=== PATIENT | male | born 1945 | race Caucasian/White ===

== ENCOUNTER → 2020-05-05 | Outpatient (CLI) | payer MEDICARE, OTHER ==
--- NOTE | 2020-05-05 21:32 | CT ---
EXAMINATION TYPE: CT abdomen pelvis wo con DATE OF EXAM: 05/05/2020 HISTORY: Bilateral flank pain and gross hematuria. CT DLP: 398.2 mGycm. Automated Exposure Control for Dose Reduction was Utilized. TECHNIQUE: CT scan of the abdomen and pelvis is performed without oral or IV contrast. COMPARISON: NONE FINDINGS: Within the limitations of a non-contrast study, the following observations are made. LUNG BASES: There is emphysematous change in the basis with moderate areas of scarring and mild groun dglass opacity bilaterally and diffusely. Occasional scattered bleb. More prominent anterior scarring bilaterally. LIVER/GB: Cholecystectomy clips with adjacent streak artifact. PANCREAS: Mild to moderate generalized fat replaced atrophy. SPLEEN: Multiple clips surrounding spleen extending anteriorly inferiorly with adjacent streak artifa ct. ADRENALS: No significant abnormality is seen. KIDNEYS: Left kidney shows 3 fairly large calculi. Calculus upper to midpole level measures 12 mm temitope g axis coronal image 52. Central pelvic calcification measures 12 mm long axis coronal image 47. No h ydronephrosis. Right kidney shows larger staghorn 17 mm calculus in the pelvis coronal image 54 with mild pelvic ful lness and surrounding fat stranding. No hydroureter. No significant calyceal dilatation. No intralumi nal calculi in the bladder, small diverticulum posterior right margin axial image 124 noted. BOWEL: Suboptimal evaluation without enteric contrast. No suspicious small or large bowel dilatation. Surgical sutures at level of sigmoid colon in the pelvis axial image 116. GENITAL ORGANS: Markedly enlarged prostate gland indenting into bladder base. LYMPH NODES: No greater than 1cm abdominal or pelvic lymph nodes are appreciated. OSSEOUS STRUCTURES: Moderate to advanced degenerative change in both hip joints with joint space narr owing and spurring. Heterotopic ossification present bilaterally. Suspect old healed fracture right p ubic symphysis with heterotopic ossification extending anteriorly superiorly. Demineralization with n arrowing of both sacroiliac joints. Straightening of spine with moderate multilevel spurring. Facet a rthropathy lower lumbar levels. OTHER: Multiple surgical clips along the left abdomen and upper pelvis. Moderate calcified plaque dis raleigh abdominal aorta extending into iliac branch vessels. IMPRESSION: 1. Large bilateral renal calculi as detailed above. Right-sided calculus believed to be causing some calyceal irritation. 2. Markedly enlarged prostate gland consistent with BPH.
== END | disposition home or self-care (01) ==
LOC: RADCTMAIN 15:51
PROVIDERS: ATTEND Family Medicine
DX: N20.0 Calculus of kidney (principal); N28.89 Other specified disorders of kidney and ureter
CPT/HCPCS: 74176

== ENCOUNTER → 2020-07-09 | Outpatient (CLI) | payer MEDICARE, OTHER ==
[2020-07-09 11:21] LABS: Basophils % (A) 1 %; Eosinophils # (A) 0.2 k/uL (0-0.7); Eosinophils % (A) 4 %; HCT 42.9 % (39.0-53.0); HGB 13.3 gm/dL (13.0-17.5); Hypochromasia Moderate; Lymphocytes # (A) 1.8 k/uL (1.0-4.8); Lymphocytes % (A) 27 %; MCV 90.4 fL (80.0-100.0); Mean Platelet Volume 7.5; Monocytes # (A) 0.5 k/uL (0-1.0); Monocytes % (A) 8 %; Neutrophils # (A) 3.9 k/uL (1.3-7.7); Neutrophils % (A) 59 %; Platelet Count 190 k/uL (150-450); RBC 4.75 m/uL (4.30-5.90); RDW 13.1 % (11.5-15.5); WBC 6.6 k/uL (3.8-10.6)
[2020-07-09 11:28] LABS: African American GFR (CKD) >90 (>60 ml/min/1.73 sqM); Anion Gap 4 mmol/L; Blood Urea Nitrogen 19 mg/dL (9-20); Carbon Dioxide 28 mmol/L (22-30); Chloride 107 mmol/L (98-107); Glucose 102 mg/dL (74-99); Non-African American GFR(CKD) 85 (>60 ml/min/1.73 sqM); Potassium 5.4 mmol/L (3.5-5.1); Sodium 139 mmol/L (137-145)
[2020-07-09 12:11] LABS: Appearance,Urine Clear (Clear); Bacteria,Urine Rare /hpf; Bilirubin,Urine Negative (Negative); Blood,Urine Large (Negative); Color,Urine Yellow; Glucose,Urine (UA) Negative (Negative); Ketones,Urine Negative (Negative); Leukocyte Esterase,Urine Negative (Negative); Mucus,Urine Rare /hpf; Nitrite,Urine Negative (Negative); PH, Urine 5.5 (5.0-8.0); Protein,Urine Negative (Negative); RBC,Urine 39 /hpf (0-5); Specific Gravity,Urine 1.013 (1.001-1.035); Urobilinogen,Urine <2.0 mg/dL (<2.0); WBC,Urine 7 /hpf (0-5)
== END | disposition home or self-care (01) ==
LOC: LABPAT 09:17
PROVIDERS: ATTEND Urology
DX: Z01.818 Encounter for other preprocedural examination (principal); N20.0 Calculus of kidney; R31.21 Asymptomatic microscopic hematuria
CPT/HCPCS: 36415; 80048; 81001; 85025; 87086

== ENCOUNTER → 2020-07-16 | Day surgery (SDC) | payer MEDICARE, OTHER ==
[2020-07-13 15:28] VITALS: BMI 24.2
[~2020-07-16] MED LIST: DEXAMETHASONE SOD PHOSPHATE 10 MG/ML 1 ML VIAL IV ONE; GENTAMICIN 110 MG in SODIUM CHLORIDE 0.9% 100 ML IVPB ONE; IOPAMIDOL-370 50ML BTL MISCELLANE ONE; LACTATED RINGERS 1,000 ML IV ONE; LACTATED RINGERS 1,000 ML IV SCH; LIDOCAINE 1% (10MG/ML) FOR IV START INTRADERMA PRN; LIDOCAINE 1% INJ 10MG/ML (20 ML MDV) ONE; MIDAZOLAM 2 MG/2 ML VIAL ONE; ONDANSETRON 4 MG/2 ML VIAL IVP ONE; PROPOFOL 10 MG/ML 20 ML VIAL IV ONE; ePHEDrine SULFATE/0.9% NACL/PF 50 MG/5 ML SYRINGE IV ONE; fentaNYL (PF) 50 MCG/ML 2 ML AMP ONE; traMADol 50 MG TAB ONE; traMADol 50 MG TAB PO ONE
--- NOTE | 2020-07-16 11:55 | XR ---
EXAMINATION TYPE: XR KUB DATE OF EXAM: 07/16/2020 11:37 AM CLINICAL HISTORY: Preoperative. Bilateral kidney stones. TECHNIQUE: Supine images of the abdomen and pelvis were obtained COMPARISON: CT abdomen pelvis 05/05/2020.. FINDINGS: There is 2.0 x 1.7 cm calcification over the right interpolar renal shadow. There is 1.3 cm calcification over the left renal upper pole, 1.3 cm calcification over the interpolar kidney, and 0 .9 cm calcification of the left renal lower pole. Calcified splenic artery. Right upper quadrant surg ical clips, left hemiabdominal surgical clips, and pelvic suture material. Nonspecific bowel gas bruno fabio. Degenerative changes of the spine and bilateral hips. IMPRESSION: 1. 2.0 x 1.7 cm calcification of the right interpolar renal shadow. 2. 3 calcifications over the left renal shadow, measuring up to 1.3 cm. 3. Nonspecific bowel gas pattern.
--- NOTE | 2020-07-16 13:41 | P.HPIHPCON ---
History of Present Illness H&P Date: 07/16/20 Chief Complaint: bilateral renal calculi Mr. Espinal is 75 yo male with hx of bilateral renal calculi, he is more symptomatic on the right side. He is KUB demonstrated 2 cm stone on the right and multiple stones on the left. Discussed with him given his stone burden he well most likely will require a minimum of 3 ureteroscopy's to completely clear or his entire stone burden. I did discussed with him the option of doing a PCNL he declined he preferred to proceed with right sided ureteroscopy discussed with him the risks which includes but not limited to bleeding infection injury to the ureter. He understood all the risk and agree to proceed with right-sided ureter oscopy possibly staged and then this will be followed by left-sided ureteroscopy separately Consent for Procedure: I have explained the operation/procedure to the patient, including the risks, benefits, side effects, alternative therapies (including not receiving the proposed treatment or service), the likelihood of the patient achieving his/her goals, and potential recuperation problems for the procedure/sedation/analgesia, as well as any blood products, if indicated. I also explained to the patient the risks, benefits and side effects of the alternatives, as well as the risks related to not receiving the proposed procedure, care, treatment, or services. - Constitutional Constitutional: Denies chills, Denies fever - Cardiovascular Cardiovascular: Denies chest pain, Denies shortness of breath - Respiratory Respiratory: Denies cough, Denies 7 - Gastrointestinal Gastrointestinal: Denies abdominal pain, Denies diarrhea, Denies nausea, Denies vomiting Past Medical History Past Medical History: Atrial Fibrillation, Cancer, COPD, Hypertension, Prostate Disorder Additional Past Medical History / Comment(s): kidney stones, melanoma, pulmonary fibrosis,myositis ossificans of joints, hx leaking bowels hospitalized april -sep 1987 with acute renal failure with dialysis, sepsis,cardiac arrest x2. resulted bowel resection History of Any Multi-Drug Resistant Organisms: None Reported Past Surgical History: Appendectomy, Bowel Resection, Cholecystectomy Additional Past Surgical History / Comment(s): melanoma removed from nose, bowel resection x2, calcification removed deborah hips,deborah knees,shoulder,trach. colostomy with reversal Past Anesthesia/Blood Transfusion Reactions: Previous Problems w/ Anesthesia Additional Past Anesthesia/Blood Transfusion Reaction / Comment(s): spine calcified has had difficulty when spinal placed Smoking Status: Former smoker - Past Family History Sister(s) Family Medical History: Cancer Father Family Medical History: Cancer Medications and Allergies Home Medications Medication Instructions Recorded Confirmed Type ALPRAZolam [Xanax] 0.25 mg PO BID 07/13/20 07/13/20 History Albuterol Inhaler [Ventolin Hfa 2 puff INHALATION BID 07/13/20 07/13/20 History Inhaler] Aspirin [Adult Low Dose Aspirin EC] 81 mg PO DAILY 07/13/20 07/13/20 History Atorvastatin [Lipitor] 40 mg PO HS 07/13/20 07/13/20 History Carvedilol [Coreg] 12.5 mg PO BID 07/13/20 07/13/20 History Gabapentin [Neurontin] 200 mg PO HS 07/13/20 07/13/20 History Lisinopril [Prinivil] 10 mg PO DAILY 07/13/20 07/13/20 History Multivitamins, Thera [Multivitamin 1 tab PO DAILY 07/13/20 07/13/20 History (formulary)] Rivaroxaban [Xarelto] 20 mg PO DAILY 07/13/20 07/13/20 History Tamsulosin HCl [Flomax] 0.8 mg PO DAILY 07/13/20 07/13/20 History traMADol HCL [Ultram] 50 mg PO TID PRN 07/13/20 07/13/20 History Allergies Allergy/AdvReac Type Severity Reaction Status Date / Time iodine Allergy Anaphylaxis Verified 07/13/20 15:11 Surgical - Exam Vital Signs Temp Pulse Resp BP Pulse Ox 97.0 F L 66 18 142/86 96 07/16/20 11:50 07/16/20 11:50 07/16/20 11:50 07/16/20 11:50 07/16/20 11:50 - General well developed, well nourished, no distress - Respiratory normal expansion, normal respiratory effort - Abdomen Abdomen: soft, non tender Results - Labs 07/16/20 12:00 Diabetes panel 07/16/20 Range/Units 12:00 Potassium 5.1 (3.5-5.1) mmol/L Pituitary panel 07/16/20 Range/Units 12:00 Potassium 5.1 (3.5-5.1) mmol/L Adrenal panel 07/16/20 Range/Units 12:00 Potassium 5.1 (3.5-5.1) mmol/L Assessment and Plan Assessment: 75-year-old male with history of bilateral renal stone -Or for right-sided ureteroscopy, holmium laser lithotripsy, stone basketing, and stent placement. This potential's case will be staged
[2020-07-16 15:29] VITALS: TEMP 97.6
[2020-07-16] MEDS: HYDROmorphone 0.5 MG/0.5 ML SYRINGE IVP PRN ×2 (15:38→15:44)
--- NOTE | 2020-07-16 15:52 | P.OP ---
Date of Procedure: 07/16/20 Preoperative Diagnosis: Bilateral renal calculi Postoperative Diagnosis: Same Procedure(s) Performed: Cystoscopy, bilateral, ureteroscopy, ureteral stent placement Implants: 6-Beninese by 26 cm stent bilaterally Anesthesia: DEE Surgeon: Ab Shelby Estimated Blood Loss (ml): 10 Pathology: none sent Condition: stable Disposition: PACU Indications for Procedure: Mr. Espinal is 75 yo male with hx of bilateral renal calculi, he is more symptomatic on the right side. He is KUB demonstrated 2 cm stone on the right and multiple stones on the left. Discussed with him given his stone burden he well most likely will require a minimum of 3 ureteroscopy's to completely clear or his entire stone burden. I did discussed with him the option of doing a PCNL he declined he preferred to proceed with right sided ureteroscopy discussed with him the risks which includes but not limited to bleeding infection injury to the ureter. He understood all the risk and agree to proceed with right-sided ureteroscopy possibly staged and then this will be followed by left-sided ureteroscopy separately Operative Findings: Bilateral medialization of the ureter, bilateral proximal ureteral narrowing unable to pass the access sheath and the scope past the area of narrowing Description of Procedure: The patient was brought to the operating room, general anesthesia was induced. He was prepped and draped in sterile fashion placed in a dorsal lithotomy position. Cystoscopy fitted with a 21 sheath was inserted per urethra, cystoscopy was performed which showed no abnormality within the bladder. Of note patient had a large prostate with significant medial lobe with intravesical extension. There was difficulty visualizing the UO secondary to the large median lobe. The right ureteral orifice was intubated with a sensor wire, and advanced all the way up to the kidney. Of note there was medialization of the ureter and a torturous course of the ureter. Next a 11-13 Beninese access sheath was passed over the wire under fluoroscopy. Resistance was met at the proximal ureter. At this point a flexible ureteroscope was inserted through the access sheath, I then attempted to pass the ureteroscope through the access sheath and through the area of narrowing, but resistance was met secondary to narrowing of the ureter, a small false passage was encoutered. At this point given the narrowing and small false passage, decision was made to abort the ureteroscopy. At this point a sensor wire was advanced through the scope and into the renal pelvis. Next a 6-Beninese by 26 cm stent was passed over the wire, the proximal curl was visualized on fluoroscopy and distal curl was visualized using the scope. At this point attention was carried to the left ureteral orifice which was intubated with a sensor wire. . Of note there was medialization of the ureter. An 11 x 13-Beninese access sheath was passed over the wire into the mid ureter. Resistance met at that level. Next a flexible ureteroscope was inse rted through the access sheath there was a narrowing of the ureter, I attempted to pass the scope past the narrowing but resistance was met. Given the narrowing on that side decision was made to abort ureteroscopy. A sensor wire was passed through the ureteroscope and the ureteroscope was withdrawn with wire in place. Next a 6-Beninese by 26 c m stent was passed over the wire. The proximal curl was visualized on fluoroscopy and distal curl was visualized using the cystoscope. The bladder was emptied and into the case. Patient tolerated the procedure well was taken to PACU in stable condition
--- NOTE | 2020-07-16 16:07 | FL ---
EXAMINATION TYPE: FL guidance operating room DATE OF EXAM: 07/16/2020 CLINICAL HISTORY: Ureteroscopy TECHNIQUE: Fluoroscopy. COMPARISON: None. FINDINGS: Fluoroscopic guidance was provided during procedure for performing physician. A total of 47 seconds of fluoroscopic time was utilized during the procedure and 1 spot images was acquired. IMPRESSION: As Above.
[2020-07-16 16:18] VITALS: BP 148/81; PULSE 61; RESP 17
== END ==
LOC: OR 11:26
PROVIDERS: ATTEND Urology
DX: N20.0 Calculus of kidney (principal); Z87.442 Personal history of urinary calculi; I48.91 Unspecified atrial fibrillation; J44.9 Chronic obstructive pulmonary disease, unspecified; I10 Essential (primary) hypertension; Z90.49 Acquired absence of other specified parts of digestive tract; N42.9 Disorder of prostate, unspecified; Z87.891 Personal history of nicotine dependence; Z85.820 Personal history of malignant melanoma of skin; J84.10 Pulmonary fibrosis, unspecified; Z80.9 Family history of malignant neoplasm, unspecified; Z79.899 Other long term (current) drug therapy; Z79.82 Long term (current) use of aspirin; Z79.02 Long term (current) use of antithrombotics/antiplatelets; Z79.891 Long term (current) use of opiate analgesic; Z91.041 Radiographic dye allergy status; Z79.01 Long term (current) use of anticoagulants
CPT/HCPCS: 84132; 74018; 52332; C2625; C1769; J2250; J1100; J0690; J2405; J2001; J3010; J1580; J2704; J1170; Q9967

== ENCOUNTER 2020-07-28 15:24 | Inpatient (IN) | payer MEDICARE, OTHER ==
[2020-07-28] MEDS ORDERED: DILTIAZEM DRIP BOLUS FROM BAG 1 MG SOLN IV ONE (15:32)
[2020-07-28] MEDS ORDERED: SODIUM CHLORIDE 0.9% 1,000 ML IV STA (15:32)
--- NOTE | 2020-07-28 15:34 | ED ---
General Adult HPI - General Stated complaint: SVT Time Seen by Provider: 07/28/20 15:32 Source: patient, EMS, RN notes reviewed Mode of arrival: EMS Limitations: no limitations - History of Present Illness Initial comments: Patient is a pleasant 75-year-old male presenting to the emergency Department with palpitations. Onset was a couple hours ago. Patient has associated chest pain and dyspnea that are both very mild at this time. EMS did provide adenosine 6, 12, 12 with transient slowing of the heart rate. Patient did feel near syncopal episode. Symptoms are minimal at this time. Patient does have a history of similar symptoms previously however is unclear why. Patient is on Xarelto. Patient states this was started with his previous episode. - Related Data Home Medications Medication Instructions Recorded Confirmed ALPRAZolam [Xanax] 0.25 - 0.5 mg PO DAILY PRN 07/13/20 07/28/20 Albuterol Inhaler [Ventolin Hfa 2 puff INHALATION RT-Q6H PRN 07/13/20 07/28/20 Inhaler] Aspirin [Adult Low Dose Aspirin EC] 81 mg PO DAILY 07/13/20 07/28/20 Atorvastatin [Lipitor] 40 mg PO HS 07/13/20 07/28/20 Carvedilol [Coreg] 12.5 mg PO BID 07/13/20 07/28/20 Gabapentin [Neurontin] 200 mg PO HS 07/13/20 07/28/20 Lisinopril [Prinivil] 10 mg PO DAILY 07/13/20 07/28/20 Multivitamins, Thera [Multivitamin 1 tab PO DAILY 07/13/20 07/28/20 (formulary)] Rivaroxaban [Xarelto] 20 mg PO DAILY 07/13/20 07/28/20 Tamsulosin HCl [Flomax] 0.8 mg PO DAILY 07/13/20 07/28/20 Previous Rx's Medication Instructions Recorded traMADol HCL [Ultram] 50 mg PO Q6HR PRN 3 Days #12 tab 07/16/20 Allergies Allergy/AdvReac Type Severity Reaction Status Date / Time iodine Allergy Anaphylaxis Verified 07/28/20 15:44 Review of Systems ROS Statement: Those systems with pertinent positive or pertinent negative responses have been documented in the HPI. ROS Other: All systems not noted in ROS Statement are negative. Constitutional: Denies: fever Eyes: Denies: eye pain ENT: Denies: ear pain Respiratory: Reports: dyspnea. Denies: cough Cardiovascular: Reports: chest pain Endocrine: Denies: fatigue Gastrointestinal: Denies: abdominal pain Genitourinary: Denies: dysuria Musculoskeletal: Denies: back pain Skin: Denies: rash Neurological: Denies: weakness General Exam Limitations: no limitations General appearance: alert Head exam: Present: normocephalic Eye exam: Present: normal appearance, PERRL ENT exam: Present: normal oropharynx Neck exam: Present: normal inspection Respiratory exam: Present: normal lung sounds bilaterally Cardiovascular Exam: Present: tachycardia Expanded Peripheral pulses: 2+: Radial (R), Radial (L), Dorsalis Pedis (R), Dorsalis Pedis (L) GI/Abdominal exam: Present: soft. Absent: tenderness Extremities exam: Present: normal inspection. Absent: pedal edema, calf tenderness Neurological exam: Present: alert Psychiatric exam: Present: normal affect, normal mood Skin exam: Present: normal color Course Vital Signs 07/28/20 07/28/20 15:27 15:47 Temperature 98.2 F Pulse Rate 210 H 106 H Respiratory 18 18 Rate Blood Pressure 108/94 116/85 O2 Sat by Pulse 99 99 Oximetry - Reevaluation(s) Reevaluation #1: 07/28/20 15:33 I did review rhythm strip by EMS following 6 programs of adenosine with slowing of the heart rate with appearance of underlying flutter waves. 07/28/20 15:52 Repeat EKG at 1548 shows a flutter with a rate of 114. QRS 140. QT 398. QTC 540. Left axis. Right bundle branch block. Inferior Q waves. Nonspecific T waves. EKG Findings - EKG Comments: EKG Findings:: toxic tachycardia with rate 12. pr 128. qrs 148. qt 210. qtc 394. superior axis. right bundle branch block. left posterior fascicular block. q waves in 3. nonspecific st-t. Medical Decision Making - Medical Decision Making Patient reevaluated. Heart rate 117. Patient and family updated on results and plan. Case discussed in detail with Dr. Estrada, who will admit covering for Dr. Patience Silva. Patient did convert with 10 mg IV push of Cardizem. - Lab Data Result diagrams: 07/28/20 15:38 07/28/20 15:38 Lab Results 07/28/20 07/28/20 07/28/20 Range/Units 15:38 15:38 15:38 WBC 7.1 (3.8-10.6) k/uL RBC 4.47 (4.30-5.90) m/uL Hgb 12.3 L (13.0-17.5) gm/dL Hct 39.1 (39.0-53.0) % MCV 87.4 (80.0-100.0) fL MCH 27.4 (25.0-35.0) pg MCHC 31.4 (31.0-37.0) g/dL RDW 13.4 (11.5-15.5) % Plt Count 192 (150-450) k/uL Neutrophils % 63 % Lymphocytes % 23 % Monocytes % 8 % Eosinophils % 4 % Basophils % 1 % Neutrophils # 4.5 (1.3-7.7) k/uL Lymphocytes # 1.6 (1.0-4.8) k/uL Monocytes # 0.6 (0-1.0) k/uL Eosinophils # 0.3 (0-0.7) k/uL Basophils # 0.1 (0-0.2) k/uL Hypochromasia Slight PT 10.9 (9.0-12.0) sec INR 1.1 (<1.2) APTT 25.6 (22.0-30.0) sec Sodium 139 (137-145) mmol/L Potassium 5.1 (3.5-5.1) mmol/L Chloride 110 H (98-107) mmol/L Carbon Dioxide 25 (22-30) mmol/L Anion Gap 4 mmol/L BUN 21 H (9-20) mg/dL Creatinine 0.99 (0.66-1.25) mg/dL Est GFR (CKD-EPI)AfAm 87 (>60 ml/min/1.73 sqM) Est GFR (CKD-EPI)NonAf 75 (>60 ml/min/1.73 sqM) Glucose 119 H (74-99) mg/dL Calcium 8.2 L (8.4-10.2) mg/dL Magnesium 1.9 (1.6-2.3) mg/dL Total Bilirubin 0.5 (0.2-1.3) mg/dL AST 25 (17-59) U/L ALT 14 (4-49) U/L Alkaline Phosphatase 73 (38-126) U/L Troponin I (0.000-0.034) ng/mL Total Protein 5.5 L (6.3-8.2) g/dL Albumin 3.3 L (3.5-5.0) g/dL TSH 0.773 (0.465-4.680) mIU/L 07/28/20 Range/Units 15:38 WBC (3.8-10.6) k/uL RBC (4.30-5.90) m/uL Hgb (13.0-17.5) gm/dL Hct (39.0-53.0) % MCV (80.0-100.0) fL MCH (25.0-35.0) pg MCHC (31.0-37.0) g/dL RDW (11.5-15.5) % Plt Count (150-450) k/uL Neutrophils % % Lymphocytes % % Monocytes % % Eosinophils % % Basophils % % Neutrophils # (1.3-7.7) k/uL Lymphocytes # (1.0-4.8) k/uL Monocytes # (0-1.0) k/uL Eosinophils # (0-0.7) k/uL Basophils # (0-0.2) k/uL Hypochromasia PT (9.0-12.0) sec INR (<1.2) APTT (22.0-30.0) sec Sodium (137-145) mmol/L Potassium (3.5-5.1) mmol/L Chloride (98-107) mmol/L Carbon Dioxide (22-30) mmol/L Anion Gap mmol/L BUN (9-20) mg/dL Creatinine (0.66-1.25) mg/dL Est GFR (CKD-EPI)AfAm (>60 ml/min/1.73 sqM) Est GFR (CKD-EPI)NonAf (>60 ml/min/1.73 sqM) Glucose (74-99) mg/dL Calcium (8.4-10.2) mg/dL Magnesium (1.6-2.3) mg/dL Total Bilirubin (0.2-1.3) mg/dL AST (17-59) U/L ALT (4-49) U/L Alkaline Phosphatase (38-126) U/L Troponin I 0.013 (0.000-0.034) ng/mL Total Protein (6.3-8.2) g/dL Albumin (3.5-5.0) g/dL TSH (0.465-4.680) mIU/L - Radiology Data Radiology results: image reviewed (Chest x-ray does show moderate to severe chronic parenchymal fibrotic changes.) Critical Care Time Critical Care Time: Yes Total Critical Care Time: 34 Disposition Clinical Impression: Atrial flutter with rapid ventricular response Disposition: ADMITTED IP TO THIS HOSP Is patient prescribed a controlled substance at d/c from ED?: No Referrals: Darrick Mondragon DO [Primary Care Provider] - 1-2 days Decision Time: 16:57
[2020-07-28] MEDS ORDERED: DILTIAZEM 5 MG/ML 10 ML VIAL IVP STA (15:35)
[2020-07-28] MEDS: DILTIAZEM 125 MG in SODIUM CHLORIDE 0.9% 100 ML IV SCH (15:45)
[2020-07-28 15:51] LABS: Basophils # (A) 0.1 k/uL (0-0.2); Basophils % (A) 1 %; Eosinophils # (A) 0.3 k/uL (0-0.7); Eosinophils % (A) 4 %; HCT 39.1 % (39.0-53.0); HGB 12.3 gm/dL (13.0-17.5); Hypochromasia Slight; Lymphocytes # (A) 1.6 k/uL (1.0-4.8); Lymphocytes % (A) 23 %; MCH 27.4 pg (25.0-35.0); MCHC 31.4 g/dL (31.0-37.0); MCV 87.4 fL (80.0-100.0); Mean Platelet Volume 7.6; Monocytes # (A) 0.6 k/uL (0-1.0); Monocytes % (A) 8 %; Neutrophils # (A) 4.5 k/uL (1.3-7.7); Neutrophils % (A) 63 %; Platelet Count 192 k/uL (150-450); RBC 4.47 m/uL (4.30-5.90); RDW 13.4 % (11.5-15.5); WBC 7.1 k/uL (3.8-10.6)
[2020-07-28 15:56] LABS: Albumin 3.3 g/dL (3.5-5.0); Calcium 8.2 mg/dL (8.4-10.2); Magnesium 1.9 mg/dL (1.6-2.3); Potassium 5.1 mmol/L (3.5-5.1); Total Bilirubin 0.5 mg/dL (0.2-1.3); Total Protein 5.5 g/dL (6.3-8.2)
[2020-07-28 15:57] LABS: INR 1.1 (<1.2); Partial Thromboplastin Time 25.6 sec (22.0-30.0); Prothrombin Time 10.9 sec (9.0-12.0)
--- NOTE | 2020-07-28 16:06 | XR ---
EXAMINATION TYPE: XR chest 1V portable DATE OF EXAM: 07/28/2020 COMPARISON: NONE HISTORY: Dysrhythmia. TECHNIQUE: Single AP portable frontal upright view of the chest is obtained. FINDINGS: Moderate to severe left apical pleural/parenchymal scarring. Reticular interstitial change s present bilaterally. Poor visualization or silhouetting left hemidiaphragm. Low lung volumes. The cardiac silhouette size is upper limits of normal. Old fracture deformity mid to distal right clavicl e. Surgical changes lateral left upper to mid abdomen partially visualized. Cholecystectomy clips. IMPRESSION: As above. Suspect moderate to severe chronic parenchymal fibrotic changes. Correlation wi th old outside x-ray would be beneficial.
[2020-07-28] MEDS ORDERED: NALOXONE 0.4 MG/ML 1 ML VIAL IV PRN (16:57)
[2020-07-28] MEDS ORDERED: ALBUTEROL NEBULIZED 2.5 MG/3 ML INHALATION PRN (18:39)
[2020-07-28] MEDS ORDERED: traMADol 50 MG TAB PO PRN (18:39)
[2020-07-28] MEDS ORDERED: HYDROcodone/APAP 5-325MG 1 EACH TAB PO PRN (18:40)
[2020-07-28] MEDS ORDERED: HYDROmorphone 0.5 MG/0.5 ML SYRINGE IVP PRN (18:40)
--- NOTE | 2020-07-28 20:17 | HP ---
HISTORY AND PHYSICAL CHIEF COMPLAINT: Palpitations. HISTORY OF PRESENT ILLNESS: This 75-year-old gentleman with a past medical history of multiple medical problems, including atrial fibrillation, history of COPD, pulmonary fibrosis, kidney stones, being followed by Dr. Mondragon in the outpatient setting, recently moved to the area. The patient apparently had episodes of palpitations. The patient was found to have atrial fibrillation. The patient is on Cardizem. Heart rate is 215 at admission and reduced to 117. Patient was admitted for further evaluation. There is no history of any fever, rigor or chills. No history of headache, loss of consciousness, chest pain, palpitation at this time. The patient is also on Xarelto. PAST MEDICAL HISTORY: Atrial fibrillation, chest pain, COPD, pulmonary fibrosis, kidney stones. MEDICATIONS: Ultram, Flomax, Xarelto, multivitamins, Prinivil, Neurontin, Coreg, Lipitor, aspirin, Ventolin, Xanax. ALLERGIES: IODINE. FAMILY HISTORY: No history of heart disease or strokes in the family. SOCIAL HISTORY: Previous history of smoking. No current smoking or alcohol intake. REVIEW OF SYSTEMS: ENT: No diminished hearing. No diminished vision. CARDIOVASCULAR SYSTEM: As mentioned earlier. RESPIRATORY SYSTEM: No cough, hemoptysis. GI: No nausea, vomiting, diarrhea. : No dysuria or retention. NERVOUS SYSTEM: No numbness, weakness. ALLERGY/IMMUNOLOGY: No asthma, hayfever. MUSCULOSKELETAL: As mentioned earlier. HEMATOLOGY/ONCOLOGY: No history of anemia. ENDOCRINE: No history of diabetes, hypothyroidism. CONSTITUTIONAL: As mentioned earlier. DERMATOLOGY: Negative. RHEUMATOLOGY: Negative. PSYCHIATRY: As mentioned earlier. PHYSICAL EXAMINATION: Patient is alert, oriented x3. Pulse is 113, irregular, blood pressure 144/94, respirations 16, temperature 97.4, pulse ox 94% on room air. HEENT: Conjunctivae normal. Oral mucosa moist. CARDIOVASCULAR SYSTEM: S1, S2 muffled. Tachycardic, irregular. RESPIRATORY SYSTEM: Breath sounds diminished at the bases. No rhonchi. No crackles. ABDOMEN: Soft, non-tender. No mass palpable. LEGS: No edema. No swelling. NERVOUS SYSTEM: Higher functions as mentioned earlier. Moves all 4 limbs. No focal motor or sensory deficit. LYMPHATICS: No lymph node palpable in neck, axillae or groin. SKIN: No ulcer, rash, bleeding. JOINTS: No active deforming arthropathy. LABS: WBC 7.2, hemoglobin 12.3. Glucose 119. Calcium is 8.2, albumin 3.3. ASSESSMENT: 1. Paroxysmal atrial fibrillation with fast ventricular rate, on Cardizem drip. 2. Mild anemia; anemia of chronic disease possibly. 3. History of atrial fibrillation. 4. History of chest pain, angina. 5. History of chronic obstructive pulmonary disease. 6. History of pulmonary fibrosis. 7. History of nephrolithiasis. 8. History of bowel resection. 9. History of kidney stents. 10.History of colostomy with reversal. 11.Remote history of nicotine dependence. 12.FULL CODE. RECOMMENDATIONS AND DISCUSSION: In this 75-year-old gentleman who presented with multiple medical issues, we will monitor the patient closely, continue the current medications. Continue Cardizem drip. Otherwise, resume the home medications. Cardiology consultation. Symptomatic treatment will be provided. A 2D echo with Doppler will be ordered. Prognosis is guarded because of multiple complex medical issues. Further recommendations to follow. A copy of this dictation is being forwarded to Dr. Mondragon, who is the primary physician. Home medications will be continued. MMODL / IJN: [id number] /
[2020-07-28] MEDS: GABAPENTIN 100 MG CAP PO SCH (21:16)
[2020-07-28] MEDS: ATORVASTATIN 40 MG TAB PO SCH (21:17)
[2020-07-28] MEDS: RIVAROXABAN 20 MG TAB PO SCH (21:17)
[2020-07-28] MEDS: carvediloL 12.5 MG TAB PO SCH (21:17)
[2020-07-28] MEDS: ALPRAZolam 0.25 MG TAB PO PRN (23:20)
[2020-07-29] MEDS: carvediloL 12.5 MG TAB PO SCH ×2 (06:51→17:14)
[2020-07-29] MEDS: PANTOPRAZOLE 40 MG TABLET PO SCH (06:52)
[2020-07-29 08:25] LABS: Basophils # (A) 0.1 k/uL (0-0.2); Basophils % (A) 1 %; Eosinophils # (A) 0.4 k/uL (0-0.7); Eosinophils % (A) 5 %; HCT 41.7 % (39.0-53.0); HGB 12.9 gm/dL (13.0-17.5); Hypochromasia Slight; Lymphocytes % (A) 25 %; MCH 27.1 pg (25.0-35.0); MCV 87.4 fL (80.0-100.0); Mean Platelet Volume 8.1; Monocytes # (A) 0.6 k/uL (0-1.0); Monocytes % (A) 8 %; Neutrophils % (A) 61 %; Platelet Count 199 k/uL (150-450); RBC 4.77 m/uL (4.30-5.90); RDW 13.4 % (11.5-15.5); WBC 8.1 k/uL (3.8-10.6)
[2020-07-29 08:42] LABS: African American GFR (CKD) >90 (>60 ml/min/1.73 sqM); Anion Gap 5 mmol/L; Blood Urea Nitrogen 16 mg/dL (9-20); Calcium 8.7 mg/dL (8.4-10.2); Carbon Dioxide 24 mmol/L (22-30); Chloride 115 mmol/L (98-107); Glucose 125 mg/dL (74-99); Non-African American GFR(CKD) 85 (>60 ml/min/1.73 sqM); Potassium 4.8 mmol/L (3.5-5.1); Sodium 144 mmol/L (137-145)
[2020-07-29] MEDS ORDERED: RIVAROXABAN 20 MG TAB PO SCH (09:00)
[2020-07-29] MEDS: lisinopriL 10 MG TAB PO SCH (09:33)
[2020-07-29] MEDS: ASPIRIN 81 MG PO SCH (09:33)
[2020-07-29] MEDS: MULTIVITAMINS, THERA 1 EACH TAB PO SCH (09:33)
[2020-07-29] MEDS: ALPRAZolam 0.25 MG TAB PO PRN ×2 (09:33→22:34)
[2020-07-29] MEDS: TAMSULOSIN 0.4 MG CAP.ER.24H PO SCH (09:33)
[2020-07-29] MEDS: RIVAROXABAN 20 MG TAB PO SCH (09:33)
--- NOTE | 2020-07-29 11:43 | P.CRDCN ---
History of Present Illness Consult date: 07/29/20 Consult reason: atrial flutter Chief complaint: Shortness of breath and palpitations History of present illness: This is a pleasant 75-year-old gentleman with history of paroxysmal atrial fibrillation, patient had an episode of atrial fibrillation in August of last year at which time he underwent elective cardioversion, according to the patient he thinks he has remained in normal rhythm since that time. He has a history of COPD, pulmonary fibrosis, kidney stones, coronary artery disease with prior stent placement approximately 5 years ago, details unavailable. Hyperlipidemia, and hypertension. Patient presents to the hospital on this admission with symptoms of shortness of breath and heart racing. He states that his symptoms reminded him exactly of what he had approximately a year ago when he was diagnosed with an atrial arrhythmia at that time. His EKG on presentation here showed atrial flutter with a rapid ventricular response. Patient was given adenosine in the emergency room 3, he is currently on a Cardizem drip at 5 mg per hour and continues to be in atrial flutter this morning. His initial EKG showed atrial flutter with rapid ventricular response and subsequent EKG continues to show atrial flutter with a better rate control. Chest x-ray shows moderate to severe chronic parenchymal fibrotic changes blood pressure 126/70 with a heart rate in the 70s 93% on room air. He is afebrile. White blood cell count 8.1, hemoglobin 12.9, platelet count 199. Sodium 144, potassium 4.8, BUN 16, creatinine 0.8. Troponin 0.013, TSH 0.773 BNP 208. Patient's home medications included Ultram, Flomax, Xarelto 20 mg daily, multivitamin, Prinivil, Neurontin, Coreg, Lipitor, baby aspirin, and albuterol. Patient was seen in consultation by Dr. Tabares, he was recommended to undergo a RIKA with subsequent elective cardioversion tomorrow, details of the procedure as well as the risks are explained to the patient in detail and he is willing to proceed. Past Medical History Past Medical History: Atrial Fibrillation, Chest Pain / Angina, COPD Additional Past Medical History / Comment(s): Pulmonary fibrosis, kidney stones, cardiac arrest x2 stent placement about 5 years ago? Silvia Limon, former dialysis pt History of Any Multi-Drug Resistant Organisms: None Reported Past Surgical History: Appendectomy, Bowel Resection, Cholecystectomy Additional Past Surgical History / Comment(s): Recent stents placed for kidney stones 07/16/20, colostomy with reversal Past Psychological History: No Psychological Hx Reported Smoking Status: Former smoker Past Alcohol Use History: None Reported Past Drug Use History: None Reported - Past Family History Father Family Medical History: Myocardial Infarction ([place]) Medications and Allergies Home Medications Medication Instructions Recorded Confirmed Type ALPRAZolam [Xanax] 0.25 - 0.5 mg PO DAILY PRN 07/13/20 07/28/20 History Albuterol Inhaler [Ventolin Hfa 2 puff INHALATION RT-Q6H PRN 07/13/20 07/28/20 History Inhaler] Aspirin [Adult Low Dose Aspirin EC] 81 mg PO DAILY 07/13/20 07/28/20 History Atorvastatin [Lipitor] 40 mg PO HS 07/13/20 07/28/20 History Carvedilol [Coreg] 12.5 mg PO BID 07/13/20 07/28/20 History Gabapentin [Neurontin] 200 mg PO HS 07/13/20 07/28/20 History Lisinopril [Prinivil] 10 mg PO DAILY 07/13/20 07/28/20 History Multivitamins, Thera [Multivitamin 1 tab PO DAILY 07/13/20 07/28/20 History (formulary)] Rivaroxaban [Xarelto] 20 mg PO DAILY 07/13/20 07/28/20 History Tamsulosin HCl [Flomax] 0.8 mg PO DAILY 07/13/20 07/28/20 History traMADol HCL [Ultram] 50 mg PO Q6HR PRN 3 Days #12 tab 07/16/20 07/28/20 Rx Allergies Allergy/AdvReac Type Severity Reaction Status Date / Time iodine Allergy Anaphylaxis Verified 07/28/20 15:44 Physical Exam Vitals: Vital Signs Temp Pulse Pulse Resp BP BP Pulse Ox 07/29/20 08:15 97.9 F 75 12 126/75 93 L 07/29/20 04:00 98.2 F 84 18 135/66 94 L 07/29/20 00:00 98.2 F 84 16 129/74 97 07/28/20 20:00 97.9 F 95 16 136/84 99 07/28/20 17:45 97.5 F L 113 H 16 144/94 94 L 07/28/20 17:28 98.4 F 107 H 18 124/85 99 07/28/20 15:47 106 H 18 116/85 99 07/28/20 15:27 98.2 F 210 H 18 108/94 99 Intake and Output 07/28/20 07/29/20 07/29/20 22:59 06:59 14:59 Other: # Voids 1 1 3 Weight 75.296 kg 74.8 kg PHYSICAL EXAMINATION: GENERAL: 75-year-old gentleman in no acute distress at the time of my examination HEENT: Head is atraumatic, normocephalic. Pupils equal, round. Sclera anicteric. Conjunctiva are clear. Mucous membranes of the mouth are moist. Neck is supple. There is no elevated jugular venous pressure. No carotid bruit is heard. HEART EXAMINATION: Heart S1 and S2 irregularly irregular CHEST EXAMINATION: On's reveal coarse fibrotic rales throughout. ABDOMEN: Soft, nontender. Bowel sounds are heard. No organomegaly noted. EXTREMITIES: 2+ peripheral pulses with no evidence of peripheral edema and no calf tenderness noted. NEUROLOGIC patient is awake, alert and oriented 3 . Results 07/29/20 07:03 07/29/20 07:03 Cardiac Enzymes 07/28/20 07/28/20 Range/Units 15:38 15:38 AST 25 (17-59) U/L Troponin I 0.013 (0.000-0.034) ng/mL Coagulation 07/28/20 Range/Units 15:38 PT 10.9 (9.0-12.0) sec APTT 25.6 (22.0-30.0) sec CBC 07/28/20 07/29/20 Range/Units 15:38 07:03 WBC 7.1 8.1 (3.8-10.6) k/uL RBC 4.47 4.77 (4.30-5.90) m/uL Hgb 12.3 L 12.9 L (13.0-17.5) gm/dL Hct 39.1 41.7 (39.0-53.0) % Plt Count 192 199 (150-450) k/uL Comprehensive Metabolic Panel 07/28/20 07/29/20 Range/Units 15:38 07:03 Sodium 139 144 (137-145) mmol/L Potassium 5.1 4.8 (3.5-5.1) mmol/L Chloride 110 H 115 H (98-107) mmol/L Carbon Dioxide 25 24 (22-30) mmol/L BUN 21 H 16 (9-20) mg/dL Creatinine 0.99 0.89 (0.66-1.25) mg/dL Glucose 119 H 125 H (74-99) mg/dL Calcium 8.2 L 8.7 (8.4-10.2) mg/dL AST 25 (17-59) U/L ALT 14 (4-49) U/L Alkaline Phosphatase 73 (38-126) U/L Total Protein 5.5 L (6.3-8.2) g/dL Albumin 3.3 L (3.5-5.0) g/dL Current Medications Generic Name Dose Route Start Last Admin Trade Name Freq PRN Reason Stop Dose Admin Hydrocodone Bitart/Acetaminophen 1 each 07/28/20 18:40 Hydrocodone/Apap 5-325mg 1 Each Tab PO Q6HR PRN Pain Albuterol Sulfate 2.5 mg 07/28/20 18:39 Albuterol Nebulized 2.5 Mg/3 Ml INHALATION RT-Q6H PRN Shortness Of Breath Alprazolam 0.25 mg 07/28/20 18:39 07/29/20 09:33 Alprazolam 0.25 Mg Tab PO 0.25 mg DAILY PRN Administration Anxiety Aspirin 81 mg 07/29/20 09:00 07/29/20 09:33 Aspirin 81 Mg PO 81 mg DAILY ARNULFO Administration Atorvastatin Calcium 40 mg 07/28/20 21:00 07/28/20 21:17 Atorvastatin 40 Mg Tab PO 40 mg HS ARNULFO Administration Carvedilol 12.5 mg 07/28/20 19:00 07/29/20 06:51 Carvedilol 12.5 Mg Tab PO 12.5 mg AC-BID ARNULFO Administration Gabapentin 200 mg 07/28/20 21:00 07/28/20 21:16 Gabapentin 100 Mg Cap PO 200 mg HS ARNULFO Administration Hydromorphone HCl 0.5 mg 07/28/20 18:40 Hydromorphone 0.5 Mg/0.5 Ml Syringe IVP Q6HR PRN Severe Pain Diltiazem HCl 125 mg/ Sodium 125 mls @ 5 mls/hr 07/28/20 15:45 09/16/20 15:45 Chloride IV 5 mg/hr .Q24H ARNULFO 5 mls/hr Administration 5 MG/HR Sodium Chloride 1,000 mls @ 20 mls/hr 07/29/20 11:15 Saline 0.9% IV .Q24H ARNULFO Lisinopril 10 mg 07/29/20 09:00 07/29/20 09:33 Lisinopril 10 Mg Tab PO 10 mg DAILY ARNULFO Administration Multivitamins 1 each 07/29/20 09:00 07/29/20 09:33 Multivitamins, Thera 1 Each Tab PO 1 each DAILY ARNULFO Administration Naloxone HCl 0.2 mg 07/28/20 16:57 Naloxone 0.4 Mg/Ml 1 Ml Vial IV Q2M PRN Opioid Reversal Pantoprazole Sodium 40 mg 07/29/20 07:30 07/29/20 06:52 Pantoprazole 40 Mg Tablet PO 40 mg AC-BRKFST ARNULFO Administration Rivaroxaban 20 mg 07/28/20 20:29 07/29/20 09:33 Rivaroxaban 20 Mg Tab PO 20 mg DAILY ARNULFO Administration Tamsulosin HCl 0.8 mg 07/29/20 09:00 07/29/20 09:33 Tamsulosin 0.4 Mg Cap.Er.24h PO 0.8 mg DAILY ARNULFO Administration Tramadol HCl 50 mg 07/28/20 18:39 Tramadol 50 Mg Tab PO Q6HR PRN Pain Intake and Output 07/28/20 07/29/20 07/29/20 22:59 06:59 14:59 Other: # Voids 1 1 3 Weight 75.296 kg 74.8 kg 07/29/20 07:03 07/29/20 07:03 EKG Interpretations (text) EKG shows atrial flutter with a rapid ventricular response Assessment and Plan Plan: Assessment and plan #1 typical atrial flutter with rapid ventricular response #2 history of paroxysmal atrial fibrillation #3 hypertension #4 hyperlipidemia #5 coronary artery disease with prior stent placement approximately 5 years ago #6 COPD #7 pulmonary fibrosis #8 kidney stones Plan We will obtain an echocardiogram with Doppler study. Patient has also been advised to undergo RIKA with elective cardioversion tomorrow by Dr. Villa. The procedure as well as the risks were explained to the patient in detail. Further recommendations will be based on these findings and the patient's overall clinical course. DNP note has been reviewed, I agree with a documented findings and plan of care. Patient was seen and examined.
[2020-07-29] MEDS: DILTIAZEM 125 MG in SODIUM CHLORIDE 0.9% 100 ML IV SCH (12:19)
--- NOTE | 2020-07-29 16:10 | PN ---
PROGRESS NOTE DATE OF SERVICE: 07/29/2020 This is a 75-year-old gentleman who has recently moved to the area, is admitted with atrial flutter with rapid ventricular rate. The initial EKG showed possibly 2-1 AV conduction. The patient also had history of atrial fibrillation in the past. The patient is on Cardizem. Cardiology following the patient closely. Cardioversion has been planned tomorrow. No chest pain. No palpitations. No fever. PHYSICAL EXAMINATION: Alert and oriented x3. Pulse 75, blood pressure 129/75, respiration 12, temperature 97.9, pulse ox 93% on room air. HEENT: Conjunctivae normal. Oral mucosa moist. NECK: No jugular venous distension. CARDIOVASCULAR SYSTEM: Irregular. RESPIRATORY: Breath sounds diminished at the bases, no rhonchi, no crackles. ABDOMEN: Soft. NERVOUS SYSTEM: No focal deficit deficits. LABS: WBC 8.1, hemoglobin 12.9. ASSESSMENT: 1. Atrial flutter with fast ventricular rate with possible 2-1 AV conduction with Cardizem drip. 2. History of paroxysmal atrial fibrillation. 3. Mild anemia of chronic disease possibly. 4. History of chest pain angina. 5. History of chronic obstructive pulmonary disease. 6. History of pulmonary fibrosis. 7. History of nephrolithiasis. 8. History of bowel resection. 9. History of kidney stents. 10.History of colostomy with reversal. 11.Remote history of nicotine dependence. 12.Hyperchloremia. RECOMMENDATION: Recommend to continue current medications, symptomatic treatment. Otherwise at this time I would continue the Cardizem, cardioversion per Cardiology. Continue the rest of medication. Guarded prognosis. Further recommendations to follow. MMODL / IJN: [id number] /
[2020-07-29] MEDS: SODIUM CHLORIDE 0.9% 1,000 ML IV SCH (17:10)
[2020-07-29] MEDS: ATORVASTATIN 40 MG TAB PO SCH (19:48)
[2020-07-29] MEDS: GABAPENTIN 100 MG CAP PO SCH (19:48)
[2020-07-30] MEDS: BENZOCAINE SPRAY 1 CAN TOPICAL ONE ×2 (07:00→07:10)
[2020-07-30] MEDS ORDERED: SODIUM CHLORIDE 0.9% 1,000 ML IV ONE ×2 (07:09)
[2020-07-30] MEDS ORDERED: PROPOFOL 10 MG/ML 20 ML VIAL IV ONE (07:20)
[2020-07-30] MEDS ORDERED: SODIUM CHLORIDE 0.9% 1,000 ML IV SCH (08:15)
[2020-07-30] MEDS: ALPRAZolam 0.25 MG TAB PO PRN (08:52)
[2020-07-30 09:47] LABS: Basophils # (A) 0.1 k/uL (0-0.2); Basophils % (A) 1 %; Eosinophils # (A) 0.3 k/uL (0-0.7); Eosinophils % (A) 4 %; HCT 37.5 % (39.0-53.0); HGB 11.7 gm/dL (13.0-17.5); Hypochromasia Slight; Lymphocytes # (A) 1.6 k/uL (1.0-4.8); Lymphocytes % (A) 24 %; MCH 27.4 pg (25.0-35.0); MCHC 31.3 g/dL (31.0-37.0); MCV 87.5 fL (80.0-100.0); Mean Platelet Volume 7.6; Monocytes # (A) 0.4 k/uL (0-1.0); Monocytes % (A) 6 %; Neutrophils # (A) 4.2 k/uL (1.3-7.7); Neutrophils % (A) 63 %; Platelet Count 196 k/uL (150-450); RBC 4.29 m/uL (4.30-5.90); RDW 13.4 % (11.5-15.5); WBC 6.7 k/uL (3.8-10.6)
[2020-07-30 09:50] LABS: African American GFR (CKD) >90 (>60 ml/min/1.73 sqM); Anion Gap 5 mmol/L; Blood Urea Nitrogen 22 mg/dL (9-20); Calcium 8.3 mg/dL (8.4-10.2); Carbon Dioxide 24 mmol/L (22-30); Chloride 112 mmol/L (98-107); Glucose 100 mg/dL (74-99); Non-African American GFR(CKD) 82 (>60 ml/min/1.73 sqM); Potassium 4.6 mmol/L (3.5-5.1); Sodium 141 mmol/L (137-145)
[2020-07-30] MEDS: PANTOPRAZOLE 40 MG TABLET PO SCH (10:25)
[2020-07-30] MEDS: MULTIVITAMINS, THERA 1 EACH TAB PO SCH (10:25)
[2020-07-30] MEDS: ASPIRIN 81 MG PO SCH (10:25)
[2020-07-30] MEDS: carvediloL 12.5 MG TAB PO SCH (10:27)
[2020-07-30] MEDS: RIVAROXABAN 20 MG TAB PO SCH (10:27)
[2020-07-30] MEDS: lisinopriL 10 MG TAB PO SCH (10:27)
[2020-07-30] MEDS: TAMSULOSIN 0.4 MG CAP.ER.24H PO SCH (10:29)
--- NOTE | 2020-07-30 11:00 | ECHOT ---
TRANSESOPHAGEAL ECHOCARDIOGRAM INDICATION: Atypical atrial flutter. PROCEDURE NOTE: 2D color Doppler evaluation has been performed on this. After obtaining informed consent, transesophageal echocardiogram was performed in left lateral position using an Omni plane probe. Local and IV sedation were obtained by the crm system administrator. The patient tolerated the procedure well without any obvious immediate complications. FINDINGS: 1. There is no intra cardiac thrombus within the left atrial appendage, left atrium, right atrium or right ventricle. 2. Left ventricle normal size and systolic function. 3. Left atrium mildly enlarged. 4. Right atrium, right ventricle seen within normal limits. 5. Interatrial septum appears aneurysmally dilated. There is no evidence of left-to- right shunt by color-flow Doppler or [id number] shunt by agitated saline contrast study. Color Doppler evaluation of the valve structures shows that the mitral valve has mild mitral regurgitation. Tricuspid valve has mild tricuspid regurgitation. 6. Aortic valve is a 3-leaflet valve. There is no evidence of aortic regurgitation. Aorta shows mild atherosclerotic changes. CONCLUSIONS: No intracardiac thrombus. PLAN: Patient will undergo cardioversion. MMODL / IJN: [id number] /
--- NOTE | 2020-07-30 11:15 | CE ---
CARDIAC ELECTROPHYSIOLOGY REPORT CARDIOVERSION: INDICATION: Atrial flutter. PROCEDURE DETAILS: After obtaining informed consent, the patient was anesthetized by the instrument inspector. Transesophageal echocardiogram was performed to rule out intracardiac thrombus following which, and the patient had been on anticoagulants. He underwent cardioversion with 200 joules of single PC shock converted to sinus rhythm and will have an EKG done to confirm sinus rhythm. MMJEREMY / CANDIDON: [id number] /
[2020-07-30 13:09] VITALS: BP 124/62; PULSE 60; RESP 14; TEMP 97
[2020-07-30] MEDS: SODIUM CHLORIDE 0.9% 1,000 ML IV SCH (15:00)
--- NOTE | 2020-07-30 19:18 | ECHOF ---
Referral Reason:afib MEASUREMENTS -------- HEIGHT: 175.3 cm WEIGHT: 74.4 kg BP: 135/66 IVSd: 1.3 cm (0.6 - 1.1) LVIDd: 4.0 cm (3.9 - 5.3) LVPWd: 1.3 cm (0.6 - 1.1) EDV(Teich): 70 ml IVSs: 1.9 cm LVIDs: 2.6 cm LVPWs: 1.9 cm %IVS Thck: 47 % ESV(Teich): 25 ml EF(Teich): 64 % %FS: 34 % SV(Teich): 45 ml LA Diam: 3.1 cm (2.7 - 3.8) RVIDd: 3.5 cm (< 3.3) IVC: 18.98 mm LALs A4C: 4.3 cm LAAs A4C: 12.8 cm LAESV A-L A4C: 33 ml LAESV MOD A4C: 28 ml LALs A2C: 5.1 cm LAAs A2C: 13.0 cm LAESV A-L A2C: 28 ml LAESV MOD A2C: 26 ml LAESV(A-L): 33 ml LAESV Index (A-L): 17.49 ml/m Ao Diam: 3.7 cm (2.0 - 3.7) AV Cusp: 2.3 cm (1.5 - 2.6) EPSS: 0.6 cm MV DecT: 88 ms MV PHT: 27 ms MVA By PHT: 8.3 cm AV Vmax: 1.03 m/s AV maxP.20 mmHg TR Vmax: 2.43 m/s TR maxP.65 mmHg RAP: 5.00 mmHg RVSP: 28.65 mmHg MV EF SLOPE: 171.54 mm/s (70 - 150) MV EXCURSION: 24.82 mm (> 18.000) FINDINGS -------- Atrial fibrillation. This was a technically adequate study. The left ventricular size is normal. There is mild concentric left ventricular hypertrophy. Overa ll left ventricular systolic function is mildly impaired with, an EF between 45 - 50 %. The right ventricle is mildly enlarged. Normal LA size by volume 22+/-6 ml/m2. The right atrium is normal in size. Aneurysmal Interatrial septum. The aortic valve is trileaflet and appears structurally normal. Mild mitral regurgitation is present. Mild tricuspid regurgitation present. Right ventricular systolic pressure is normal at < 35 mmHg. There is no pulmonic regurgitation present. The aortic root size is normal. Normal inferior vena cava with normal inspiratory collapse consistent with estimated right atrial pre ssure of 5 mmHg. There is no pericardial effusion. CONCLUSIONS -------- 1. The left ventricular size is normal. 2. There is mild concentric left ventricular hypertrophy. 3. Overall left ventricular systolic function is mildly impaired with, an EF between 45 - 50 %. 4. The right ventricle is mildly enlarged. 5. Mild mitral regurgitation is present. 6. Mild tricuspid regurgitation present. 7. There is no pericardial effusion. HIDES SOAKER: Kourtney Nathan RDCS
--- NOTE | 2020-08-02 14:34 | P.DS ---
Providers Date of admission: 07/28/20 16:57 Expected date of discharge: 07/30/20 Attending physician: Amanda Estrada Consults: 07/28/20 16:58 Consult Physician Urgent Consulting Provider: Josh Ley Consult Reason/Comments: A flutter with RVR Do you want consulting provider notified?: Yes Primary care physician: [facility] Course: 75-year-old gentleman with history of paroxysmal atrial fibrillation, patient had an episode of atrial fibrillation in August of last year at which time he underwent elective cardioversion, according to the patient he thinks he has remained in normal rhythm since that time. He has a history of COPD, pulmonary fibrosis, kidney stones, coronary artery disease with prior stent placement approximately 5 years ago, details unavailable. Hyperlipidemia, and hypertension. Patient presents to the hospital on this admission with symptoms of shortness of breath and heart racing. He states that his symptoms reminded him exactly of what he had approximately a year ago when he was diagnosed with an atrial arrhythmia at that time. His EKG on presentation here showed atrial flutter with a rapid ventricular response. Patient was given adenosine in the emergency room 3, he is currently on a Cardizem drip at 5 mg per hour and continues to be in atrial flutter this morning. His initial EKG showed atrial flutter with rapid ventricular response and subsequent EKG continues to show atrial flutter with a better rate control. Chest x-ray shows moderate to severe chronic parenchymal fibrotic changes blood pressure 126/70 with a heart rate in the 70s 93% on room air. He is afebrile. White blood cell count 8.1, hemoglobin 12.9, platelet count 199. Sodium 144, potassium 4.8, BUN 16, creatinine 0.8. Troponin 0.013, TSH 0.773 BNP 208. Patient's home medications included Ultram, Flomax, Xarelto 20 mg daily, multivitamin, Prinivil, Neurontin, Coreg, Lipitor, baby aspirin, and albuterol. Patient was seen in consultation by Dr. Tabares, he was recommended to undergo a RIKA with subsequent elective cardioversion tomorrow, details of the procedure as well as the risks are explained to the patient in detail and he is willing to proceed. patient underwent CVN without any complications and was dc'ed in a stable condition Plan - Discharge Summary Discharge Rx Participant: No New Discharge Prescriptions: Continue Tamsulosin HCl [Flomax] 0.8 mg PO DAILY Rivaroxaban [Xarelto] 20 mg PO DAILY Multivitamins, Thera [Multivitamin (formulary)] 1 tab PO DAILY Lisinopril [Prinivil] 10 mg PO DAILY Gabapentin [Neurontin] 200 mg PO HS Carvedilol [Coreg] 12.5 mg PO BID Atorvastatin [Lipitor] 40 mg PO HS Aspirin [Adult Low Dose Aspirin EC] 81 mg PO DAILY ALPRAZolam [Xanax] 0.25 - 0.5 mg PO DAILY PRN PRN Reason: Anxiety Albuterol Inhaler [Ventolin Hfa Inhaler] 2 puff INHALATION RT-Q6H PRN PRN Reason: Shortness Of Breath traMADol HCL [Ultram] 50 mg PO Q6HR PRN 3 Days #12 tab PRN Reason: Pain Discharge Medication List ALPRAZolam [Xanax] 0.25 - 0.5 mg PO DAILY PRN 07/13/20 [History] Albuterol Inhaler [Ventolin Hfa Inhaler] 2 puff INHALATION RT-Q6H PRN 07/13/20 [History] Aspirin [Adult Low Dose Aspirin EC] 81 mg PO DAILY 07/13/20 [History] Atorvastatin [Lipitor] 40 mg PO HS 07/13/20 [History] Carvedilol [Coreg] 12.5 mg PO BID 07/13/20 [History] Gabapentin [Neurontin] 200 mg PO HS 07/13/20 [History] Lisinopril [Prinivil] 10 mg PO DAILY 07/13/20 [History] Multivitamins, Thera [Multivitamin (formulary)] 1 tab PO DAILY 07/13/20 [History] Rivaroxaban [Xarelto] 20 mg PO DAILY 07/13/20 [History] Tamsulosin HCl [Flomax] 0.8 mg PO DAILY 07/13/20 [History] traMADol HCL [Ultram] 50 mg PO Q6HR PRN 3 Days #12 tab 07/16/20 [Rx] Follow up Appointment(s)/Referral(s): Darrick Mondragon DO [Primary Care Provider] - 1 Week (Sunday 2:20 [facility] PLEASE CALL WHEN YOU ARRIVE TO [facility]) Robert Villa MD [STAFF PHYSICIAN] - 3 Weeks (OFFICE WILL CALL YOU WITH APPOINTMENT TIME) Patient Instructions/Handouts: A-fib (Atrial Fibrillation) (DC), Cardioversion (GEN) Discharge Disposition: HOME SELF-CARE
== END 2020-07-30 14:54 | disposition home or self-care (01) | DRG 310 ==
LOC: EC 15:24 → 3SCARD 16:57
PROVIDERS: ADMIT Hospitalist; ATTEND Hospitalist
PROC: 5A2204Z Restoration of Cardiac Rhythm, Single (ICD-10-PCS; principal; 2020-07-30 07:15)
PROC: B246ZZ4 Ultrasonography of Right and Left Heart, Transesophageal (ICD-10-PCS; principal; 2020-07-30 07:15)
DX: I48.3 Typical atrial flutter (principal); I48.0 Paroxysmal atrial fibrillation; E78.5 Hyperlipidemia, unspecified; E87.8 Other disorders of electrolyte and fluid balance, not elsewhere classified; I10 Essential (primary) hypertension; I25.119 Atherosclerotic heart disease of native coronary artery with unspecified angina pectoris; I47.1 Supraventricular tachycardia; J44.9 Chronic obstructive pulmonary disease, unspecified; J84.10 Pulmonary fibrosis, unspecified; Z79.01 Long term (current) use of anticoagulants; Z79.82 Long term (current) use of aspirin; Z79.899 Other long term (current) drug therapy; D63.8 Anemia in other chronic diseases classified elsewhere; Z82.49 Family history of ischemic heart disease and other diseases of the circulatory system; Z87.442 Personal history of urinary calculi; Z87.891 Personal history of nicotine dependence; Z90.49 Acquired absence of other specified parts of digestive tract; Z95.5 Presence of coronary angioplasty implant and graft
CPT/HCPCS: 36415; 71045; 80048; 80053; 83735; 83880; 84443; 84484; 85025; 85610; 85730; 92960; 93005; 93306; 93312; 93320; 93325; 96365; 96366; 96376; 99291

== ENCOUNTER → 2020-08-23 | Outpatient (CLI) | payer MEDICARE, OTHER ==
[2020-08-23 11:30] LABS: Basophils % (A) 1 %; Eosinophils # (A) 0.3 k/uL (0-0.7); Eosinophils % (A) 6 %; HCT 32.6 % (39.0-53.0); HGB 10.1 gm/dL (13.0-17.5); Hypochromasia Marked; Lymphocytes # (A) 1.4 k/uL (1.0-4.8); Lymphocytes % (A) 29 %; MCH 27.1 pg (25.0-35.0); MCV 87.4 fL (80.0-100.0); Mean Platelet Volume 7.3; Monocytes # (A) 0.4 k/uL (0-1.0); Monocytes % (A) 9 %; Neutrophils # (A) 2.6 k/uL (1.3-7.7); Neutrophils % (A) 53 %; Platelet Count 189 k/uL (150-450); RBC 3.73 m/uL (4.30-5.90); WBC 4.9 k/uL (3.8-10.6)
[2020-08-23 11:38] LABS: Calcium 8.7 mg/dL (8.4-10.2)
[2020-08-23 11:39] LABS: Potassium 4.5 mmol/L (3.5-5.1)
[2020-08-23 11:47] LABS: Appearance,Urine Cloudy (Clear); Bacteria,Urine Rare /hpf; Bilirubin,Urine Negative (Negative); Blood,Urine Large (Negative); Color,Urine Red; Glucose,Urine (UA) Negative (Negative); Ketones,Urine Negative (Negative); Leukocyte Esterase,Urine Small (Negative); Mucus,Urine Rare /hpf; Nitrite,Urine Negative (Negative); PH, Urine 5.5 (5.0-8.0); Protein,Urine 2+ (Negative); RBC,Urine >182 /hpf (0-5); Specific Gravity,Urine 1.014 (1.001-1.035); Urobilinogen,Urine <2.0 mg/dL (<2.0); WBC,Urine 45 /hpf (0-5)
== END | disposition home or self-care (01) ==
LOC: LABPAT 10:30
PROVIDERS: ATTEND Urology
DX: Z01.818 Encounter for other preprocedural examination (principal); N20.0 Calculus of kidney; R31.29 Other microscopic hematuria
CPT/HCPCS: 36415; 80048; 81001; 85025; 87086

== ENCOUNTER 2020-08-30 09:45 | Day surgery (SDC) | payer MEDICARE, OTHER ==
--- NOTE | 2020-08-28 23:28 | P.HPIHPCON ---
History of Present Illness H&P Date: 08/28/20 Chief Complaint: bilateral renal calculi Mr Espinal is 75 yo male with hx of bilateral renal calculi, he is more symptomatic from his stone. He underwent bilateral ureteroscopy on 07/16 at that time it was noticed that he had bilateral ureteral narrowing and stent were placed at that time. He presents today for left sided ureteroscopy. I discussed with him he has significant stone burden. His KUB demonstrated 2 cm stone on the right and multiple stones on the left all larger than 1 cm. Discussed with him given his stone burden he well most likely will require a minimum of 3 ureteroscopy's to completely clear or his entire stone burden. I did discussed with him the option of doing a PCNL he declined he preferred to proceed with ureteroscopy discussed with him the risks which includes but not limited to bleeding infection injury to the ureter. He understood all the risk and agree to proceed with left-sided ureteroscopy possibly staged and then this will be followed by right-sided ureteroscopy separately Consent for Procedure: I have explained the operation/procedure to the patient, including the risks, benefits, side effects, alternative therapies (including not receiving the proposed treatment or service), the likelihood of the patient achieving his/her goals, and potential recuperation problems for the procedure/sedation/analgesia, as well as any blood products, if indicated. I also explained to the patient the risks, benefits and side effects of the alternatives, as well as the risks related to not receiving the proposed procedure, care, treatment, or services. Medications and Allergies Home Medications Medication Instructions Recorded Confirmed Type ALPRAZolam [Xanax] 0.25 mg PO BID 07/13/20 08/26/20 History Albuterol Inhaler [Ventolin Hfa 2 puff INHALATION RT-Q6H PRN 07/13/20 08/26/20 History Inhaler] Aspirin [Adult Low Dose Aspirin EC] 81 mg PO DAILY 07/13/20 08/26/20 History Atorvastatin [Lipitor] 40 mg PO HS 07/13/20 08/26/20 History Carvedilol [Coreg] 12.5 mg PO BID 07/13/20 08/26/20 History Gabapentin [Neurontin] 200 mg PO HS 07/13/20 08/26/20 History Lisinopril [Prinivil] 10 mg PO QAM 07/13/20 08/26/20 History Multivitamins, Thera [Multivitamin 1 tab PO DAILY 07/13/20 08/26/20 History (formulary)] Rivaroxaban [Xarelto] 20 mg PO DAILY 07/13/20 08/26/20 History Tamsulosin HCl [Flomax] 0.8 mg PO DAILY 07/13/20 08/26/20 History traMADol HCL [Ultram] 50 mg PO Q6HR PRN 3 Days #12 tab 07/16/20 08/26/20 Rx Famotidine [Pepcid] 20 mg PO DAILY 08/26/20 08/26/20 History Allergies Allergy/AdvReac Type Severity Reaction Status Date / Time iodine Allergy Anaphylaxis Verified 08/26/20 10:01 Surgical - Exam - General well developed, well nourished - Respiratory normal expansion, normal respiratory effort - Abdomen Abdomen: soft, non tender - Psychiatric oriented to time, oriented to person, oriented to place Assessment and Plan Assessment: 75 yo male with hx of bilateral renal stone -OR for left sided staged ureteroscopy with holmium laser lithotrupsy and stone basketting.
[~2020-08-30 09:45] MED LIST changes: +GENTAMICIN 100 MG in SODIUM CHLORIDE 0.9% 100 ML IVPB ONE; -GENTAMICIN 110 MG in SODIUM CHLORIDE 0.9% 100 ML IVPB ONE; +HYDROmorphone 0.5 MG/0.5 ML SYRINGE IVP PRN; -IOPAMIDOL-370 50ML BTL MISCELLANE ONE; -LACTATED RINGERS 1,000 ML IV ONE; -LIDOCAINE 1% (10MG/ML) FOR IV START INTRADERMA PRN; -LIDOCAINE 1% INJ 10MG/ML (20 ML MDV) ONE; +MIDAZOLAM 2 MG/2 ML VIAL IV PRN; -MIDAZOLAM 2 MG/2 ML VIAL ONE; -PROPOFOL 10 MG/ML 20 ML VIAL IV ONE; -ePHEDrine SULFATE/0.9% NACL/PF 50 MG/5 ML SYRINGE IV ONE; -fentaNYL (PF) 50 MCG/ML 2 ML AMP ONE; -traMADol 50 MG TAB ONE; -traMADol 50 MG TAB PO ONE
[2020-08-30] MEDS ORDERED: IOPAMIDOL-370 50ML BTL MISCELLANE ONE (10:08)
[2020-08-30] MEDS ORDERED: LIDOCAINE 1% (10MG/ML) FOR IV START INTRADERMA ONE (10:20)
[2020-08-30] MEDS ORDERED: ROCURONIUM 10 MG/ML (10 ML VIAL) IV ONE (10:31)
[2020-08-30] MEDS ORDERED: GLYCOPYRROLATE 0.2 MG/ML 2 ML VIAL ONE (10:31)
[2020-08-30] MEDS ORDERED: LIDOCAINE 1% INJ 10MG/ML (20 ML MDV) ONE (10:31)
[2020-08-30] MEDS ORDERED: ePHEDrine SULFATE/0.9% NACL/PF 50 MG/5 ML SYRINGE IV ONE (10:31)
[2020-08-30] MEDS ORDERED: PHENYLEPHRINE-0.9% NACL SYG 1 MG/10 ML SYRINGE ONE (10:31)
[2020-08-30] MEDS ORDERED: PROPOFOL 10 MG/ML 20 ML VIAL IV ONE (10:31)
[2020-08-30] MEDS ORDERED: fentaNYL (PF) 50 MCG/ML 2 ML AMP ONE (10:31)
[2020-08-30] MEDS ORDERED: SUCCINYLCHOLINE CHLORIDE 100 MG/5 ML SYR IV ONE (10:31)
--- NOTE | 2020-08-30 10:37 | XR ---
EXAMINATION TYPE: XR KUB DATE OF EXAM: 08/30/2020 10:02 AM CLINICAL HISTORY: Preoperative right-sided kidney stone. TECHNIQUE: Supine images of the abdomen and pelvis were obtained COMPARISON: 07/16/2020 KUB. 05/05/2020 CT abdomen pelvis. FINDINGS: Interval placement of bilateral ureteral stents proximally coiled over the expected locatio n of the renal pelvis and distally over the expected location of the urinary bladder. Redemonstrated right renal calculus measuring 15 x 19 mm. Multiple left sided nephrolithiasis measuring up to 14 mm, 12 mm, and 9 mm. Right upper quadrant surgical clips. Left hemiabdominal and pelvic surgical clips a nd suture postsurgical changes. Calcification over the pelvis corresponds with posterior subcutaneous calcification seen on CT. Calcified atherosclerotic disease. Degenerative changes of the spine and hips. Nonspecific bowel gas pattern IMPRESSION: 1. 19 mm right renal calculus. 2. 3 left renal calculi measuring up to 14 mm. 3. Bilateral ureteral stents with expected radiographic appearance. 4. Nonspecific bowel gas pattern.
[2020-08-30] MEDS ORDERED: LACTATED RINGERS 1,000 ML IV ONE (11:28)
[2020-08-30 13:39] VITALS: TEMP 96.8
[2020-08-30 13:51] VITALS: RESP 16
--- NOTE | 2020-08-30 13:56 | P.OP ---
Date of Procedure: 08/30/20 Preoperative Diagnosis: Left renal calculi Postoperative Diagnosis: Same Procedure(s) Performed: Cystoscopy, left ureteroscopy, holmium laser lithotripsy, stone basketing and stent exchange Implants: 6-Eritrean by 26 cm stent Anesthesia: DEE Surgeon: Ab Shelby Pathology: other (Left renal calculi) Condition: stable Disposition: PACU Indications for Procedure: Mr Espinal is 75 yo male with hx of bilateral renal calculi, he is more symptomatic from his stone. He underwent bilateral ureteroscopy on 07/16 at that time it was noticed that he had bilateral ureteral narrowing and stent were placed at that time. He presents today for left sided ureteroscopy. I discussed with him he has significant stone burden. His KUB demonstrated 2 cm stone on the right and multiple stones on the left all larger than 1 cm. Discussed with him given his stone burden he well most likely will require a minimum of 3 ureteroscopy's to completely clear or his entire stone burden. I did discussed with him the option of doing a PCNL he declined he preferred to proceed with ureteroscopy discussed with him the risks which includes but not limited to bleeding infection injury to the ureter. He understood all the risk and agree to proceed with left-sided ureteroscopy possibly staged and then this will be followed by right-sided ureteroscopy separately Operative Findings: 3 large stone very dense poorly responsive to the holmium laser Description of Procedure: Patient was brought to the operating room, general anesthesia was induced. He was prepped and draped in sterile fashion placed in a dorsal lithotomy position. Cystoscopy fitted and 21 sheath was inserted per urethra. The left ureteral stent was visualized and grasped and removed to the meatus. Next a sensor wire was advanced through the stent and into the renal pelvis. The stent was removed with the wire in place. Next under fluoroscopy a [id number] access sheath was passed up to the proximal ureter. At this time a flexible ureteroscope was inserted per access sheath. Renoscopy was performed which showed 3 large stones within the renal pelvis, one in the lower pole, and one in the upper pole. Using the holmium laser attention was first carried to the stone in the renal pelvis. Initially attempted to dust the stone but the stone was very dense and poorly responsive to dusting, at this time we switched to Fragment setting and the stone was fragmented. Of note the stone was still dense but I was able to fragmented using the holmium laser. Attention was then carried to the lower pole stone which is again attempted to dusted but was poorly responsive, at this time we switched to Fragment setting. Fragment was continued for both stones until there was minimal residual, using the stone basket the larger fragments were removed. At this time attention was carried to the upper pole stone. Using the holmium laser the stone was partially fragmented, of note at this time more than 2 hours and were spent lasering the kidney stones. Repeat renoscopy and fluoroscopy showed only evidence of the upper pole stone, but no other sizable fragments. Pullback ureteroscopy was performed showed no injury to the ureter and no ureteral stones. Next a 6-Eritrean by 26 cm stent was passed over the wire, proximal curl was visualized under fluoroscopy and distal curl was visualized using the cystoscope. The bladder was emptied and the case. At this time we'll proceed with the second stage left ureteroscopy in 2 weeks. Patient tolerated the procedure well was taken to PACU in stable condition
[2020-08-30] MEDS ORDERED: HYDROcodone/APAP 5-325MG 1 EACH TAB PO STA (14:31)
--- NOTE | 2020-08-30 15:42 | FL ---
Fluoroscopy HISTORY: Left renal stones 45 seconds fluoroscopy time supplied to the referring clinician. 2 intrao perative C-arm images document the procedure. See dictated report from urology.
[2020-08-30 15:54] VITALS: BP 153/82; PULSE 64
== END 2020-08-30 16:40 | disposition home or self-care (01) ==
LOC: OR 09:45
PROVIDERS: ATTEND Urology
DX: N20.0 Calculus of kidney (principal); Z87.442 Personal history of urinary calculi; I48.91 Unspecified atrial fibrillation; I10 Essential (primary) hypertension; E78.5 Hyperlipidemia, unspecified; J44.9 Chronic obstructive pulmonary disease, unspecified; J84.10 Pulmonary fibrosis, unspecified; K21.9 Gastro-esophageal reflux disease without esophagitis; Z91.041 Radiographic dye allergy status; Z79.01 Long term (current) use of anticoagulants; Z79.02 Long term (current) use of antithrombotics/antiplatelets; Z79.82 Long term (current) use of aspirin; Z79.899 Other long term (current) drug therapy
CPT/HCPCS: 82365; 74018; 52356; C2625; C1769; J0690; J2001; J3010; J1580; J2370; J0330; J2704

== ENCOUNTER → 2020-09-17 | Day surgery (SDC) | payer MEDICARE, OTHER ==
[2020-08-26 10:12] VITALS: BMI 24.7
--- NOTE | 2020-09-13 08:35 | P.HPIHPCON ---
History of Present Illness H&P Date: 09/17/20 Chief Complaint: bilateral renal stones Mr Espinal is 75 yo male with hx of bilateral renal calculi. He underwent bilateral ureteroscopy on 07/16 at that time it was noticed that he had bilateral ureteral narrowing and stent were placed at that time. . His KUB demonstrated 2 cm stone on the right and multiple stones on the left all larger than 1 cm. Discussed with him given his stone burden he well most likely will require a minimum of 3 ureteroscopy's to completely clear his entire stone burden. I did discussed with him the option of doing a PCNL he declined he preferred to proceed with ureteroscopy discussed with him the risks which includes but not limited to bleeding infection injury to the ureter.He underwent left stage 1 ureteroscopy on 08/30. he presents today for stage 2 left ureteroscopy and first staged right ureteroscopy with holmium laser and bilateral stent exchange. Consent for Procedure: I have explained the operation/procedure to the patient, including the risks, benefits, side effects, alternative therapies (including not receiving the proposed treatment or service), the likelihood of the patient achieving his/her goals, and potential recuperation problems for the procedure/sedation/analgesia, as well as any blood products, if indicated. I also explained to the patient the risks, benefits and side effects of the alternatives, as well as the risks related to not receiving the proposed procedure, care, treatment, or services. 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, hx of septic shock, ARDS, and dialysis in 1986, hx of melanoma on nose Last Myocardial Infarction Date:: 1986 History of Any Multi-Drug Resistant Organisms: None Reported Past Surgical History: Appendectomy, Cholecystectomy, Orthopedic Surgery Additional Past Surgical History / Comment(s): lithotripsy, RIKA, EP study with cardioversion, sx on deborah knees,hips,shoulders, hx of colostomy and reversal, hx of trach and closure, hx of chest tubes, all related to septic shock in 1986 Past Anesthesia/Blood Transfusion Reactions: No Reported Reaction Smoking Status: Former smoker - Past Family History Father Family Medical History: Cancer Sister(s) Family Medical History: Cancer Medications and Allergies Home Medications Medication Instructions Recorded Confirmed Type ALPRAZolam [Xanax] 0.25 mg PO BID 07/13/20 08/30/20 History Albuterol Inhaler [Ventolin Hfa 2 puff INHALATION RT-Q6H PRN 07/13/20 08/30/20 History Inhaler] Aspirin [Adult Low Dose Aspirin EC] 81 mg PO DAILY 07/13/20 08/30/20 History Atorvastatin [Lipitor] 40 mg PO HS 07/13/20 08/30/20 History Carvedilol [Coreg] 12.5 mg PO BID 07/13/20 08/30/20 History Gabapentin [Neurontin] 200 mg PO HS 07/13/20 08/30/20 History Lisinopril [Prinivil] 10 mg PO QAM 07/13/20 08/30/20 History Multivitamins, Thera [Multivitamin 1 tab PO DAILY 07/13/20 08/30/20 History (formulary)] Rivaroxaban [Xarelto] 20 mg PO DAILY 07/13/20 08/30/20 History Tamsulosin HCl [Flomax] 0.8 mg PO DAILY 07/13/20 08/30/20 History traMADol HCL [Ultram] 50 mg PO Q6HR PRN 3 Days #12 tab 07/16/20 08/30/20 Rx Famotidine [Pepcid] 20 mg PO DAILY 08/26/20 08/30/20 History Cephalexin [Keflex] 500 mg PO Q8HR #9 cap 08/30/20 Rx Hydrocodone/Acetaminophen [[place] 1 each PO Q6HR PRN #10 tab 08/30/20 Rx 5-325] traMADol HCL [Ultram] 50 mg PO Q6HR PRN 3 Days #8 tab 08/30/20 Rx Allergies Allergy/AdvReac Type Severity Reaction Status Date / Time iodine Allergy Anaphylaxis Verified 08/26/20 10:01 Surgical - Exam - General well developed, well nourished, no distress, no pain - Eyes PERRL, normal ocular movement - ENT normal mucosa, no hearing loss - Abdomen Abdomen: soft, non tender - Psychiatric oriented to time, oriented to person, oriented to place Assessment and Plan Assessment: 75 yo male with bilateral renal stones -OR for bilateral ureteroscopy with holmium laser lithotripsy, stone basketting and bilateral stent exchange
[~2020-09-17] MED LIST changes: -GENTAMICIN 100 MG in SODIUM CHLORIDE 0.9% 100 ML IVPB ONE; +GENTAMICIN 110 MG in SODIUM CHLORIDE 0.9% 100 ML IVPB ONE; +GLYCOPYRROLATE 0.2 MG/ML 2 ML VIAL ONE; +HYDROcodone/APAP 5-325MG 1 EACH TAB ONE; +HYDROcodone/APAP 5-325MG 1 EACH TAB PO ONE; -HYDROmorphone 0.5 MG/0.5 ML SYRINGE IVP PRN; +LACTATED RINGERS 1,000 ML IV ONE; +LIDOCAINE 1% (10MG/ML) FOR IV START INTRADERMA ONE; +LIDOCAINE 1% INJ 10MG/ML (20 ML MDV) ONE; -MIDAZOLAM 2 MG/2 ML VIAL IV PRN; +MIDAZOLAM 2 MG/2 ML VIAL ONE; +NEOSTIGMINE 1 MG/ML 10 ML VIAL ONE; +PHENYLEPHRINE-0.9% NACL SYG 1 MG/10 ML SYRINGE ONE; +PROPOFOL 10 MG/ML 20 ML VIAL IV ONE; +ROCURONIUM 10 MG/ML (10 ML VIAL) IV ONE; +SUCCINYLCHOLINE CHLORIDE 100 MG/5 ML SYR IV ONE; +ePHEDrine SULFATE/0.9% NACL/PF 50 MG/5 ML SYRINGE IV ONE; +fentaNYL (PF) 50 MCG/ML 2 ML AMP ONE
--- NOTE | 2020-09-17 11:32 | XR ---
EXAMINATION TYPE: XR KUB DATE OF EXAM: 09/17/2020 10:55 AM CLINICAL HISTORY: Kidney stone. Preoperative. TECHNIQUE: Supine images of the abdomen and pelvis were obtained COMPARISON: KUB 08/30/2020. FINDINGS: Redemonstrated bilateral ureteral stents with appropriate radiographic positioning. Redemonstrated 18 x 15 mm calculus over the right renal shadow. 11 mm calculus over the left renal upper pole appears similar. The 12 mm calculus over the interpolar left renal shadow on 08/30/2020 comparison is not see n on current exam. The 7 mm calculus over the left renal lower pole is similar to mildly decreased ve rsus 08/30/2020. Adjacent punctate calculus over the left renal lower pole may represent renal calcul us. Nonspecific bowel gas pattern. Degenerative changes of the spine and hips. Vascular calcification s. IMPRESSION: 1. Bilateral ureteral stents redemonstrated. 2. The 12 mm calculus seen on 08/30/2020 comparison over the left interpolar kidney is not definitive ly seen on current exam. 3. Otherwise bilateral renal calculi appears similar as described above.
[2020-09-17 16:02] VITALS: TEMP 96.8
--- NOTE | 2020-09-17 16:13 | P.OP ---
Date of Procedure: 09/17/20 Preoperative Diagnosis: Bilateral renal calculi Postoperative Diagnosis: Same Procedure(s) Performed: Cystoscopy, bilateral ureteroscopy, holmium laser lithotripsy, stent exchange, left sided stone basketing Implants: 6-Uruguayan by 26 cm stent bilaterally Anesthesia: TANYAA Surgeon: Ab Shelby Estimated Blood Loss (ml): 5 Pathology: other (Left renal stone) Condition: stable Disposition: PACU Indications for Procedure: Mr Espinal is 75 yo male with hx of bilateral renal calculi. He underwent bilateral ureteroscopy on 07/16 at that time it was noticed that he had bilateral ureteral narrowing and stent were placed at that time. . His KUB demonstrated 2 cm stone on the right and multiple stones on the left all larger than 1 cm. Discussed with him given his stone burden he well most likely will require a minimum of 3 ureteroscopy's to completely clear his entire stone burden. I did discussed with him the option of doing a PCNL he declined he preferred to proceed with ureteroscopy discussed with him the risks which includes but not limited to bleeding infection injury to the ureter.He underwent left stage 1 ureteroscopy on 08/30. he presents today for stage 2 left ureteroscopy and first staged right ureteroscopy with holmium laser and bilateral stent exchange. Operative Findings: Large stone in the left upper pole, smaller stone within the lower pole. Both stones were fragmented Large stone in the renal pelvis. Of note both stones, were extremely hard. Description of Procedure: Patient was brought to the operating room, general anesthesia was induced. He was prepped and draped in sterile fashion placed in a dorsal lithotomy position. Cystoscopy fitted with a 21-Uruguayan sheath was inserted per urethra. Attention was carried to the left ureteral orifice, the stent was visualized. The stent was grasped and removed to the meatus. Next a sensor wire was advanced through the stent, the stent was removed with the wire in place. Next an [id number]-[id number] access sheath was passed over the wire into the proximal ureter. Next the flexible ureteroscope was inserted through the access sheath, renoscopy was performed which showed 2 stones one within the upper pole and additional stone in the lower pole. Of note the stones were very hard. Using the holmium laser the stones were fragmented into smaller fragments. Sizable fragments were removed using the stone basket. Repeat renoscopy demonstrated no sizable fragments or injury to the kidney. Fluoroscopy was also obtained which showed no additional stones. Next a pullback ureteroscopy was performed showed no ureteral stone or injury to the ureter. Next the cystoscope was reinserted and the left ureteral orifice was intubated with a sensor wire. Next a ureteral stent was passed over the wire, the proximal curl was visualized on fluoroscopy and distal curl was visualized using the cystoscope. At this time attention was carried to the right ureteral orifice, the ureteral stent was visualized and grasped using the stent grasper. The stent was pulled to the meatus. A sensor wire was advanced through the stent the stent was removed the wire in place. Next an 11 x 13-Uruguayan access sheath was passed over the wire under fluoroscopy, to the proximal ureter. Next the flexible ureteroscope was inserted through the access sheath, renoscopy was performed which showed a large stone. Using the holmium laser the stone was fragmented, at this time more than 2 hours has been spent performing the bilateral ureteroscopy. At this time, the case was completed , we will proceed with second stage right-sided ureteroscopy. Pull back ureteroscopy was performed showed no injury to ureter or ureteral stone. Next the rigid cystoscope was inserted. The right ureteral orifice was intubated with a sensor wire. Next a 6-Uruguayan by 26 cm stent was passed over the wire. The proximal curl was on fluoroscopy, and distal curl was visualized cystoscope. The bladder was emptied and the case. The patient tolerated the procedure well was taken to PACU in stable condition
[2020-09-17] MEDS: HYDROmorphone 0.5 MG/0.5 ML SYRINGE IVP PRN ×4 (16:15→16:48)
--- NOTE | 2020-09-17 16:15 | FL ---
Fluoroscopy HISTORY: Stent placement 22 seconds fluoroscopy time supplied to the referring clinician. 2 intraoperative C-arm images docum ent the procedure. See dictated report from urology.
[2020-09-17 17:29] VITALS: RESP 17
[2020-09-17 17:59] VITALS: BP 139/66; PULSE 66
== END ==
LOC: OR 10:47
PROVIDERS: ATTEND Urology
DX: N20.0 Calculus of kidney (principal); I48.91 Unspecified atrial fibrillation; I10 Essential (primary) hypertension; E78.5 Hyperlipidemia, unspecified; K21.9 Gastro-esophageal reflux disease without esophagitis; I25.2 Old myocardial infarction; M89.8X9 Other specified disorders of bone, unspecified site; J84.10 Pulmonary fibrosis, unspecified; Z96.0 Presence of urogenital implants; Z91.048 Other nonmedicinal substance allergy status; Z98.890 Other specified postprocedural states; Z85.820 Personal history of malignant melanoma of skin; Z87.442 Personal history of urinary calculi; Z86.19 Personal history of other infectious and parasitic diseases; Z87.09 Personal history of other diseases of the respiratory system; Z87.448 Personal history of other diseases of urinary system; Z90.49 Acquired absence of other specified parts of digestive tract; Z87.891 Personal history of nicotine dependence; Z79.899 Other long term (current) drug therapy; Z79.82 Long term (current) use of aspirin; Z79.01 Long term (current) use of anticoagulants; Z95.5 Presence of coronary angioplasty implant and graft; Z80.9 Family history of malignant neoplasm, unspecified
CPT/HCPCS: 82365; 74018; 52356; 52332; C2625; C1769; J2250; J1580; J2710; J0690; J2405; J2001; J3010; J2370; J0330; J2704; J1170

== ENCOUNTER → 2020-09-23 | Outpatient (CLI) | payer MEDICARE, OTHER ==
[2020-09-23 11:38] LABS: Calcium 8.8 mg/dL (8.4-10.2); Potassium 5.5 mmol/L (3.5-5.1)
[2020-09-23 11:45] LABS: Basophils % (A) 1 %; Eosinophils # (A) 0.3 k/uL (0-0.7); Eosinophils % (A) 6 %; HCT 32.4 % (39.0-53.0); HGB 9.6 gm/dL (13.0-17.5); Hypochromasia Marked; Lymphocytes # (A) 1.1 k/uL (1.0-4.8); Lymphocytes % (A) 26 %; MCH 24.9 pg (25.0-35.0); MCHC 29.7 g/dL (31.0-37.0); MCV 83.6 fL (80.0-100.0); Mean Platelet Volume 7.7; Monocytes # (A) 0.5 k/uL (0-1.0); Monocytes % (A) 11 %; Neutrophils # (A) 2.3 k/uL (1.3-7.7); Neutrophils % (A) 52 %; Platelet Count 267 k/uL (150-450); Poikilocytosis Slight; RBC 3.87 m/uL (4.30-5.90); RDW 14.1 % (11.5-15.5); WBC 4.4 k/uL (3.8-10.6)
[2020-09-23 12:25] LABS: Appearance,Urine Turbid (Clear); Bilirubin,Urine Negative (Negative); Blood,Urine Large (Negative); Color,Urine Red; Glucose,Urine (UA) Negative (Negative); Ketones,Urine Negative (Negative); Leukocyte Esterase,Urine Moderate (Negative); Nitrite,Urine Negative (Negative); PH, Urine 6.5 (5.0-8.0); Protein,Urine 2+ (Negative); RBC,Urine >182 /hpf (0-5); Urobilinogen,Urine <2.0 mg/dL (<2.0); WBC,Urine 6 /hpf (0-5)
== END | disposition home or self-care (01) ==
LOC: LABPAT 09:32
PROVIDERS: ATTEND Urology
DX: Z01.818 Encounter for other preprocedural examination (principal); N20.0 Calculus of kidney; N20.9 Urinary calculus, unspecified
CPT/HCPCS: 80048; 81001; 85025; 87086

== ENCOUNTER 2020-09-29 11:47 | Day surgery (SDC) | payer MEDICARE, OTHER ==
[2020-09-27 13:05] VITALS: BMI 24.2
[~2020-09-29 11:47] MED LIST changes: -DEXAMETHASONE SOD PHOSPHATE 10 MG/ML 1 ML VIAL IV ONE; +DEXAMETHASONE SOD PHOSPHATE 4 MG/ML 1 ML VIAL IV ONE; -GENTAMICIN 110 MG in SODIUM CHLORIDE 0.9% 100 ML IVPB ONE; -GLYCOPYRROLATE 0.2 MG/ML 2 ML VIAL ONE; -HYDROcodone/APAP 5-325MG 1 EACH TAB ONE; -HYDROcodone/APAP 5-325MG 1 EACH TAB PO ONE; -LACTATED RINGERS 1,000 ML IV ONE; -LIDOCAINE 1% (10MG/ML) FOR IV START INTRADERMA ONE; +LIDOCAINE 1% (10MG/ML) FOR IV START INTRADERMA PRN; -LIDOCAINE 1% INJ 10MG/ML (20 ML MDV) ONE; -MIDAZOLAM 2 MG/2 ML VIAL ONE; -NEOSTIGMINE 1 MG/ML 10 ML VIAL ONE; -ONDANSETRON 4 MG/2 ML VIAL IVP ONE; -PHENYLEPHRINE-0.9% NACL SYG 1 MG/10 ML SYRINGE ONE; -PROPOFOL 10 MG/ML 20 ML VIAL IV ONE; -ROCURONIUM 10 MG/ML (10 ML VIAL) IV ONE; -SUCCINYLCHOLINE CHLORIDE 100 MG/5 ML SYR IV ONE; -ePHEDrine SULFATE/0.9% NACL/PF 50 MG/5 ML SYRINGE IV ONE; -fentaNYL (PF) 50 MCG/ML 2 ML AMP ONE
--- NOTE | 2020-09-29 12:27 | XR ---
EXAMINATION TYPE: XR abdomen 1V DATE OF EXAM: 09/29/2020 COMPARISON: 09/17/2020 INDICATION: Renal calculus, presurgical evaluation TECHNIQUE: Single view abdomen supine FINDINGS: Bowel gas pattern is normal. Psoas margins are normal. No organomegaly is present. Bilateral ureteral stents are present. On the right there is a 1.5 cm calcification. A smaller 0.9 cm calcification may be inferior lateral to the larger calcification. This could be within fecal debris . Multiple surgical clips and sutures are within the pelvis. Note is made of bilateral degenerative h ip change especially on the left. IMPRESSION: 1. Right-sided renal stones.
[2020-09-29] MEDS: ONDANSETRON 4 MG/2 ML VIAL IVP ONE ×2 (12:36→16:04)
--- NOTE | 2020-09-29 12:55 | P.HPIHPCON ---
History of Present Illness H&P Date: 09/29/20 Chief Complaint: right renal calculi Mr Espinal is 75 yo male with hx of bilateral renal calculi. He underwent bilateral ureteroscopy on 07/16 at that time it was noticed that he had bilateral ureteral narrowing and stent were placed at that time. . His KUB demonstrated 2 cm stone on the right and multiple stones on the left all larger than 1 cm. Discussed with him given his stone burden he well most likely will require a minimum of 3 ureteroscopy's to completely clear his entire stone burden. I did discussed with him the option of doing a PCNL he declined he preferred to proceed with ureteroscopy discussed with him the risks which includes but not limited to bleeding infection injury to the ureter.He underwent left stage 1 ureteroscopy on 08/30, and bilateral ureteroscopy on 09/17. He presents today for right sided ureteroscopy. His KUB in preope showed 1.2 cm stone on the right. He presents today for right-sided ureteroscopy, with holmium laser lithotripsy, stone basketing, stent placement. Discussed also remove the stent on the left side today. Discussed with them the risk of bleeding, infection, injury to ureter, he understood all the risk and agree to proceed Consent for Procedure: I have explained the operation/procedure to the patient, including the risks, benefits, side effects, alternative therapies (including not receiving the proposed treatment or service), the likelihood of the patient achieving his/her goals, and potential recuperation problems for the procedure/sedation/analgesia, as well as any blood products, if indicated. I also explained to the patient the risks, benefits and side effects of the alternatives, as well as the risks related to not receiving the proposed procedure, care, treatment, or services. 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, hx of septic shock, ARDS, and dialysis in 1986, hx of melanoma on nose Last Myocardial Infarction Date:: 1986 History of Any Multi-Drug Resistant Organisms: None Reported Past Surgical History: Appendectomy, Cholecystectomy, Orthopedic Surgery Additional Past Surgical History / Comment(s): lithotripsy,cystoscopy,renal stent, last 09/17/20 RIKA, EP study with cardioversion, sx on deborah knees,hips,shoulders, hx of colostomy and reversal, hx of trach and closure, hx of chest tubes, all related to septic shock in 1986 Past Anesthesia/Blood Transfusion Reactions: No Reported Reaction Smoking Status: Former smoker - Past Family History Sister(s) Family Medical History: Cancer Father Family Medical History: Cancer Medications and Allergies Home Medications Medication Instructions Recorded Confirmed Type ALPRAZolam [Xanax] 0.25 mg PO BID 07/13/20 09/29/20 History Albuterol Inhaler [Ventolin Hfa 2 puff INHALATION RT-Q6H PRN 07/13/20 09/29/20 History Inhaler] Aspirin [Adult Low Dose Aspirin EC] 81 mg PO DAILY 07/13/20 09/29/20 History Atorvastatin [Lipitor] 40 mg PO HS 07/13/20 09/29/20 History Carvedilol [Coreg] 12.5 mg PO BID 07/13/20 09/29/20 History Gabapentin [Neurontin] 200 mg PO HS 07/13/20 09/29/20 History Multivitamins, Thera [Multivitamin 1 tab PO DAILY 07/13/20 09/29/20 History (formulary)] Rivaroxaban [Xarelto] 20 mg PO DAILY 07/13/20 09/29/20 History Tamsulosin HCl [Flomax] 0.8 mg PO DAILY 07/13/20 09/29/20 History traMADol HCL [Ultram] 50 mg PO Q6HR PRN 3 Days #12 tab 07/16/20 09/29/20 Rx Famotidine [Pepcid] 20 mg PO DAILY 08/26/20 09/29/20 History Cephalexin [Keflex] 500 mg PO Q8HR #15 cap 09/17/20 09/29/20 Rx Allergies Allergy/AdvReac Type Severity Reaction Status Date / Time iodine Allergy Anaphylaxis Verified 09/29/20 12:12 Surgical - Exam Vital Signs Temp Pulse Resp BP Pulse Ox 97.2 F L 72 18 145/67 97 09/29/20 12:22 09/29/20 12:22 09/29/20 12:22 09/29/20 12:22 09/29/20 12:22 - General well developed, well nourished, no distress, moderate pain - Eyes PERRL, normal ocular movement - ENT normal mucosa, no hearing loss - Respiratory normal expansion, normal respiratory effort - Abdomen Abdomen: soft, non tender - Psychiatric oriented to time, oriented to person, oriented to place Assessment and Plan Assessment: 75 yo male with a right-sided renal stone -Or for right-sided ureteroscopy, holmium laser lithotripsy, stone basketing, stent exchange
[2020-09-29] MEDS ORDERED: fentaNYL (PF) 50 MCG/ML 2 ML AMP ONE (14:02)
[2020-09-29] MEDS ORDERED: SUCCINYLCHOLINE CHLORIDE 100 MG/5 ML SYR IV ONE (14:02)
[2020-09-29] MEDS ORDERED: PROPOFOL 10 MG/ML 20 ML VIAL IV ONE (14:02)
[2020-09-29] MEDS ORDERED: LIDOCAINE 1% INJ 10MG/ML (20 ML MDV) ONE (14:02)
[2020-09-29] MEDS ORDERED: ePHEDrine SULFATE/0.9% NACL/PF 50 MG/5 ML SYRINGE IV ONE (14:02)
[2020-09-29] MEDS ORDERED: MIDAZOLAM 2 MG/2 ML VIAL ONE (14:02)
[2020-09-29] MEDS ORDERED: LACTATED RINGERS 1,000 ML IV ONE (15:45)
[2020-09-29 15:48] VITALS: RESP 16; TEMP 97.3
--- NOTE | 2020-09-29 15:50 | P.OP ---
Date of Procedure: 09/29/20 Preoperative Diagnosis: Right renal calculi Postoperative Diagnosis: Same Procedure(s) Performed: Cystoscopy, right ureteroscopy, holmium laser lithotripsy, stone basketing, stent exchange and left stent removal Implants: 6-Bolivian by 26 cm stent left on a string Anesthesia: DEE Surgeon: Ab Shelby Estimated Blood Loss (ml): 10 Pathology: other (Right renal calculi) Condition: stable Disposition: PACU Indications for Procedure: Mr Espinal is 75 yo male with hx of bilateral renal calculi. He underwent bilateral ureteroscopy on 07/16 at that time it was noticed that he had bilateral ureteral narrowing and stent were placed at that time. . His KUB demonstrated 2 cm stone on the right and multiple stones on the left all larger than 1 cm. Discussed with him given his stone burden he well most likely will require a minimum of 3 ureteroscopy's to completely clear his entire stone burden. I did discussed with him the option of doing a PCNL he declined he preferred to proceed with ureteroscopy discussed with him the risks which includes but not limited to bleeding infection injury to the ureter.He underwent left stage 1 ureteroscopy on 08/30, and bilateral ureteroscopy on 09/17. He presents today for right sided ureteroscopy. His KUB in preope showed 1.2 cm stone on the right. He presents today for right-sided ureteroscopy, with holmium laser lithotripsy, stone basketing, stent placement. Discussed also remove the stent on the left side today. Discussed with them the risk of bleeding, infection, injury to ureter, he understood all the risk and agree to proceed Operative Findings: Large stone in the right renal pelvis Description of Procedure: Patient was brought to the operating room, general anesthesia was induced. He was prepped and draped in sterile fashion and placed in dorsal lithotomy position. Cystoscopy fitted with a 21-Bolivian sheath was inserted per urethra. Cystoscopy was performed showed no abnormality within the bladder. Attention was then carried to the left ureteral orifice with the stent visualized protruding from it. The stent was grasped and removed. The cystoscope was reinserted and attention was carried to the right ureteral orifice. The stent was grasped and removed to the meatus. Next a sensor wire was advanced through the stent and the stent was removed with the wire in place. Under fluoroscopy 1113 Bolivian access sheath was passed over the wire into the proximal ureter. Next ureteroscope was advanced through the access sheath. Renoscopy was performed which showed a large stone in the renal pelvis. Using the holmium laser the stone was fragmented into smaller fragments, sizable fragments were removed using the stone basket. Repeat renoscopy showed no sizable fragments or injury to the kidney. A pullback ureteroscopy was performed which showed no injury to the ureter or ureteral stone. Next a 6-Bolivian by 26 cm stent was passed over the wire. The proximal curl was visualized on fluoroscopy and distal curl was visualized using cystoscope. The stent was left on a string. A 16-Bolivian Bowens catheter was placed, and balloon was inflated with 10 cc . The patient was awakened from anesthesia and taken recovery in stable condition
[2020-09-29] MEDS: HYDROmorphone 0.5 MG/0.5 ML SYRINGE IVP PRN ×2 (16:04→16:09)
--- NOTE | 2020-09-29 16:07 | FL ---
Fluoroscopy INDICATION: Pain FINDINGS: Fluoroscopy time: 17 seconds. Images obtained: 3. IMPRESSIONS: 1. Documentation of fluoroscopy.
[2020-09-29] MEDS ORDERED: HYDROcodone/APAP 5-325MG 1 EACH TAB ONE (16:54)
[2020-09-29] MEDS ORDERED: HYDROcodone/APAP 5-325MG 1 EACH TAB PO ONE (17:00)
[2020-09-29 17:23] VITALS: BP 162/69; PULSE 67
== END 2020-09-29 17:44 | disposition home or self-care (01) ==
LOC: OR 11:47
PROVIDERS: ATTEND Urology
DX: N20.0 Calculus of kidney (principal); Z87.442 Personal history of urinary calculi; Z91.041 Radiographic dye allergy status; I25.2 Old myocardial infarction; I48.91 Unspecified atrial fibrillation; I10 Essential (primary) hypertension; E78.5 Hyperlipidemia, unspecified; Z95.5 Presence of coronary angioplasty implant and graft; K21.9 Gastro-esophageal reflux disease without esophagitis; Z79.01 Long term (current) use of anticoagulants; Z79.82 Long term (current) use of aspirin; Z79.02 Long term (current) use of antithrombotics/antiplatelets; Z79.899 Other long term (current) drug therapy; Z85.820 Personal history of malignant melanoma of skin; Z90.49 Acquired absence of other specified parts of digestive tract; Z98.890 Other specified postprocedural states; Z87.891 Personal history of nicotine dependence; Z80.9 Family history of malignant neoplasm, unspecified
CPT/HCPCS: 84132; 82365; 74018; 52356; C2625; C1769; J2250; J1100; J0690; J2405; J2001; J3010; J0330; J2704; J1170

== ENCOUNTER → 2021-06-01 | Outpatient (CLI) | payer MEDICARE, OTHER ==
--- NOTE | 2021-06-01 10:14 | US ---
EXAMINATION TYPE: US kidneys/renal and bladder DATE OF EXAM: 06/01/2021 COMPARISON: KUB 09/17/[address] 05/05/2020 CLINICAL HISTORY: N20.0 Calculus of kidney. Patient states multiple stones removed last September. EXAM MEASUREMENTS: Right Kidney: 11.6 x 5.2 x 4.9 cm Left Kidney: 11.2 x 6.5 x 4.7 cm Right Kidney: Echogenic focus with shadowing lower pole measures 0.8 x 0.3x 0.8 cm Left Kidney: Echogenic focus with shadowing lower pole measures 0.9 x 0.4 x 0.8 cm. Bladder: wnl Bilateral Jets seen: Yes There is no evidence for hydronephrosis at this point in time. Both kidneys are echogenic with corti katherine thinning. No nephrolithiasis is seen. No masses are identified. The urinary bladder is anechoic . Bilateral ureteral jets are seen. IMPRESSION: Bilateral echogenic kidneys with cortical thinning, likely due to chronic medical renal disease, with echogenic foci, likely bilateral nephrolithiasis.
== END | disposition home or self-care (01) ==
LOC: RADUSWWP 09:37
PROVIDERS: ATTEND Urology
DX: N20.0 Calculus of kidney (principal)
CPT/HCPCS: 76770

== ENCOUNTER → 2022-07-25 | Outpatient (CLI) | payer MEDICARE ==
[2022-07-25 19:14] LABS: ALT 23 U/L (10-49); AST 24 U/L (14-35); Chol/HDL Ratio 2.63 Ratio; LDL Cholesterol,Calculated 66.4 mg/dL (0.0-131.0)
== END | disposition home or self-care (01) ==
LOC: LABWHC1 09:56
PROVIDERS: ATTEND Internal Medicine Cardiovascular Disease
DX: E78.2 Mixed hyperlipidemia (principal)
CPT/HCPCS: 36415; 80061; 84450; 84460

== ENCOUNTER → 2022-08-22 | Outpatient (CLI) | payer MEDICARE ==
--- NOTE | 2022-08-22 15:46 | XR ---
EXAMINATION TYPE: XR KUB DATE OF EXAM: 08/22/2022 Comparison: 09/17/2020 Clinical History: 77-year-old male N20.0 CALCULUS KIDNEY Findings: Multiple surgical clips along the left side of the abdomen. Staple line midline pelvis likely relatin g to prior colon resection and reanastomosis. Cholecystectomy clips right upper quadrant. Scattered m oderate stool. Nonobstructive bowel gas pattern. 5 mm calcification right mid abdomen likely renal calculus. Some punctate calcifications projecting a t the expected lower pole left kidney measuring up to 3 mm. 1.7 cm round calcification left paramedian pelvis. Additional smaller round densities in the pelvis p robably phleboliths. Prominent heterotopic ossification about both hips and associated degenerative change. Impression: 1. Extensive postsurgical changes above. Small bilateral renal calculi are suggested measuring up to 5 mm on the right and 3 mm on the left. 2. A 1.7 cm calcification in the left paramedian pelvis could represent a bladder stone.
== END | disposition home or self-care (01) ==
LOC: LABWHC1 12:19
PROVIDERS: ATTEND Urology
DX: N20.0 Calculus of kidney (principal)
CPT/HCPCS: 74018

== ENCOUNTER → 2022-08-24 | Outpatient (CLI) | payer MEDICARE ==
[2022-08-24 18:40] LABS: Appearance,Urine Clear (Clear); Bilirubin,Urine Negative (Negative); Blood,Urine Negative (Negative); Color,Urine Yellow (Yellow); Ketones,Urine Negative (Negative); Nitrite,Urine Negative (Negative); PH, Urine 6.5 (5.0-8.0); Specific Gravity,Urine 1.012 (1.001-1.030); Urobilinogen,Urine 0.2 (0.2,1.0)
[2022-08-24 19:24] LABS: African American GFR (CKD) 96.5 (60.0-200.0); Anion Gap 11.3 mmol/L (10.00-18.00); BUN/Creat Ratio 13.56 Ratio (12.00-20.00); Blood Urea Nitrogen 12.2 mg/dL (9.0-27.0); Calcium 8.8 mg/dL (8.7-10.3); Carbon Dioxide 23.7 mmol/L (20.0-27.5); Non-African American GFR(CKD) 83.3 (60.0-200.0); Potassium 4.8 mmol/L (3.5-5.5)
[2022-08-24 19:27] LABS: HCT 42.2 % (39.6-50.0); HGB 13.6 g/dL (13.0-17.0); MCH 30.8 pg (27.0-32.0); MCHC 32.2 g/dL (32.0-37.0); MCV 95.5 fL (80.0-97.0); Mean Platelet Volume 11.5 fL (9.5-12.2); NRBC Per 100 WBC 0 /100 WBCS (0.0-0.0); Platelet Count 143 X 10*3/uL (140-440); RBC 4.42 X 10*6/uL (4.40-5.60); RDW 14.6 % (11.5-14.5); WBC 6.51 X 10*3/uL (4.50-10.00)
== END | disposition home or self-care (01) ==
LOC: LABPAT 10:54
PROVIDERS: ATTEND Urology
DX: Z01.812 Encounter for preprocedural laboratory examination (principal); N21.9 Calculus of lower urinary tract, unspecified; N20.1 Calculus of ureter
CPT/HCPCS: 80048; 81003; 85027; 87086

== ENCOUNTER 2022-08-28 10:12 | Day surgery (SDC) | payer MEDICARE, OTHER ==
[2022-08-25 14:31] VITALS: BMI 24.5
--- NOTE | 2022-08-28 10:35 | XR ---
EXAMINATION TYPE: XR KUB DATE OF EXAM: 08/28/2022 10:26 AM CLINICAL HISTORY: Lithotripsy. Kidney stones. TECHNIQUE: Two supine KUB images of the abdomen are obtained. COMPARISON: Abdominal x-ray 6 days ago. FINDINGS: Roughly 2.5 cm oval calcification presumed upper pole left renal calculus redemonstrated. R oughly 4 to 5 mm right renal calculus mid to lower pole level redemonstrated. Stable 1.7 cm left blad yamilet calculus. Additional scattered tiny calcifications could reflect phleboliths. Scattered surgical clips and sutures from the left abdomen and pelvis extending into the central pelv is are redemonstrated. Heterotopic ossification surrounding bilateral hips redemonstrated. Multilevel spurring in the spine redemonstrated. Cholecystectomy clips are redemonstrated. Overall nonobstructi ve bowel gas pattern again seen. IMPRESSION: As above. No significant change from most recent x-ray.
--- NOTE | 2022-08-28 10:46 | P.HPIHPCON ---
History of Present Illness H&P Date: 08/28/22 Chief Complaint: Left-sided renal stone, bladder stone This is a 77-year-old male with history of a 2.5 cm left-sided renal pelvis stone, and a 1.7 cm bladder stone. He is symptomatic from both stones. Option of a left-sided ureteroscopy with holmium laser and a cystolitholapaxy was discussed with him. Discussed the risk and the benefit of surgery detail. Discussed the risk which includes but not limited to bleeding, infection, injury to the ureter, injury to the bladder. Discussed also risks of anesthesia. Discussed also given the significant amount of stone burden the potential of needing staged surgery. He understood all the risk and agreed to proceed with a cystolitholapaxy, with a left ureteroscopy, with holmium laser, stone basketing and stent Consent for Procedure: I have explained the operation/procedure to the patient, including the risks, benefits, side effects, alternative therapies (including not receiving the proposed treatment or service), the likelihood of the patient achieving his/her goals, and potential recuperation problems for the procedure/sedation/analgesia, as well as any blood products, if indicated. I also explained to the patient the risks, benefits and side effects of the alternatives, as well as the risks related to not receiving the proposed procedure, care, treatment, or services. 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 Last Myocardial Infarction Date:: 1986 History of Any Multi-Drug Resistant Organisms: None Reported Past Surgical History: Appendectomy, Cholecystectomy, Heart Catheterization With Stent, Orthopedic Surgery Additional Past Surgical History / Comment(s): lithotripsy, RIKA, EP study with cardioversion, sx on deborah knees, hips,shoulders, hx of colostomy and reversal, hx of trach and closure, hx of chest tubes, all related to septic shock in 1986 r/t to an appendectomy. Pulmonary Fibrosis. Past Anesthesia/Blood Transfusion Reactions: No Reported Reaction Date of Last Stent Placement:: 2012 Smoking Status: Former smoker - Past Family History Sister(s) Family Medical History: Cancer Father Family Medical History: Cancer Medications and Allergies Home Medications Medication Instructions Recorded Confirmed Type RX: ALPRAZolam [Xanax] 0.25 mg PO BID 07/13/20 08/25/22 History RX: Albuterol Inhaler [Ventolin 2 puff INHALATION RT-Q6H PRN 07/13/20 08/25/22 History Hfa Inhaler] RX: Aspirin [Adult Low Dose 81 mg PO DAILY 07/13/20 08/25/22 History Aspirin EC] RX: Gabapentin [Neurontin] 200 mg PO HS 07/13/20 08/25/22 History RX: Multivitamins, Thera 1 tab PO DAILY 07/13/20 08/25/22 History [Multivitamin (formulary)] RX: Rivaroxaban [Xarelto] 20 mg PO DAILY 07/13/20 08/25/22 History RX: Tamsulosin HCl [Flomax] 0.8 mg PO DAILY 07/13/20 08/25/22 History RX: carvediloL [Coreg] 12.5 mg PO BID 07/13/20 08/25/22 History RX: traMADol HCL [Ultram] 50 mg PO Q6HR PRN 3 Days #12 tab 07/16/20 08/25/22 Rx Famotidine [Pepcid] 20 mg PO DAILY 08/26/20 08/25/22 History Hydrocodone/Acetaminophen [[place] 1 - 2 each PO Q4HR PRN #10 tab 09/29/20 08/25/22 Rx 5-325] Ferrous Sulfate [Feosol] 325 mg PO DAILY 08/25/22 08/25/22 History Finasteride [Proscar] 5 mg PO DAILY 08/25/22 08/25/22 History Allergies Allergy/AdvReac Type Severity Reaction Status Date / Time iodine Allergy Anaphylaxis Verified 08/28/22 10:44 Surgical - Exam - General no distress, moderate pain - Eyes normal ocular movement, no pale - ENT normal nares, normal mucosa - Respiratory normal expansion, normal respiratory effort Assessment and Plan Assessment: OR for cystolitholapaxy, with a left ureteroscopy, with holmium laser, stone basketing and sten
[2022-08-28] MEDS ORDERED: ONDANSETRON 4 MG/2 ML VIAL ONE (10:54)
[2022-08-28] MEDS ORDERED: LIDOCAINE 1% (10MG/ML) FOR IV START INTRADERMA ONE (11:10)
[2022-08-28] MEDS ORDERED: LACTATED RINGERS 1,000 ML IV ONE ×3 (11:10→14:30)
[2022-08-28] MEDS ORDERED: LIDOCAINE 2% INJ 20 MG/ML (2 ML VIAL) ONE (11:58)
[2022-08-28] MEDS ORDERED: SUCCINYLCHOLINE CHLORIDE 200 MG/10 ML VIAL IV ONE (11:58)
[2022-08-28] MEDS ORDERED: fentaNYL (PF) 50 MCG/ML 2 ML AMP ONE (11:58)
[2022-08-28] MEDS ORDERED: GLYCOPYRROLATE 0.2 MG/ML 2 ML VIAL ONE (11:58)
[2022-08-28] MEDS ORDERED: LABETALOL 5 MG/ML VIAL MDV ONE (11:58)
[2022-08-28] MEDS ORDERED: NEOSTIGMINE 1 MG/ML 10 ML VIAL ONE (11:58)
[2022-08-28] MEDS ORDERED: PROPOFOL 10 MG/ML 20 ML VIAL IV ONE (11:58)
[2022-08-28] MEDS ORDERED: ROCURONIUM 10 MG/ML (5 ML VIAL) IV ONE (11:58)
[2022-08-28] MEDS ORDERED: ePHEDrine 50 MG/ML 1 ML VIAL ONE (11:58)
[2022-08-28] MEDS ORDERED: DEXAMETHASONE SOD PHOSPHATE 4 MG/ML 1 ML VIAL IVP ONE (12:02)
[2022-08-28] MEDS ORDERED: ONDANSETRON 4 MG/2 ML VIAL IVP ONE (12:02)
[2022-08-28] MEDS ORDERED: IOPAMIDOL-370 50ML BTL IRRIGATION ONE (12:58)
--- NOTE | 2022-08-28 13:50 | P.OP ---
Date of Procedure: 08/28/22 Preoperative Diagnosis: Left renal stone, bladder stone Postoperative Diagnosis: Bladder stone Procedure(s) Performed: Cystoscopy, bladder stone irrigation, left ureteroscopy and a retrograde pyelogram Implants: None Anesthesia: DEE Surgeon: Ab Shelby Estimated Blood Loss (ml): 20 Pathology: none sent Condition: stable Disposition: PACU Indications for Procedure: This is a 77-year-old male with history of a 2.5 cm left-sided renal pelvis stone, and a 1.7 cm bladder stone. He is symptomatic from both stones. Option of a left-sided ureteroscopy with holmium laser and a cystolitholapaxy was discussed with him. Discussed the risk and the benefit of surgery detail. Discussed the risk which includes but not limited to bleeding, infection, injury to the ureter, injury to the bladder. Discussed also risks of anesthesia. Discussed also given the significant amount of stone burden the potential of needing staged surgery. He understood all the risk and agreed to proceed with a cystolitholapaxy, with a left ureteroscopy, with holmium laser, stone basketing and stent Operative Findings: Multiple small stones throughout the bladder were irrigated out using Ellick evacuator, no stone visualized in the kidney, the radial opaque calcification appeared to be outside the collecting system. Description of Procedure: Patient brought to the operating room, general anesthesia was induced. He was prepped and draped in sterile fashion and placed in dorsal lithotomy position. Cystoscopy fitted a 21-Tristanian sheath was inserted per urethra, cystoscopy was performed which showed multiple small stones throughout the bladder, and a significant enlarged median lobe with intravesical extension. I initially attempted to irrigate the stones using the scope but the stones were behind the median lobe. At this time I switched to an ellick evacuator, using evacuator I was able to irrigate out the stones. This time the cystoscope was reinserted, cystoscopy was performed showed no additional sizable stones within the bladder. Attention was then carried to the left ureteral orifice which was intubated with a sensor wire. Next under fluoroscopy 1113 Tristanian access sheath was passed over and into the mid ureter. Next a flexible ureteroscope was advanced through the access sheath,, renoscopy was performed which showed no abnormality within the kidney, there was no evidence of stones. The radiopaque calcification was seen on x-ray appeared to be superior to the upper pole. At this time retrograde pyelogram was performed by injecting contrast through the scope, and the calcification was confirmed to be above the upper pole and not within the collecting system. And on retrograde there was no evidence of any filling defect within the kidney. All calyces were evaluated during surgery. At this time pullback ureteroscopy was performed which showed no injury to the ureter or any ureteral stones, there was no ureteral injury or edema thus a stent was not placed. At ths time a 20-Tristanian Bowens was placed with return of blood-tinged urine. The Bowens was irrigated to clear. The patient was awakened from anesthesia and taken to recovery in stable condition.
[2022-08-28] MEDS ORDERED: hydrALAZINE HCL 20 MG/ML 1 ML VIAL IVP ONE ×3 (14:02→14:34)
--- NOTE | 2022-08-28 14:12 | FL ---
Fluoroscopy HISTORY: Left-sided stone 32 seconds fluoroscopy time supplied to the referring clinician. 2 intraoperative C-arm images docum ent the procedure. See dictated report from urology.
--- NOTE | 2022-08-28 14:12 | FL ---
Fluoroscopy HISTORY: Left-sided stone 32 seconds fluoroscopy time supplied to the referring clinician. 2 intraoperative C-arm images docum ent the procedure. See dictated report from urology.
[2022-08-28] MEDS ORDERED: HYDROmorphone 0.5 MG/0.5 ML SYRINGE IVP ONE ×3 (14:15→14:51)
[2022-08-28] MEDS ORDERED: LABETALOL SYRINGE 5 MG/ML IVP ONE (14:18)
[2022-08-28 14:44] VITALS: TEMP 98
[2022-08-28] MEDS ORDERED: HYDROcodone/APAP 5-325MG 1 EACH TAB ONE (15:52)
[2022-08-28] MEDS ORDERED: HYDROcodone/APAP 5-325MG 1 EACH TAB PO ONE (15:54)
[2022-08-28 16:35] VITALS: BP 165/91; PULSE 88; RESP 16
== END 2022-08-28 16:57 | disposition home or self-care (01) ==
LOC: OR 10:12
PROVIDERS: ATTEND Urology
DX: N20.0 Calculus of kidney (principal); N21.0 Calculus in bladder; I48.91 Unspecified atrial fibrillation; I25.10 Atherosclerotic heart disease of native coronary artery without angina pectoris; K21.9 Gastro-esophageal reflux disease without esophagitis; E78.5 Hyperlipidemia, unspecified; I10 Essential (primary) hypertension; I21.9 Acute myocardial infarction, unspecified; N28.9 Disorder of kidney and ureter, unspecified; Z79.890 Hormone replacement therapy; Z79.899 Other long term (current) drug therapy; Z87.442 Personal history of urinary calculi
CPT/HCPCS: 74420; 74018; 52351; C1769; J0330; J0360; J1100; J2710; J0690; J2405; J3010; J2704; J1170; Q9967; J2001

== ENCOUNTER → 2022-08-31 | Outpatient (CLI) | payer MEDICARE, OTHER ==
--- NOTE | 2022-08-31 13:44 | CT ---
EXAMINATION TYPE: CT abdomen pelvis wo con CT DLP: 351.3 mGycm, Automated exposure control for dose reduction was used. DATE OF EXAM: 08/31/2022 12:40 PM COMPARISON: CT abdomen pelvis most recent from 05/05/2020 . CLINICAL INDICATION:Male, 77 years old with history of N20.0 LEFT KIDNEY STONE; Lt flank pain, abn bl adder scan TECHNIQUE: Standard CT of the abdomen and pelvis without IV or oral contrast. Lack of IV or oral co ntrast limits evaluation of solid and hollow organ viscera. Coronal and sagittal reformats were perfo rmed. FINDINGS: LOWER CHEST: Similar emphysematous changes with moderate areas of scarring and groundglass opacities bilaterally. Stable right lower lobe 7 mm pulmonary nodule. Coronary artery calcifications. Enlarged heart. ABDOMEN LIVER: Unremarkable noncontrast appearance. GALLBLADDER AND BILE DUCTS: The gallbladder is surgically absent. Mild prominence of the extrahepatic bile ducts which is not unexpected in the setting of cholecystectomy. PANCREAS: Fatty infiltration of the pancreas. SPLEEN: Multiple clips surrounding spleen extending anteriorly and inferiorly with adjacent streak ar tifact. Trace perisplenic fluid again demonstrated. ADRENAL GLANDS: Unremarkable noncontrast appearance. KIDNEYS AND URETERS: There are 2 definite calculi demonstrated within the right kidney with largest i n the inferior pole measuring up to 4 mm. There is a calculus demonstrated within the inferior pole o f the left kidney measuring up to 5 mm. Prominent bilateral extrarenal pelvises. No hydronephrosis or hydroureter. PELVIS BLADDER: Trabeculated appearance of the urinary bladder with right posterior wall diverticulum contai ken calcification likely related to chronic outlet obstruction from prostate gland. REPRODUCTIVE: Prostate is enlarged in size measuring 5.2 cm in transverse dimension. This indents upo n the urinary bladder base. ABDOMEN & PELVIS STOMACH AND BOWEL: Stomach and duodenum are unremarkable. No focal wall thickening. Anastomosis at th e sigmoid colon. No evidence of bowel obstruction. PERITONEUM: No evidence of pneumoperitoneum or free fluid. Multiple surgical clips along the left abd omen and upper pelvis. VASCULATURE: No evidence of aortic aneurysm. MUSCULOSKELETAL: No acute osseous abnormalities. Diffuse bony mineralization. Straightening of the mel mbar spine. Multilevel degenerative disc disease. Heterotopic ossification along both posterior busch of the acetabulum and greater trochanters. Suspected old healed fracture of the pubic symphysis with heterotopic ossification. No aggressive osseous lesion. LYMPH NODES: No gross evidence for lymphadenopathy. SOFT TISSUE/ABDOMINAL WALL: Stable 1.7 cm calcification in the soft tissues just inferior to the cocc yx midline. IMPRESSION: 1. No obstructive uropathy. 2. Nonobstructive bilateral renal calculi. 3. Trabeculated urinary bladder with right posterior bladder diverticulum containing calcification li caroline due to chronic outlet obstruction from enlarged prostate gland.
== END | disposition home or self-care (01) ==
LOC: RADCTMAIN 12:15
PROVIDERS: ATTEND Urology
DX: N20.0 Calculus of kidney (principal); N32.3 Diverticulum of bladder
CPT/HCPCS: 74176

== ENCOUNTER 2022-09-03 16:20 | Emergency (ER) | payer MEDICARE, OTHER ==
[2022-09-03 16:36] VITALS: TEMP 98
--- NOTE | 2022-09-03 16:40 | ED ---
General Adult HPI - General Chief complaint: Recheck/Abnormal Lab/Rx Stated complaint: Post-op catheter issues Time Seen by Provider: 09/03/22 16:39 Source: patient Mode of arrival: ambulatory Limitations: no limitations - History of Present Illness Initial comments: Patient presents to the ED with his for evaluation. Patient states that he had a Bowens catheter placed status post renal stone extraction procedure 6 days ago. Patient states that the catheter was removed 2 days later, but he developed hematuria and urinary retention, so the catheter was replaced. Patient states that he has since stopped taking his Xarelto. Patient states that he has been leaking around his catheter today, and that is why he has come to the ED. Patient admits to having hematuria currently. Patient states that he has seen some clots as well. Patient states that the urine within his catheter bag has increased in volume since he left home to come to the ED today. Patient denies having any pain, fever or chills, headache, chest pain, dyspnea, dizziness, abdominal pain, back or flank pain, nausea or vomiting, or any other symptoms or complaints. Patient states that his urologist is Dr. Shelby. - Related Data Home Medications Medication Instructions Recorded Confirmed ALPRAZolam [Xanax] 0.25 mg PO BID 07/13/20 08/25/22 Albuterol Inhaler [Ventolin Hfa 2 puff INHALATION RT-Q6H PRN 07/13/20 08/28/22 Inhaler] Aspirin [Adult Low Dose Aspirin EC] 81 mg PO DAILY 07/13/20 08/25/22 Gabapentin [Neurontin] 200 mg PO HS 07/13/20 08/28/22 Multivitamins, Thera [Multivitamin 1 tab PO DAILY 07/13/20 08/25/22 (formulary)] Rivaroxaban [Xarelto] 20 mg PO DAILY 07/13/20 08/25/22 Tamsulosin HCl [Flomax] 0.8 mg PO DAILY 07/13/20 08/28/22 carvediloL [Coreg] 12.5 mg PO BID 07/13/20 08/25/22 Famotidine [Pepcid] 20 mg PO DAILY 08/26/20 08/28/22 Ferrous Sulfate [Feosol] 325 mg PO DAILY 08/25/22 08/25/22 Finasteride [Proscar] 5 mg PO DAILY 08/25/22 08/28/22 Previous Rx's Medication Instructions Recorded traMADol HCL [Ultram] 50 mg PO Q6HR PRN 3 Days #12 tab 07/16/20 Hydrocodone/Acetaminophen [[place] 1 - 2 each PO Q4HR PRN #10 tab 09/29/20 5-325] Cephalexin [Keflex] 500 mg PO Q8HR #15 cap 08/28/22 Ketorolac [Toradol] 10 mg PO Q6HR PRN #15 tab 08/28/22 Allergies Allergy/AdvReac Type Severity Reaction Status Date / Time iodine Allergy Anaphylaxis Verified 09/03/22 16:36 Review of Systems ROS Statement: Those systems with pertinent positive or pertinent negative responses have been documented in the HPI. ROS Other: All systems not noted in ROS Statement are negative. 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 Last Myocardial Infarction Date:: 1986 History of Any Multi-Drug Resistant Organisms: None Reported Past Surgical History: Appendectomy, Cholecystectomy, Heart Catheterization With Stent, Orthopedic Surgery Additional Past Surgical History / Comment(s): lithotripsy, RIKA, EP study with cardioversion, sx on deborah knees, hips,shoulders, hx of colostomy and reversal, hx of trach and closure, hx of chest tubes, all related to septic shock in 1986 r/t to an appendectomy. Pulmonary Fibrosis. Past Anesthesia/Blood Transfusion Reactions: No Reported Reaction Date of Last Stent Placement:: 2012 Past Psychological History: No Psychological Hx Reported Smoking Status: Former smoker Past Alcohol Use History: None Reported Past Drug Use History: None Reported - Past Family History Sister(s) Family Medical History: Cancer Father Family Medical History: Cancer General Exam Limitations: no limitations General appearance: alert, in no apparent distress Head exam: Present: atraumatic, normocephalic Eye exam: Present: normal appearance, EOMI ENT exam: Present: mucous membranes moist Neck exam: Present: other (Trachea is midline) Respiratory exam: Present: normal lung sounds bilaterally. Absent: respiratory distress, wheezes, rales, rhonchi, stridor Cardiovascular Exam: Present: regular rate, normal rhythm, normal heart sounds, other (Normal radial pulses bilaterally) GI/Abdominal exam: Present: soft. Absent: distended, tenderness, guarding exam: Present: other (A Bowens catheter is in place and is draining tea- colored urine.) Extremities exam: Absent: tenderness, pedal edema Back exam: Absent: CVA tenderness (R), CVA tenderness (L) Neurological exam: Present: alert, oriented X3. Absent: motor sensory deficit Psychiatric exam: Present: normal affect, normal mood Skin exam: Present: warm, dry, intact, normal color Course Vital Signs 09/03/22 16:34 Temperature 98 F Pulse Rate 91 Respiratory 20 Rate Blood Pressure 117/76 O2 Sat by Pulse 98 Oximetry - Reevaluation(s) Reevaluation #1: 09/03/22 18:39 Patient's Bowens catheter was replaced by his ED RN, and his catheter is now draining normally. He continues to be draining tea-colored urine, but it has now lightened in color. Patient denies development of any new symptoms while in the ED. Patient's labs are fairly unremarkable. Patient is aware of his test results, and he feels comfortable being discharged home at this time. Patient was counseled about hematuria and Bowens catheter care. He was clearly explained return and follow-up instructions. He was instructed to follow up closely with his urologist, as well as his primary care provider. Patient feels comfortable with this plan. Medical Decision Making - Lab Data Result diagrams: 09/03/22 17:43 09/03/22 17:43 Lab Results 09/03/22 09/03/22 09/03/22 Range/Units 17:43 17:43 17:43 WBC 5.3 (3.8-10.6) k/uL RBC 3.85 L (4.30-5.90) m/uL Hgb 11.9 L (13.0-17.5) gm/dL Hct 36.0 L (39.0-53.0) % MCV 93.5 (80.0-100.0) fL MCH 30.8 (25.0-35.0) pg MCHC 32.9 (31.0-37.0) g/dL RDW 14.1 (11.5-15.5) % Plt Count 153 (150-450) k/uL MPV 7.8 Neutrophils % 58 % Lymphocytes % 25 % Monocytes % 9 % Eosinophils % 4 % Basophils % 1 % Neutrophils # 3.1 (1.3-7.7) k/uL Lymphocytes # 1.3 (1.0-4.8) k/uL Monocytes # 0.5 (0-1.0) k/uL Eosinophils # 0.2 (0-0.7) k/uL Basophils # 0.0 (0-0.2) k/uL PT 10.0 (9.0-12.0) sec INR 0.9 (<1.2) APTT 22.2 (22.0-30.0) sec Sodium 139 (137-145) mmol/L Potassium 4.7 (3.5-5.1) mmol/L Chloride 106 (98-107) mmol/L Carbon Dioxide 28 (22-30) mmol/L Anion Gap 5 mmol/L BUN 18 (9-20) mg/dL Creatinine 0.78 (0.66-1.25) mg/dL Est GFR (CKD-EPI)AfAm >90 (>60 ml/min/1.73 sqM) Est GFR (CKD-EPI)NonAf 89 (>60 ml/min/1.73 sqM) Glucose 96 (74-99) mg/dL Calcium 8.1 L (8.4-10.2) mg/dL Total Bilirubin 0.5 (0.2-1.3) mg/dL AST 27 (17-59) U/L ALT 22 (4-49) U/L Alkaline Phosphatase 61 (38-126) U/L Total Protein 5.1 L (6.3-8.2) g/dL Albumin 3.3 L (3.5-5.0) g/dL Disposition Clinical Impression: Hematuria, Obstructed Bowens catheter, Encounter for Bowens catheter replacement Disposition: HOME SELF-CARE Condition: Stable Instructions (If sedation given, give patient instructions): Bowens Catheter Placement and Care (ED), Hematuria (ED) Additional Instructions: Return to the ER immediately should you develop any significant pain, decreased urine output, leakage around your Bowens catheter, a fever, vomiting, shortness of breath, feeling dizzy or faint, or new or worsening symptoms. Follow up closely with your urologist, as well as your primary care provider. Is patient prescribed a controlled substance at d/c from ED?: No Referrals: Darrick Mondragon DO [Primary Care Provider] - 1-2 days Ab Shelby MD [Family Provider] - 1-2 days Time of Disposition: 18:43
[2022-09-03 17:53] LABS: Basophils % (A) 1 %; Eosinophils # (A) 0.2 k/uL (0-0.7); Eosinophils % (A) 4 %; HGB 11.9 gm/dL (13.0-17.5); Lymphocytes # (A) 1.3 k/uL (1.0-4.8); Lymphocytes % (A) 25 %; MCH 30.8 pg (25.0-35.0); MCHC 32.9 g/dL (31.0-37.0); MCV 93.5 fL (80.0-100.0); Mean Platelet Volume 7.8; Monocytes # (A) 0.5 k/uL (0-1.0); Monocytes % (A) 9 %; Neutrophils # (A) 3.1 k/uL (1.3-7.7); Neutrophils % (A) 58 %; Platelet Count 153 k/uL (150-450); RBC 3.85 m/uL (4.30-5.90); RDW 14.1 % (11.5-15.5); WBC 5.3 k/uL (3.8-10.6)
[2022-09-03 18:03] LABS: ALT 22 U/L (4-49); AST 27 U/L (17-59); African American GFR (CKD) >90 (>60 ml/min/1.73 sqM); Albumin 3.3 g/dL (3.5-5.0); Alkaline Phosphatase 61 U/L (38-126); Anion Gap 5 mmol/L; Blood Urea Nitrogen 18 mg/dL (9-20); Calcium 8.1 mg/dL (8.4-10.2); Carbon Dioxide 28 mmol/L (22-30); Chloride 106 mmol/L (98-107); Glucose 96 mg/dL (74-99); Non-African American GFR(CKD) 89 (>60 ml/min/1.73 sqM); Potassium 4.7 mmol/L (3.5-5.1); Sodium 139 mmol/L (137-145); Total Bilirubin 0.5 mg/dL (0.2-1.3); Total Protein 5.1 g/dL (6.3-8.2)
[2022-09-03 18:07] LABS: INR 0.9 (<1.2); Partial Thromboplastin Time 22.2 sec (22.0-30.0)
[2022-09-03 19:00] VITALS: BP 120/84; PULSE 92; RESP 18
== END 2022-09-03 19:00 | disposition home or self-care (01) ==
LOC: EC 16:20
DX: T83.098A Other mechanical complication of other urinary catheter, initial encounter (principal); R31.9 Hematuria, unspecified; I48.91 Unspecified atrial fibrillation; I25.10 Atherosclerotic heart disease of native coronary artery without angina pectoris; K21.9 Gastro-esophageal reflux disease without esophagitis; E78.5 Hyperlipidemia, unspecified; I10 Essential (primary) hypertension; I25.2 Old myocardial infarction; Z91.041 Radiographic dye allergy status; Z79.82 Long term (current) use of aspirin
CPT/HCPCS: 36415; 51702; 80053; 85025; 85610; 85730; 99283

== ENCOUNTER 2023-01-30 17:33 | Emergency (ER) | payer MEDICARE, OTHER ==
[2023-01-30 17:41] VITALS: PULSE 60; TEMP 98.2
--- NOTE | 2023-01-30 18:32 | ED ---
General Adult HPI - General Chief complaint: Arrhythmia/Palpitations Stated complaint: hypertension, dizzy, Time Seen by Provider: 01/30/23 17:43 Source: patient Mode of arrival: ambulatory Limitations: no limitations - History of Present Illness Initial comments: This patient is 77-year-old man who presents to have evaluation for palpitations. Patient states he does have history of atrial fibrillation and he was concerned that he may have gone back into A. fib. He also relates history of recent [place] approximately 2 weeks ago. The patient states that over the course the day he has noticed that at times his heart rate has felt rapid and irregular. He states that this has resolved. He did not note any chest pain, dyspnea, diaphoresis, nausea or vomiting. He was concerned because of the recent [place]. -: hour(s) Severity scale (1-10): 0 Consistency: intermittent, now resolved Improves with: none Worsens with: none Associated Symptoms: denies other symptoms Treatments Prior to Arrival: none - Related Data Home Medications Medication Instructions Recorded Confirmed ALPRAZolam [Xanax] 0.25 mg PO BID 07/13/20 01/30/23 Aspirin [Adult Low Dose Aspirin EC] 81 mg PO DAILY 07/13/20 01/30/23 Gabapentin [Neurontin] 200 mg PO HS 07/13/20 01/30/23 Multivitamins, Thera [Multivitamin 1 tab PO DAILY@119907/13/20 01/30/23 (formulary)] Rivaroxaban [Xarelto] 20 mg PO DAILY@1200 07/13/20 01/30/23 Tamsulosin HCl [Flomax] 0.8 mg PO DAILY@1200 07/13/20 01/30/23 carvediloL [Coreg] 12.5 mg PO BID 07/13/20 01/30/23 Famotidine [Pepcid] 20 mg PO HS 08/26/20 01/30/23 Ferrous Sulfate [Iron (65 MG 325 mg PO DAILY 08/25/22 01/30/23 Elemental)] Finasteride [Proscar] 5 mg PO HS 08/25/22 01/30/23 Atorvastatin [Lipitor] 40 mg PO HS 01/08/23 01/30/23 traZODone HCL [Desyrel] 50 mg PO HS 01/08/23 01/30/23 Clopidogrel [Plavix] 75 mg PO HS 01/30/23 01/30/23 Escitalopram [Lexapro] 10 mg PO DAILY@1200 01/30/23 01/30/23 Previous Rx's Medication Instructions Recorded lisinopriL [Zestril] 20 mg PO DAILY #30 tab 01/12/23 Allergies Allergy/AdvReac Type Severity Reaction Status Date / Time iodine Allergy Anaphylaxis Verified 01/30/23 18:26 Review of Systems ROS Statement: Those systems with pertinent positive or pertinent negative responses have been documented in the HPI. ROS Other: All systems not noted in ROS Statement are negative. Constitutional: Denies: fever, chills, weakness Respiratory: Denies: cough, dyspnea Cardiovascular: Reports: as per HPI, palpitations. 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 Last Myocardial Infarction Date:: 1986 History of Any Multi-Drug Resistant Organisms: None Reported Past Surgical History: Appendectomy, Cholecystectomy, Heart Catheterization, Heart Catheterization With Stent, Orthopedic Surgery Additional Past Surgical History / Comment(s): lithotripsy, RIKA, EP study with cardioversion, sx on deborah knees, hips,shoulders, hx of colostomy and reversal, hx of trach and closure, hx of chest tubes, all related to septic shock in 1986 r/t to an appendectomy. Pulmonary Fibrosis. Past Anesthesia/Blood Transfusion Reactions: No Reported Reaction Date of Last Stent Placement:: 2012 Past Psychological History: No Psychological Hx Reported Smoking Status: Former smoker Past Alcohol Use History: None Reported Past Drug Use History: None Reported - Past Family History Sister(s) Family Medical History: Cancer Father Family Medical History: Cancer General Exam Limitations: no limitations General appearance: alert, in no apparent distress Head exam: Present: atraumatic, normocephalic Eye exam: Present: normal appearance. Absent: scleral icterus, conjunctival injection Neck exam: Present: normal inspection Respiratory exam: Present: normal lung sounds bilaterally. Absent: respiratory distress, wheezes, rales, rhonchi, stridor, accessory muscle use Cardiovascular Exam: Present: regular rate, normal rhythm, normal heart sounds. Absent: systolic murmur, diastolic murmur, rubs, gallop GI/Abdominal exam: Present: soft. Absent: distended, tenderness, guarding, rebound, rigid, mass Extremities exam: Present: normal inspection, normal capillary refill. Absent: pedal edema, calf tenderness Back exam: Present: normal inspection. Absent: CVA tenderness (R), CVA tenderness (L) Neurological exam: Present: alert Skin exam: Present: warm, dry, intact, normal color. Absent: rash Course Vital Signs 01/30/23 01/30/23 17:38 19:41 Temperature 98.2 F Pulse Rate 60 60 Respiratory 16 18 Rate Blood Pressure 127/71 155/73 O2 Sat by Pulse 96 97 Oximetry EKG Findings - EKG Results: EKG: interpreted by ERMRaúl, sinus rhythm (With sinus arrhythmia), normal axis, normal ST/T EKG shows: bradycardia (Rate 58 bpm) - Blocks, [place], Hypertrophy, ST Abn: AV and intraventricular conduction: right bundle branch block (fixed/intermittent, complete/incomplete) Medical Decision Making - Medical Decision Making The patient had chest x-ray which I interpreted as not showing infiltrate, pneumothorax, or congestive heart failure. Patient is 77-year-old man here to have evaluation after he felt that his heart rate was at times rapid, at times irregular. The workup here essentially unremarkable. Given the patient's recent cardiac history we discussed being admitted for telemetry monitoring, serial cardiac enzymes, cardiology evaluation, the patient states he is feeling much better, that his heart rate has been regular while here, and he would like to go home and follow-up with cardiology. We discussed appropriate further care and follow-up as well as return parameters. Was pt. sent in by a medical professional or institution (, PA, AUTOPSY ASSISTANT, urgent care, hospital, or prison...) When possible be specific @ -[No] Did you speak to anyone other than the patient for history (EMS, parent, family, police, friend...)? What history was obtained from this source @ -[No] Did you review nursing and triage notes (agree or disagree)? Why? @ -[I reviewed and agree with nursing and triage notes] Were old charts reviewed (outside hosp., previous admission, EMS record, old EKG, old radiological studies, urgent care reports/EKG's, prison records)? Report findings @ -old charts were reviewed] Differential Diagnosis (chest pain, altered mental status, abdominal pain women, abdominal pain men, vaginal bleeding, weakness, fever, dyspnea, syncope, headach e, dizziness, GI bleed, back pain, seizure, CVA, palpatations, mental health, musculoskeletal)? @ -[Differential Palpitations Ventricular arrhythmias, atrial arrhythmias, myocardial infarction, anemia, thyrotoxicosis, electrolyte imbalance, hypokalemia, pulmonary embolism, pulmo nary disease, drugs, alcohol, anxiety, stress.... This is not meant to be an all-inclusive list. EKG interpreted by me (3pts min.). @ -[As above] X-rays interpreted by me (1pt min.). @ -[As above CT interpreted by me (1pt min.). @ -[None done] U/S interpreted by me (1pt. min.). @ -[None done] What testing was considered but not performed or refused? (CT, X-rays, U/S, labs)? Why? @ -[None] What meds were considered but not given or refused? Why? @ -[None] Did you discuss the management of the patient with other professionals (professionals i.e. , PA, AUTOPSY ASSISTANT, lab, RT, psych nurse, social psychologist, critical care physician, teacher, bank officer, watch caser)? Give summary @ -[No] Was smoking cessation discussed for >3mins.? @ -[No] Was critical care preformed (if so, how long)? @ -[No] Were there social determinants of health that impacted care today? How? (Homelessness, low income, unemployed, alcoholism, drug addiction, transportation, low edu. Level, literacy, decrease access to med. care, prison, rehab)? @ -[No] Was there de-escalation of care discussed even if they declined (Discuss DNR or withdrawal of care, Hospice)? DNR status @ -[No] What co-morbidities impacted this encounter? (DM, HTN, Smoking, COPD, CAD, Cancer, CVA, ARF, Chemo, Hep., AIDS, mental health diagnosis, sleep apnea, morbid obesity)? @ -[CAD Was patient admitted / discharged? Hospital course, mention meds given and route, prescriptions, significant lab abnormalities, going to OR and other pertinent info. @ -[Discharged Undiagnosed new problem with uncertain prognosis? @ -[No] Drug Therapy requiring intensive monitoring for toxicity (Heparin, Nitro, Insulin, Cardizem)? @ -[No] Were any procedures done? @ -[No] Diagnosis/symptom? @ -[Acute palpitations, uncomplicated Acute, or Chronic, or Acute on Chronic? @ -[default] Uncomplicated (without systemic symptoms) or Complicated (systemic symptoms)? @ -[default] Side effects of treatment? @ -[No] Exacerbation, Progression, or Severe Exacerbation? @ -[No] Poses a threat to life or bodily function? How? (Chest pain, [place], [place], pneumonia, PE, COPD, DKA, ARF, appy, cholecystitis, CVA, Diverticulitis, Homicidal, Suicidal, threat to staff... and all critical care pts) @ -[No] - Lab Data Result diagrams: 01/30/23 18:01 01/30/23 18:01 Lab Results 01/30/23 01/30/23 01/30/23 Range/Units 18:01 18:01 18:01 WBC 3.8 (3.8-10.6) k/uL RBC 4.60 (4.30-5.90) m/uL Hgb 13.9 (13.0-17.5) gm/dL Hct 42.7 (39.0-53.0) % MCV 92.9 (80.0-100.0) fL MCH 30.2 (25.0-35.0) pg MCHC 32.5 (31.0-37.0) g/dL RDW 14.0 (11.5-15.5) % Plt Count 161 (150-450) k/uL MPV 7.4 Neutrophils % 54 % Lymphocytes % 33 % Monocytes % 8 % Eosinophils % 2 % Basophils % 0 % Neutrophils # 2.0 (1.3-7.7) k/uL Lymphocytes # 1.3 (1.0-4.8) k/uL Monocytes # 0.3 (0-1.0) k/uL Eosinophils # 0.1 (0-0.7) k/uL Basophils # 0.0 (0-0.2) k/uL PT 13.0 H (9.0-12.0) sec INR 1.3 H (<1.2) APTT 29.5 (22.0-30.0) sec Sodium 140 (137-145) mmol/L Potassium 5.2 H (3.5-5.1) mmol/L Chloride 107 (98-107) mmol/L Carbon Dioxide 30 (22-30) mmol/L Anion Gap 3 mmol/L BUN 16 (9-20) mg/dL Creatinine 0.84 (0.66-1.25) mg/dL Est GFR (CKD-EPI)AfAm >90 (>60 ml/min/1.73 sqM) Est GFR (CKD-EPI)NonAf 86 (>60 ml/min/1.73 sqM) Glucose 134 H (74-99) mg/dL Calcium 8.3 L (8.4-10.2) mg/dL Magnesium 2.1 (1.6-2.3) mg/dL Total Bilirubin 0.6 (0.2-1.3) mg/dL AST 31 (17-59) U/L ALT 27 (4-49) U/L Alkaline Phosphatase 80 (38-126) U/L Troponin I (0.000-0.034) ng/mL Total Protein 6.0 L (6.3-8.2) g/dL Albumin 3.7 (3.5-5.0) g/dL 01/30/23 Range/Units 18:01 WBC (3.8-10.6) k/uL RBC (4.30-5.90) m/uL Hgb (13.0-17.5) gm/dL Hct (39.0-53.0) % MCV (80.0-100.0) fL MCH (25.0-35.0) pg MCHC (31.0-37.0) g/dL RDW (11.5-15.5) % Plt Count (150-450) k/uL MPV Neutrophils % % Lymphocytes % % Monocytes % % Eosinophils % % Basophils % % Neutrophils # (1.3-7.7) k/uL Lymphocytes # (1.0-4.8) k/uL Monocytes # (0-1.0) k/uL Eosinophils # (0-0.7) k/uL Basophils # (0-0.2) k/uL PT (9.0-12.0) sec INR (<1.2) APTT (22.0-30.0) sec Sodium (137-145) mmol/L Potassium (3.5-5.1) mmol/L Chloride (98-107) mmol/L Carbon Dioxide (22-30) mmol/L Anion Gap mmol/L BUN (9-20) mg/dL Creatinine (0.66-1.25) mg/dL Est GFR (CKD-EPI)AfAm (>60 ml/min/1.73 sqM) Est GFR (CKD-EPI)NonAf (>60 ml/min/1.73 sqM) Glucose (74-99) mg/dL Calcium (8.4-10.2) mg/dL Magnesium (1.6-2.3) mg/dL Total Bilirubin (0.2-1.3) mg/dL AST (17-59) U/L ALT (4-49) U/L Alkaline Phosphatase (38-126) U/L Troponin I <0.012 (0.000-0.034) ng/mL Total Protein (6.3-8.2) g/dL Albumin (3.5-5.0) g/dL - EKG Data -: EKG Interpreted by Nm EKG shows normal: sinus rhythm (With sinus arrhythmia), axis (Normal), intervals (QRS duration 149 ms, prolonged consistent with right bundle-branch block. [place] interval 174 ms, QTC 439 ms, normal), QRS complexes (Right bundle-branch block.) Rate: bradycardia (Rate 58 bpm) Disposition Clinical Impression: Palpitations Disposition: HOME SELF-CARE Condition: Good Instructions (If sedation given, give patient instructions): Heart Palpitations (ED) Is patient prescribed a controlled substance at d/c from ED?: No Referrals: Darrick Mondragon DO [Primary Care Provider] - 1-2 days Alethea Dalton MD [STAFF PHYSICIAN] - 1-2 days
[2023-01-30 18:33] LABS: Basophils % (A) 0 %; Eosinophils # (A) 0.1 k/uL (0-0.7); Eosinophils % (A) 2 %; HCT 42.7 % (39.0-53.0); HGB 13.9 gm/dL (13.0-17.5); Lymphocytes # (A) 1.3 k/uL (1.0-4.8); Lymphocytes % (A) 33 %; MCH 30.2 pg (25.0-35.0); MCHC 32.5 g/dL (31.0-37.0); MCV 92.9 fL (80.0-100.0); Mean Platelet Volume 7.4; Monocytes # (A) 0.3 k/uL (0-1.0); Monocytes % (A) 8 %; Neutrophils % (A) 54 %; Platelet Count 161 k/uL (150-450); WBC 3.8 k/uL (3.8-10.6)
[2023-01-30 18:42] LABS: ALT 27 U/L (4-49); AST 31 U/L (17-59); African American GFR (CKD) >90 (>60 ml/min/1.73 sqM); Albumin 3.7 g/dL (3.5-5.0); Alkaline Phosphatase 80 U/L (38-126); Anion Gap 3 mmol/L; Blood Urea Nitrogen 16 mg/dL (9-20); Calcium 8.3 mg/dL (8.4-10.2); Carbon Dioxide 30 mmol/L (22-30); Chloride 107 mmol/L (98-107); Glucose 134 mg/dL (74-99); Magnesium 2.1 mg/dL (1.6-2.3); Non-African American GFR(CKD) 86 (>60 ml/min/1.73 sqM); Potassium 5.2 mmol/L (3.5-5.1); Sodium 140 mmol/L (137-145); Total Bilirubin 0.6 mg/dL (0.2-1.3)
--- NOTE | 2023-01-30 18:54 | XR ---
EXAMINATION TYPE: XR chest 2V DATE OF EXAM: 01/30/2023 6:29 PM COMPARISON: Chest radiographs from 01/08/2023 TECHNIQUE: XR chest 2V Frontal and lateral views of the chest. CLINICAL INDICATION:Male, 77 years old with history of dysrhythmia; FINDINGS: Lungs/Pleura: Prominent interstitial lung markings are seen scattered throughout the lungs with desire ening of the diaphragm and increased lucency of the lung apices. No evidence of focal consolidation, pneumothorax or pleural effusion. Pulmonary vascularity: Unremarkable. Heart/mediastinum: Cardiomediastinal silhouette is unremarkable. Musculoskeletal: No acute osseous pathology. Other findings: Left upper quadrant surgical changes. IMPRESSION: 1. Chronic changes without acute pulmonary process. No significant change from prior. 2. COPD.
[2023-01-30 18:55] LABS: INR 1.3 (<1.2); Partial Thromboplastin Time 29.5 sec (22.0-30.0)
[2023-01-30 19:42] VITALS: BP 155/73; RESP 18
== END 2023-01-30 19:45 | disposition home or self-care (01) ==
LOC: EC 17:33
DX: R00.2 Palpitations (principal); I25.10 Atherosclerotic heart disease of native coronary artery without angina pectoris; I10 Essential (primary) hypertension; E78.5 Hyperlipidemia, unspecified; K21.9 Gastro-esophageal reflux disease without esophagitis; Z79.82 Long term (current) use of aspirin; Z79.01 Long term (current) use of anticoagulants; Z79.899 Other long term (current) drug therapy; Z95.5 Presence of coronary angioplasty implant and graft; Z90.89 Acquired absence of other organs; Z90.49 Acquired absence of other specified parts of digestive tract; Z87.891 Personal history of nicotine dependence; Z87.442 Personal history of urinary calculi
CPT/HCPCS: 36415; 71046; 80053; 83735; 84484; 85025; 85610; 85730; 93005; 99285

== ENCOUNTER → 2023-04-05 | Outpatient (CLI) | payer MEDICARE, OTHER ==
--- NOTE | 2023-04-05 12:21 | US ---
EXAMINATION TYPE: US venous doppler duplex LE RT DATE OF EXAM: 04/05/2023 12:10 PM COMPARISON: NONE CLINICAL INDICATION: Male, 77 years old with history of M79.661 PAIN RT LOWER LEG, R60.00 EDEMA; No r edness or swelling. Patient states he is on two different blood thinners. No injury. Right leg bru ise/discoloration. SIDE PERFORMED: Right TECHNIQUE: The lower extremity deep venous system is examined utilizing real time linear array sonog jameson with graded compression, doppler sonography and color-flow sonography. VESSELS IMAGED: Common Femoral Vein Deep Femoral Vein Greater Saphenous Vein * Femoral Vein Popliteal Vein Small Saphenous Vein * Proximal Calf Veins Posterior tibial veins (* superficial vessels) Right Leg: Negative for DVT. Limitations due to arterial shadowing. IMPRESSION: Exam limitations due to arterial shadowing. No visualized DVT within the right lower extr emity.
== END | disposition home or self-care (01) ==
LOC: RADUSWWP 11:40
PROVIDERS: ATTEND Family Medicine
DX: M79.661 Pain in right lower leg (principal); R60.0 Localized edema

== ENCOUNTER → 2023-07-04 | Outpatient (CLI) | payer MEDICARE, OTHER ==
--- NOTE | 2023-07-04 20:25 | US ---
EXAMINATION TYPE: US venous doppler duplex LE RT DATE OF EXAM: 07/04/2023 11:49 AM COMPARISON: NONE CLINICAL INDICATION: Male, 78 years old with history of R22.41 LOCALIZED SWELLING; HX of SVT on blood thinners. SIDE PERFORMED: Right TECHNIQUE: The lower extremity deep venous system is examined utilizing real time linear array sonog jameson with graded compression, doppler sonography and color-flow sonography. VESSELS IMAGED: Common Femoral Vein Deep Femoral Vein Greater Saphenous Vein * Femoral Vein Popliteal Vein Small Saphenous Vein * Proximal Calf Veins (* superficial vessels) Right Leg: Negative for DVT IMPRESSION: 1 right lower extremity ultrasound negative for deep venous thrombosis.
== END | disposition home or self-care (01) ==
LOC: RADUSWWP 11:24
PROVIDERS: ATTEND Internal Medicine
DX: R22.41 Localized swelling, mass and lump, right lower limb (principal); Z79.01 Long term (current) use of anticoagulants; Z86.79 Personal history of other diseases of the circulatory system

== ENCOUNTER 2023-11-19 10:45 | Emergency (ER) | payer MEDICARE, OTHER ==
[2023-11-19] MEDS ORDERED: SODIUM CHLORIDE 0.9% 500 ML 500 ML IV ONE (11:08)
--- NOTE | 2023-11-19 11:56 | ED ---
Fall HPI - General Chief Complaint: Fall Stated Complaint: fall-on thinners Time Seen by Provider: 11/19/23 10:56 Source: patient, family, RN notes reviewed Mode of arrival: wheelchair Limitations: no limitations - History of Present Illness Initial Comments: This a 78-year-old male presents emergency Department chief complaint of fall. Patient states he fell off a ladder 2 steps up on Sunday in his kitchen. Patient landed on the cabinet on his left side. Patient does admit that is on blood thinners for atrial fibrillation. Patient denies any head injury no loss conscious denies any neck, upper back pain. He states it's left rib abdominal back region. He states he felt weak or sense. Denies any current complaints of palpitations fever chills shortness breath dysuria denies any bowel, bladder incontinence or retention. - Related Data Home Medications Medication Instructions Recorded Confirmed ALPRAZolam [Xanax] 0.25 mg PO BID 07/13/20 11/19/23 Aspirin [Adult Low Dose Aspirin EC] 81 mg PO DAILY 07/13/20 11/19/23 Gabapentin [Neurontin] 200 mg PO HS 07/13/20 11/19/23 Multivitamins, Thera [Multivitamin 1 tab PO DAILY@1200 07/13/20 11/19/23 (formulary)] Rivaroxaban [Xarelto] 20 mg PO DAILY@1200 07/13/20 11/19/23 Tamsulosin HCl [Flomax] 0.8 mg PO DAILY@1200 07/13/20 11/19/23 carvediloL [Coreg] 12.5 mg PO BID 07/13/20 11/19/23 Famotidine [Pepcid] 20 mg PO HS 08/26/20 11/19/23 Ferrous Sulfate [Iron (65 MG 325 mg PO DAILY 08/25/22 11/19/23 Elemental)] Atorvastatin [Lipitor] 40 mg PO HS 01/08/23 11/19/23 traZODone HCL [Desyrel] 50 mg PO HS 01/08/23 11/19/23 Clopidogrel [Plavix] 75 mg PO HS 01/30/23 11/19/23 Escitalopram [Lexapro] 10 mg PO DAILY@1200 01/30/23 11/19/23 Baclofen 10 mg PO 11/19/23 11/19/23 Doxazosin [Cardura] 4 mg PO HS 11/19/23 11/19/23 Previous Rx's Medication Instructions Recorded lisinopriL [Zestril] 20 mg PO DAILY #30 tab 01/12/23 Allergies Allergy/AdvReac Type Severity Reaction Status Date / Time iodine Allergy Anaphylaxis Verified 11/19/23 12:32 Review of Systems ROS Statement: Those systems with pertinent positive or pertinent negative responses have been documented in the HPI. ROS Other: All systems not noted in ROS Statement are negative. 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 pulmonary fibrosis Last Myocardial Infarction Date:: 1986 History of Any Multi-Drug Resistant Organisms: None Reported Past Surgical History: Appendectomy, Cholecystectomy, Heart Catheterization, Heart Catheterization With Stent, Orthopedic Surgery Additional Past Surgical History / Comment(s): lithotripsy, RIKA, EP study with cardioversion, sx on edborah knees, hips,shoulders, hx of colostomy and reversal, hx of trach and closure, hx of chest tubes, all related to septic shock in 1986 r/t to an appendectomy. Pulmonary Fibrosis. Past Anesthesia/Blood Transfusion Reactions: No Reported Reaction Date of Last Stent Placement:: 2012 Past Psychological History: No Psychological Hx Reported Smoking Status: Former smoker Past Alcohol Use History: None Reported Past Drug Use History: None Reported - Past Family History Sister(s) Family Medical History: Cancer Father Family Medical History: Cancer General Exam Limitations: no limitations General appearance: alert, in no apparent distress Head exam: Present: atraumatic, normocephalic, normal inspection Eye exam: Present: normal appearance, PERRL, EOMI. Absent: scleral icterus, conjunctival injection, periorbital swelling Neck exam: Present: normal inspection. Absent: tenderness, meningismus, lymphadenopathy Respiratory exam: Present: normal lung sounds bilaterally, chest wall tenderness. Absent: respiratory distress, wheezes, rales, rhonchi, stridor, decreased breath sounds Cardiovascular Exam: Present: regular rate, normal rhythm, normal heart sounds. Absent: systolic murmur, diastolic murmur, rubs, gallop, clicks GI/Abdominal exam: Present: soft, normal bowel sounds. Absent: distended, tenderness, guarding, rebound, rigid Back exam: Present: full ROM, tenderness, CVA tenderness (R), paraspinal tenderness. Absent: CVA tenderness (L) Neurological exam: Present: alert, oriented X3, CN II-XII intact, reflexes normal. Absent: motor sensory deficit Course Vital Signs 11/19/23 11/19/23 11/19/23 10:53 12:08 14:25 Temperature 98 F 98.0 F Pulse Rate 70 60 68 Respiratory 16 17 18 Rate Blood Pressure 85/51 115/68 167/78 O2 Sat by Pulse 92 L 90 L 91 L Oximetry Medical Decision Making - Medical Decision Making Was pt. sent in by a medical professional or institution (, PA, SCOW DERRICK OPERATOR, urgent care, hospital, or usp...) When possible be specific @ -No Did you speak to anyone other than the patient for history (EMS, parent, family, police, friend...)? What history was obtained from this source @ -No Did you review nursing and triage notes (agree or disagree)? Why? @ -I reviewed and agree with nursing and triage notes Were old charts reviewed (outside hosp., previous admission, EMS record, old EKG, old radiological studies, urgent care reports/EKG's, usp records)? Report findings @ -No old charts were reviewed Differential Diagnosis (chest pain, altered mental status, abdominal pain women, abdominal pain men, vaginal bleeding, weakness, fever, dyspnea, syncope, headache, dizziness, GI bleed, back pain, seizure, CVA, palpatations, mental health, musculoskeletal)? @ -Differential Abdominal Pain Men: Appendicitis, cholecystitis, diverticulosis, ischemic bowel, pancreatitis, hepatitis, UTI, gastroenteritis, AAA, incarcerated hernia, bowel obstruction, constipation, inflammatory bowel, hepatitis, peptic ulcer disease, splenic infarction, perforated viscus, testicular torsion,, back pain, this is not meant to be an all-inclusive list EKG interpreted by me (3pts min.). @ -As above X-rays interpreted by me (1pt min.). @ -X-ray left ankle 3 view no acute fracture CT interpreted by me (1pt min.). @ -CT chest abdomen pelvis with contrast showed no acute intra-abdominal trichomoniasis injury there are some chronic changes noted U/S interpreted by me (1pt. min.). @ -None done What testing was considered but not performed or refused? (CT, X-rays, U/S, labs)? Why? @ -None What meds were considered but not given or refused? Why? @ -None Did you discuss the management of the patient with other professionals (professionals i.e. Dr., PA, SCOW DERRICK OPERATOR, lab, RT, psych nurse, social services director, outdoor advertising leasing agent, teacher, financial services officer, supervisor case loading)? Give summary @ -No Was smoking cessation discussed for >3mins.? @ -No Was critical care preformed (if so, how long)? @ -No Were there social determinants of health that impacted care today? How? (Homelessness, low income, unemployed, alcoholism, drug addiction, transportation, low edu. Level, literacy, decrease access to med. care, intermediate, rehab)? @ -No Was there de-escalation of care discussed even if they declined (Discuss DNR or withdrawal of care, Hospice)? DNR status @ -No What co-morbidities impacted this encounter? (DM, HTN, Smoking, COPD, CAD, Cancer, CVA, ARF, Chemo, Hep., AIDS, mental health diagnosis, sleep apnea, morbid obesity)? @ -[A. fib on blood thinners Was patient admitted / discharged? Hospital course, mention meds given and route, prescriptions, significant lab abnormalities, going to OR and other pertinent info. @ -Discharge patient had full imaging including x-ray of the left ankle, CT which was having problems with motion medical injuries. Patient is comfortable with discharge patient was offered admission patient declines. Undiagnosed new problem with uncertain prognosis? @ -No Drug Therapy requiring intensive monitoring for toxicity (Heparin, Nitro, Ins ulin, Cardizem)? @ -No Were any procedures done? @ -No Diagnosis/symptom? @ -Fall, rib contusion, ankle sprain Acute, or Chronic, or Acute on Chronic? @ -[Acute Uncomplicated (without systemic symptoms) or Complicated (systemic symptoms)? @ -[Uncomplicated Side effects of treatment? @ -No Exacerbation, Progression, or Severe Exacerbation? @ -No Poses a threat to life or bodily function? How? (Chest pain, [place], [place], pneumonia, PE, COPD, DKA, ARF, appy, cholecystitis, CVA, Diverticulitis, Homicidal, Suicidal, threat to staff... and all critical care pts) @ -No - Lab Data Result diagrams: 11/19/23 11:49 11/19/23 11:49 Lab Results 11/19/23 11/19/23 11/19/23 Range/Units 11:49 11:49 11:49 WBC 6.4 (3.8-10.6) k/uL RBC 4.32 (4.30-5.90) m/uL Hgb 14.0 (13.0-17.5) gm/dL Hct 42.1 (39.0-53.0) % MCV 97.3 (80.0-100.0) fL MCH 32.4 (25.0-35.0) pg MCHC 33.3 (31.0-37.0) g/dL RDW 12.7 (11.5-15.5) % Plt Count 116 L (150-450) k/uL MPV 7.4 Neutrophils % 76 % Lymphocytes % 12 % Monocytes % 7 % Eosinophils % 4 % Basophils % 0 % Neutrophils # 4.9 (1.3-7.7) k/uL Lymphocytes # 0.8 L (1.0-4.8) k/uL Monocytes # 0.5 (0-1.0) k/uL Eosinophils # 0.2 (0-0.7) k/uL Basophils # 0.0 (0-0.2) k/uL PT (10.0-12.5) sec INR (<1.2) APTT (22.0-30.0) sec Sodium 140 (137-145) mmol/L Potassium 4.5 (3.5-5.1) mmol/L Chloride 109 H (98-107) mmol/L Carbon Dioxide 23 (22-30) mmol/L Anion Gap 8 mmol/L BUN 21 H (9-20) mg/dL Creatinine 0.85 (0.66-1.25) mg/dL Est GFR (CKD-EPI)AfAm >90 (>60 ml/min/1.73 sqM) Est GFR (CKD-EPI)NonAf 85 (>60 ml/min/1.73 sqM) Glucose 137 H (74-99) mg/dL Plasma Lactic Acid Adrien (0.7-2.0) mmol/L Calcium 8.2 L (8.4-10.2) mg/dL Total Bilirubin 1.0 (0.2-1.3) mg/dL AST 27 (17-59) U/L ALT 18 (4-49) U/L Alkaline Phosphatase 63 (38-126) U/L Troponin I (0.000-0.034) ng/mL Total Protein 5.7 L (6.3-8.2) g/dL Albumin 3.3 L (3.5-5.0) g/dL Urine Color Colorless Urine Appearance Clear (Clear) Urine pH 5.0 (5.0-8.0) Ur Specific [place] 1.018 (1.001-1.035) Urine Protein Negative (Negative) Urine Glucose (UA) Negative (Negative) Urine Ketones Negative (Negative) Urine Blood Negative (Negative) Urine Nitrite Negative (Negative) Urine Bilirubin Negative (Negative) Urine Urobilinogen <2.0 (<2.0) mg/dL Ur Leukocyte Esterase Negative (Negative) Blood Type Blood Type Confirm Blood Type Recheck Bld Type Recheck Status Antibody Screen Spec Expiration Date 11/19/23 11/19/23 11/19/23 Range/Units 11:49 11:49 11:49 WBC (3.8-10.6) k/uL RBC (4.30-5.90) m/uL Hgb (13.0-17.5) gm/dL Hct (39.0-53.0) % MCV (80.0-100.0) fL MCH (25.0-35.0) pg MCHC (31.0-37.0) g/dL RDW (11.5-15.5) % Plt Count (150-450) k/uL MPV Neutrophils % % Lymphocytes % % Monocytes % % Eosinophils % % Basophils % % Neutrophils # (1.3-7.7) k/uL Lymphocytes # (1.0-4.8) k/uL Monocytes # (0-1.0) k/uL Eosinophils # (0-0.7) k/uL Basophils # (0-0.2) k/uL PT 11.0 (10.0-12.5) sec INR 1.0 (<1.2) APTT 27.8 (22.0-30.0) sec Sodium (137-145) mmol/L Potassium (3.5-5.1) mmol/L Chloride (98-107) mmol/L Carbon Dioxide (22-30) mmol/L Anion Gap mmol/L BUN (9-20) mg/dL Creatinine (0.66-1.25) mg/dL Est GFR (CKD-EPI)AfAm (>60 ml/min/1.73 sqM) Est GFR (CKD-EPI)NonAf (>60 ml/min/1.73 sqM) Glucose (74-99) mg/dL Plasma Lactic Acid Adrien 1.3 (0.7-2.0) mmol/L Calcium (8.4-10.2) mg/dL Total Bilirubin (0.2-1.3) mg/dL AST (17-59) U/L ALT (4-49) U/L Alkaline Phosphatase (38-126) U/L Troponin I 0.019 (0.000-0.034) ng/mL Total Protein (6.3-8.2) g/dL Albumin (3.5-5.0) g/dL Urine Color Urine Appearance (Clear) Urine pH (5.0-8.0) Ur Specific [place] (1.001-1.035) Urine Protein (Negative) Urine Glucose (UA) (Negative) Urine Ketones (Negative) Urine Blood (Negative) Urine Nitrite (Negative) Urine Bilirubin (Negative) Urine Urobilinogen (<2.0) mg/dL Ur Leukocyte Esterase (Negative) Blood Type Blood Type Confirm Blood Type Recheck Bld Type Recheck Status Antibody Screen Spec Expiration Date 11/19/23 11/19/23 Range/Units 11:49 11:50 WBC (3.8-10.6) k/uL RBC (4.30-5.90) m/uL Hgb (13.0-17.5) gm/dL Hct (39.0-53.0) % MCV (80.0-100.0) fL MCH (25.0-35.0) pg MCHC (31.0-37.0) g/dL RDW (11.5-15.5) % Plt Count (150-450) k/uL MPV Neutrophils % % Lymphocytes % % Monocytes % % Eosinophils % % Basophils % % Neutrophils # (1.3-7.7) k/uL Lymphocytes # (1.0-4.8) k/uL Monocytes # (0-1.0) k/uL Eosinophils # (0-0.7) k/uL Basophils # (0-0.2) k/uL PT (10.0-12.5) sec INR (<1.2) APTT (22.0-30.0) sec Sodium (137-145) mmol/L Potassium (3.5-5.1) mmol/L Chloride (98-107) mmol/L Carbon Dioxide (22-30) mmol/L Anion Gap mmol/L BUN (9-20) mg/dL Creatinine (0.66-1.25) mg/dL Est GFR (CKD-EPI)AfAm (>60 ml/min/1.73 sqM) Est GFR (CKD-EPI)NonAf (>60 ml/min/1.73 sqM) Glucose (74-99) mg/dL Plasma Lactic Acid Adrien (0.7-2.0) mmol/L Calcium (8.4-10.2) mg/dL Total Bilirubin (0.2-1.3) mg/dL AST (17-59) U/L ALT (4-49) U/L Alkaline Phosphatase (38-126) U/L Troponin I (0.000-0.034) ng/mL Total Protein (6.3-8.2) g/dL Albumin (3.5-5.0) g/dL Urine Color Urine Appearance (Clear) Urine pH (5.0-8.0) Ur Specific [place] (1.001-1.035) Urine Protein (Negative) Urine Glucose (UA) (Negative) Urine Ketones (Negative) Urine Blood (Negative) Urine Nitrite (Negative) Urine Bilirubin (Negative) Urine Urobilinogen (<2.0) mg/dL Ur Leukocyte Esterase (Negative) Blood Type A Positive Blood Type Confirm A Positive Blood Type Recheck No Previous Record Bld Type Recheck Status CABO Indicated Antibody Screen NEGATIVE Spec Expiration Date 11/22/20232348 - EKG Data -: EKG Interpreted by Me EKG Comments: EKG performed at 11:13 sinus rhythm with rate of 69 IL 155 QRS 158 QT/QTC 420/439, noted right bundle Disposition Clinical Impression: Fall, Contusion of rib on left side, Ankle sprain, Back pain Disposition: HOME SELF-CARE Condition: Stable Instructions (If sedation given, give patient instructions): Rib Contusion (ED) Additional Instructions: Please return to the Emergency Department if symptoms worsen or any other concerns. Is patient prescribed a controlled substance at d/c from ED?: No Referrals: Darrick Mondragon DO [Primary Care Provider] - 1-2 days Time of Disposition: 15:19
[2023-11-19 12:23] LABS: Partial Thromboplastin Time 27.8 sec (22.0-30.0)
[2023-11-19 12:27] LABS: ALT 18 U/L (4-49); AST 27 U/L (17-59); African American GFR (CKD) >90 (>60 ml/min/1.73 sqM); Albumin 3.3 g/dL (3.5-5.0); Alkaline Phosphatase 63 U/L (38-126); Anion Gap 8 mmol/L; Blood Urea Nitrogen 21 mg/dL (9-20); Calcium 8.2 mg/dL (8.4-10.2); Carbon Dioxide 23 mmol/L (22-30); Chloride 109 mmol/L (98-107); Glucose 137 mg/dL (74-99); Non-African American GFR(CKD) 85 (>60 ml/min/1.73 sqM); Sodium 140 mmol/L (137-145); Total Protein 5.7 g/dL (6.3-8.2)
[2023-11-19 12:28] LABS: Basophils % (A) 0 %; Eosinophils # (A) 0.2 k/uL (0-0.7); Eosinophils % (A) 4 %; HCT 42.1 % (39.0-53.0); Lymphocytes # (A) 0.8 k/uL (1.0-4.8); Lymphocytes % (A) 12 %; MCH 32.4 pg (25.0-35.0); MCHC 33.3 g/dL (31.0-37.0); MCV 97.3 fL (80.0-100.0); Mean Platelet Volume 7.4; Monocytes # (A) 0.5 k/uL (0-1.0); Monocytes % (A) 7 %; Neutrophils # (A) 4.9 k/uL (1.3-7.7); Neutrophils % (A) 76 %; Platelet Count 116 k/uL (150-450); RBC 4.32 m/uL (4.30-5.90); RDW 12.7 % (11.5-15.5); WBC 6.4 k/uL (3.8-10.6)
[2023-11-19 12:31] LABS: Potassium 4.5 mmol/L (3.5-5.1)
--- NOTE | 2023-11-19 12:38 | XR ---
EXAMINATION TYPE: XR ankle complete LT DATE OF EXAM: 11/19/2023 12:32 PM CLINICAL INDICATION:Male, 78 years old with history of pain; PHH COMPARISON: None TECHNIQUE: The left ankle is imaged in frontal, lateral and oblique projections. FINDINGS: Osseous mineralization appears appropriate. No acute fracture lucency or significant malalignment. An kle mortise appears preserved. Talar dome looks intact. Possible mild soft tissue swelling about the ankle. No visualized soft tissue gas. No radiopaque foreign body is seen. Mild to moderate arterial vascular calcification. IMPRESSION: No evidence of acute fracture or dislocation of the ankle.
[2023-11-19] MEDS ORDERED: diphenhydrAMINE 50 MG/ML 1 ML VIAL IVP STA (12:45)
[2023-11-19] MEDS ORDERED: FAMOTIDINE 20 MG/2 ML VIAL IV STA (12:46)
[2023-11-19] MEDS ORDERED: methylPREDNISolone SOD SUCCI 125 MG/2 ML VIAL IV STA (12:46)
[2023-11-19] MEDS ORDERED: MORPHINE SULFATE 2 MG/ML SYRINGE IVP ONE (12:47)
[2023-11-19 14:28] LABS: Appearance,Urine Clear (Clear); Bilirubin,Urine Negative (Negative); Blood,Urine Negative (Negative); Color,Urine Colorless; Glucose,Urine (UA) Negative (Negative); Ketones,Urine Negative (Negative); Leukocyte Esterase,Urine Negative (Negative); Nitrite,Urine Negative (Negative); Protein,Urine Negative (Negative); Specific Gravity,Urine 1.018 (1.001-1.035); Urobilinogen,Urine <2.0 mg/dL (<2.0)
[2023-11-19 14:47] VITALS: TEMP 98
[2023-11-19] MEDS ORDERED: HYDROmorphone 1 MG/ML 1 ML SYRINGE IVP STA (15:10)
--- NOTE | 2023-11-19 15:10 | CT ---
EXAMINATION TYPE: CT ChestAbdPelvis w con CT DLP: 849.7 mGycm, Automated exposure control for dose reduction was used. DATE OF EXAM: 11/19/2023 1:42 PM COMPARISON: Noncontrast CT abdomen pelvis 05/05/2020 CLINICAL INDICATION:Male, 78 years old with history of fall off ladder on thinners, pain; PHH, Fall o ff ladder on thinners, pain TECHNIQUE: Multiple axial images of the chest, abdomen, and pelvis were obtained. Two-dimensional cor onal and sagittal reconstructions were obtained. Contrast used:100 ml mL of Isovue 300 with IV Contrast, Oral contrast used: without Oral Contrast FINDINGS: CHEST: LUNGS/ PLEURA: Consolidation with bronchiectasis in the left lung apex. Lesser opacity with mild cyst ic bronchiectasis in the anterior right lung. Additional areas of more linear scarring throughout bot h lungs. Mild/moderate emphysematous changes. No acute airspace disease, pleural effusion, or pneumot horax. An 8 mm ovoid nodule at the right lung base image 39 is stable since 2019, considered benign. No new nodules. AIRWAY: Central airways are patent. LOWER NECK: Visualized thyroid is unremarkable. There are extensive opacified venous collaterals in t he right upper extremity (the patient had right hand contrast injection), and the right subclavian ve in is not seen to be opacified until inside the margin of the ribs, where it is reconstituted by veno us collaterals. Compression and occlusion of the subclavian vein seems to be caused or contributed by the presence of a cervical rib.. MEDIASTINUM: There are some enlarged mediastinal, and right greater than left hilar nodes of uncertai n cause. Soft tissue density in the right lower anterior paratracheal region appears to represent a c onglomeration of nodes, and total 3.1 x 3.4 cm in size. Right prebronchial node with short axis of 1. 6 cm. Prevascular node at the level of the aortic arch is 1.2 cm. Right hilar adenopathy up to 2.7 x 1.4 cm, left is difficult to measure but approximately 2 x 1.3 cm. Slightly patulous appearance of th e distal esophagus with small sliding hiatal hernia suspected. HEART: Mild to moderate cardiomegaly. Moderate to severe coronary artery calcification and/or stents. No appreciable pericardial effusion. VASCULATURE: Mild to moderate atherosclerotic calcifications of the aorta and branches, greater in t he abdomen than the chest. Ascending aorta is 3.1 CM, descending is 2.4 CM. Aorta is considered norm al in size. Pulmonary trunk measures 3.4 CM. The pulmonary trunk is enlarged (>3cm), this can be seen with pulmonary hypertension. Grossly preserved enhancement of the pulmonary arteries, in the limits of non-CTA exam. The right subclavian vein is reconstituted medial to the ribs, and enters normally into the superior vena cava. SVC and azygos vein are opacified. SOFT TISSUES/LYMPH NODES: Unremarkable chest soft tissues. No axillary adenopathy is seen. MUSCULOSKELETAL: No acute osseous abnormalities are shown. There seem to be bilateral cervical ribs a t C7, 12 rib-bearing thoracic type vertebral bodies, and 5 lumbar-type vertebral bodies. Moderate dis c degeneration changes are present throughout the thoracolumbar spine. Near-complete bony bridge form ation laterally involving the fifth, sixth ribs on the right and fourth, fifth, sixth ribs laterally on the left, likely sequela of healing from previous traumatic injury. OTHER: No other significant finding. ABDOMEN PELVIS: Heavy radiodensities within the yoni hepatis, show beam hardening artifact which limits assessment o f surrounding structures. Similarly, there are multiple surgical clips seen in the left upper quadran t anteriorly. ABDOMEN LIVER: Visualized parenchyma shows no evidence of mass. GALLBLADDER AND BILE DUCTS: Gallbladder not seen, likely absent. There is moderate intrahepatic and e xtrahepatic dilatation of the biliary tree suggested. The proximal CBD is about 12 mm, this appears t o taper normally continuing distally to the duodenum with no obvious cause for obstruction. PANCREAS: Fatty infiltrated without acute finding. SPLEEN: Unremarkable. ADRENAL GLANDS: Unremarkable.. KIDNEYS AND URETERS: Kidneys concentrate and excrete contrast symmetrically. A couple of calcificatio ns in the mid to lower pole right kidney, largest 5 mm. A couple of adjacent calcification the left i nferior pole are also present.Mildly prominent extrarenal pelves without dilated ureters seen. PELVIS REPRODUCTIVE: Prostate is enlarged measuring 4.9 cm transverse with a few coarse parenchymal calcific ations. BLADDER: Bladder base is indented by the prostate, otherwise no filling defect is seen. Small diverti culum seen on the right, posterior and lateral. ABDOMEN & PELVIS STOMACH AND BOWEL: Stomach and small bowel are nondistended. There is fluid along the duodenal sweep and scattered throughout small bowel loops, no evidence of obstruction or acute process. There appear to be bowel and colonic anastomoses in the upper central pelvis. Appendix is not identified with cer tainty, however there is no inflammatory process seen in the RLQ. Moderate stool throughout the colon without focal acute abnormality. Fatty infiltration ileocecal valve. PERITONEUM/RETROPERITONEUM: No evidence of pneumoperitoneum or free fluid. No retroperitoneal hemorrhage. Multiple surgical clips in the mesentery of the upper pelvis adjacent to the bowel anastomosis. VASCULATURE: Moderate predominantly calcified plaque throughout the abdominal aorta and major branche s. No evidence of AAA. Mixed plaque causes mild to moderate narrowing of the proximal celiac trunk. M ild disease without significant narrowing of the proximal SMA. Mild disease with mild narrowing of th e proximal bilateral renal arteries. Diffuse calcifications throughout the iliac arterial trees witho ut focal high-grade stenosis seen. MUSCULOSKELETAL: No acute osseous abnormalities. Moderate disc degeneration changes are present throu ghout the thoracolumbar spine. Degenerative changes of the SI joints with partial fusion. Moderate bi lateral hip osteoarthropathy. Deformity of the right posterior acetabulum and proximal right femur li caroline sequela of remote trauma. There is also chronic appearing mild deformity of the proximal left fe mur as well as dystrophic calcifications about both hips. Mild spurring from the superior right pubic bone near the symphysis. LYMPH NODES: No evidence of lymphadenopathy. SOFT TISSUES/ABDOMINAL WALL: Unremarkable OTHER: No other significant finding. IMPRESSION: 1. No evidence of acute traumatic injury within the chest, abdomen or pelvis. 2. Chronic appearing lung changes, may be sequela of previous infection and/or posttreatment changes . Is there any cancer history? 3. Mediastinal and right more than left hilar adenopathy, of uncertain etiology or significance. 4. Compression of the right subclavian vein/thoracic outlet syndrome, caused or contributed to by ce rvical rib. 5. Multiple other chronic and likely incidental findings, as described above.
[2023-11-19 15:37] VITALS: BP 160/83; PULSE 60; RESP 17
== END 2023-11-19 15:34 | disposition home or self-care (01) ==
LOC: EC 10:45
DX: S93.402A Sprain of unspecified ligament of left ankle, initial encounter (principal); S20.212A Contusion of left front wall of thorax, initial encounter; M54.50 Low back pain, unspecified; I10 Essential (primary) hypertension; I25.10 Atherosclerotic heart disease of native coronary artery without angina pectoris; I25.2 Old myocardial infarction; I48.91 Unspecified atrial fibrillation; E78.5 Hyperlipidemia, unspecified; K21.9 Gastro-esophageal reflux disease without esophagitis; Z79.01 Long term (current) use of anticoagulants; Z79.02 Long term (current) use of antithrombotics/antiplatelets; Z79.899 Other long term (current) drug therapy; Z79.82 Long term (current) use of aspirin; Z91.041 Radiographic dye allergy status; Z87.891 Personal history of nicotine dependence; Z95.1 Presence of aortocoronary bypass graft; Z90.49 Acquired absence of other specified parts of digestive tract; W11.XXXA Fall on and from ladder, initial encounter; Y92.000 Kitchen of unspecified non-institutional (private) residence as the place of occurrence of the external cause
CPT/HCPCS: 36415; 93005; 86900; 86901; 80053; 83605; 84484; 85025; 85610; 85730; 86850; 81003; 73610; 71260; 74177; 99285; 96374; 96375 ×3; 96361; J1200; J2930; J3490; J2270; Q9967

== ENCOUNTER 2024-01-08 10:53 | Emergency (ER) | payer MEDICARE, OTHER ==
--- NOTE | 2024-01-08 11:05 | ED ---
Upper Extremity HPI - General Source: patient, RN notes reviewed Mode of arrival: ambulatory Limitations: no limitations - History of Present Illness MD Complaint: Injury to:: right, forearm <Margie Gerard - Last Filed: 01/08/24 11:02> - General Source: patient, RN notes reviewed Mode of arrival: ambulatory Limitations: no limitations <Darrick Deal - Last Filed: 01/08/24 12:49> - General Chief Complaint: Extremity Injury, Upper Stated Complaint: fall-arm injury Time Seen by Provider: 01/08/24 11:00 - History of Present Illness Initial Comments: Quick Note - This is a 78-year-old male who presents to the emergency department for a fall. Patient fell yesterday and landed with his right arm on the stairs. He has since had increasing pain, swelling, and bruising to the right forearm. He is on blood thinners but did not hit his head. Denies sustaining any additional injuries. (Margie Gerard) 78-year-old male presents emergency department with chief complaint of fall. Patient states he fell landing on his right arm when he on the edge of the step. Patient states he had increasing bruising and swelling. Patient states he is on a blood thinner but denies any head injury no other injuries including extremities. (Darrick Deal) - Related Data Home Medications Medication Instructions Recorded Confirmed ALPRAZolam [Xanax] 0.25 mg PO BID 07/13/20 11/19/23 Aspirin [Adult Low Dose Aspirin EC] 81 mg PO DAILY 07/13/20 11/19/23 Gabapentin [Neurontin] 200 mg PO 07/13/20 11/19/23 Multivitamins, Thera [Multivitamin 1 tab PO DAILY@119907/13/20 11/19/23 (formulary)] Rivaroxaban [Xarelto] 20 mg PO DAILY@1200 07/13/20 11/19/23 Tamsulosin HCl [Flomax] 0.8 mg PO DAILY@119907/13/20 11/19/23 carvediloL [Coreg] 12.5 mg PO BID 07/13/20 11/19/23 Famotidine [Pepcid] 20 mg PO HS 08/26/20 11/19/23 Ferrous Sulfate [Iron (65 MG 325 mg PO DAILY 08/25/22 11/19/23 Elemental)] Atorvastatin [Lipitor] 40 mg PO HS 01/08/23 11/19/23 traZODone HCL [Desyrel] 50 mg PO HS 01/08/23 11/19/23 Clopidogrel [Plavix] 75 mg PO HS 01/30/23 11/19/23 Escitalopram [Lexapro] 10 mg PO DAILY@1200 01/30/23 11/19/23 Baclofen 10 mg PO HS 11/19/23 11/19/23 Doxazosin [Cardura] 4 mg PO HS 11/19/23 11/19/23 Previous Rx's Medication Instructions Recorded lisinopriL [Zestril] 20 mg PO DAILY #30 tab 01/12/23 Allergies Allergy/AdvReac Type Severity Reaction Status Date / Time iodine Allergy Anaphylaxis Verified 11/19/23 12:32 Review of Systems ROS Other: All systems not noted in ROS Statement are negative. <Margie Gerard - Last Filed: 01/08/24 11:02> ROS Other: All systems not noted in ROS Statement are negative. <Darrick Deal - Last Filed: 01/08/24 12:49> ROS Statement: Those systems with pertinent positive or pertinent negative responses have been documented in the HPI. 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 pulmonary fibrosis Last Myocardial Infarction Date:: 1986 History of Any Multi-Drug Resistant Organisms: None Reported Past Surgical History: Appendectomy, Cholecystectomy, Heart Catheterization, Heart Catheterization With Stent, Orthopedic Surgery Additional Past Surgical History / Comment(s): lithotripsy, RIKA, EP study with cardioversion, sx on deborah knees, hips,shoulders, hx of colostomy and reversal, hx of trach and closure, hx of chest tubes, all related to septic shock in 1986 r/t to an appendectomy. Pulmonary Fibrosis. Past Anesthesia/Blood Transfusion Reactions: No Reported Reaction Date of Last Stent Placement:: 2012 Past Psychological History: No Psychological Hx Reported Smoking Status: Former smoker Past Alcohol Use History: None Reported Past Drug Use History: None Reported - Past Family History Sister(s) Family Medical History: Cancer Father Family Medical History: Cancer <Margie Gerard - Last Filed: 01/08/24 11:02> General Exam <Margie Gerard - Last Filed: 01/08/24 11:02> Limitations: no limitations General appearance: alert, in no apparent distress Head exam: Present: atraumatic, normocephalic, normal inspection Neck exam: Present: normal inspection, full ROM. Absent: tenderness, meningismus, lymphadenopathy Respiratory exam: Present: normal lung sounds bilaterally. Absent: respiratory distress, wheezes, rales, rhonchi, stridor Cardiovascular Exam: Present: regular rate, normal rhythm, normal heart sounds. Absent: systolic murmur, diastolic murmur, rubs, gallop, clicks Extremities exam: Present: other (Right forearm there is a large hematoma noted with tenderness palpation, neurovascular intact there is small skin tear noted) <Darrick Deal - Last Filed: 01/08/24 12:49> - General Exam Comments Initial Comments: Visual Physical Exam Vital signs reviewed General: Well-appearing, nontoxic, no acute distress. Head: Normocephalic, atraumatic Eyes: PERRLA, EOMI ENT: Airway patent Chest: Nonlabored breathing Skin: No visual rash, normal skin tone Neuro: Alert and oriented 3 Musculoskeletal: No gross abnormalities (Margie Gerard) Course Vital Signs 01/08/24 01/08/24 11:11 12:41 Temperature 98.2 F 98.1 F Pulse Rate 52 L 58 L Respiratory 18 18 Rate Blood Pressure 158/68 142/79 O2 Sat by Pulse 94 L 96 Oximetry Medical Decision Making <Margie Gerard - Last Filed: 01/08/24 11:02> <Darrick Deal - Last Filed: 01/08/24 12:49> - Medical Decision Making I performed the QuickNote portion of this chart. Signed Margie Gerard PA-C. (Margie Gerard) Was pt. sent in by a medical professional or institution ([facility], [facility], urgent care, hospital, or intermediate...) When possible be specific @ -No Did you speak to anyone other than the patient for history (EMS, parent, family, police, friend...)? What history was obtained from this source @ -No Did you review nursing and triage notes (agree or disagree)? Why? @ -I reviewed and agree with nursing and triage notes Were old charts reviewed (outside hosp., previous admission, EMS record, old EKG, old radiological studies, urgent care reports/EKG's, intermediate records)? Report findings @ -No old charts were reviewed Differential Diagnosis (chest pain, altered mental status, abdominal pain women, abdominal pain men, vaginal bleeding, weakness, fever, dyspnea, syncope, headache, dizziness, GI bleed, back pain, seizure, CVA, palpatations, mental health, musculoskeletal)? @ -[Fall, arm fracture, hematoma EKG interpreted by me (3pts min.). @ -None X-rays interpreted by me (1pt min.). @ -[X-ray right forearm no acute fracture or dislocation, there is soft tissue swelling noted CT interpreted by me (1pt min.). @ -[None done U/S interpreted by me (1pt. min.). @ -None done What testing was considered but not performed or refused? (CT, X-rays, U/S, labs)? Why? @ -None What meds were considered but not given or refused? Why? @ -None Did you discuss the management of the patient with other professionals (professionals i.e. , PA, [facility], lab, RT, psych nurse, social insurance analyst, litharge mill operator, teacher, light armored reconnaissance officer, showcase maker)? Give summary @ -No Was smoking cessation discussed for >3mins.? @ -No Was critical care preformed (if so, how long)? @ -No Were there social determinants of health that impacted care today? How? (Homelessness, low income, unemployed, alcoholism, drug addiction, transportation, low edu. Level, literacy, decrease access to med. care, usp, rehab)? @ -No Was there de-escalation of care discussed even if they declined (Discuss DNR or withdrawal of care, Hospice)? DNR status @ -No What co-morbidities impacted this encounter? (DM, HTN, Smoking, COPD, CAD, Cancer, CVA, ARF, Chemo, Hep., AIDS, mental health diagnosis, sleep apnea, morbid obesity)? @ -None Was patient admitted / discharged? Hospital course, mention meds given and route, prescriptions, significant lab abnormalities, going to OR and other pertinent info. @ -Discharged patient's x-rays are negative for acute fracture tetanus was updated wound was cleaned, dressed. Undiagnosed new problem with uncertain prognosis? @ -No Drug Therapy requiring intensive monitoring for toxicity (Heparin, Nitro, Insulin, Cardizem)? @ -No Were any procedures done? @ -No Diagnosis/symptom? @ -[Fall, right arm hematoma Acute, or Chronic, or Acute on Chronic? @ -Acute Uncomplicated (without systemic symptoms) or Complicated (systemic symptoms)? @ -Uncomplicated Side effects of treatment? @ -No Exacerbation, Progression, or Severe Exacerbation? @ -No Poses a threat to life or bodily function? How? (Chest pain, [place], [place], pneumonia, PE, COPD, DKA, ARF, appy, cholecystitis, CVA, Diverticulitis, Homicidal, Suicidal, threat to staff... and all critical care pts) @ -No (Darrick Deal) Disposition <Margie Gerard - Last Filed: 01/08/24 11:02> Is patient prescribed a controlled substance at d/c from ED?: No Time of Disposition: 12:29 <Darrick Deal - Last Filed: 01/08/24 12:49> Clinical Impression: Hematoma of right forearm Disposition: HOME SELF-CARE Condition: Stable Instructions (If sedation given, give patient instructions): Hematoma (ED) Additional Instructions: Please return to the Emergency Department if symptoms worsen or any other concerns. Referrals: Darrick Mondragon DO [Primary Care Provider] - 1-2 days
[2024-01-08 11:21] VITALS: RESP 18
[2024-01-08] MEDS: DIPH,PERTUS(ACELL)TETVAC-LF 0.5 ML VIAL IM ONE (12:01)
[2024-01-08] MEDS: BACITRACIN OINT 1 EACH PACKET TOPICAL ONE (12:04)
--- NOTE | 2024-01-08 12:10 | XR ---
EXAMINATION TYPE: XR forearm RT DATE OF EXAM: 01/08/2024 11:43 AM CLINICAL INDICATION:Male, 78 years old with history of Fall; COMPARISON: None TECHNIQUE: XR forearm RT; forearm was examined in AP and lateral projections. FINDINGS: There is diffuse soft tissue edema throughout the right forearm. No acute osseous patholog y, soft tissue swelling or joint dislocations are seen. IMPRESSION: Edema throughout the right forearm soft tissues. No evidence of fracture.
[2024-01-08 12:59] VITALS: BP 142/79; PULSE 58; TEMP 98.1
== END 2024-01-08 13:09 | disposition home or self-care (01) ==
LOC: EC 10:53
DX: S51.811A Laceration without foreign body of right forearm, initial encounter (principal); I10 Essential (primary) hypertension; I48.91 Unspecified atrial fibrillation; I25.10 Atherosclerotic heart disease of native coronary artery without angina pectoris; K21.9 Gastro-esophageal reflux disease without esophagitis; E78.5 Hyperlipidemia, unspecified; I25.2 Old myocardial infarction; Z23 Encounter for immunization; Z79.82 Long term (current) use of aspirin; Z79.01 Long term (current) use of anticoagulants; Z79.02 Long term (current) use of antithrombotics/antiplatelets; Z79.899 Other long term (current) drug therapy; Z91.041 Radiographic dye allergy status; Z87.891 Personal history of nicotine dependence; Z90.49 Acquired absence of other specified parts of digestive tract; W10.9XXA Fall (on) (from) unspecified stairs and steps, initial encounter
CPT/HCPCS: 90471; 90715; 99283

== ENCOUNTER → 2024-01-24 | Outpatient (CLI) | payer MEDICARE, OTHER ==
[2024-01-24 19:09] LABS: ALT 14 U/L (10-49); AST 18 U/L (14-35); Chol/HDL Ratio 2.44 Ratio; LDL Cholesterol,Calculated 59.9 mg/dL (0.0-131.0); VLDL Calculation 19.72 mg/dL (5.00-40.00)
== END | disposition home or self-care (01) ==
LOC: LABWHC1 09:56
PROVIDERS: ATTEND Internal Medicine Cardiovascular Disease
DX: E78.2 Mixed hyperlipidemia (principal)
CPT/HCPCS: 36415; 80061; 84450; 84460

== ENCOUNTER → 2024-05-21 | Outpatient (CLI) | payer MEDICARE, OTHER ==
--- NOTE | 2024-05-21 15:54 | XR ---
EXAMINATION TYPE: XR KUB DATE OF EXAM: 05/21/2024 Comparison: 08/28/2022 Clinical History: 78-year-old male N200, CALCULUS-KIDNEY Findings: Staple line mid pelvis from prior bowel surgery. Additional multiple surgical clips in the left side of the abdomen. Cholecystectomy clips. 7 mm calcification right mid abdomen versus 5 mm in 2021. Sple jacques artery calcifications present. Moderate stool burden. Moderate degenerative changes left greater than right hips. There is a prominent heterotopic ossification. Extensive vascular calcifications are present. Nonobstructive bowel gas pattern. Impression: Possible 7 mm right renal stone. Moderate stool burden. Surgical material throughout the abdomen and pelvis.
== END | disposition home or self-care (01) ==
LOC: RADXRMAIN 15:30
PROVIDERS: ATTEND Urology
DX: N20.0 Calculus of kidney (principal)
CPT/HCPCS: 74018

== ENCOUNTER → 2024-06-02 | Outpatient (CLI) | payer MEDICARE, OTHER ==
--- NOTE | 2024-06-02 17:04 | CT ---
EXAMINATION TYPE: CT abdomen pelvis wo con CT DLP: 764 mGycm, Automated exposure control for dose reduction was used. DATE OF EXAM: 06/02/2024 1:43 PM COMPARISON: CT abdomen pelvis most recent from CLINICAL INDICATION:Male, 78 years old with history of N20.0 CALCULUS OF KIDNEY; ABDOMINAL PAIN AND D ISCOMFORT X SEVERAL YEARS. TECHNIQUE: Axial CT abdomen pelvis wo con;Sagittal and coronal reformats were created on a separate workstation. Contrast used: mL of , (none if empty) Oral contrast used: without Oral Contrast (none if empty) FINDINGS: LOWER CHEST: All areas of end-stage honeycombing in the lung bases anteriorly. No consolidation or pl eural effusion. ABDOMEN LIVER: Unremarkable GALLBLADDER AND BILE DUCTS: Cholecystectomy clips in the gallbladder fossa. PANCREAS: Fatty infiltration of the pancreas. SPLEEN: Unremarkable. ADRENAL GLANDS: Unremarkable. KIDNEYS AND URETERS: No evidence of hydronephrosis. Nonobstructing lower pole 5 mm calculus right kid tammi and nonobstructing 4 mm calculus lower pole left kidney. The ureters are unremarkable. PELVIS BLADDER: Prominent prostate impression on through the bladder base. REPRODUCTIVE: Prostate is enlarged in size measuring 10 cm in superior inferior. ABDOMEN & PELVIS STOMACH AND BOWEL: No evidence of bowel obstruction. PERITONEUM/RETROPERITONEUM: No evidence of pneumoperitoneum or free fluid. VASCULATURE: No evidence of aortic aneurysm. MUSCULOSKELETAL: No acute osseous abnormalities LYMPH NODES: No gross evidence for lymphadenopathy. SOFT TISSUE/ABDOMINAL WALL: Unremarkable IMPRESSION: 1. Single nonobstructing nephroliths in lower poles of both kidneys. 2. Markedly enlarged prostate in the CC dimension producing very prominent impression into the bladde r base.
== END | disposition home or self-care (01) ==
LOC: RADCTMAIN 13:22
PROVIDERS: ATTEND Urology
DX: N20.0 Calculus of kidney (principal); N40.0 Benign prostatic hyperplasia without lower urinary tract symptoms
CPT/HCPCS: 74176

== ENCOUNTER → 2024-06-30 | Outpatient (CLI) | payer MEDICARE, OTHER | END | disposition home or self-care (01) | LOC: LABWHC1 11:37 | PROVIDERS: ATTEND Urology | DX: N20.0 Calculus of kidney (principal) | CPT/HCPCS: 87086 ==

== ENCOUNTER → 2024-07-02 | Outpatient (CLI) | payer MEDICARE, OTHER ==
--- NOTE | 2024-07-28 07:38 | CT ---
Site ID synapse default Patient Hieu Espinal ID [id number] Age/Gender: 79Y, M Order # N/A Procedure CT abdomen pelvis wo con Date 07/02/2024 3:28:00 PM Reason kidney stone EXAMINATION TYPE: CT abdomen pelvis wo con CT DLP: 366.30 mGycm, Automated exposure control for dose reduction was used. DATE OF EXAM: 07/02/2024 10:29 PM COMPARISON: CT abdomen pelvis most recent from 06/02/2024 . CLINICAL INDICATION: Male, 79 year old with history of kidney stone. TECHNIQUE: Standard CT of the abdomen and pelvis without IV or oral contrast. Lack of IV or oral co ntrast limits evaluation of solid and hollow organ viscera. Coronal and sagittal reformats were perfo rmed. FINDINGS: LOWER CHEST: Regions of bronchiectasis within the lingula and right middle lobe. Chronic interstitial opacities. Centrilobular emphysematous changes. Enlarged heart. Coronary arterial calcifications. ABDOMEN LIVER: Unremarkable noncontrast appearance. GALLBLADDER AND BILE DUCTS: The gallbladder is surgically absent. Mild extrahepatic biliary duct dila tation which is can be seen postcholecystectomy. PANCREAS: Atrophic appearance of the pancreas. SPLEEN: Unremarkable noncontrast appearance. ADRENAL GLANDS: Unremarkable noncontrast appearance.. KIDNEYS AND URETERS: No evidence of hydronephrosis. Nonobstructive left lower pole 7 mm calculus. Non obstructive right lower pole 6 mm calculus. Additional nonobstructive right lower pole 4 mm calculus. Prominent right extrarenal pelvis. PELVIS BLADDER: Posterior right urinary bladder diverticulum. Prostate indents upon the bladder base. REPRODUCTIVE: Prostate is enlarged in size measuring 5.6 cm in transverse dimension. Central dystroph ic calcification within the prostate. ABDOMEN & PELVIS STOMACH AND BOWEL: Small hiatal hernia, duodenum is unremarkable. Anastomosis involving the sigmoid c olon. Colonic diverticula involving the descending colon. No focal bowel wall thickening or surroundi ng inflammatory changes. No evidence of bowel obstruction. PERITONEUM: No evidence of pneumoperitoneum or free fluid. Several surgical clips and embolization co ils identified within the left mid and lower abdomen. VASCULATURE: Moderate atherosclerotic calcifications are present throughout the abdominal aorta and i ts branches. No evidence of aortic aneurysm. Evaluation is limited due to lack of intravenous contras t. Suggested mild narrowing of the proximal celiac axis secondary to calcified plaque. Mild suggestiv e narrowing of the proximal bilateral renal artery secondary to calcified plaque. MUSCULOSKELETAL: No acute osseous abnormalities. Moderate disc degeneration changes are present throu ghout the thoracolumbar spine. Mild spurring from the superior right pubic bone near the symphysis wh ich may be sequelae of prior trauma. Moderate bilateral hip osteoarthritic change. Heterotopic ossifi cation surrounding both greater trochanters. Remote injury to the posterior aspect of the right aceta bulum. Degenerative changes of the bilateral SI joints with partial fusion. Again near complete bony bridge formation laterally involving the fifth, sixth ribs bilaterally. LYMPH NODES: No gross evidence for lymphadenopathy. SOFT TISSUE/ABDOMINAL WALL: Post surgical changes of the anterior midline abdominal wall. IMPRESSION: 1. No evidence of obstructive uropathy. 2. Stable nonobstructive bilateral renal calculi. 3. Prostatomegaly with urinary bladder diverticulum redemonstrated. 4. Chronic appearing lung changes.
--- NOTE | 2024-07-28 07:38 | CT ---
Site ID synapse default Patient Hieu Espinal ID [id number] 1945 Age/Gender: 79Y, M Order # N/A Procedure CT Spine Lumbar w/o Contrast Date 07/02/2024 3:32:00 PM EXAMINATION TYPE: CT lumbar spine wo con CT DLP: 486.60 mGycm, Automated exposure control for dose reduction was used. DATE OF EXAM: 07/02/2024 10:05 PM COMPARISON: CT abdomen and pelvis 07/02/2024, 06/02/2024. CLINICAL INDICATION: Male, 79 year old with history of low back pain. TECHNIQUE: Multiple axial images were obtained from the midportion of T11 through the sacroiliac tea nts. Soft tissue and bone windows in coronal and sagittal planes were obtained and reviewed. Contrast used: none. Oral contrast used: none. FINDINGS: Alignment: There are 5 lumbar type vertebral bodies. Minimal grade 1 anterolisthesis of L4 on L5. Bone: No evidence of fracture is identified. Advanced degenerative changes involving the bilateral S I joints. Multilevel anterior osteophytosis. Discs: Multilevel disc space narrowing with endplate sclerosis and vacuum disease. T12-L1: No spinal canal or neural foraminal stenosis is identified. Large left osteophyte. L1-L2: No spinal canal or neural foraminal stenosis is identified. L2-L3: Disc bulge with bilateral facet arthropathy resulting in minimal central canal stenosis. Mild bilateral neural foraminal stenosis. L3-L4: Broad-based disc bulge with ligamentum flavum buckling and bilateral facet arthropathy resulti ng in mhyw-gw-ckpppimu central canal stenosis. Moderate bilateral neural foramen stenosis. L4-L5: Grade 1 anterolisthesis. Central disc protrusion with cranial extension of approximately 1 cm. Broad-based disc bulge with ligamentum flavum buckling and bilateral facet arthropathy contribute to moderate to severe central canal stenosis. Moderate bilateral neural foraminal stenosis. L5-S1: Central disc protrusion superimposed upon a broadbase disc bulge resulting in mild central can al stenosis. Bilateral facet arthropathy resulting in minimal bilateral neural foraminal narrowing. L arge left lateral osteophyte. Other: Anastomosis involving the sigmoid colon. Postsurgical changes with surgical clips in the retro peritoneum. Moderate atherosclerotic calcification aorta and its branches. Nonobstructive bilateral r enal calculi IMPRESSION: 1. No evidence for spinal fracture. 2. L4-L5 disc herniation with cranial extension superimposed upon a broad-based disc bulge resulting in moderate to severe central canal stenosis. Moderate bilateral neuroforaminal stenosis at this leve l secondary to facet arthropathy. Consider further evaluation with MRI lumbar spine for better charac terization. 3. L5-S1 disc herniation resulting in mild central canal stenosis. 4. Multilevel degenerative disc disease and facet arthropathy as described above. 5. Grade 1 anterolisthesis of L4 on L5.
== END | disposition home or self-care (01) ==
LOC: RADCTMAIN 15:30
PROVIDERS: ATTEND Family Medicine
DX: N20.0 Calculus of kidney (principal); N40.0 Benign prostatic hyperplasia without lower urinary tract symptoms; N32.3 Diverticulum of bladder; M51.36 Other intervertebral disc degeneration, lumbar region; M47.816 Spondylosis without myelopathy or radiculopathy, lumbar region; M51.27 Other intervertebral disc displacement, lumbosacral region; M43.16 Spondylolisthesis, lumbar region; M99.73 Connective tissue and disc stenosis of intervertebral foramina of lumbar region; Z87.442 Personal history of urinary calculi
CPT/HCPCS: 72131; 74176

== ENCOUNTER 2024-07-22 11:30 | Day surgery (SDC) | payer MEDICARE, OTHER ==
--- NOTE | 2024-07-22 10:23 | P.HPIHPCON ---
History of Present Illness H&P Date: 07/22/24 Chief Complaint: Bilateral renal stones This is a 79-year-old male with history of bilateral renal stones, each stone measured approximately 5 mm in the lower pole of each kidney, he indicated the pain is similar to the renal colic he is experienced before. Discussed with him the stones are small and non-obstructive and they typically do not cause pain, patient has no other etiology for his pain would like his stone to be addressed to see if this helps with his pain, discussed option of bilateral ureteroscopy with holmium laser, aware of the risk which includes but not limited to bleeding, infection, injury to the ureter Consent for Procedure: I have explained the operation/procedure to the patient, including the risks, benefits, side effects, alternative therapies (including not receiving the proposed treatment or service), the likelihood of the patient achieving his/her goals, and potential recuperation problems for the procedure/sedation/analgesia, as well as any blood products, if indicated. I also explained to the patient the risks, benefits and side effects of the alternatives, as well as the risks related to not receiving the proposed procedure, care, treatment, or services. 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, hx of septic shock, ARDS, and dialysis in 1986 from appendicitis, hx of melanoma on nose, pulmonary fibrosis Last Myocardial Infarction Date:: 2022 History of Any Multi-Drug Resistant Organisms: None Reported Past Surgical History: Appendectomy, Cholecystectomy, Heart Catheterization, Heart Catheterization With Stent, Orthopedic Surgery Additional Past Surgical History / Comment(s): lithotripsy, RIKA, EP study with cardioversion, sx on deborah knees, hips, shoulders, hx of colostomy and reversal, hx of trach and closure, hx of chest tubes, all related to septic shock in 1986 r/t to an appendectomy Past Anesthesia/Blood Transfusion Reactions: No Reported Reaction Date of Last Stent Placement:: 2022 Smoking Status: Former smoker - Past Family History Sister(s) Family Medical History: Cancer Father Family Medical History: Cancer Medications and Allergies Home Medications Medication Instructions Recorded Confirmed Type RX: ALPRAZolam [Xanax] 0.25 mg PO BID 07/13/20 07/17/24 History RX: Gabapentin [Neurontin] 100 mg PO HS 07/13/20 07/17/24 History RX: Rivaroxaban [Xarelto] 20 mg PO DAILY@1200 07/13/20 07/17/24 History RX: Tamsulosin HCl [Flomax] 0.8 mg PO DAILY@1200 07/13/20 07/17/24 History RX: carvediloL [Coreg] 12.5 mg PO BID 07/13/20 07/17/24 History RX: Famotidine [Pepcid] 20 mg PO HS 08/26/20 07/17/24 History RX: Ferrous Sulfate [Iron (65 MG 325 mg PO DAILY 08/25/22 07/17/24 History Elemental)] RX: Atorvastatin [Lipitor] 40 mg PO HS 01/08/23 07/17/24 History RX: traZODone HCL [Desyrel] 50 mg PO HS 01/08/23 07/17/24 History RX: Clopidogrel [Plavix] 75 mg PO DAILY 01/30/23 07/17/24 History Doxazosin [Cardura] 4 mg PO TID 11/19/23 07/17/24 History RX: Baclofen 10 mg PO HS 11/19/23 07/17/24 History Dicyclomine [Bentyl] 10 mg PO HS 07/07/24 07/17/24 History Furosemide [Lasix] 20 mg PO DAILY 07/07/24 07/17/24 History RX: lisinopriL [Zestril] 40 mg PO DAILY 07/07/24 07/17/24 History RX: Melatonin [Melatonin ER] 10 mg PO HS 07/17/24 07/17/24 History Allergies Allergy/AdvReac Type Severity Reaction Status Date / Time iodine Allergy Anaphylaxis Verified 07/17/24 08:32 Surgical - Exam - General no distress, moderate pain - Eyes normal ocular movement, no pale - ENT normal nares, normal mucosa - Respiratory normal expansion, normal respiratory effort Assessment and Plan Assessment: OR for bilateral ureteroscopy, holmium laser lithotripsy, stone basketing and stent insertion
--- NOTE | 2024-07-22 12:08 | XR ---
EXAMINATION TYPE: XR KUB DATE OF EXAM: 07/22/2024 COMPARISON: CT abdomen and pelvis 07/02/2024, KUB 05/21/2024 HISTORY: Calculus of kidney TECHNIQUE: Single supine KUB image of the abdomen is obtained FINDINGS: Moderate colonic stool burden. Postsurgical changes with suture material involving the bowel in the p steven. Multiple surgical clips in the left mid and lower abdomen. Cholecystectomy clips in the right upper quadrant. Splenic artery calcifications redemonstrated. Moderate colonic stool burden. Moderate degenerative changes of the hips with left greater than right. Prominent heterotopic ossification ar ound both hips. Extensive vascular calcifications are present. Nonobstructive bowel gas pattern. Rede monstration of 5 mm calculus within the inferior right kidney. Redemonstration of 4 mm calculus in th e inferior left kidney. Pelvic phleboliths redemonstrated. IMPRESSION: Bilateral renal calculi redemonstrated.
[2024-07-22] MEDS ORDERED: LIDOCAINE 1% (10MG/ML) FOR IV START INTRADERMA PRN (12:10)
[2024-07-22] MEDS: LACTATED RINGERS 1,000 ML IV SCH (12:38)
[2024-07-22] MEDS: ONDANSETRON 4 MG/2 ML VIAL IVP ONE (12:38)
[2024-07-22 12:44] LABS: Basophils % (A) 1 %; Eosinophils # (A) 0.2 k/uL (0-0.7); Eosinophils % (A) 3 %; HCT 43.1 % (39.0-53.0); HGB 14.7 gm/dL (13.0-17.5); Lymphocytes # (A) 1.4 k/uL (1.0-4.8); Lymphocytes % (A) 25 %; MCH 31.8 pg (25.0-35.0); MCHC 34.1 g/dL (31.0-37.0); MCV 93.3 fL (80.0-100.0); Mean Platelet Volume 7.7; Monocytes # (A) 0.4 k/uL (0-1.0); Monocytes % (A) 7 %; Neutrophils # (A) 3.7 k/uL (1.3-7.7); Neutrophils % (A) 64 %; Platelet Count 154 k/uL (150-450); RBC 4.62 m/uL (4.30-5.90); RDW 13.4 % (11.5-15.5); WBC 5.7 k/uL (3.8-10.6)
[2024-07-22] MEDS: IV FLUID CONTINUATION 1,000 ML IV ONE (12:46)
[2024-07-22] MEDS: fentaNYL (PF) 50 MCG/ML 2 ML AMP IVP ONE (13:02)
[2024-07-22 13:07] LABS: African American GFR (CKD) 87 (>60 ml/min/1.73 sqM); Anion Gap 5 mmol/L; Blood Urea Nitrogen 23 mg/dL (9-20); Calcium 9.1 mg/dL (8.4-10.2); Carbon Dioxide 29 mmol/L (22-30); Chloride 108 mmol/L (98-107); Glucose 96 mg/dL (74-99); Non-African American GFR(CKD) 76 (>60 ml/min/1.73 sqM); Sodium 142 mmol/L (137-145)
[2024-07-22 13:15] LABS: Potassium 5.2 mmol/L (3.5-5.1)
[2024-07-22] MEDS ORDERED: LIDOCAINE 1% INJ 10MG/ML (20 ML MDV) ONE (13:41)
[2024-07-22] MEDS ORDERED: NALOXONE 0.4 MG/ML 1 ML VIAL ONE (13:41)
[2024-07-22] MEDS ORDERED: PROPOFOL 10 MG/ML 20 ML VIAL IV ONE (13:41)
[2024-07-22] MEDS ORDERED: ePHEDrine 50 MG/ML 1 ML VIAL ONE (13:41)
[2024-07-22] MEDS ORDERED: PHENYLEPHRINE 10 MG/ML VIAL ONE (13:41)
[2024-07-22] MEDS ORDERED: MIDAZOLAM 2 MG/2 ML VIAL ONE (13:41)
[2024-07-22] MEDS ORDERED: SUCCINYLCHOLINE CHLORIDE 200 MG/10 ML VIAL IV ONE (13:41)
[2024-07-22] MEDS ORDERED: fentaNYL (PF) 50 MCG/ML 2 ML AMP ONE (13:41)
[2024-07-22] MEDS: LACTATED RINGERS 1,000 ML IV ONE (14:48)
--- NOTE | 2024-07-22 15:26 | P.OP ---
Date of Procedure: 07/22/24 Preoperative Diagnosis: Bilateral renal stones Postoperative Diagnosis: Same Procedure(s) Performed: Cystoscopy, bilateral ureteroscopy, holmium laser lithotripsy, stone basketing and stent insertion Implants: 6 Liberian by 26 cm stent in the bilateral ureter left on a string Anesthesia: DEE Surgeon: Ab Shelby Estimated Blood Loss (ml): 5 Pathology: other (Bilateral renal stones) Condition: stable Disposition: PACU Indications for Procedure: This is a 79-year-old male with history of bilateral renal stones, each stone measured approximately 5 mm in the lower pole of each kidney, he indicated the pain is similar to the renal colic he is experienced before. Discussed with him the stones are small and non-obstructive and they typically do not cause pain, patient has no other etiology for his pain would like his stone to be addressed to see if this helps with his pain, discussed option of bilateral ureteroscopy with holmium laser, aware of the risk which includes but not limited to bleeding, infection, injury to the ureter Operative Findings: Large left-sided lower pole stone, 2 right-sided lower pole stones Description of Procedure: Patient brought to the operating room, general anesthesia was induced. He was prepped and draped in sterile fashion and placed in dorsolithotomy position. Cystoscopy fitted with a 21 Liberian sheath was inserted per urethra, cystoscopy was performed which showed no abnormality within the bladder. The bladder was heavily trabeculated, with a significantly enlarged prostate with the intravesical extension of the median lobe. The right ureteral orifice was intubated with a sensor wire the wire was advanced under fluoroscopy into the kidney. Attention was then carried to the left ureteral orifice which was also intubated with a sensor wire and this was advanced under fluoroscopy into the kidney. Attention was first carried to the left side and 1113 Liberian access sheath was passed over the wire and into the proximal ureter. Next a flexible ureteroscope was inserted through the access sheath, renoscopy was performed which showed a large stone in the lower pole. Using the holmium laser the stone was fragmented, stone fragments were removed using the stone basket. Renoscopy showed no sizable stone fragments or injury to the kidney, on fluoroscopy there was no radiopaque density seen. Pullback ureteroscopy was performed showed no injury to the ureter or any ureteral stones as ureteroscope was withdrawn a sensor wire was advanced through. Next a ureteral stent was passed over the wire, the proximal curl was visualized on fluoroscopy and the distal curl was visualized using the cystoscope. Both stents were left on a string. Attention was then carried to the right side, an 1113 Liberian access sheath was passed over the wire into the proximal ureter. The flexible ureteroscope was inserted through the access sheath, renoscopy was performed showed a 2 stones in the lower pole. Using the holmium laser both stones were dusted, repeat renoscopy showed no sizable fragments or injury to the kidney, on fluoroscopy there was no radiopaque densities. Pullback ureteroscopy was performed showed no injury to the ureter or any ureteral stones, as ureteroscope was withdrawn a sensor wire was advanced through. Next a ureteral stent was passed over the wire, the proximal curl visualized on fluoroscopy and the distal curl was visualized using the cystoscope. The bladder was emptied at the end of the case. Both stents were taped to the patient penis. Patient was awakened from anesthesia and taken to recovery in stable condition
[2024-07-22 15:33] VITALS: RESP 16; TEMP 97.2
[2024-07-22] MEDS: HYDROmorphone 0.5 MG/0.5 ML SYRINGE IVP PRN (15:47)
[2024-07-22] MEDS: traMADol 50 MG TAB PO STA (16:39)
[2024-07-22 17:51] VITALS: BP 141/60; PULSE 71
--- NOTE | 2024-08-18 16:23 | FL ---
EXAMINATION TYPE: FL guidance operating room DATE OF EXAM: 07/22/2024 3:13 PM COMPARISON: Pre Operative Images if available both CT/MRI or plain film CLINICAL INDICATION: Male, 79 years old with history of CYSTO LITHO; TECHNIQUE: FL guidance operating room, multiple fluoroscopic images provided for procedure. Total fluoroscopy time: 22.9 seconds Total submitted images to PACS: 1 DAP: [id number] mGym2 Gycm2 uGym2 cGycm2 or equivalent. FINDINGS: Fluoroscopic images during lithotripsy demonstrates ureteral stents in appropriate position. Multilev el degeneration changes spine. Surgical clips present over the left pelvis. IMPRESSION: 1. No evidence for intraoperative complication. 2. Please see the operative/procedural note for further details. [facility], , 08/18/2024 4:21 PM
== END 2024-07-22 17:51 | disposition home or self-care (01) ==
LOC: OR 11:30
PROVIDERS: ATTEND Urology
DX: N20.0 Calculus of kidney (principal); E78.5 Hyperlipidemia, unspecified; I10 Essential (primary) hypertension; I25.10 Atherosclerotic heart disease of native coronary artery without angina pectoris; I25.2 Old myocardial infarction; I48.91 Unspecified atrial fibrillation; K21.9 Gastro-esophageal reflux disease without esophagitis; Z79.01 Long term (current) use of anticoagulants; Z79.02 Long term (current) use of antithrombotics/antiplatelets; Z87.891 Personal history of nicotine dependence; Z88.8 Allergy status to other drugs, medicaments and biological substances; Z90.49 Acquired absence of other specified parts of digestive tract; Z91.041 Radiographic dye allergy status
CPT/HCPCS: 74018; 80048; 82365; 85025

== ENCOUNTER 2024-08-05 09:17 | Inpatient (IN) | payer MEDICARE, OTHER ==
--- NOTE | 2024-08-05 11:11 | ED ---
Male Urogenital HPI - General Chief complaint: Urogenital Stated complaint: Sepsis Time Seen by Provider: 08/05/24 09:35 Source: patient, EMS Mode of arrival: EMS Limitations: no limitations - History of Present Illness Initial comments: Patient arrives as a transfer from [facility]. It was reported that the patient has not been feeling well over the past couple of days. Patient has weakness, shortness of breath, nausea without vomiting. He also had some diarrhea. Symptoms started on Sunday. Per EMS report the patient was 88% to [facility]. He received Toradol and Zofran. It was found that the patient had an elevated white blood cell count of 15.2. Creatinine 1.3. Pro- Joshua of 2.1. D-dimer of 2.4. Urinalysis did demonstrate positive nitrites and 2+ bacteria. His viral swab was negative. Patient was given a 3L bolus, a breathing treatment, vancomycin, cefepime, Ofirmev. He was titrated down to 1 L of oxygen from [address] abdomen pelvis without contrast was performed which demonstrated no acute findings. He also had a chest x-ray which demonstrated no acute process. Patient anaphylactic to contrast and therefore this was not administered. Patient transferred to our facility as he recently had cystoscopy with stent placement by Dr. Shelby. Patient is supposed to be on Xarelto and Plavix however he was taken off of these medications due to hematuria. He does have a history of DVT, A-fib and stent Upon my evaluation the patient is hypoxic at 88%. He is on 2 L nasal cannula. I did increase him to 4 L. Lungs do sound wet. Chest x-ray is ordered. Patient's BNP was 3200 at outside facility. - Related Data Home Medications Medication Instructions Recorded Confirmed ALPRAZolam [Xanax] 0.25 mg PO BID 07/13/20 08/05/24 Gabapentin [Neurontin] 100 mg PO BID 07/13/20 08/05/24 Tamsulosin HCl [Flomax] 0.8 mg PO DAILY 07/13/20 08/05/24 carvediloL [Coreg] 12.5 mg PO BID 07/13/20 08/05/24 Famotidine [Pepcid] 20 mg PO HS 08/26/20 08/05/24 Atorvastatin [Lipitor] 40 mg PO HS 01/08/23 08/05/24 traZODone HCL [Desyrel] 50 mg PO HS 01/08/23 08/05/24 Baclofen 10 mg PO HS PRN 11/19/23 08/05/24 Doxazosin [Cardura] 4 mg PO HS 11/19/23 08/05/24 Dicyclomine [Bentyl] 10 mg PO BID 07/07/24 08/05/24 Furosemide [Lasix] 20 mg PO DAILY 07/07/24 08/05/24 lisinopriL [Zestril] 20 mg PO DAILY 07/07/24 08/05/24 Melatonin [Melatonin ER] 10 mg PO HS 07/17/24 08/05/24 traMADol HCL 50 mg PO BID 07/22/24 08/05/24 Albuterol Inhaler [Ventolin Hfa 2 puff INHALATION RT-Q4H PRN 08/05/24 08/05/24 Inhaler] Finasteride [Proscar] 5 mg PO DAILY 08/05/24 08/05/24 Allergies Allergy/AdvReac Type Severity Reaction Status Date / Time iodine Allergy Anaphylaxis Verified 08/05/24 11:41 Review of Systems ROS Statement: Those systems with pertinent positive or pertinent negative responses have been documented in the HPI. ROS Other: All systems not noted in ROS Statement are negative. Past Medical History Past Medical History: Atrial Fibrillation, Coronary Artery Disease (CAD), Cancer, Chest Pain / Angina, GERD/Reflux, Hyperlipidemia, Hypertension, Myocardial Infarction ([place]), Renal Disease Additional Past Medical History / Comment(s): hx kidney stones, 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, hx of septic shock, ARDS, and dialysis in 1986 from appendicitis, hx of melanoma on nose, pulmonary fibrosis Last Myocardial Infarction Date:: 2022 History of Any Multi-Drug Resistant Organisms: None Reported Past Surgical History: Appendectomy, Cholecystectomy, Heart Catheterization, Heart Catheterization With Stent, Orthopedic Surgery Additional Past Surgical History / Comment(s): lithotripsy, RIKA, EP study with cardioversion, sx on deborah knees, hips, shoulders, hx of colostomy and reversal, hx of trach and closure, hx of chest tubes, all related to septic shock in 1986 r/t to an appendectomy Past Anesthesia/Blood Transfusion Reactions: No Reported Reaction Date of Last Stent Placement:: 2022 Past Psychological History: Anxiety Smoking Status: Former smoker Past Alcohol Use History: None Reported Past Drug Use History: None Reported - Past Family History Sister(s) Family Medical History: Cancer Father Family Medical History: Cancer General Exam Limitations: no limitations General appearance: alert, in no apparent distress Head exam: Present: atraumatic, normocephalic, normal inspection Eye exam: Present: normal appearance, PERRL, EOMI. Absent: scleral icterus, conjunctival injection, periorbital swelling ENT exam: Present: normal exam, mucous membranes moist Neck exam: Present: normal inspection. Absent: tenderness, meningismus, lymph adenopathy Respiratory exam: Present: rales, decreased breath sounds. Absent: respiratory distress, wheezes, rhonchi, stridor Cardiovascular Exam: Present: regular rate, normal rhythm, normal heart sounds. Absent: systolic murmur, diastolic murmur, rubs, gallop, clicks GI/Abdominal exam: Present: soft, normal bowel sounds. Absent: distended, tenderness, guarding, rebound, rigid Extremities exam: Present: normal inspection, full ROM, normal capillary refill. Absent: tenderness, pedal edema, joint swelling, calf tenderness Back exam: Present: normal inspection Neurological exam: Present: alert, oriented X3, CN II-XII intact Psychiatric exam: Present: normal affect, normal mood Skin exam: Present: warm, dry, intact, normal color. Absent: rash Course Vital Signs 08/05/24 08/05/24 08/05/24 09:29 12:10 13:15 Temperature 97.8 F 103.2 F H 102.3 F H Pulse Rate 79 104 H 91 Respiratory 16 20 20 Rate Blood Pressure 114/64 148/72 131/62 O2 Sat by Pulse 91 L 98 96 Oximetry 08/05/24 08/05/24 08/05/24 14:00 14:45 15:07 Temperature 100.4 F H Pulse Rate 82 81 Respiratory 18 18 Rate Blood Pressure 96/54 92/55 101/57 O2 Sat by Pulse 98 97 Oximetry 08/05/24 08/05/24 08/05/24 15:27 16:12 16:23 Temperature 100.3 F H Pulse Rate 75 82 Respiratory 20 12 Rate Blood Pressure 98/56 99/53 O2 Sat by Pulse 97 99 98 Oximetry 08/05/24 08/05/24 08/05/24 16:45 17:10 17:54 Temperature 98.2 F Pulse Rate 80 92 Respiratory 18 18 Rate Blood Pressure 90/49 101/59 111/68 O2 Sat by Pulse 100 93 L Oximetry 08/05/24 08/05/24 08/05/24 18:37 19:45 22:12 Temperature 98.8 F 98.7 F Pulse Rate 98 82 101 H Respiratory 20 18 19 Rate Blood Pressure 123/91 101/54 145/79 O2 Sat by Pulse 96 98 94 L Oximetry 08/05/24 22:36 Temperature 99.0 F Pulse Rate Respiratory Rate Blood Pressure O2 Sat by Pulse Oximetry - Reevaluation(s) Reevaluation #1: Dr. Shelby is aware 08/05/24 11:21 Medical Decision Making - Medical Decision Making Was pt. sent in by a medical professional or institution (, PA, GREASE RENDERER, urgent care, hospital, or [facility]cc...) When possible be specific @ -[facility] Did you speak to anyone other than the patient for history (EMS, parent, family, police, friend...)? What history was obtained from this source @ -Spoke with EMS who transferred patient Did you review nursing and triage notes (agree or disagree)? Why? @ -I reviewed and agree with nursing and triage notes Were old charts reviewed (outside hosp., previous admission, EMS record, old EKG, old radiological studies, urgent care reports/EKG's, mcc records)? Report findings @ -I reviewed the laboratory studies that were completed at [facility] Differential Diagnosis (chest pain, altered mental status, abdominal pain women, abdominal pain men, vaginal bleeding, weakness, fever, dyspnea, syncope, headache, dizziness, GI bleed, back pain, seizure, CVA, palpatations, mental health, musculoskeletal)? @ -Differential Fever: Pneumonia, viral URI, endocarditis, myocarditis, pericarditis, otitis, sinusitis, peritonsillar Abscess, retropharyngeal Abscess, epiglottitis, peritonitis, appendicitis, Michelle cystitis, diverticulitis, hepatitis, colitis, UTI, PID, TOA, pyelonephritis, prostatitis, epididymitis, meningitis, encephalitis, pulmonary embolism, CVA, thyroid storm, pancreatitis, adrenal cr daquan, cavernous sinus thrombosis, this is not meant to be an all-inclusive list. EKG interpreted by me (3pts min.). @ -not done X-rays interpreted by me (1pt min.). @ -Yes and demonstrates pulmonary fibrosis with what appears to be pulmonary edema CT interpreted by me (1pt min.). @ -None done U/S interpreted by me (1pt. min.). @ -None done What testing was considered but not performed or refused? (CT, X-rays, U/S, labs)? Why? @ -None What meds were considered but not given or refused? Why? @ -Maeve was considered as patient did have hypoxia down to 88% possibly due to the 3 L of fluid that he received at [facility]. Did you discuss the management of the patient with other professionals (professionals i.e. , PA, GREASE RENDERER, lab, RT, psych nurse, socially responsible investment adviser, campaign consultant, teacher, delinquency prevention officer, embedded case manager)? Give summary @ -Dr. Thorne who accepted the patient as a transfer Was smoking cessation discussed for >3mins.? @ -No Was critical care preformed (if so, how long)? @ -No Were there social determinants of health that impacted care today? How? (Homelessness, low income, unemployed, alcoholism, drug addiction, transportation, low edu. Level, literacy, decrease access to med. care, senior care, rehab)? @ -No Was there de-escalation of care discussed even if they declined (Discuss DNR or withdrawal of care, Hospice)? DNR status @ -No What co-morbidities impacted this encounter? (DM, HTN, Smoking, COPD, CAD, Cancer, CVA, ARF, Chemo, Hep., AIDS, mental health diagnosis, sleep apnea, morbid obesity)? @ -Renal stones Was patient admitted / discharged? Hospital course, mention meds given and route, prescriptions, significant lab abnormalities, going to OR and other pertinent info. @ -Upon arrival patient seen and evaluated in room 19. Thorough history and physical exam was performed. I did review the patient's transfer packet. He does have tachycardia with hypoxia and I had increase his oxygen to 4 L. I repeated a chest x-ray. Results are discussed with Dr. Thorne and Dr. Shelby. Dr. Shelby does present to the emergency department to evaluate the patient. Patient will be admitted for urology and infectious disease consult Undiagnosed new problem with uncertain prognosis? @ -No Drug Therapy requiring intensive monitoring for toxicity (Heparin, Nitro, Insulin, Cardizem)? @ -No Were any procedures done? @ -No Diagnosis/symptom? @ -Acute hypoxic respiratory failure, acute UTI with sepsis Acute, or Chronic, or Acute on Chronic? @ -Acute Uncomplicated (without systemic symptoms) or Complicated (systemic symptoms)? @ -Complicated Side effects of treatment? @ -No Exacerbation, Progression, or Severe Exacerbation? @ -No Poses a threat to life or bodily function? How? (Chest pain, [place], [place], pneumonia, PE, COPD, DKA, ARF, appy, cholecystitis, CVA, Diverticulitis, Homicidal, Suicidal, threat to staff... and all critical care pts) @ -No Disposition Clinical Impression: UTI (urinary tract infection), Pyrexia, Urinary retention, S/P ureteral stent placement Disposition: ADMITTED IP TO THIS [facility] Condition: Stable Is patient prescribed a controlled substance at d/c from ED?: No Time of Disposition: 11:18 Decision to Admit Reason: Admit from EC Decision Date: 08/05/24 Decision Time: 11:18
[2024-08-05] MEDS ORDERED: NALOXONE 0.4 MG/ML 1 ML VIAL IV PRN (11:19)
[2024-08-05] MEDS: SODIUM CHLORIDE 0.9% 1,000 ML IV SCH ×2 (12:03→15:16)
[2024-08-05] MEDS: fentaNYL (PF) 50 MCG/ML 2 ML AMP IVP STA (12:14)
[2024-08-05] MEDS: ACETAMINOPHEN TAB 500 MG TAB PO STA (12:22)
--- NOTE | 2024-08-05 12:44 | XR ---
EXAMINATION TYPE: XR chest 2V DATE OF EXAM: 08/05/2024 COMPARISON: 01/30/2023 HISTORY: Shortness of breath TECHNIQUE: Frontal and lateral views of the chest are obtained. FINDINGS: Scattered senescent parenchymal changes noted. Hyperinflation compatible with COPD. Fibrotic changes noted as well as a persistent left apical opacity. Increased patchy density medial lung base on the r ight could reflect developing pneumonia. Correlate clinically. No evidence for infiltrate. No evidence for atelectasis. Heart size is stable. Mediastinal structures are stable and grossly unremarkable. No evidence for hilar prominence. Degenerative changes dorsal spine. IMPRESSION: 1. Fibrotic changes noted as well as a persistent left apical opacity. Increased patchy density media l lung base on the right could reflect developing pneumonia. Correlate clinically. [facility], , 08/05/2024 12:42 PM
--- NOTE | 2024-08-05 13:03 | P.GSCN ---
History of Present Illness Consult date: 08/05/24 Reason for Consult: UTI History of present illness: This is a 79-year-old male status post bilateral ureteroscopy with holmium laser on July 22. Presented as a transfer from [facility] with fevers associated with dysuria and shortness of breath. He has a known history of recurrent kidney stones recently underwent uncomplicated bilateral ureteroscopy with holmium laser and stent insertion, both of his stents were left on a stri ng. He denies any flank pain, but indicated he has been experiencing dysuria with gross hematuria, and low-grade fever. He did undergo a CT abdomen and pelvis in [place] which showed no acute process. His urinalysis was concerning for a UTI, and his postvoid residual was elevated in the 300 mL range. Review of Systems - Constitutional Reports chills, Reports fatigue, Reports fever - Cardiovascular Denies chest pain, Denies shortness of breath - Respiratory Reports dyspnea - Gastrointestinal Reports as per HPI - Genitourinary Reports hematuria - Neurological Denies headaches, Denies syncope Past Medical History Past Medical History: Atrial Fibrillation, Coronary Artery Disease (CAD), Cancer, Chest Pain / Angina, GERD/Reflux, Hyperlipidemia, Hypertension, Myocardial Infarction ([place]), Renal Disease Additional Past Medical History / Comment(s): hx kidney stones, 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, hx of septic shock, ARDS, and dialysis in 1986 from appendicitis, hx of melanoma on nose, pulmonary fibrosis Last Myocardial Infarction Date:: 2022 History of Any Multi-Drug Resistant Organisms: None Reported Past Surgical History: Appendectomy, Cholecystectomy, Heart Catheterization, Heart Catheterization With Stent, Orthopedic Surgery Additional Past Surgical History / Comment(s): lithotripsy, RIKA, EP study with cardioversion, sx on deborah knees, hips, shoulders, hx of colostomy and reversal, hx of trach and closure, hx of chest tubes, all related to septic shock in 1986 r/t to an appendectomy Past Anesthesia/Blood Transfusion Reactions: No Reported Reaction Date of Last Stent Placement:: 2022 Past Psychological History: Anxiety Smoking Status: Former smoker Past Alcohol Use History: None Reported Past Drug Use History: None Reported - Past Family History Sister(s) Family Medical History: Cancer Father Family Medical History: Cancer Medications and Allergies Home Medications Medication Instructions Recorded Confirmed Type ALPRAZolam [Xanax] 0.25 mg PO BID 07/13/20 08/05/24 History Gabapentin [Neurontin] 100 mg PO BID 07/13/20 08/05/24 History Tamsulosin HCl [Flomax] 0.8 mg PO DAILY 07/13/20 08/05/24 History carvediloL [Coreg] 12.5 mg PO BID 07/13/20 08/05/24 History Famotidine [Pepcid] 20 mg PO HS 08/26/20 08/05/24 History Atorvastatin [Lipitor] 40 mg PO HS 01/08/23 08/05/24 History traZODone HCL [Desyrel] 50 mg PO HS 01/08/23 08/05/24 History Baclofen 10 mg PO HS PRN 11/19/23 08/05/24 History Doxazosin [Cardura] 4 mg PO HS 11/19/23 08/05/24 History Dicyclomine [Bentyl] 10 mg PO BID 07/07/24 08/05/24 History Furosemide [Lasix] 20 mg PO DAILY 07/07/24 08/05/24 History lisinopriL [Zestril] 20 mg PO DAILY 07/07/24 08/05/24 History Melatonin [Melatonin ER] 10 mg PO HS 07/17/24 08/05/24 History traMADol HCL 50 mg PO BID 07/22/24 08/05/24 History Albuterol Inhaler [Ventolin Hfa 2 puff INHALATION RT-Q4H PRN 08/05/24 08/05/24 History Inhaler] Finasteride [Proscar] 5 mg PO DAILY 08/05/24 08/05/24 History Allergies Allergy/AdvReac Type Severity Reaction Status Date / Time iodine Allergy Anaphylaxis Verified 08/05/24 11:41 Surgical - Exam Vital Signs Temp Pulse Resp BP Pulse Ox 97.8 F 79 16 114/64 91 L 08/05/24 09:08/05/24 09:08/05/24 09:08/05/24 09:08/05/24 09:29 - General no distress, no pain - Eyes normal ocular movement, no pale - ENT normal nares, normal mucosa - Respiratory normal expansion, normal respiratory effort - Abdomen Abdomen: soft, non tender, no distended - Psychiatric oriented to time, oriented to person, oriented to place Assessment and Plan Assessment: 79-year-old male status post bilateral ureteroscopy with holmium laser admitted to the hospital with a UTI. He currently has stents in place that are on a string. Of note his postvoid residual was elevated at 3 to 400 mL range. 1. Bilateral renal stones, UTI -Follow-up up on urine culture, -Continue IV antibiotics, recommend continue IV antibiotics until culture is finalized -Will plan on removing the stent once cultures finalized and he is on appropriate antibiotics 2. Urinary retention -Continue to trend PVR, if persistently greater than 400 mL recommend inserting a Bowens catheter -Continue Flomax twice daily and Proscar
[2024-08-05] MEDS: FUROSEMIDE 10 MG/ML 4 ML VIAL IV STA (13:22)
[2024-08-05] MEDS ORDERED: ONDANSETRON 4 MG/2 ML VIAL IVP PRN (14:11)
[2024-08-05] MEDS ORDERED: NON FORMULARY DRUG (Melatonin [Melatonin Er] 10 MG Tablet) PO PRN (14:13)
--- NOTE | 2024-08-05 14:22 | P.HPIM ---
History of Present Illness H&P Date: 08/05/24 79 year old M with PMH of pulmonary fibrosis, CAD post stents on Plavix, CHF EF 40-45% in 2022, A-Fib on AC, CKD stage II presents to the ED as a transfer from [facility]. He reports progressively worsening fatigue for the past 2 weeks. Today he fell and couldn't get up. He also reports left flank pain and dysuria. Recently underwent bilateral ureteroscopy with holmium laser on July 22. called EMS. At [facility] he underwent extensive evaluation. Noted to be hypotensive requiring 3L of NS. Also noted to saturating 87% on RA. Evaluation was significant for WBC 15.25, Plt 138, Na 132, glu 125, BUN 31, Cr 1.39, Troponin 0.045, Lactic acid 1.2, Procal 2.18, BNP 3200. UA + nitrite and 2+ LE. Flu/COVID/RSV negative. EKG sinus rhythm, PVCs, RBBB. VBG pH 7.35, pCO2 47.6. CT AP and CXR negative for acute findings. He was transferred here for further evaluation. Vital signs at [facility] Tmax 103.2F, BP as low as 96/54, HR as high as 104, 98% on 6L NC. General: non toxic, no distress, appears at stated age Derm: warm, dry Head: atraumatic, normocephalic, symmetric Eyes: EOMI, no lid lag, anicteric sclera Mouth: no lip lesion, mucus membranes moist Cardiovascular: S1S2 tachy, no murmur Lungs: Decreased BS bilateral, no rhonchi, + rales , no accessory muscle use Abdominal: soft, nontender to palpation, no guarding, no appreciable organomegaly Ext: no gross muscle atrophy, no edema, no contractures Neuro: no focal neuro deficits Psych: Alert, oriented, appropriate affect Based on my assessment of this patient, this patient meets a high complexity level of care. Sepsis due to complicated UTI. History of bilateral ureteroscopy with holmium laser on July 22. Start Cefepime 2g IV TID. Hold Coreg, Lasix, Lisinopril Follow UCx. Follow BCx. Start NS at 75 cc/hr. Low threshold for ICU if BP continues to drop. ID consulted. Acute hypoxic respiratory failure likely due to systolic CHF exacerbation: EF 12/2022 EF 40-45% G1DD, apical septal hypokinesis. DuoNeb QID PRN. Holding Lasix due to hypotension. Strict intake and outtake. Daily weight. Repeat Echo ordered. Cardiology consulted. DOMINGO on CKD: CT AP no acute findings. Possibly related to hypotension. Hold Lisinopril Hyponatremia: IV hydration as above. Elevated D-Dimer: Likely due to sepsis. Elevated Troponin: No chest pain. Trend Trop/EKG to rule out ACS. Has been off Plavix and Xarelto for the past 7 days. Obtain Echo. Cardiology consulted. CAD: Plavix and Coreg on hold as above. CODE STATUS: FULL CODE. DVT Prophylaxis: Heparin SQ GI Prophylaxis: Designated medical POA if patient is not able to make medical decisions for themselves: I have reviewed the following industry consultant notes: ER note. I have reviewed the results of the following tests: As above. I have ordered the following tests: As above. I have discussed the care of this patient with the following independent historian: Multiple family members, RN. I have independently interpreted the following test below: EKG. 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, hx of septic shock, ARDS, and dialysis in 1986 from appendicitis, hx of melanoma on nose, pulmonary fibrosis Last Myocardial Infarction Date:: 2022 History of Any Multi-Drug Resistant Organisms: None Reported Past Surgical History: Appendectomy, Cholecystectomy, Heart Catheterization, Heart Catheterization With Stent, Orthopedic Surgery Additional Past Surgical History / Comment(s): lithotripsy, RIKA, EP study with cardioversion, sx on deborah knees, hips, shoulders, hx of colostomy and reversal, hx of trach and closure, hx of chest tubes, all related to septic shock in 1986 r/t to an appendectomy Past Anesthesia/Blood Transfusion Reactions: No Reported Reaction Date of Last Stent Placement:: 2022 Past Psychological History: Anxiety Smoking Status: Former smoker Past Alcohol Use History: None Reported Past Drug Use History: None Reported - Past Family History Sister(s) Family Medical History: Cancer Father Family Medical History: Cancer Medications and Allergies Home Medications Medication Instructions Recorded Confirmed Type ALPRAZolam [Xanax] 0.25 mg PO BID 07/13/20 08/05/24 History Gabapentin [Neurontin] 100 mg PO BID 07/13/20 08/05/24 History Tamsulosin HCl [Flomax] 0.8 mg PO DAILY 07/13/20 08/05/24 History carvediloL [Coreg] 12.5 mg PO BID 07/13/20 08/05/24 History Famotidine [Pepcid] 20 mg PO HS 08/26/20 08/05/24 History Atorvastatin [Lipitor] 40 mg PO HS 01/08/23 08/05/24 History traZODone HCL [Desyrel] 50 mg PO HS 01/08/23 08/05/24 History Baclofen 10 mg PO HS PRN 11/19/23 08/05/24 History Doxazosin [Cardura] 4 mg PO HS 11/19/23 08/05/24 History Dicyclomine [Bentyl] 10 mg PO BID 07/07/24 08/05/24 History Furosemide [Lasix] 20 mg PO DAILY 07/07/24 08/05/24 History lisinopriL [Zestril] 20 mg PO DAILY 07/07/24 08/05/24 History Melatonin [Melatonin ER] 10 mg PO HS 07/17/24 08/05/24 History traMADol HCL 50 mg PO BID 07/22/24 08/05/24 History Albuterol Inhaler [Ventolin Hfa 2 puff INHALATION RT-Q4H PRN 08/05/24 08/05/24 History Inhaler] Finasteride [Proscar] 5 mg PO DAILY 08/05/24 08/05/24 History Allergies Allergy/AdvReac Type Severity Reaction Status Date / Time iodine Allergy Anaphylaxis Verified 08/05/24 11:41 Physical Exam Vitals: Vital Signs Temp Pulse Resp BP Pulse Ox 08/05/24 13:15 102.3 F H 91 20 131/62 96 08/05/24 12:10 103.2 F H 104 H 20 148/72 98 08/05/24 09:29 97.8 F 79 16 114/64 91 L Intake and Output 08/04/24 08/05/24 08/05/24 22:59 06:59 14:59 Other: Weight 74.843 kg
[2024-08-05] MEDS: CEFEPIME 2 GM in SODIUM CHLORIDE 0.9% 100 ML IVPB SCH (15:27)
[2024-08-05] MEDS: HYDROcodone/APAP 5-325MG 1 EACH TAB PO PRN (18:42)
[2024-08-05] MEDS: DOXAZOSIN 4 MG TAB PO SCH (20:32)
[2024-08-05] MEDS: ATORVASTATIN 40 MG TAB PO SCH (20:33)
[2024-08-05] MEDS: HEPARIN SODIUM,PORCINE 5,000 UNIT/ML 1 ML VIAL SQ SCH (20:33)
--- NOTE | 2024-08-05 22:17 | P.CONS ---
History of Present Illness - Reason for Consult Consult date: 08/05/24 Complicated UTI Requesting physician: Simin Abbasi - Chief Complaint Fever dysuria and shortness of breath x few days - History of Present Illness Patient is a 79-year-old male with a past medical history significant for atrial fibrillation coronary disease hypertension hyperlipidemia AL kidney stone in this patient who recently did have bilateral ureteroscopy with holmium laser on July 22 and stent insertion and both the stents were left on a string, patient subsequently presenting to the [facility] for evaluation of fever dysuria and increasing shortness of breath, patient did have a positive UA with elevated postvoid residual patient was subsequently transferred to [facility] for further evaluation. Patient on arrival to the ER was febrile with temperature of 103.2 F and this patient symptom has been getting worse for the last few days has been complaining of mostly weakness no energy fever with chills denies any headache or URI symptoms no chest pain shortness of breath or cough no nausea no vomiting no abdominal pain did have difficulty urination and some burning but no hematuria patient was tachycardic but not hypotensive mildly hypoxic requiring supplemental oxygen did have elevated troponin patient did have a chest x-ray fibrotic changes noted as well as persistent left apical opacity increased patchy density medial lung on the right could reflect developing pneumonia patient apparently did have a CT abdominal pelvis at the [facility] that was reported negative for acute process patient was started on cefepime infectious disease was consulted for complicated UTI Review of Systems Positive point and negatives has been mentioned in the HPI, complete review of systems was performed and all other systems are negative Past Medical History Past Medical History: Atrial Fibrillation, Coronary Artery Disease (CAD), Cancer, Chest Pain / Angina, GERD/Reflux, Hyperlipidemia, Hypertension, Myocardial Infarction (AL), Renal Disease Additional Past Medical History / Comment(s): hx kidney stones, 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, hx of septic shock, ARDS, and dialysis in 1986 from appendicitis, hx of melanoma on nose, pulmonary fibrosis Last Myocardial Infarction Date:: 2022 History of Any Multi-Drug Resistant Organisms: None Reported Past Surgical History: Appendectomy, Cholecystectomy, Heart Catheterization, Heart Catheterization With Stent, Orthopedic Surgery Additional Past Surgical History / Comment(s): lithotripsy, RIKA, EP study with cardioversion, sx on deborah knees, hips, shoulders, hx of colostomy and reversal, hx of trach and closure, hx of chest tubes, all related to septic shock in 1986 r/t to an appendectomy Past Anesthesia/Blood Transfusion Reactions: No Reported Reaction Date of Last Stent Placement:: 2022 Past Psychological History: Anxiety Smoking Status: Former smoker Past Alcohol Use History: None Reported Past Drug Use History: None Reported - Past Family History Sister(s) Family Medical History: Cancer Father Family Medical History: Cancer Medications and Allergies Home Medications Medication Instructions Recorded Confirmed Type ALPRAZolam [Xanax] 0.25 mg PO BID 07/13/20 08/05/24 History Gabapentin [Neurontin] 100 mg PO BID 07/13/20 08/05/24 History Tamsulosin HCl [Flomax] 0.8 mg PO DAILY 07/13/20 08/05/24 History carvediloL [Coreg] 12.5 mg PO BID 07/13/20 08/05/24 History Famotidine [Pepcid] 20 mg PO HS 08/26/20 08/05/24 History Atorvastatin [Lipitor] 40 mg PO HS 01/08/23 08/05/24 History traZODone HCL [Desyrel] 50 mg PO HS 01/08/23 08/05/24 History Baclofen 10 mg PO HS PRN 11/19/23 08/05/24 History Doxazosin [Cardura] 4 mg PO HS 11/19/23 08/05/24 History Dicyclomine [Bentyl] 10 mg PO BID 07/07/24 08/05/24 History Furosemide [Lasix] 20 mg PO DAILY 07/07/24 08/05/24 History lisinopriL [Zestril] 20 mg PO DAILY 07/07/24 08/05/24 History Melatonin [Melatonin ER] 10 mg PO HS 07/17/24 08/05/24 History traMADol HCL 50 mg PO BID 07/22/24 08/05/24 History Albuterol Inhaler [Ventolin Hfa 2 puff INHALATION RT-Q4H PRN 08/05/24 08/05/24 History Inhaler] Finasteride [Proscar] 5 mg PO DAILY 08/05/24 08/05/24 History Allergies Allergy/AdvReac Type Severity Reaction Status Date / Time iodine Allergy Anaphylaxis Verified 08/05/24 11:41 Physical Exam Vitals: Vital Signs Temp Pulse Resp BP Pulse Ox 08/05/24 14:00 100.4 F H 82 18 96/54 98 08/05/24 13:15 102.3 F H 91 20 131/62 96 08/05/24 12:10 103.2 F H 104 H 20 148/72 98 08/05/24 09:29 97.8 F 79 16 114/64 91 L Intake and Output 08/04/24 08/05/24 08/05/24 22:59 06:59 14:59 Other: Weight 74.843 kg GENERAL DESCRIPTION: Elderly male lying in bed, no distress. No tachypnea or accessory muscle of respiration use. HEENT: Shows Pallor , no scleral icterus. Oral mucous membrane is dry. No pharyngeal erythema or thrush NECK: Trachea central, no thyromegaly. LUNGS: Unlabored breathing. Clear to auscultation anteriorly. No wheeze or crackle. HEART: S1, S2, regular rate and rhythm. No loud murmur ABDOMEN: Soft, no tenderness , guarding or rigidity, no organomegaly EXTREMITIES: No edema of feet. SKIN: No rash, no masses palpable. NEUROLOGICAL: The patient is awake, alert, oriented x3, mood and affect normal. Results CBC & Chem 7: 08/06/24 07:22 08/06/24 07:22 Assessment and Plan (1) Sepsis Current Visit: Yes Status: Acute Code(s): A41.9 - SEPSIS, UNSPECIFIED ORGANISM SNOMED Code(s): 20275885 (2) UTI (urinary tract infection) Current Visit: Yes Status: Acute Code(s): N39.0 - URINARY TRACT INFECTION, SITE NOT SPECIFIED SNOMED Code(s): 89235735 Plan: 1patient presented to hospital with sepsis in this patient who did have fever tachycardia meeting criteria for SIRS source is UTI in this patient who recently did have a bilateral ureteroscopy and stent placement and will need to cover for the resistant gram-negative to be the likely pathogen. 2cefepime 2 g every 8 hours should provide adequate antibiotic coverage at this point along with gentle hydration. Family the bedside multiple question concern answered. We will follow on clinical condition and cultures to further adjust medication if needed Thank you for this consultation we will follow the patient along with you Dictation was produced using CDNlionation software. please excuse any grammatical, word or spelling errors. Time with Patient: Greater than 30
[2024-08-05] MEDS: ACETAMINOPHEN TAB 325 MG TAB PO PRN (22:36)
[2024-08-06 07:32] LABS: Basophils % (A) 0 %; Eosinophils % (A) 0 %; HCT 37.8 % (39.0-53.0); HGB 12.5 gm/dL (13.0-17.5); Lymphocytes # (A) 0.4 k/uL (1.0-4.8); Lymphocytes % (A) 5 %; MCH 31.3 pg (25.0-35.0); MCHC 33.1 g/dL (31.0-37.0); MCV 94.5 fL (80.0-100.0); Mean Platelet Volume 8.1; Monocytes # (A) 0.4 k/uL (0-1.0); Monocytes % (A) 5 %; Neutrophils # (A) 6.7 k/uL (1.3-7.7); Neutrophils % (A) 89 %; Platelet Count 110 k/uL (150-450); RDW 13.8 % (11.5-15.5); WBC 7.5 k/uL (3.8-10.6)
[2024-08-06 07:51] LABS: African American GFR (CKD) 61 (>60 ml/min/1.73 sqM); Anion Gap 4 mmol/L; Blood Urea Nitrogen 29 mg/dL (9-20); Calcium 8.1 mg/dL (8.4-10.2); Carbon Dioxide 22 mmol/L (22-30); Chloride 108 mmol/L (98-107); Glucose 144 mg/dL (74-99); Non-African American GFR(CKD) 52 (>60 ml/min/1.73 sqM); Potassium 4.5 mmol/L (3.5-5.1); Sodium 134 mmol/L (137-145)
[2024-08-06] MEDS: IPRATROPIUM-ALBUTEROL 3 ML NEB INHALATION PRN (08:23)
--- NOTE | 2024-08-06 09:20 | XR ---
EXAMINATION TYPE: XR chest 1V portable DATE OF EXAM: 08/06/2024 COMPARISON: 08/05/2020 HISTORY: Hypoxia TECHNIQUE: Single frontal view of the chest is obtained. FINDINGS: Heart is enlarged and is likely underlying COPD and chronic interstitial lung disease. Sup erimposed interstitial pneumonitis or venous congestion not excluded. Tiny right effusion. No pneumot horax. Chronic deformity of the right clavicle diffuse osteopenia and degenerative changes in the spi ne. Left apical consolidation or mass stable. IMPRESSION: 1. Left apical mass or consolidation is stable. 2. COPD with chronic appearing interstitial lung disease. A mild superimposed interstitial pneumoniti s or venous congestion not excluded. [facility], , 08/06/2024 9:18 AM
[2024-08-06] MEDS: TAMSULOSIN 0.4 MG CAP.ER.24H PO SCH (09:28)
[2024-08-06] MEDS: ASPIRIN 81 MG PO SCH (09:29)
[2024-08-06] MEDS: FINASTERIDE 5 MG TAB PO SCH (09:29)
--- NOTE | 2024-08-06 09:59 | P.CRDCN ---
History of Present Illness Consult date: 08/06/24 Reason for Consult (text): CHF, sepsis History of present illness: This is a 79-year-old male patient of Dr. Villa with past medical history of coronary artery disease status post prior angioplasty, atrial flutter status post cardioversion, hypertension, dyslipidemia. We have been asked to evaluate the patient for CHF and sepsis. Patient recently had a urology procedure on 07/22. He states he has had significant weakness and fatigue and fever that is worsened over the last 1 and half to 2 weeks. He states he fell off his chair and he could not get up. He denies having any shortness of breath, no chest pain no palpitations no chest tightness no pressure. He does have occasional dizziness. No palpitations. No cough. No history of stroke or seizure. He did have some blood in his urine for which Xarelto has been placed on hold and he states that resolved. He denies history of smoking. Blood pressure 142/71, heart rate 101, pulse ox 94% on room air. Temperature max is 103.2. Patient has been started on IV antibiotics. Patient is seen today in the emergency center waiting for a bed on the cardiac stepdown unit. Patient has been seen by infectious disease and urology. EKG sinus bradycardia with a right bundle branch block, Q-wave inferiorly. Laboratory studies: CBC normal. Sodium 140, potassium 4.5, BUN 18, creatinine 0.85. Troponin 0.109 and 0.118. Echocardiogram performed on 01/08/2023 revealed okay EF of 45-50% with apical septal hypokinesia. Aortic valve sclerosis with mild mitral annular calcification. No pericardial effusion. Chest x-ray reveals fibrotic changes noted as well as persistent left apical opacity. Increased patchy density in the medial lung base on the right could reflect developing pneumonia. Home cardiac medications: Lipitor 40 mg at bedtime, Coreg 12.5 mg twice daily, Lasix 20 mg daily, lisinopril 20 mg daily Cardiac catheterization in the setting of NSTEMI performed 01/09/2023 revealed long segment of narrowing within the LAD. Subsequent stenting of the mid LAD, proximal LAD by Dr. Quarles on 01/10. This was followed by stenting of the distal right coronary artery on 01/[address] Quarles. Review Of Systems: At the time of my evaluation: Constitutional: Reports fever, no chills. Reports weakness, fatigue. EENT: No headache. No dizziness. Lungs: No shortness of breath, cough, no sputum production. No wheezing. Cardiovascular: No chest pain, no lower extremity edema. No palpitations. No paroxysmal nocturnal dyspnea. No orthopnea. No lightheadedness or dizziness. No syncopal episodes. Abdominal: No abdominal pain. No nausea, vomiting. No diarrhea. No constipat ion. No bloody or tarry stools. Genitourinary: No hematuria. Musculoskeletal: No back pain. No neck pain. Neurologic: No aphasia. No facial droop. No change in mentation. Physical examination: Gen: This is a 79-year-old male. He is resting in bed and appears to be comfortable and in no acute distress VS: reviewed HEENT: Head is atraumatic, normocephalic. Pupils equal, round. Sclerae is anicteric. NECK: Supple. No JVD. No lymphadenopathy. LUNGS: Clear to auscultation. No wheezes or rhonchi. No intercostal retractions. HEART: Regular rate and rhythm. No murmur. ABDOMEN: Soft. No tenderness. EXTREMITIES: No pedal edema. No calf tenderness. NEUROLOGICAL: Patient is awake, alert and oriented x3. Assessment: UTI and sepsis Elevated troponins, type II MN secondary to sepsis History of coronary artery disease with previous angioplasty History of atrial flutter status post cardioversion Hypertension Dyslipidemia Plan: Resume patient's home cardiac medications Continue to hold Xarelto until cleared by urology Add aspirin 81 mg daily Discontinue Plavix as it has been greater than 1 year since his stent was done Obtain 2D echocardiogram Further recommendations to follow based upon clinical course Thank you kindly for this consultation. Nurse practitioner note has been reviewed, I agree with documented findings and plan of care. Patient was seen and examined. 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, hx of septic shock, ARDS, and dialysis in 1986 from appendicitis, hx of melanoma on nose, pulmonary fibrosis Last Myocardial Infarction Date:: 2022 History of Any Multi-Drug Resistant Organisms: None Reported Past Surgical History: Appendectomy, Cholecystectomy, Heart Catheterization, Heart Catheterization With Stent, Orthopedic Surgery Additional Past Surgical History / Comment(s): lithotripsy, RIKA, EP study with cardioversion, sx on deborah knees, hips, shoulders, hx of colostomy and reversal, hx of trach and closure, hx of chest tubes, all related to septic shock in 1986 r/t to an appendectomy Past Anesthesia/Blood Transfusion Reactions: No Reported Reaction Date of Last Stent Placement:: 2022 Past Psychological History: Anxiety Smoking Status: Former smoker Past Alcohol Use History: None Reported Past Drug Use History: None Reported - Past Family History Sister(s) Family Medical History: Cancer Father Family Medical History: Cancer Medications and Allergies Home Medications Medication Instructions Recorded Confirmed Type ALPRAZolam [Xanax] 0.25 mg PO BID 07/13/20 08/05/24 History Gabapentin [Neurontin] 100 mg PO BID 07/13/20 08/05/24 History Tamsulosin HCl [Flomax] 0.8 mg PO DAILY 07/13/20 08/05/24 History carvediloL [Coreg] 12.5 mg PO BID 07/13/20 08/05/24 History Famotidine [Pepcid] 20 mg PO HS 08/26/20 08/05/24 History Atorvastatin [Lipitor] 40 mg PO HS 01/08/23 08/05/24 History traZODone HCL [Desyrel] 50 mg PO HS 01/08/23 08/05/24 History Baclofen 10 mg PO HS PRN 11/19/23 08/05/24 History Doxazosin [Cardura] 4 mg PO HS 11/19/23 08/05/24 History Dicyclomine [Bentyl] 10 mg PO BID 07/07/24 08/05/24 History Furosemide [Lasix] 20 mg PO DAILY 07/07/24 08/05/24 History lisinopriL [Zestril] 20 mg PO DAILY 07/07/24 08/05/24 History Melatonin [Melatonin ER] 10 mg PO HS 07/17/24 08/05/24 History traMADol HCL 50 mg PO BID 07/22/24 08/05/24 History Albuterol Inhaler [Ventolin Hfa 2 puff INHALATION RT-Q4H PRN 08/05/24 08/05/24 History Inhaler] Finasteride [Proscar] 5 mg PO DAILY 08/05/24 08/05/24 History Allergies Allergy/AdvReac Type Severity Reaction Status Date / Time iodine Allergy Anaphylaxis Verified 08/05/24 11:41 Physical Exam Vitals: Vital Signs Temp Pulse Resp BP Pulse Ox 08/06/24 06:13 99.4 F 101 H 18 142/71 94 L 08/06/24 02:12 73 17 94/52 95 08/05/24 22:36 99.0 F 08/05/24 22:12 101 H 19 145/79 94 L 08/05/24 19:45 98.7 F 82 18 101/54 98 08/05/24 18:37 98.8 F 98 20 123/91 96 08/05/24 17:54 92 18 111/68 93 L 08/05/24 17:10 98.2 F 80 18 101/59 100 08/05/24 16:45 90/49 08/05/24 16:23 98 08/05/24 16:12 82 12 99/53 99 08/05/24 15:27 100.3 F H 75 20 98/56 97 08/05/24 15:07 81 18 101/57 97 08/05/24 14:45 92/55 08/05/24 14:00 100.4 F H 82 18 96/54 98 08/05/24 13:15 102.3 F H 91 20 131/62 96 08/05/24 12:10 103.2 F H 104 H 20 148/72 98 08/05/24 09:29 97.8 F 79 16 114/64 91 L Intake and Output 08/05/24 08/06/24 08/06/24 22:59 06:59 14:59 Output Total 450 800 Balance -450 -800 Output: Urine 450 800 Coude 450 Results 08/06/24 07:22 08/06/24 07:22 Cardiac Enzymes 08/05/24 08/05/24 Range/Units 15:05 18:05 Troponin I 0.109 H* 0.118 H* (0.000-0.034) ng/mL Current Medications Generic Name Dose Route Start Last Admin Trade Name Freq PRN Reason Stop Dose Admin Acetaminophen 650 mg 08/05/24 11:19 08/06/24 06:16 Acetaminophen Tab 325 Mg Tab PO 650 mg Q6HR PRN Administration Mild Pain or Fever > 100.5 Hydrocodone Bitart/Acetaminophen 1 each 08/05/24 14:11 08/06/24 05:52 Hydrocodone/Apap 5-325mg 1 Each Tab PO 1 each Q4HR PRN Administration Moderate Pain (Scale 4 to 6) Albuterol/Ipratropium 3 ml 08/05/24 14:17 Ipratropium-Albuterol 3 Ml Neb INHALATION RT-QID PRN Shortness Of Breath Or Wheezing Alprazolam 0.25 mg 08/05/24 14:13 Alprazolam 0.25 Mg Tab PO BID PRN Anxiety Atorvastatin Calcium 40 mg 08/05/24 21:00 08/05/24 20:33 Atorvastatin 40 Mg Tab PO 40 mg HS ARNULFO Administration Doxazosin Mesylate 4 mg 08/05/24 21:00 08/05/24 20:32 Doxazosin 4 Mg Tab PO Not Given HS ARNULFO Finasteride 5 mg 08/06/24 09:00 Finasteride 5 Mg Tab PO DAILY ARNULFO Heparin Sodium (Porcine) 5,000 unit 08/05/24 21:00 08/05/24 20:33 Heparin Sodium,Porcine 5,000 Unit/Ml 1 Ml Vial SQ 5,000 unit Q12HR ARNULFO Administration Cefepime HCl 2 gm/ Sodium 100 mls @ 25 mls/hr 08/05/24 16:00 08/06/24 00:00 Chloride IVPB 25 mls/hr Q8HR ARNULFO Administration Protocol Sodium Chloride 1,000 mls @ 75 mls/hr 08/05/24 14:15 08/06/24 04:05 Saline 0.9% IV Not Given .[id number] ARNULFO Melatonin 3 mg 08/05/24 14:11 Melatonin 3 Mg Tablet PO HS PRN Insomnia Naloxone HCl 0.2 mg 08/05/24 11:19 Naloxone 0.4 Mg/Ml 1 Ml Vial IV Q2M PRN Opioid Reversal Ondansetron HCl 4 mg 08/05/24 14:11 Ondansetron 4 Mg/2 Ml Vial IVP Q8HR PRN Nausea And Vomiting Tamsulosin HCl 0.8 mg 08/06/24 09:00 Tamsulosin 0.4 Mg Cap.Er.24h PO DAILY ARNULFO Intake and Output 08/05/24 08/06/24 08/06/24 22:59 06:59 14:59 Output Total 450 800 Balance -450 -800 Output: Urine 450 800 Coude 450
--- NOTE | 2024-08-06 14:18 | P.PN ---
Subjective Progress Note Date: 08/06/24 79 year old M with PMH of pulmonary fibrosis, CAD post stents on Plavix, CHF EF 40-45% in 2022, A-Fib on AC, CKD stage II presents to the ED as a transfer from [facility]. He reports progressively worsening fatigue for the past 2 weeks. Today he fell and couldn't get up. He also reports left flank pain and dysuria. Recently underwent bilateral ureteroscopy with holmium laser on July 22. called EMS. At [facility] he underwent extensive evaluation. Noted to be hypotensive requiring 3L of NS. Also noted to saturating 87% on RA. Evaluation was significant for WBC 15.25, Plt 138, Na 132, glu 125, BUN 31, Cr 1.39, Troponin 0.045, Lactic acid 1.2, Procal 2.18, BNP 3200. UA + nitrite and 2+ LE. Flu/COVID/RSV negative. EKG sinus rhythm, PVCs, RBBB. VBG pH 7.35, pCO2 47.6. CT AP and CXR negative for acute findings. He was transferred here for further evaluation. Vital signs at [facility] Tmax 103.2F, BP as low as 96/54, HR as high as 104, 98% on 6L NC. 08/06 Patient was seen and examined. Feeling less lethargic. SBP in the low 100s. CXR done today shows left apical mass which is stable, COPD with chronic interstitial lung disease, mild pulmonary vascular congestion not excluded. CBC and BMP significant for RBC 4, Hg 12.5, Hct 37.8, Plt 110, Na 134, Cl 108, BUN 29, Cr 1.31, glu 144, Ca 8.1. Troponin 0.109, 0.118. Discussed with lab at [facility], UCx and BCx is still pending ([phone]). General: non toxic, no distress, appears at stated age Derm: warm, dry Head: atraumatic, normocephalic, symmetric Eyes: EOMI, no lid lag, anicteric sclera Mouth: no lip lesion, mucus membranes moist Cardiovascular: S1S2 tachy, no murmur Lungs: Decreased BS bilateral, no rhonchi, + rales , no accessory muscle use Abdominal: soft, nontender to palpation, no guarding, no appreciable organomegaly Ext: no gross muscle atrophy, no edema, no contractures Neuro: no focal neuro deficits Psych: Alert, oriented, appropriate affect Based on my assessment of this patient, this patient meets a high complexity level of care. Sepsis due to complicated UTI. History of bilateral ureteroscopy with holmium laser on July 22. Cefepime 2g IV TID. Hold Coreg, Lasix, Lisinopril. Follow UCx. Follow BCx. Stop NS as BP appears to be maintaining. ID and Urology on board. Acute hypoxic respiratory failure likely due to systolic CHF exacerbation: EF 12/2022 EF 40-45% G1DD, apical septal hypokinesis. DuoNeb QID PRN. Holding Lasix due to hypotension. Strict intake and outtake. Daily weight. Repeat Echo ordered. Cardiology consulted. Bronchiectasis and ILD: DuoNeb QID PRN SOB/wheezing. Type 2 NSTEMI: Troponins flat. Likely demand ischemia. Echo is pending. Cardiology consulted, DC Plavix and start ASA 81 mg PO QD. DOMINGO on CKD: CT AP no acute findings. Bladder scan with urinary retention. Possibly related to hypotension. Hold Lisinopril and other antihypertensives. Repeat BMP tomorrow. Urinary retention: Bowens catheter per Urology. Doxazosin 4 mg PO QHS. Proscar 5 mg PO QD. Flomax 0.8 mg PO QD. Hyponatremia: Improved. IV hydration as above. Elevated D-Dimer: Likely due to sepsis. CAD: Plavix discontinued by Cardiology and started on ASA 81 mg PO QD. Coreg on hold as above. CODE STATUS: FULL CODE. DVT Prophylaxis: Heparin SQ GI Prophylaxis: Designated medical POA if patient is not able to make medical decisions for themselves: I have reviewed the following residential property consultant notes: Cardiology, ID note. I have reviewed the results of the following tests: CBC, BMP, Troponin x 2. I have ordered the following tests: CBC and BMP tomorrow. I have discussed the care of this patient with the following independent historian: , Lab at [place] I have independently interpreted the following test below: CXR I have discussed the management of this patient with the following physician: Objective - Vital Signs Vital signs: Vital Signs Temp 97.9 F 08/06/24 12:55 Pulse 91 08/06/24 12:55 Resp 18 08/06/24 12:55 BP 105/61 08/06/24 12:55 Pulse Ox 94 L 08/06/24 12:55 FiO2 Intake & Output 08/05/24 08/06/24 08/06/24 18:59 06:59 18:59 Output Total 450 800 Balance -450 -800 Weight 74.843 kg Output: Urine 450 800 Coude 450 - Labs CBC & Chem 7: 08/06/24 07:22 08/06/24 07:22 Labs: Abnormal Lab Results - Last 24 Hours (Table) 08/05/24 08/05/24 08/06/24 Range/Units 15:05 18:05 07:22 RBC 4.00 L (4.30-5.90) m/uL Hgb 12.5 L (13.0-17.5) gm/dL Hct 37.8 L (39.0-53.0) % Plt Count 110 L (150-450) k/uL Lymphocytes # 0.4 L (1.0-4.8) k/uL Sodium (137-145) mmol/L Chloride (98-107) mmol/L BUN (9-20) mg/dL Creatinine (0.66-1.25) mg/dL Glucose (74-99) mg/dL Calcium (8.4-10.2) mg/dL Troponin I 0.109 H* 0.118 H* (0.000-0.034) ng/mL 08/06/24 Range/Units 07:22 RBC (4.30-5.90) m/uL Hgb (13.0-17.5) gm/dL Hct (39.0-53.0) % Plt Count (150-450) k/uL Lymphocytes # (1.0-4.8) k/uL Sodium 134 L (137-145) mmol/L Chloride 108 H (98-107) mmol/L BUN 29 H (9-20) mg/dL Creatinine 1.31 H (0.66-1.25) mg/dL Glucose 144 H (74-99) mg/dL Calcium 8.1 L (8.4-10.2) mg/dL Troponin I (0.000-0.034) ng/mL
--- NOTE | 2024-08-06 15:35 | CA ---
Transthoracic Echo Report Name: Hieu Espinal Age: 79 Gender: M : 1945 Exam Date: 08/06/2024 08:40 Exam Location: [facility] Ht (in): 69 Wt (lb): 165 Ordering Physician: Simin Abbasi MD Attending/Referring Phys: Head Turning Machine Operator Alisa Solorzano RDCS Procedure CPT: Indications: chf Cardiac Hx: Technical Quality: Technically difficult study Contrast 1: Definity Total Dose (mL): 2 Contrast 2: Total Dose (mL): MEASUREMENTS (Male / Female) Normal Values 2D ECHO LV Diastolic Diameter PLAX 4.8 cm 4.2 - 5.9 / 3.9 - 5.3 cm LV Systolic Diameter PLAX 3.4 cm IVS Diastolic Thickness 1.1 cm 0.6 - 1.0 / 0.6 - 0.9 cm LVPW Diastolic Thickness 1.0 cm 0.6 - 1.0 / 0.6 - 0.9 cm LV Relative Wall Thickness 0.4 LVOT Diameter 2.2 cm LV Diastolic Volume MOD BP 95.6 cm??? 67 - 155 / 56 - 104 cm??? LV Systolic Volume MOD BP 39.3 cm??? 22 - 58 / 19 - 49 cm??? LV Ejection Fraction MOD BP 58.8 % >= 55 % LV Cardiac Index MOD BP 2172.3 cm???/min???m??? LV Diastolic Volume MOD 4C 104.3 cm??? LV Systolic Volume MOD 4C 45.1 cm??? LV Ejection Fraction MOD 4C 56.8 % LV Cardiac Index MOD 4C 2288.2 cm???/min???m??? LV Diastolic Length 4C 7.8 cm LV Systolic Length 4C 6.5 cm LV Diastolic Volume MOD 2C 87.2 cm??? LV Systolic Volume MOD 2C 33.1 cm??? LV Ejection Fraction MOD 2C 62.0 % LV Cardiac Index MOD 2C 2088.7 cm???/min???m??? LV Diastolic Length 2C 7.7 cm LV Systolic Length 2C 6.7 cm LA Volume 42.1 cm??? 18 - 58 / 22 - 52 cm??? LA Volume Index 22.0 cm???/m??? 16 - 28 cm???/m??? Ascending Aorta Diameter 3.2 cm DOPPLER AV Peak Velocity 120.7 cm/s AV Peak Gradient 5.8 mmHg AV Mean Velocity 77.2 cm/s AV Mean Gradient 2.8 mmHg AV Velocity Time Integral 21.2 cm LVOT Peak Velocity 94.4 cm/s LVOT Peak Gradient 3.6 mmHg LVOT Velocity Time Integral 18.1 cm LVOT Stroke Volume 66.9 cm??? LVOT Stroke Volume Index 35.2 ml/m??? LVOT Cardiac Index 2586.0 cm???/min???m??? AV Area Cont Eq vti 3.2 cm??? AV Area Cont Eq pk 2.9 cm??? MV Area PHT 4.9 cm??? Mitral E Point Velocity 52.5 cm/s Mitral A Point Velocity 75.1 cm/s Mitral E to A Ratio 0.7 MV Deceleration Time 153.8 ms TR Peak Velocity 261.3 cm/s TR Peak Gradient 27.3 mmHg Right Atrial Pressure 10.0 mmHg Pulmonary Artery Systolic Pressu 37.3 mmHg Right Ventricular Systolic Press 37.3 mmHg PV Peak Velocity 80.1 cm/s PV Peak Gradient 2.6 mmHg FINDINGS Left Ventricle Left ventricular ejection fraction is estimated at 55-60 %. Mildly increased septal wall thickness. Left ventricular cavity size normal. No obvious regional wall motion abnormalities. Right Ventricle Right ventricular dilatation with normal function. Mild pulmonary hypertension. Right Atrium Right atrial dilatation. Left Atrium Normal left atrial size. Mitral Valve Structurally normal mitral valve. No evidence for mitral valve prolapse. No mitral stenosis. Trace mitral regurgitation. Aortic Valve Trileaflet aortic valve. No aortic valve stenosis or regurgitation. Tricuspid Valve Structurally normal tricuspid valve. No tricuspid stenosis. Mild tricuspid regurgitation. Pulmonic Valve Structurally normal pulmonic valve. No pulmonic stenosis. Mild pulmonic regurgitation. Pericardium No pericardial effusion. Aorta Normal size aortic root and proximal ascending aorta. CONCLUSIONS Technically difficult study for interpretation Normal LV systolic function Previewed by: Dr. Nathan Quarles MD (Electronically Signed) Final Date: 06 August 2024 15:34
[2024-08-06] MEDS: ALPRAZolam 0.25 MG TAB PO PRN (15:56)
--- NOTE | 2024-08-06 17:18 | P.PN ---
Subjective Progress Note Date: 08/06/24 Principal diagnosis: Reason for follow up with sepsis and complicated UTI Patient is a 79-year-old male with a past medical history significant for atrial fibrillation coronary disease hypertension hyperlipidemia TX kidney stone in this patient who recently did have bilateral ureteroscopy with holmium laser on July 22 and stent insertion and both the stents were left on a string, patient presented to the outside facility with a fever weakness has been diagnosed with sepsis secondary to complicated UTI. On today's evaluation that is 08/06/2024,the patient did have improvement in his fever pattern did have a temperature of 100 F this morning patient denies having any rigors or chills he is breathing comfortably on 2 L nasal oxygen no chest pain shortness of breath or cough no nausea no vomiting no abdominal pain or diarrhea. The patient white count 7.5, creatinine is 1.31 cultures are pending Objective - Vital Signs Vital signs: Vital Signs Temp 99.0 F 08/06/24 09:34 Pulse 80 08/06/24 09:34 Resp 18 08/06/24 09:34 BP 109/63 08/06/24 09:34 Pulse Ox 94 L 08/06/24 09:34 FiO2 Intake & Output 08/05/24 08/06/24 08/06/24 18:59 06:59 18:59 Output Total 450 800 Balance -450 -800 Weight 74.843 kg Output: Urine 450 800 Coude 450 - Exam GENERAL DESCRIPTION: An elderly male lying in bed in no distress RESPIRATORY SYSTEM: Unlabored breathing , decreased breath sounds at bases HEART: S1 S2 regular rate and rhythm , ABDOMEN: Soft , no tenderness EXTREMITIES: No edema feet - Labs CBC & Chem 7: 08/06/24 07:22 08/06/24 07:22 Labs: Abnormal Lab Results - Last 24 Hours (Table) 08/05/24 08/05/24 08/06/24 Range/Units 15:05 18:05 07:22 RBC 4.00 L (4.30-5.90) m/uL Hgb 12.5 L (13.0-17.5) gm/dL Hct 37.8 L (39.0-53.0) % Plt Count 110 L (150-450) k/uL Lymphocytes # 0.4 L (1.0-4.8) k/uL Sodium (137-145) mmol/L Chloride (98-107) mmol/L BUN (9-20) mg/dL Creatinine (0.66-1.25) mg/dL Glucose (74-99) mg/dL Calcium (8.4-10.2) mg/dL Troponin I 0.109 H* 0.118 H* (0.000-0.034) ng/mL 08/06/24 Range/Units 07:22 RBC (4.30-5.90) m/uL Hgb (13.0-17.5) gm/dL Hct (39.0-53.0) % Plt Count (150-450) k/uL Lymphocytes # (1.0-4.8) k/uL Sodium 134 L (137-145) mmol/L Chloride 108 H (98-107) mmol/L BUN 29 H (9-20) mg/dL Creatinine 1.31 H (0.66-1.25) mg/dL Glucose 144 H (74-99) mg/dL Calcium 8.1 L (8.4-10.2) mg/dL Troponin I (0.000-0.034) ng/mL Assessment and Plan (1) Sepsis Current Visit: Yes Status: Acute Code(s): A41.9 - SEPSIS, UNSPECIFIED ORGANISM SNOMED Code(s): 04140402 (2) UTI (urinary tract infection) Current Visit: Yes Status: Acute Code(s): N39.0 - URINARY TRACT INFECTION, SITE NOT SPECIFIED SNOMED Code(s): 28936376 Plan: 1patient presented to hospital with sepsis in this patient who did have fever tachycardia meeting criteria for SIRS source is UTI in this patient who recently did have a bilateral ureteroscopy and stent placement and will need to cover for the resistant gram-negative to be the likely pathogen. 2patient did have improvement in his fever pattern cultures are pending, continue with cefepime 2 g every 8 hours while waiting for the culture to f inalize Dictation was produced using [employer] dictation software. please excuse any grammatical, word or spelling errors. Time with Patient: Less than 30
[2024-08-06] MEDS: CEFEPIME 2 GM in SODIUM CHLORIDE 0.9% 100 ML IVPB SCH (20:13)
[2024-08-06 20:43] LABS: Glucose,Whole Blood 103 mg/dL (70-110)
--- NOTE | 2024-08-06 20:45 | P.PN ---
Subjective Bowens catheter was placed for urinary retention, urine is clear Objective - Vital Signs Vital signs: Vital Signs Temp 99.1 F 08/06/24 15:55 Pulse 88 08/06/24 15:55 Resp 20 08/06/24 15:55 BP 123/62 08/06/24 15:55 Pulse Ox 94 L 08/06/24 15:55 FiO2 Intake & Output 08/06/24 08/06/24 08/07/24 06:59 18:59 06:59 Output Total 800 Balance -800 Weight 74.843 kg Output: Urine 800 Other: Voiding Method Indwelling Catheter - Constitutional General appearance: Present: no acute distress - Gastrointestinal General gastrointestinal: Present: soft. Absent: distended, tenderness - Psychiatric Psychiatric: Present: A&O x's 3 - Labs CBC & Chem 7: 08/06/24 07:22 08/06/24 07:22 Labs: Abnormal Lab Results - Last 24 Hours (Table) 08/06/24 08/06/24 Range/Units 07:22 07:22 RBC 4.00 L (4.30-5.90) m/uL Hgb 12.5 L (13.0-17.5) gm/dL Hct 37.8 L (39.0-53.0) % Plt Count 110 L (150-450) k/uL Lymphocytes # 0.4 L (1.0-4.8) k/uL Sodium 134 L (137-145) mmol/L Chloride 108 H (98-107) mmol/L BUN 29 H (9-20) mg/dL Creatinine 1.31 H (0.66-1.25) mg/dL Glucose 144 H (74-99) mg/dL Calcium 8.1 L (8.4-10.2) mg/dL Assessment and Plan Assessment: 79-year-old male status post bilateral ureteroscopy with holmium laser admitted to the hospital with a UTI. He currently has stents in place that are on a string. Bowens catheter was placed during admission due to elevated residual 1. Bilateral renal stones, UTI -Follow-up up on urine culture, -Continue IV antibiotics, recommend continue IV antibiotics until culture is fin alized -Will plan on removing the stent once cultures finalized and he is on appropriate antibiotics 2. Urinary retention -Continue Flomax twice daily and Proscar -Can have a trial of void at time of discharge
[2024-08-07 07:55] LABS: HCT 35.7 % (39.0-53.0); HGB 11.4 gm/dL (13.0-17.5); MCH 30.4 pg (25.0-35.0); MCHC 31.9 g/dL (31.0-37.0); MCV 95.4 fL (80.0-100.0); Mean Platelet Volume 8.2; Platelet Count 127 k/uL (150-450); RBC 3.75 m/uL (4.30-5.90); RDW 13.5 % (11.5-15.5); WBC 5.1 k/uL (3.8-10.6)
[2024-08-07 08:10] LABS: African American GFR (CKD) 89 (>60 ml/min/1.73 sqM); Anion Gap 3 mmol/L; Blood Urea Nitrogen 23 mg/dL (9-20); Carbon Dioxide 23 mmol/L (22-30); Chloride 110 mmol/L (98-107); Glucose 98 mg/dL (74-99); Non-African American GFR(CKD) 77 (>60 ml/min/1.73 sqM); Potassium 4.6 mmol/L (3.5-5.1); Sodium 136 mmol/L (137-145)
[2024-08-07] MEDS: CEFEPIME 2 GM in SODIUM CHLORIDE 0.9% 100 ML IVPB SCH (09:04)
[2024-08-07] MEDS: FUROSEMIDE 10 MG/ML 4 ML VIAL IV STA (09:04)
--- NOTE | 2024-08-07 09:10 | P.PN ---
Subjective Progress Note Date: 08/07/24 No acute overnight event, denies any flank pain or gross hematuria at this time Objective - Vital Signs Vital signs: Vital Signs Temp 98.5 F 08/07/24 04:12 Pulse 97 08/07/24 04:15 Resp 20 08/07/24 04:15 BP 164/88 08/07/24 04:12 Pulse Ox 94 L 08/07/24 04:15 FiO2 Intake & Output 08/06/24 08/07/24 08/07/24 18:59 06:59 18:59 Output Total 1300 Balance -1300 Weight 74.843 kg Output: Urine 1300 Other: Voiding Method Indwelling Catheter Indwelling Catheter # Voids 0 - Constitutional General appearance: Present: no acute distress - Gastrointestinal General gastrointestinal: Present: soft. Absent: distended, tenderness - Psychiatric Psychiatric: Present: A&O x's 3 - Labs CBC & Chem 7: 08/07/24 07:21 08/07/24 07:21 Labs: Abnormal Lab Results - Last 24 Hours (Table) 08/07/24 08/07/24 Range/Units 07:21 07:21 RBC 3.75 L (4.30-5.90) m/uL Hgb 11.4 L (13.0-17.5) gm/dL Hct 35.7 L (39.0-53.0) % Plt Count 127 L (150-450) k/uL Sodium 136 L (137-145) mmol/L Chloride 110 H (98-107) mmol/L BUN 23 H (9-20) mg/dL Calcium 8.0 L (8.4-10.2) mg/dL Assessment and Plan Assessment: 79-year-old male status post bilateral ureteroscopy with holmium laser admitted to the hospital with a UTI. He currently has stents in place that are on a string. Bowens catheter was placed during admission due to elevated residual 1. Bilateral renal stones, UTI -Follow-up up on urine culture, -Continue IV antibiotics, recommend continue IV antibiotics until culture is finalized -Will plan on removing the stent once cultures finalized and he is on appropriate antibiotics 2. Urinary retention -Continue Flomax twice daily and Proscar -Can have a trial of void at time of discharge
--- NOTE | 2024-08-07 10:52 | P.PN ---
Subjective Progress Note Date: 08/07/24 Reason for Consult (text): CHF, sepsis History of present illness: This is a 79-year-old male patient of Dr. Villa with past medical history of coronary artery disease status post prior angioplasty, atrial flutter status post cardioversion, hypertension, dyslipidemia. We have been asked to evaluate the patient for CHF and sepsis. Patient recently had a urology procedure on 07/22. He states he has had significant weakness and fatigue and fever that is worsened over the last 1 and half to 2 weeks. He states he fell off his chair and he could not get up. He denies having any shortness of breath, no chest pain no palpitations no chest tightness no pressure. He does have occasional dizziness. No palpitations. No cough. No history of stroke or seizure. He did have some blood in his urine for which Xarelto has been placed on hold and he states that resolved. He denies history of smoking. Blood pressure 142/71, heart rate 101, pulse ox 94% on room air. Temperature max is 103.2. Patient has been started on IV antibiotics. Patient is seen today in the emergency center waiting for a bed on the cardiac stepdown unit. Patient has been seen by infectious disease and urology. EKG sinus bradycardia with a right bundle branch block, Q-wave inferiorly. Laboratory studies: CBC normal. Sodium 140, potassium 4.5, BUN 18, creatinine 0.85. Troponin 0.109 and 0.118. Echocardiogram performed on 01/08/2023 revealed okay EF of 45-50% with apical septal hypokinesia. Aortic valve sclerosis with mild mitral annular calcification. No pericardial effusion. Chest x-ray reveals fibrotic changes noted as well as persistent left apical opacity. Increased patchy density in the medial lung base on the right could reflect developing pneumonia. Home cardiac medications: Lipitor 40 mg at bedtime, Coreg 12.5 mg twice daily, Lasix 20 mg daily, lisinopril 20 mg daily Cardiac catheterization in the setting of NSTEMI performed 01/09/2023 revealed long segment of narrowing within the LAD. Subsequent stenting of the mid LAD, proximal LAD by Dr. Quarles on 01/10. This was followed by stenting of the distal right coronary artery on 01/[address] Quarles. 08/07 Patient is seen today in follow-up on the cardiac stepdown unit. Telemetry is sinus rhythm. Echocardiogram reveals technically difficult study for interpretation. Normal LV systolic function. Echocardiogram results reviewed with the patient. Blood pressure 164/88, heart rate 97, pulse ox 94% on 2 L nasal cannula. Patient denies having any chest pain, shortness of breath, palpitations or dizziness. He denies having any blood in his urine. Xarelto remains on hold until cleared by urology. Physical examination: Gen: This is a 79-year-old male. He is resting in bed and appears to be comfortable and in no acute distress VS: reviewed HEENT: Head is atraumatic, normocephalic. Pupils equal, round. Sclerae is anicteric. NECK: Supple. No JVD. No lymphadenopathy. LUNGS: Clear to auscultation. No wheezes or rhonchi. No intercostal retractions. HEART: Regular rate and rhythm. No murmur. ABDOMEN: Soft. No tenderness. EXTREMITIES: No pedal edema. No calf tenderness. NEUROLOGICAL: Patient is awake, alert and oriented x3. Assessment: UTI and sepsis Elevated troponins, type II TN secondary to sepsis History of coronary artery disease with previous angioplasty History of atrial flutter status post cardioversion Hypertension Dyslipidemia Plan: Resume patient's home cardiac medications Continue to hold Xarelto until cleared by urology, patient's nurse will follow- up with Dr. Shelby Continue aspirin 81 mg daily Discontinue Plavix as it has been greater than 1 year since his stent was done Patient is cleared for discharge from cardiology May follow-up with Dr. Karen Villa in 1 week. Nurse practitioner note has been reviewed, I agree with documented findings and plan of care. Patient was seen and examined. Objective - Vital Signs Vital signs: Vital Signs Temp 98.5 F 08/07/24 04:12 Pulse 97 08/07/24 04:15 Resp 20 08/07/24 04:15 BP 164/88 08/07/24 04:12 Pulse Ox 94 L 08/07/24 04:15 FiO2 Intake & Output 08/06/24 08/07/24 08/07/24 18:59 06:59 18:59 Output Total 1300 Balance -1300 Weight 74.843 kg Output: Urine 1300 Other: Voiding Method Indwelling Catheter Indwelling Catheter # Voids 0 - Labs CBC & Chem 7: 08/07/24 07:21 08/07/24 07:21 Labs: Abnormal Lab Results - Last 24 Hours (Table) 08/07/24 08/07/24 Range/Units 07:21 07:21 RBC 3.75 L (4.30-5.90) m/uL Hgb 11.4 L (13.0-17.5) gm/dL Hct 35.7 L (39.0-53.0) % Plt Count 127 L (150-450) k/uL Sodium 136 L (137-145) mmol/L Chloride 110 H (98-107) mmol/L BUN 23 H (9-20) mg/dL Calcium 8.0 L (8.4-10.2) mg/dL
--- NOTE | 2024-08-07 12:38 | P.PN ---
Subjective Progress Note Date: 08/07/24 79 year old M with PMH of pulmonary fibrosis, CAD post stents on Plavix, CHF EF 40-45% in 2022, A-Fib on AC, CKD stage II presents to the ED as a transfer from [facility]. He reports progressively worsening fatigue for the past 2 weeks. Today he fell and couldn't get up. He also reports left flank pain and dysuria. Recently underwent bilateral ureteroscopy with holmium laser on July 22. called EMS. At [facility] he underwent extensive evaluation. Noted to be hypotensive requiring 3L of NS. Also noted to saturating 87% on RA. Evaluation was significant for WBC 15.25, Plt 138, Na 132, glu 125, BUN 31, Cr 1.39, Troponin 0.045, Lactic acid 1.2, Procal 2.18, BNP 3200. UA + nitrite and 2+ LE. Flu/COVID/RSV negative. EKG sinus rhythm, PVCs, RBBB. VBG pH 7.35, pCO2 47.6. CT AP and CXR negative for acute findings. He was transferred here for further evaluation. Vital signs at [facility] Tmax 103.2F, BP as low as 96/54, HR as high as 104, 98% on 6L NC. 08/06 Patient was seen and examined. Feeling less lethargic. SBP in the low 100s. CXR done today shows left apical mass which is stable, COPD with chronic interstitial lung disease, mild pulmonary vascular congestion not excluded. CBC and BMP significant for RBC 4, Hg 12.5, Hct 37.8, Plt 110, Na 134, Cl 108, BUN 29, Cr 1.31, glu 144, Ca 8.1. Troponin 0.109, 0.118. Discussed with lab at [facility], UCx and BCx is still pending ([phone]). 08/07 Patient was seen and examined. Feels considerably better. BP improved to 164/88 this morning. He is not on any IV fluids. Desaturated to 82% on RA yesterday. I have ordered Lasix 40 mg IV x 1. Echo shows EF 55-60%, septal wall thickness, trace MR, mild TR/PA. Urology plans on removing stent once cultures are finalized and he is on appropriate antibiotics. CBC and BMP significant for RBC 3.75, Hg 11.4, Hct 35.7, Plt 127, Na 136, Cl 110, BUN 23, Cr 0.95, Ca 8. Mag 2. General: non toxic, no distress, appears at stated age Derm: warm, dry Head: atraumatic, normocephalic, symmetric Eyes: EOMI, no lid lag, anicteric sclera Mouth: no lip lesion, mucus membranes moist Cardiovascular: S1S2 tachy, no murmur Lungs: Decreased BS bilateral, no rhonchi, + rales , no accessory muscle use Abdominal: soft, nontender to palpation, no guarding, no appreciable organomegaly Ext: no gross muscle atrophy, no edema, no contractures Neuro: no focal neuro deficits Psych: Alert, oriented, appropriate affect Based on my assessment of this patient, this patient meets a high complexity l evel of care. Sepsis due to complicated UTI. History of bilateral ureteroscopy with holmium laser on July 22. Cefepime 2g IV TID. Restart Coreg. Hold home Lasix and Lisinopril. Follow UCx. Follow BCx. Telemetry monitoring. ID and Urology on board. Acute hypoxic respiratory failure likely due to systolic CHF exacerbation: EF 12/2022 EF 40-45% G1DD, apical septal hypokinesis. DuoNeb QID PRN. Lasix 40 mg IV x 1 08/07. Strict intake and outtake. Daily weight. Repeat Echo as above. Cardiology on board. Bronchiectasis and ILD: DuoNeb QID PRN SOB/wheezing. Type 2 NSTEMI: Troponins flat. Likely demand ischemia. Echo shows no wall motion abnormalities. Cardiology consulted, DC Plavix and start ASA 81 mg PO QD. DOMINGO on CKD: Improving. CT AP no acute findings. Bladder scan with urinary retention. Possibly related to hypotension. Hold Lisinopril and Lasix. Repeat BMP tomorrow. Urinary retention: Bowens catheter per Urology. Doxazosin 4 mg PO QHS. Proscar 5 mg PO QD. Flomax 0.8 mg PO QD. Voiding trial prior to discharge. Hyponatremia: Improved. IV hydration as above. Elevated D-Dimer: Likely due to sepsis. CAD: Plavix discontinued by Cardiology and started on ASA 81 mg PO QD. Coreg on hold as above. CODE STATUS: FULL CODE. DVT Prophylaxis: Heparin SQ GI Prophylaxis: Designated medical POA if patient is not able to make medical decisions for themselves: I have reviewed the following accounting policy consultant notes: Cardiology, Urology, ID note. I have reviewed the results of the following tests: CBC, BMP, Mag, Echo. I have ordered the following tests: CBC and BMP tomorrow. I have discussed the care of this patient with the following independent historian: , RN. I have independently interpreted the following test below: I have discussed the management of this patient with the following physician: Objective - Vital Signs Vital signs: Vital Signs Temp 98.5 F 08/07/24 04:12 Pulse 97 08/07/24 04:15 Resp 20 08/07/24 04:15 BP 164/88 08/07/24 04:12 Pulse Ox 94 L 08/07/24 04:15 FiO2 Intake & Output 08/06/24 08/07/24 08/07/24 18:59 06:59 18:59 Output Total 1300 Balance -1300 Weight 74.843 kg Output: Urine 1300 Other: Voiding Method Indwelling Catheter Indwelling Catheter # Voids 0 - Labs CBC & Chem 7: 08/07/24 07:21 08/07/24 07:21 Labs: Abnormal Lab Results - Last 24 Hours (Table) 08/07/24 08/07/24 Range/Units 07:21 07:21 RBC 3.75 L (4.30-5.90) m/uL Hgb 11.4 L (13.0-17.5) gm/dL Hct 35.7 L (39.0-53.0) % Plt Count 127 L (150-450) k/uL Sodium 136 L (137-145) mmol/L Chloride 110 H (98-107) mmol/L BUN 23 H (9-20) mg/dL Calcium 8.0 L (8.4-10.2) mg/dL
--- NOTE | 2024-08-07 15:28 | P.PN ---
Subjective Progress Note Date: 08/07/24 Principal diagnosis: Reason for follow up with sepsis and complicated UTI Patient is a 79-year-old male with a past medical history significant for atrial fibrillation coronary disease hypertension hyperlipidemia [place] kidney stone in this patient who recently did have bilateral ureteroscopy with holmium laser on July 22 and stent insertion and both the stents were left on a string, patient presented to the outside facility with a fever weakness has been diagnosed with sepsis secondary to complicated UTI. On today's evaluation that is 08/07/2024, the patient continues to be afebrile, the patient is on room air and breathing comfortably, the Pt denies having any chest pain or cough, the patient denies having any abdominal pain no vomiting or any diarrhea, patient mention overall feeling much better. Patient white count is 5.1, creatinine 0.95 Objective - Vital Signs Vital signs: Vital Signs Temp 98.1 F 08/07/24 08:00 Pulse 85 08/07/24 08:00 Resp 20 08/07/24 04:15 BP 136/67 08/07/24 08:00 Pulse Ox 97 08/07/24 08:00 FiO2 Intake & Output 08/06/24 08/07/24 08/07/24 18:59 06:59 18:59 Intake Total 220 Output Total 1300 1800 Balance -1300 -1580 Weight 74.843 kg Intake: Intake, IV Titration 100 Amount Cefepime 2 gm In Sodium 100 Chloride 0.9% 100 ml @ 25 mls/hr IVPB Q8H [facility] Rx#: [id number] Oral 120 Output: Urine 1300 1800 Other: Voiding Method Indwelling Catheter Indwelling Catheter Indwelling Catheter # Voids 0 - Exam GENERAL DESCRIPTION: An elderly male lying in bed in no distress RESPIRATORY SYSTEM: Unlabored breathing , decreased breath sounds at bases HEART: S1 S2 regular rate and rhythm , ABDOMEN: Soft , no tenderness EXTREMITIES: No edema feet - Labs CBC & Chem 7: 08/07/24 07:21 08/07/24 07:21 Labs: Abnormal Lab Results - Last 24 Hours (Table) 08/07/24 08/07/24 Range/Units 07:21 07:21 RBC 3.75 L (4.30-5.90) m/uL Hgb 11.4 L (13.0-17.5) gm/dL Hct 35.7 L (39.0-53.0) % Plt Count 127 L (150-450) k/uL Sodium 136 L (137-145) mmol/L Chloride 110 H (98-107) mmol/L BUN 23 H (9-20) mg/dL Calcium 8.0 L (8.4-10.2) mg/dL Assessment and Plan (1) Sepsis Current Visit: Yes Status: Acute Code(s): A41.9 - SEPSIS, UNSPECIFIED ORGANISM SNOMED Code(s): 37224714 (2) UTI (urinary tract infection) Current Visit: Yes Status: Acute Code(s): N39.0 - URINARY TRACT INFECTION, SITE NOT SPECIFIED SNOMED Code(s): 52056082 Plan: 1patient presented to hospital with sepsis in this patient who did have fever tachycardia meeting criteria for SIRS source is UTI in this patient who recently did have a bilateral ureteroscopy and stent placement and will need to cover for the resistant gram-negative to be the likely pathogen. 2patient did have improvement in his fever pattern, no culture done at this [facility] nursing staff is advised to get the culture from the transferring facility to determine discharge antibiotics, for now continue with the cefepime in view of clinical response Dictation was produced using [employer] dictation software. please excuse any grammatical, word or spelling errors. Time with Patient: Less than 30
[2024-08-07] MEDS: carvediloL 12.5 MG TAB PO SCH (17:45)
[2024-08-07] MEDS: RIVAROXABAN 20 MG TAB PO SCH (17:45)
[2024-08-07] MEDS: MELATONIN 3 MG TABLET PO PRN (20:34)
[2024-08-08] MEDS ORDERED: HYDROcodone/APAP 5-325MG 1 EACH TAB ONE (03:00)
[2024-08-08] MEDS ORDERED: SODIUM CHLORIDE 0.9% 100 ML BAG ONE (03:00)
[2024-08-08] MEDS ORDERED: CEFEPIME 2 GM VIAL IVPB ONE (03:00)
[2024-08-08 08:30] LABS: HCT 37.3 % (39.0-53.0); HGB 12.2 gm/dL (13.0-17.5); MCH 30.9 pg (25.0-35.0); MCHC 32.7 g/dL (31.0-37.0); MCV 94.4 fL (80.0-100.0); Mean Platelet Volume 7.5; Platelet Count 150 k/uL (150-450); RBC 3.95 m/uL (4.30-5.90); RDW 13.5 % (11.5-15.5); WBC 5.5 k/uL (3.8-10.6)
[2024-08-08 09:16] LABS: African American GFR (CKD) >90 (>60 ml/min/1.73 sqM); Anion Gap 4 mmol/L; Blood Urea Nitrogen 19 mg/dL (9-20); Calcium 8.2 mg/dL (8.4-10.2); Carbon Dioxide 26 mmol/L (22-30); Chloride 108 mmol/L (98-107); Glucose 137 mg/dL (74-99); Magnesium 1.9 mg/dL (1.6-2.3); Non-African American GFR(CKD) 85 (>60 ml/min/1.73 sqM); Potassium 4.3 mmol/L (3.5-5.1); Sodium 138 mmol/L (137-145)
[2024-08-08] MEDS ORDERED: BACLOFEN 10 MG TAB PO PRN (12:17)
--- NOTE | 2024-08-08 14:15 | P.PN ---
Subjective Progress Note Date: 08/08/24 79 year old M with PMH of pulmonary fibrosis, CAD post stents on Plavix, CHF EF 40-45% in 2022, A-Fib on AC, CKD stage II presents to the ED as a transfer from [facility]. He reports progressively worsening fatigue for the past 2 weeks. Today he fell and couldn't get up. He also reports left flank pain and dysuria. Recently underwent bilateral ureteroscopy with holmium laser on July 22. called EMS. At [facility] he underwent extensive evaluation. Noted to be hypotensive requiring 3L of NS. Also noted to saturating 87% on RA. Evaluation was significant for WBC 15.25, Plt 138, Na 132, glu 125, BUN 31, Cr 1.39, Troponin 0.045, Lactic acid 1.2, Procal 2.18, BNP 3200. UA + nitrite and 2+ LE. Flu/COVID/RSV negative. EKG sinus rhythm, PVCs, RBBB. VBG pH 7.35, pCO2 47.6. CT AP and CXR negative for acute findings. He was transferred here for further evaluation. Vital signs at [facility] Tmax 103.2F, BP as low as 96/54, HR as high as 104, 98% on 6L NC. Started on maintenance fluids and Cefepime. Troponins trended 0.109 and 0.111. Echo showed EF 55-60%, septal wall thickness, trace MR, mild TR/WI. Patient improved significantly on the above treatment. [facility] called yesterday, BCx and UCx is positive for Serratia. 08/06 Patient was seen and examined. Feeling less lethargic. SBP in the low 100s. CXR done today shows left apical mass which is stable, COPD with chronic inters titial lung disease, mild pulmonary vascular congestion not excluded. CBC and BMP significant for RBC 4, Hg 12.5, Hct 37.8, Plt 110, Na 134, Cl 108, BUN 29, Cr 1.31, glu 144, Ca 8.1. Troponin 0.109, 0.118. Discussed with lab at [facility], UCx and BCx is still pending ([phone]). 08/07 Patient was seen and examined. Feels considerably better. BP improved to 164/88 this morning. He is not on any IV fluids. Desaturated to 82% on RA yesterday. I have ordered Lasix 40 mg IV x 1. Echo shows EF 55-60%, septal wall thickness, trace MR, mild TR/WI. Urology plans on removing stent once cultures are finalized and he is on appropriate antibiotics. CBC and BMP significant for RBC 3.75, Hg 11.4, Hct 35.7, Plt 127, Na 136, Cl 110, BUN 23, Cr 0.95, Ca 8. Mag 2. 08/08 Patient was seen and examined. No complaints. Feeling better. UCx + BCx positive for Serratia. Discussed with Dr. Brunson, continue Cefepime and repeat BCx. Attempted trial of Xarelto yesterday but patient with hematuria this liban sanchez. Urology has removed ureteral stents, plans to DC Bowens and restart Xarelto if urine is clear in 24H. CBC and BMP significant for RBC 3.95, Hg 12.2, Hct 37.3, Cl 108, glu 137, Ca 8.2. Mag 1.9. General: non toxic, no distress, appears at stated age Derm: warm, dry Head: atraumatic, normocephalic, symmetric Eyes: EOMI, no lid lag, anicteric sclera Mouth: no lip lesion, mucus membranes moist Cardiovascular: S1S2 reg, no murmur Lungs: Decreased BS bilateral, no rhonchi, + rales , no accessory muscle use Abdominal: soft, nontender to palpation, no guarding, no appreciable organomegaly Ext: no gross muscle atrophy, no edema, no contractures Neuro: no focal neuro deficits Psych: Alert, oriented, appropriate affect Based on my assessment of this patient, this patient meets a high complexity level of care. Sepsis due to complicated UTI. History of bilateral ureteroscopy with holmium laser on July 22. Cefepime 2g IV TID. UCx and BCx + serratia. Repeat BCx ordered 08/07. Telemetry monitoring. ID and Urology on board. Gram negative bacteremia likely due to above Acute hypoxic respiratory failure likely due to systolic CHF exacerbation: EF 12/2022 EF 40-45% G1DD, apical septal hypokinesis. DuoNeb QID PRN. Lasix 40 mg IV x 1 08/07. Strict intake and outtake. Daily weight. Repeat Echo as above. Cardiology on board. Bronchiectasis and ILD: DuoNeb QID PRN SOB/wheezing. Type 2 NSTEMI: Troponins flat. Likely demand ischemia. Echo shows no wall motion abnormalities. Cardiology consulted, DC Plavix and start ASA 81 mg PO QD. DOMINGO on CKD: Improving. CT AP no acute findings. Bladder scan with urinary retention. Possibly related to hypotension. Restart Lisinopril and Lasix if renal function improved today. Repeat BMP tomorrow. Urinary retention: Bowens catheter per Urology. Doxazosin 4 mg PO QHS. Proscar 5 mg PO QD. Flomax 0.8 mg PO QD. Voiding trial prior to discharge. Hyponatremia: Improved. IV hydration as above. Elevated D-Dimer: Likely due to sepsis. CAD: Plavix discontinued by Cardiology and started on ASA 81 mg PO QD. Coreg 12.5 mg PO QD. CODE STATUS: FULL CODE. DVT Prophylaxis: Heparin SQ GI Prophylaxis: Designated medical POA if patient is not able to make medical decisions for themselves: I have reviewed the following financial services consultant notes: ID. I have reviewed the results of the following tests: CBC, BMP, Mag. I have ordered the following tests: Repeat BCx pending. I have discussed the care of this patient with the following independent historian: . RN. I have independently interpreted the following test below: I have discussed the management of this patient with the following physician: Dr. Brunson. Objective - Vital Signs Vital signs: Vital Signs Temp 99.1 F 08/07/24 23:30 Pulse 80 08/07/24 23:30 Resp 14 08/07/24 23:30 BP 124/56 08/07/24 23:30 Pulse Ox 94 L 08/07/24 23:30 FiO2 Intake & Output 08/07/24 08/08/24 08/08/24 18:59 06:59 18:59 Intake Total 340 Output Total 2700 1100 Balance -2360 -1100 Weight 74.843 kg 74.2 kg Intake: Intake, IV Titration 100 Amount Cefepime 2 gm In Sodium 100 Chloride 0.9% 100 ml @ 25 mls/hr IVPB Q8H [facility] Rx#: [id number] Oral 240 Output: Urine 2700 1100 Other: Voiding Method Indwelling Catheter Indwelling Catheter # Bowel Movements 1 - Labs CBC & Chem 7: 08/08/24 08:08 08/08/24 08:08
--- NOTE | 2024-08-08 15:12 | P.PN ---
Subjective Progress Note Date: 08/08/24 Principal diagnosis: Reason for follow up with sepsis and complicated UTI Patient is a 79-year-old male with a past medical history significant for atrial fibrillation coronary disease hypertension hyperlipidemia [place] kidney stone in this patient who recently did have bilateral ureteroscopy with holmium laser on July 22 and stent insertion and both the stents were left on a string, patient presented to the outside facility with a fever weakness has been diagnosed with sepsis secondary to complicated UTI. On today's evaluation that is 08/08/2024, Patient is afebrile patient is currently on room air and denies having any shortness of breath, the patient denies any chest pain or cough, the patient denies any nausea vomiting did not have any abdominal pain and no diarrhea, patient mention feeling better. The patient white count is 5.5, creatinine 0.83 blood and urine culture at the outside facility positive for Serratia marcescens Objective - Vital Signs Vital signs: Vital Signs Temp 98.4 F 08/08/24 08:00 Pulse 79 08/08/24 08:00 Resp 16 08/08/24 08:00 BP 134/75 08/08/24 08:00 Pulse Ox 94 L 08/08/24 08:00 FiO2 Intake & Output 08/07/24 08/08/24 08/08/24 18:59 06:59 18:59 Intake Total 340 240 Output Total 2700 1100 Balance -2360 -1100 240 Weight 74.843 kg 74.2 kg Intake: Intake, IV Titration 100 Amount Cefepime 2 gm In Sodium 100 Chloride 0.9% 100 ml @ 25 mls/hr IVPB Q8H [facility] Rx#: [id number] Oral 240 240 Output: Urine 2700 1100 Other: Voiding Method Indwelling Catheter Indwelling Catheter Indwelling Catheter # Bowel Movements 1 - Exam GENERAL DESCRIPTION: An elderly male lying in bed in no distress RESPIRATORY SYSTEM: Unlabored breathing , decreased breath sounds at bases HEART: S1 S2 regular rate and rhythm , ABDOMEN: Soft , no tenderness EXTREMITIES: No edema feet - Labs CBC & Chem 7: 08/08/24 08:08 08/08/24 08:08 Labs: Abnormal Lab Results - Last 24 Hours (Table) 08/08/24 08/08/24 Range/Units 08:08 08:08 RBC 3.95 L (4.30-5.90) m/uL Hgb 12.2 L (13.0-17.5) gm/dL Hct 37.3 L (39.0-53.0) % Chloride 108 H (98-107) mmol/L Glucose 137 H (74-99) mg/dL Calcium 8.2 L (8.4-10.2) mg/dL Assessment and Plan (1) Sepsis Current Visit: Yes Status: Acute Code(s): A41.9 - SEPSIS, UNSPECIFIED OR GANISM SNOMED Code(s): 49453307 (2) UTI (urinary tract infection) Current Visit: Yes Status: Acute Code(s): N39.0 - URINARY TRACT INFECTION, SITE NOT SPECIFIED SNOMED Code(s): 81650999 (3) Gram-negative bacteremia Current Visit: Yes Status: Acute Code(s): R78.81 - BACTEREMIA SNOMED Code(s): 268452327585 Plan: 1patient presented to hospital with sepsis in this patient who did have fever tachycardia meeting criteria for SIRS source is UTI in this patient who recently did have a bilateral ureteroscopy and stent placement and will need to cover for the resistant gram-negative to be the likely pathogen. Blood and urine culture done at the outside facility came back positive for Serratia marcescens blood culture has been repeated here on 08/07/2024 2patient seen to be clinically improving continue with the cefepime while inpatient will be able to finish therapy with oral Cipro x 10 days and close outpatient follow-up at the bedside questions answered Dictation was produced using [employer] dictation software. please excuse any grammatical, word or spelling errors. Time with Patient: Less than 30
--- NOTE | 2024-08-08 16:40 | P.PN ---
Subjective Patient started having gross hematuria after starting Xarelto. Urine is dark brown this morning with some old blood clots. Xarelto is currently on hold. Objective - Vital Signs Vital signs: Vital Signs Temp 98.4 F 08/08/24 08:00 Pulse 63 08/08/24 14:00 Resp 16 08/08/24 14:00 BP 162/84 08/08/24 12:00 Pulse Ox 97 08/08/24 12:00 FiO2 Intake & Output 08/07/24 08/08/24 08/08/24 18:59 06:59 18:59 Intake Total 340 580 Output Total 2700 1100 1200 Balance -2360 -1100 -620 Weight 74.843 kg 74.2 kg Intake: Intake, IV Titration 100 100 Amount Cefepime 2 gm In Sodium 100 100 Chloride 0.9% 100 ml @ 25 mls/hr IVPB Q8H [facility] Rx#: [id number] Oral 240 480 Output: Urine 2700 1100 1000 Coude 800 Post Void Residual 200 Other: Voiding Method Indwelling Catheter Indwelling Catheter Indwelling Catheter # Bowel Movements 1 - Constitutional General appearance: Present: no acute distress - Gastrointestinal General gastrointestinal: Present: soft. Absent: distended, tenderness - Psychiatric Psychiatric: Present: A&O x's 3 - Labs CBC & Chem 7: 08/08/24 08:08 08/08/24 08:08 Labs: Abnormal Lab Results - Last 24 Hours (Table) 08/08/24 08/08/24 Range/Units 08:08 08:08 RBC 3.95 L (4.30-5.90) m/uL Hgb 12.2 L (13.0-17.5) gm/dL Hct 37.3 L (39.0-53.0) % Chloride 108 H (98-107) mmol/L Glucose 137 H (74-99) mg/dL Calcium 8.2 L (8.4-10.2) mg/dL Assessment and Plan Assessment: 79-year-old male status post bilateral ureteroscopy with holmium laser admitted to the hospital with a UTI. He currently has stents in place that are on a string. Bowens catheter was placed during admission due to elevated residual 1. Bilateral renal stones, UTI -Both ureteral stents were removed today -Will plan on removing the stent once cultures finalized and he is on appropriate antibiotics 2. Urinary retention -Continue Flomax twice daily and Proscar -Catheter was removed, patient does have history of greater than 150 g prostate, he always had a elevated residual as long as his residuals less than 300 mL he is okay for discharge from urology standpoint
[2024-08-08 21:06] VITALS: RESP 14
[2024-08-08] MEDS: GABAPENTIN 100 MG CAP PO SCH (21:08)
[2024-08-08] MEDS: FAMOTIDINE 20 MG TAB PO SCH (21:08)
[2024-08-09] MEDS ORDERED: traMADol 50 MG TAB PO PRN (07:49)
[2024-08-09] MEDS ORDERED: traZODone HCL 50 MG TAB PO PRN (07:49)
--- NOTE | 2024-08-09 08:24 | P.PN ---
Subjective Progress Note Date: 08/09/24 No acute overnight event, he is voiding with some frequency. Denies any gross hematuria or dysuria. His PVR is 200 mL. Objective - Vital Signs Vital signs: Vital Signs Temp 98.3 F 08/09/24 03:56 Pulse 77 08/09/24 03:56 Resp 14 08/09/24 03:56 BP 149/83 08/09/24 03:56 Pulse Ox 91 L 08/09/24 03:56 FiO2 Intake & Output 08/08/24 08/09/24 08/09/24 18:59 06:59 18:59 Intake Total 698 240 Output Total 1200 1000 Balance -502 -1000 240 Weight 75 kg Intake: Intake, IV Titration 100 Amount Cefepime 2 gm In Sodium 100 Chloride 0.9% 100 ml @ 25 mls/hr IVPB Q8H [facility] Rx#: [id number] Oral 598 240 Output: Urine 1000 1000 Coude 800 Post Void Residual 200 Other: Voiding Method Indwelling Catheter Toilet # Voids 1 - Constitutional General appearance: Present: no acute distress - Gastrointestinal General gastrointestinal: Present: soft. Absent: distended, tenderness - Psychiatric Psychiatric: Present: A&O x's 3 - Labs CBC & Chem 7: 08/08/24 08:08 08/08/24 08:08 Labs: Abnormal Lab Results - Last 24 Hours (Table) 08/08/24 08/08/24 Range/Units 08:08 08:08 RBC 3.95 L (4.30-5.90) m/uL Hgb 12.2 L (13.0-17.5) gm/dL Hct 37.3 L (39.0-53.0) % Chloride 108 H (98-107) mmol/L Glucose 137 H (74-99) mg/dL Calcium 8.2 L (8.4-10.2) mg/dL Microbiology - Last 24 Hours (Table) 08/07/24 17:12 Blood Culture - Preliminary Blood Assessment and Plan Assessment: 79-year-old male status post bilateral ureteroscopy with holmium laser admitted to the hospital with a UTI. He currently has stents in place that are on a string. Bowens catheter was placed during admission due to elevated residual 1. Bilateral renal stones -Both ureteral stents were removed on 08/08 2. Urinary retention -Continue Flomax twice daily and Proscar -He is okay for discharge from urology standpoint, discussed if urine remains clear he is okay to restart your Xarelto tomorrow
--- NOTE | 2024-08-09 09:23 | XR ---
EXAMINATION TYPE: XR chest 1V portable DATE OF EXAM: 08/09/2024 COMPARISON: 08/06/2024 HISTORY: Hypoxia TECHNIQUE: Single frontal view of the chest is obtained. FINDINGS: There is continued stable left apical mass/consolidation. There are chronic interstitial changes or acute interstitial edema/pneumonia. There is no large pleural effusion or pneumothorax. The heart size is normal. The osseous structures are intact. IMPRESSION: No significant interval change compared to the prior study. Left apical mass/consolidation and inters titial changes as described above. IMPRESSION: No acute process. [facility], Workstation: [facility], 08/09/2024 9:21 AM
[2024-08-09 09:41] VITALS: BP 159/76; PULSE 74; TEMP 97.7
[2024-08-09] MEDS: FUROSEMIDE 20 MG TAB PO SCH (09:43)
[2024-08-09] MEDS: lisinopriL 20 MG TAB PO SCH (09:43)
--- NOTE | 2024-08-09 10:51 | P.DS ---
Providers Date of admission: 08/05/24 11:21 Expected date of discharge: 08/09/24 Attending physician: Kanu Thorne MD Consults: 08/05/24 11:19 Consult Physician Urgent Consulting Provider: Ab Shelby Consult Reason/Comments: acute uti with sepsis Do you want consulting provider notified?: Already Contacted 08/05/24 14:12 Consult Physician Routine Consulting Provider: Robert Villa Consult Reason/Comments: CHF exacerbation, sepsis Do you want consulting provider notified?: Yes Consult Physician Routine Consulting Provider: Waldo Brunson Consult Reason/Comments: complicated UTI Do you want consulting provider notified?: Yes Primary care physician: [facility] Course: 79 year old M with PMH of pulmonary fibrosis, CAD post stents on Plavix, CHF EF 40-45% in 2022, A-Fib on AC, CKD stage II [facility] ED [facility]. He reports progressively worsening fatigue for the past 2 weeks. Today he fell and couldn't get up. He also reports left flank pain and dysuria. Recently underwent bilateral ureteroscopy with holmium laser on July 22. called EMS. [facility] he underwent extensive evaluation. Noted to be hypotensive requiring 3L of NS. Also noted to saturating 87% on RA. Evaluation was significant for WBC 15.25, Plt 138, Na 132, glu 125, BUN 31, Cr 1.39, Troponin 0.045, Lactic acid 1.2, Procal 2.18, BNP 3200. UA + nitrite and 2+ LE. Flu/COVID/RSV negative. EKG sinus rhythm, PVCs, RBBB. VBG pH 7.35, pCO2 47.6. CT AP and CXR negative for acute findings. He was transferred here for further evaluation. Vital signs at [facility] Tmax 103.2F, BP as low as 96/54, HR as high as 104, 98% on 6L NC. Started on maintenance fluids and Cefepime. Troponins trended 0.109 and 0.111. Echo showed EF 55-60%, septal wall thickness, trace MR, mild TR/MA. Patient improved significantly on the above treatment. [facility] called [facility], BCx and UCx is positive for Serratia. 08/06 Patient was seen and examined. Feeling less lethargic. SBP in the low 100s. CXR done today shows left apical mass which is stable, COPD with chronic interstitial lung disease, mild pulmonary vascular congestion not excluded. CBC and BMP significant for RBC 4, Hg 12.5, Hct 37.8, Plt 110, Na 134, Cl 108, BUN 29, Cr 1.31, glu 144, Ca 8.1. Troponin 0.109, 0.118. Discussed with lab at [facility], UCx and BCx is still pending ([phone]). 08/07 Patient was seen and examined. Feels considerably better. BP improved to 164/88 this morning. He is not on any IV fluids. Desaturated to 82% on RA yesterday. I have ordered Lasix 40 mg IV x 1. Echo shows EF 55-60%, septal wall thickness, trace MR, mild TR/MA. Urology plans on removing stent once cultures are finalized and he is on appropriate antibiotics. CBC and BMP significant for RBC 3.75, Hg 11.4, Hct 35.7, Plt 127, Na 136, Cl 110, BUN 23, Cr 0.95, Ca 8. Mag 2. 08/08 Patient was seen and examined. No complaints. Feeling better. UCx + BCx positive for Serratia. Discussed with Dr. Brunson, continue Cefepime and repeat BCx. Attempted trial of Xarelto yesterday but patient with hematuria this morning. Urology has removed ureteral stents, plans to DC Bowens and restart Xarelto if urine is clear in 24H. CBC and BMP significant for RBC 3.95, Hg 12.2, Hct 37.3, Cl 108, glu 137, Ca 8.2. Mag 1.9. 08/09 Patient was seen and examined. Ureteral stents pulled by Urology yesterday. Bowens catheter discontinued. Repeat BCx negative so far. Maintained on Cefepime 2g IV TID for Serratia bacteremia. 91% on RA this morning. CXR done today shows no acute process. Plans to resume Xarelto tomorrow. Plans for discharge home on Cipro 500 mg PO BID x 10 days. Follow up with Dr. Villa, Dr. Shelby and Dr. Brunson within 1 week. General: non toxic, no distress, appears at stated age Derm: warm, dry Head: atraumatic, normocephalic, symmetric Eyes: EOMI, no lid lag, anicteric sclera Mouth: no lip lesion, mucus membranes moist Cardiovascular: S1S2 reg, no murmur Lungs: Decreased BS bilateral, no rhonchi, no rales , no accessory muscle use Ext: no gross muscle atrophy, no edema, no contractures Neuro: no focal neuro deficits Psych: Alert, oriented, appropriate affect Discharge Diagnosis: Sepsis due to complicated UTI Serratia bacteremia likely due to above Acute hypoxic respiratory failure likely due to systolic CHF exacerbation Bronchiectasis and ILD Type 2 NSTEMI DOMINGO on CKD Urinary retention Hyponatremia Elevated D-Dimer CAD This complex discharge took 35 minutes to complete. Patient Condition at Discharge: Stable Plan - Discharge Summary Discharge Rx Participant: No New Discharge Prescriptions: New Ciprofloxacin HCl [Cipro] 500 mg PO Q12HR 10 Days #20 tab Aspirin 81 mg PO DAILY #30 tab Rivaroxaban [Xarelto] 20 mg PO W/SUPPER tab Continue Tamsulosin HCl [Flomax] 0.8 mg PO DAILY Gabapentin [Neurontin] 200 mg PO HS carvediloL [Coreg] 12.5 mg PO BID ALPRAZolam [Xanax] 0.25 mg PO BID Famotidine [Pepcid] 20 mg PO HS Baclofen 10 mg PO HS PRN PRN Reason: Muscle Spasm Furosemide [Lasix] 20 mg PO DAILY lisinopriL [Zestril] 20 mg PO DAILY traMADol HCL 50 mg PO BID Albuterol Inhaler [Ventolin Hfa Inhaler] 2 puff INHALATION RT-Q4H PRN PRN Reason: Shortness Of Breath Atorvastatin [Lipitor] 40 mg PO HS traZODone HCL [Desyrel] 50 mg PO HS Doxazosin [Cardura] 4 mg PO HS Dicyclomine [Bentyl] 10 mg PO BID Melatonin [Melatonin ER] 10 mg PO HS Finasteride [Proscar] 5 mg PO DAILY Discharge Medication List ALPRAZolam [Xanax] 0.25 mg PO BID 07/13/20 [History] Gabapentin [Neurontin] 200 mg PO HS 07/13/20 [History] Tamsulosin HCl [Flomax] 0.8 mg PO DAILY 07/13/20 [History] carvediloL [Coreg] 12.5 mg PO BID 07/13/20 [History] Famotidine [Pepcid] 20 mg PO HS 08/26/20 [History] Atorvastatin [Lipitor] 40 mg PO HS 01/08/23 [History] traZODone HCL [Desyrel] 50 mg PO HS 01/08/23 [History] Baclofen 10 mg PO HS PRN 11/19/23 [History] Doxazosin [Cardura] 4 mg PO HS 11/19/23 [History] Dicyclomine [Bentyl] 10 mg PO BID 07/07/24 [History] Furosemide [Lasix] 20 mg PO DAILY 07/07/24 [History] lisinopriL [Zestril] 20 mg PO DAILY 07/07/24 [History] Melatonin [Melatonin ER] 10 mg PO HS 07/17/24 [History] traMADol HCL 50 mg PO BID 07/22/24 [History] Albuterol Inhaler [Ventolin Hfa Inhaler] 2 puff INHALATION RT-Q4H PRN 08/05/24 [History] Finasteride [Proscar] 5 mg PO DAILY 08/05/24 [History] Aspirin 81 mg PO DAILY #30 tab 08/09/24 [Rx] Ciprofloxacin HCl [Cipro] 500 mg PO Q12HR 10 Days #20 tab 08/09/24 [Rx] Rivaroxaban [Xarelto] 20 mg PO W/SUPPER tab 08/09/24 [Rx] Follow up Appointment(s)/Referral(s): Ab Shelby MD [STAFF PHYSICIAN] - 1 Week Darrick Mondragon DO [Primary Care Provider] - 1-2 days Waldo Brunson MD [STAFF PHYSICIAN] - 1 Week Robert Villa MD [STAFF PHYSICIAN] - 1 Week
[2024-08-09] MEDS ORDERED: CEFEPIME 2 GM in SODIUM CHLORIDE 0.9% 100 ML IVPB SCH (16:00)
== END 2024-08-09 12:21 | disposition home or self-care (01) | DRG 871 ==
LOC: EC 09:17 → 5NMEDONC 11:21 → 1SOBS 11:43 → 3SCARD 12:00
PROVIDERS: ADMIT Internal Medicine; ATTEND Internal Medicine
DX: A41.53 Sepsis due to Serratia (principal); I21.A1 Myocardial infarction type 2; I50.23 Acute on chronic systolic (congestive) heart failure; J96.01 Acute respiratory failure with hypoxia; N39.0 Urinary tract infection, site not specified; I13.0 Hypertensive heart and chronic kidney disease with heart failure and stage 1 through stage 4 chronic kidney disease, or unspecified chronic kidney disease; N17.9 Acute kidney failure, unspecified; J84.9 Interstitial pulmonary disease, unspecified; E87.1 Hypo-osmolality and hyponatremia; J47.0 Bronchiectasis with acute lower respiratory infection; R33.9 Retention of urine, unspecified; E78.5 Hyperlipidemia, unspecified; I25.10 Atherosclerotic heart disease of native coronary artery without angina pectoris; I25.2 Old myocardial infarction; I95.9 Hypotension, unspecified; R31.0 Gross hematuria; T45.515A Adverse effect of anticoagulants, initial encounter; Y92.230 Patient room in hospital as the place of occurrence of the external cause; F41.9 Anxiety disorder, unspecified; I48.91 Unspecified atrial fibrillation; N18.2 Chronic kidney disease, stage 2 (mild); J84.10 Pulmonary fibrosis, unspecified; Z95.5 Presence of coronary angioplasty implant and graft; J47.9 Bronchiectasis, uncomplicated; N20.0 Calculus of kidney; W07.XXXA Fall from chair, initial encounter; Z79.01 Long term (current) use of anticoagulants; Z79.899 Other long term (current) drug therapy; Z86.718 Personal history of other venous thrombosis and embolism; Z87.891 Personal history of nicotine dependence
CPT/HCPCS: 71045; 71046; 80048; 83735; 84484; 85025; 85027; 87040; 93306; 94640; 94760; 96365; 96366; 96372; 96375; 99285

== ENCOUNTER 2024-10-21 17:34 | Inpatient (IN) | payer MEDICARE, OTHER ==
--- NOTE | 2024-10-21 18:02 | ED ---
Neuro HPI - General Source: patient, RN notes reviewed Mode of arrival: ambulatory Limitations: no limitations - History of Present Illness Is the patient presenting with stroke symptoms?: Yes Last Known Well Date: 10/21/24 Last Known Well Time: 13:30 Onset/Timin -: hour(s) Location: left face, left arm History of same: Yes <Dillon Lanza - Last Filed: 10/21/24 18:00> <Benedicto James - Last Filed: 10/21/24 20:44> - General Chief Complaint: Neuro Symptoms/Deficit Stated Complaint: poss stroke Time Seen by Provider: 10/21/24 17:50 - History of Present Illness Initial Comments: Quick note: This is a 79-year-old male presenting with left facial and arm numbness since 1330 today. Patient Dors is history of 2 TIAs recently endorses use of Xarelto. Patient denies headache, dizziness, vision changes. (Dillon Lanza) This is a 79-year-old male who presents with left-sided facial numbness and inability to control his left foot. Patient states that started 130 this afternoon and the symptoms of his foot resolved but he still has the decreased sensation in his face and hand. Patient states is mostly the first 3 fingers and not the fourth and fifth. Patient states this is occurred twice besides today during his last 2 months. Patient denies any recent fever chills or cough patient denies any chest pain difficulty breathing. Patient has any back pain. Patient has any abdominal pain patient has nausea vomiting diarrhea. (Benedicto James) - Related Data Home Medications: Home Medications Medication Instructions Recorded Confirmed ALPRAZolam [Xanax] 0.25 mg PO BID 07/13/20 08/05/24 Gabapentin [Neurontin] 200 mg PO HS 07/13/20 08/08/24 Tamsulosin HCl [Flomax] 0.8 mg PO DAILY 07/13/20 08/05/24 carvediloL [Coreg] 12.5 mg PO BID 07/13/20 08/05/24 Famotidine [Pepcid] 20 mg PO HS 08/26/20 08/05/24 Atorvastatin [Lipitor] 40 mg PO HS 01/08/23 08/05/24 traZODone HCL [Desyrel] 50 mg PO HS 01/08/23 08/05/24 Baclofen 10 mg PO HS PRN 11/19/23 08/05/24 Doxazosin [Cardura] 4 mg PO HS 11/19/23 08/05/24 Dicyclomine [Bentyl] 10 mg PO BID 07/07/24 08/05/24 Furosemide [Lasix] 20 mg PO DAILY 07/07/24 08/05/24 lisinopriL [Zestril] 20 mg PO DAILY 07/07/24 08/05/24 Melatonin [Melatonin Tr] 10 mg PO HS 07/17/24 08/05/24 traMADol HCL 50 mg PO BID 07/22/24 08/05/24 Albuterol Inhaler [Ventolin Hfa 2 puff INHALATION RT-Q4H PRN 08/05/24 08/05/24 Inhaler] Finasteride [Proscar] 5 mg PO DAILY 08/05/24 08/05/24 Previous Rx's Medication Instructions Recorded Aspirin 81 mg PO DAILY #30 tab 08/09/24 Ciprofloxacin HCl [Cipro] 500 mg PO Q12HR 10 Days #20 tab 08/09/24 Rivaroxaban [Xarelto] 20 mg PO W/SUPPER tab 08/09/24 Allergies/Adverse Reactions: Allergies Allergy/AdvReac Type Severity Reaction Status Date / Time iodine Allergy Anaphylaxis Verified 10/21/24 17:49 Review of Systems ROS Other: All systems not noted in ROS Statement are negative. <Dillon Lanza - Last Filed: 10/21/24 18:00> ROS Other: All systems not noted in ROS Statement are negative. <Benedicto James - Last Filed: 10/21/24 20:44> ROS Statement: Those systems with pertinent positive or pertinent negative responses have been documented in the HPI. General Exam Limitations: no limitations <Dillon Lanza - Last Filed: 10/21/24 18:00> <Benedicto James - Last Filed: 10/21/24 20:44> - General Exam Comments Initial Comments: Visual Physical Exam Vital signs reviewed General: Well-appearing, nontoxic, no acute distress. Head: Normocephalic, atraumatic Eyes: PERRLA, EOMI ENT: Airway patent Chest: Nonlabored breathing Skin: No visual rash, normal skin tone Neuro: Alert and oriented 3. Cobb stroke shows left facial drooping and left upper extremity drifting without pronation. Positive left facial paresthesia and LUE paresthesia. Patient denies mildly paresthesia Musculoskeletal: No gross abnormalities (Dillon Lanza) GENERAL: Patient is well-developed and well-nourished. Patient is nontoxic and well- hydrated and is in no acute distress. ENT: Neck is soft and supple. No significant lymphadenopathy is noted. Oropharynx is clear. Moist mucous membranes. Neck has full range of motion without eliciting any pain. EYES: The sclera were anicteric and conjunctiva were pink and moist. Extraocular movements were intact and pupils were equal round and reactive to light. Eyelids were unremarkable. PULMONARY: Unlabored respirations. Good breath sounds bilaterally. No audible rales rhonchi or wheezing was noted. CARDIOVASCULAR: There is a regular rate and rhythm without any murmurs gallops or rubs. ABDOMEN: Soft and nontender with normal bowel sounds. SKIN: Skin is clear with no lesions or rashes and otherwise unremarkable. NEUROLOGIC: Patient is alert and oriented x3. Cranial nerves II through XII are grossly intact. Motor is intact. Patient states that the sensation on the right side of his face is less than the right he also has decree sensation in fingers 1 2 and 3 on the left. Normal speech, volume and content. Symmetrical smile. MUSCULOSKELETAL: Normal extremities with adequate strength and full range of motion. No lower extremity swelling or edema. No calf tenderness. LYMPHATICS: No significant lymphadenopathy is noted PSYCHIATRIC: Normal psychiatric evaluation. (Benedicto James) Stroke MDM <Dillon Lanza - Last Filed: 10/21/24 18:00> - Lab Data Result diagrams: 10/21/24 17:54 10/21/24 17:54 <Benedicto James - Last Filed: 10/21/24 20:44> - Lab Data Lab Results 10/21/24 10/21/24 10/21/24 Range/Units 17:54 17:54 17:54 WBC 5.1 (3.8-10.6) k/uL RBC 3.92 L (4.30-5.90) m/uL Hgb 12.0 L (13.0-17.5) gm/dL Hct 37.0 L (39.0-53.0) % MCV 94.5 (80.0-100.0) fL MCH 30.7 (25.0-35.0) pg MCHC 32.5 (31.0-37.0) g/dL RDW 14.6 (11.5-15.5) % Plt Count 166 (150-450) k/uL MPV 8.1 Neutrophils % 55 % Lymphocytes % 28 % Monocytes % 9 % Eosinophils % 6 % Basophils % 1 % Neutrophils # 2.8 (1.3-7.7) k/uL Lymphocytes # 1.5 (1.0-4.8) k/uL Monocytes # 0.4 (0-1.0) k/uL Eosinophils # 0.3 (0-0.7) k/uL Basophils # 0.1 (0-0.2) k/uL PT 11.3 (10.0-12.5) sec INR 1.0 (<1.2) APTT 20.4 L (22.0-30.0) sec Sodium 139 (137-145) mmol/L Potassium 4.8 (3.5-5.1) mmol/L Chloride 109 H (98-107) mmol/L Carbon Dioxide 26 (22-30) mmol/L Anion Gap 4 mmol/L BUN 31 H (9-20) mg/dL Creatinine 1.25 (0.66-1.25) mg/dL Est GFR (CKD-EPI)AfAm 64 (>60 ml/min/1.73 sqM) Est GFR (CKD-EPI)NonAf 56 (>60 ml/min/1.73 sqM) Glucose 108 H (74-99) mg/dL POC Glucose (mg/dL) (70-110) mg/dL POC Glu Promotions Producer ID Calcium 8.6 (8.4-10.2) mg/dL Total Bilirubin 0.5 (0.2-1.3) mg/dL AST 27 (17-59) U/L ALT 14 (4-49) U/L Alkaline Phosphatase 84 (38-126) U/L Creatine Kinase 84 (55-170) U/L Troponin I (0.000-0.034) ng/mL Total Protein 7.0 (6.3-8.2) g/dL Albumin 4.2 (3.5-5.0) g/dL 10/21/24 10/21/24 Range/Units 17:54 17:58 WBC (3.8-10.6) k/uL RBC (4.30-5.90) m/uL Hgb (13.0-17.5) gm/dL Hct (39.0-53.0) % MCV (80.0-100.0) fL MCH (25.0-35.0) pg MCHC (31.0-37.0) g/dL RDW (11.5-15.5) % Plt Count (150-450) k/uL MPV Neutrophils % % Lymphocytes % % Monocytes % % Eosinophils % % Basophils % % Neutrophils # (1.3-7.7) k/uL Lymphocytes # (1.0-4.8) k/uL Monocytes # (0-1.0) k/uL Eosinophils # (0-0.7) k/uL Basophils # (0-0.2) k/uL PT (10.0-12.5) sec INR (<1.2) APTT (22.0-30.0) sec Sodium (137-145) mmol/L Potassium (3.5-5.1) mmol/L Chloride (98-107) mmol/L Carbon Dioxide (22-30) mmol/L Anion Gap mmol/L BUN (9-20) mg/dL Creatinine (0.66-1.25) mg/dL Est GFR (CKD-EPI)AfAm (>60 ml/min/1.73 sqM) Est GFR (CKD-EPI)NonAf (>60 ml/min/1.73 sqM) Glucose (74-99) mg/dL POC Glucose (mg/dL) 114 H (70-110) mg/dL POC Glu Promotions Producer ID Tammie Hoganyton Calcium (8.4-10.2) mg/dL Total Bilirubin (0.2-1.3) mg/dL AST (17-59) U/L ALT (4-49) U/L Alkaline Phosphatase (38-126) U/L Creatine Kinase (55-170) U/L Troponin I <0.012 (0.000-0.034) ng/mL Total Protein (6.3-8.2) g/dL Albumin (3.5-5.0) g/dL - Medical Decision Making I completed the quick note portion of this chart signed TORI Cade (Dillon Lanza) EKG is interpreted by myself. EKG shows sinus bradycardia 54 bpm MO interval 153 QRS is 143 QT interval is 459 QTc is 445. Patient's EKG shows a right bundle branch block Was pt. sent in by a medical professional or institution (NATI Christensen, CATALOGUE LIBRARIAN, urgent care, hospital, or care home...) When possible be specific @ -No Did you speak to anyone other than the patient for history (EMS, parent, family, police, friend...)? What history was obtained from this source @ -No Did you review nursing and triage notes (agree or disagree)? Why? @ -I reviewed and agree with nursing and triage notes Were old charts reviewed (outside hosp., previous admission, EMS record, old EKG, old radiological studies, urgent care reports/EKG's, care home records)? Report findings @ -No old charts were reviewed Differential Diagnosis? @ -Differential CVA Ischemic stroke, hemorrhagic stroke, brain tumor, atypical migraine, Wernicke's encephalopathy, seizure, multiple sclerosis, meningitis, encephalitis, hypoglycemia, Guillain-Garcia, electrolytes disturbance, myasthenia gravis.... This is not meant to be an all-inclusive list EKG interpreted by me (3pts min.). @ -As above X-rays interpreted by me (1pt min.). @ -Chest x-ray shows no acute abnormality CT interpreted by me (1pt min.). @ -CT of the brain shows no acute normality CT angiogram of the head and neck showed no acute abnormality. U/S interpreted by me (1pt. min.). @ -None done What testing was considered but not performed or refused? (CT, X-rays, U/S, labs)? Why? @ -None What meds were considered but not given or refused? Why? @ -None Did you discuss the management of the patient with other professionals (professionals i.e. NATI Christensen, CATALOGUE LIBRARIAN, lab, RT, psych nurse, older adult social work specialist, natural history collections curator, teacher, electronic warfare officer, field nurse case manager)? Give summary @ -I spoke with sound physicians agreed to admit the patient admit the patient I wrote admitting orders Was smoking cessation discussed for >3mins.? @ -No Was critical care preformed (if so, how long)? @ -35 minutes Were there social determinants of health that impacted care today? How? (Homelessness, low income, unemployed, alcoholism, drug addiction, transportation, low edu. Level, literacy, decrease access to med. care, half-way, rehab)? @ -No Was there de-escalation of care discussed even if they declined (Discuss DNR or withdrawal of care, Hospice)? DNR status @ -No What co-morbidities impacted this encounter? (DM, HTN, Smoking, COPD, CAD, Can cer, CVA, ARF, Chemo, Hep., AIDS, mental health diagnosis, sleep apnea, morbid obesity)? @ -None Was patient admitted / discharged? Hospital course, mention meds given and route, prescriptions, significant lab abnormalities, going to OR and other pertinent info. @ -Patient was admitted for TIA symptoms and the patient will be admitted to [facility] [place] [facility] with a neurology consult. I spoke with neurointerventionist and he agreed to review the films Undiagnosed new problem with uncertain prognosis? @ -No Drug Therapy requiring intensive monitoring for toxicity (Heparin, Nitro, Insulin, Cardizem)? @ -No Were any procedures done? @ -No Diagnosis/symptom? @ -TIA Acute, or Chronic, or Acute on Chronic? @ -Acute Uncomplicated (without systemic symptoms) or Complicated (systemic symptoms)? @ -Complicated Side effects of treatment? @ -No Exacerbation, Progression, or Severe Exacerbation? @ -No Poses a threat to life or bodily function? How? (Chest pain, USA, NH, pneumonia, PE, COPD, DKA, ARF, appy, cholecystitis, CVA, Diverticulitis, Homicidal, Suicidal, threat to staff... and all critical care pts) @ -Yes this will lead to a CVA and morbidity or mortality (Benedicto James) Past Medical History Past Medical History: Atrial Fibrillation, Coronary Artery Disease (CAD), Cancer, Chest Pain / Angina, GERD/Reflux, Hyperlipidemia, Hypertension, Myocardial Infarction (NH), Renal Disease Additional Past Medical History / Comment(s): hx kidney stones, 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, hx of septic shock, ARDS, and dialysis in 1986 from appendicitis, hx of melanoma on nose, pulmonary fibrosis Last Myocardial Infarction Date:: 2022 History of Any Multi-Drug Resistant Organisms: None Reported Past Surgical History: Appendectomy, Cholecystectomy, Heart Catheterization, Heart Catheterization With Stent, Orthopedic Surgery Additional Past Surgical History / Comment(s): lithotripsy, RIKA, EP study with cardioversion, sx on deborah knees, hips, shoulders, hx of colostomy and reversal, hx of trach and closure, hx of chest tubes, all related to septic shock in 1986 r/t to an appendectomy Past Anesthesia/Blood Transfusion Reactions: No Reported Reaction Date of Last Stent Placement:: 2022 Past Psychological History: Anxiety Smoking Status: Former smoker Past Alcohol Use History: None Reported Past Drug Use History: None Reported - Past Family History Sister(s) Family Medical History: Cancer Father Family Medical History: Cancer <Dillon Lanza - Last Filed: 10/21/24 18:00> Course Vital Signs 10/21/24 10/21/24 10/21/24 17:44 17:55 17:59 Temperature 97.9 F 97.8 F Pulse Rate 63 60 56 L Respiratory 16 17 16 Rate Blood Pressure 177/78 162/75 O2 Sat by Pulse 93 L 96 Oximetry 10/21/24 10/21/24 10/21/24 18:00 18:15 18:30 Temperature 97.6 F 97.7 F 97.6 F Pulse Rate 58 L 58 L 59 L Respiratory 16 15 16 Rate Blood Pressure 160/120 167/75 O2 Sat by Pulse 95 96 97 Oximetry 10/21/24 10/21/24 10/21/24 18:45 19:00 19:15 Temperature 98.0 F 98.0 F 97.7 F Pulse Rate 60 58 L 59 L Respiratory 18 17 Rate Blood Pressure 168/81 167/83 O2 Sat by Pulse 96 96 Oximetry 10/21/24 10/21/24 19:24 19:39 Temperature Pulse Rate 59 L 63 Respiratory 16 16 Rate Blood Pressure 154/93 168/83 O2 Sat by Pulse 96 97 Oximetry Disposition <Dillon Lanza - Last Filed: 10/21/24 18:00> Time of Disposition: 20:42 <Benedicto James - Last Filed: 10/21/24 20:44> Clinical Impression: Transient cerebral ischemia Disposition: ADMITTED IP TO THIS HOSP Referrals: Darrick Mondragon DO [Primary Care Provider] - 1-2 days
[2024-10-21] MEDS: diphenhydrAMINE 50 MG/ML 1 ML VIAL IVP STA (18:08)
[2024-10-21 18:09] LABS: Glucose,Whole Blood 114 mg/dL (70-110)
[2024-10-21] MEDS: methylPREDNISolone SOD SUCCI 125 MG/2 ML VIAL IV STA (18:09)
[2024-10-21] MEDS: FAMOTIDINE 20 MG/2 ML VIAL IV STA (18:09)
[2024-10-21 18:30] LABS: Basophils # (A) 0.1 k/uL (0-0.2); Basophils % (A) 1 %; Eosinophils # (A) 0.3 k/uL (0-0.7); Eosinophils % (A) 6 %; Lymphocytes # (A) 1.5 k/uL (1.0-4.8); Lymphocytes % (A) 28 %; MCH 30.7 pg (25.0-35.0); MCHC 32.5 g/dL (31.0-37.0); MCV 94.5 fL (80.0-100.0); Mean Platelet Volume 8.1; Monocytes # (A) 0.4 k/uL (0-1.0); Monocytes % (A) 9 %; Neutrophils # (A) 2.8 k/uL (1.3-7.7); Neutrophils % (A) 55 %; Platelet Count 166 k/uL (150-450); RBC 3.92 m/uL (4.30-5.90); RDW 14.6 % (11.5-15.5); WBC 5.1 k/uL (3.8-10.6)
--- NOTE | 2024-10-21 18:42 | CT ---
EXAMINATION TYPE: CODE STROKE: CT brain wo contr DATE OF EXAM: 10/21/2024 6:33 PM COMPARISON: None. CLINICAL INDICATION: Male, 79 years old with history of Left side paresthesia, left side facial droop /slurred speech TECHNIQUE: CT of the brain is performed utilizing 3 mm thick sections through the posterior fossa and 3 mm thick sections through the remaining calvarium. Study is performed within 24 hours of arrival to the hospital. Contrast used: mL of , (none if empty) CT DLP: 1100.6 mGycm, Automated exposure control for dose reduction was used. FINDINGS: No abnormal hyperdensity is present to suggest an acute intracranial hemorrhage. No mass lesion is evident. No acute infarcts are evident. Old lacunar infarct within the left basal ganglia may be present. Diff erential can include upper, robins space. This was present previously. Mild diffuse periventricular w sherly matter hypodensity is present, likely on the basis of chronic white matter ischemic changes. Ventricles and sulci are appropriate for the patient age. Paranasal sinuses and mastoid air cells within the [id number] are clear. IMPRESSION: 1. No acute intracranial process. Follow up MRI can be performed as clinically indicated. 2. Chronic appearing periventricular white matter ischemic changes. Old infarct or Virchow-Jose spac es in the left basal ganglion [facility], , 10/21/2024 6:39 PM
[2024-10-21 18:49] LABS: Prothrombin Time 11.3 sec (10.0-12.5)
--- NOTE | 2024-10-21 18:59 | CT ---
EXAMINATION TYPE: CODE STROKE: CTA head neck DATE OF EXAM: 10/21/2024 6:54 PM COMPARISON: None. CLINICAL INDICATION: Male, 79 years old with history of Left side paresthesia, TECHNIQUE: CTA scan is performed with axial images are obtained, coronal and sagittal reformatted iram ges are reviewed. 3-D reconstructed images are created on an independent workstation and reviewed. S ource images are reviewed. NASCET criteria was used in interpretation of this exam? Contrast used: mL of , (none if empty) Oral contrast used: (none if empty) CT DLP: mGycm, Automated exposure control for dose reduction was used. FINDINGS: Carotid/Vascular Structures: There is a 3 vessel arch. Common carotid arteries bifurcate into internal and external carotid arteries without significant brielle w limiting stenosis. Vertebral arteries are codominant. Internal carotid arteries and vertebral arteries are patent to the skull base. Cervical of [place]: Vertebral basilar system appears normal. Posterior cerebral vasculature is unrema rkable. Internal carotid arteries bifurcate normally into A1 and M1 segments. A2 segments are normal. Left A2 segment is dominant The anterior communicating artery is patent. The right posterior communicating artery is patent. The left posterior communicating artery is patent. Other: A lateral upper lobe consolidations. Underlying mass should be considered worse on the left. P ortion of the thyroid visualized is normal IMPRESSION: 1. No flow-limiting stenosis bilateral carotid bifurcations. 2. Normal [place] of [place]. 3. Left apical consolidation. Correlate for neoplasm. Findings appear stable from 11/19/2023 [facility], , 10/21/2024 6:57 PM
[2024-10-21 19:00] LABS: Partial Thromboplastin Time 20.4 sec (22.0-30.0)
[2024-10-21 19:27] LABS: ALT 14 U/L (4-49); AST 27 U/L (17-59); African American GFR (CKD) 64 (>60 ml/min/1.73 sqM); Albumin 4.2 g/dL (3.5-5.0); Alkaline Phosphatase 84 U/L (38-126); Anion Gap 4 mmol/L; Blood Urea Nitrogen 31 mg/dL (9-20); Calcium 8.6 mg/dL (8.4-10.2); Carbon Dioxide 26 mmol/L (22-30); Chloride 109 mmol/L (98-107); Creatine Kinase 84 U/L (55-170); Glucose 108 mg/dL (74-99); Non-African American GFR(CKD) 56 (>60 ml/min/1.73 sqM); Potassium 4.8 mmol/L (3.5-5.1); Sodium 139 mmol/L (137-145); Total Bilirubin 0.5 mg/dL (0.2-1.3)
--- NOTE | 2024-10-21 19:53 | XR ---
EXAMINATION TYPE: XR chest 2V DATE OF EXAM: 10/21/2024 7:48 PM COMPARISON: Chest x-ray 08/01/2024, CT chest 11/19/2023 CLINICAL INDICATION: Male, 79 years old with history of altered mental status, TECHNIQUE: XR chest 2V view(s) obtained. FINDINGS: The heart size is enlarged. The pulmonary vasculature is normal. There is chronic left apical thickening.. IMPRESSION: 1. No acute pulmonary process. 2. Chronic appearing changes [facility], , 10/21/2024 7:51 PM
[2024-10-21] MEDS: ASPIRIN 325 MG TAB PO STA (20:57)
--- NOTE | 2024-10-21 23:03 | P.HPIM ---
History of Present Illness H&P Date: 10/21/24 Chief Complaint: Possible stroke Patient is a 79-year-old male with past medical history of atrial fibrillation (on rivaroxaban 20 mg at home), coronary artery disease (left ventricular ejection fraction of 55 to 60% per echocardiogram performed on 08/06/2024), history of skin cancer, GERD, hyperlipidemia, hypertension, history of myocardial infarction, renal disease presented with left facial and arm numbness since 1:30 PM today. Patient reported he was shopping this afternoon and was leaning against the counter standing when he started noticing numbness in the left first 3 fingertips. Then he started noticing left part of his lip going numb along with numbness in his left arm. Afterwards he started noticing blurry vision in his left eye and then soon after his left foot became numb. Patient reported that this is the third time he has had this over the past 2 months. Patient denies tingling or weakness in his left upper and lower extremity when the numbness started. Patient denies fever, chills, nausea, vomiting, chest pain, shortness of breath, nausea, vomiting, diarrhea, constipation, urinary or fecal incontinence. Patient has been taking his medications consistently including Xarelto and blood pressure medicine. Symptoms of his foot have resolv ed but he still has decreased sensation in his face and hand. ED documentation reviewed. In the ED patient was treated with Benadryl 50 mg IV push x 1, Pepcid 20 mg IV x 1, Solu-Medrol 125 mg IV x 1, aspirin 325 mg p.o. x 1 Vitals on admission pulse rate 61, respiratory rate 16, blood pressure 174/82, 96% oxygen saturation on room air EKG independently interpreted as sinus bradycardia, possible left atrial enlargement, right bundle branch block, QTc of 445 ms CXR shows no acute pulmonary process and chronic appearing changes CT of the brain shows no acute intracranial process, follow-up MRI can be performed as clinically indicated. Also chronic appearing periventricular white matter ischemic changes. Old infarct or Virchow - Jose spaces in the left basal ganglia. CT angiography of head and neck shows no flow-limiting stenosis bilateral carotid bifurcations. Normal [place] of [place]. Left apical consolidation, correlate for neoplasm, findings appear stable from 11/19/2023. Labs on admission show WBC 5.1, hemoglobin 12, hematocrit 37, platelet 166, PT 11.3, PTT 20.4, INR 1.0, sodium 139, potassium 4.8, chloride 109, carbon dioxide 26, BUN 31, creatinine 1.25, glucose 108, troponin less than 0.012 Review of systems: Pertinent positives and negatives as discussed in HPI, a complete review of systems was performed and all other systems are negative. PMH: Atrial fibrillation, coronary artery disease, history of skin cancer, GERD, hyperlipidemia, hypertension, renal disease, history of kidney stones PSH: Appendectomy, cholecystectomy, heart cath with 5 stents (most recent one was in 2022) FMH: Family history of cancer Allergies: Iodine Social history: Tobacco: Former smoker Alcohol: None reported Recreational drugs: None reported Travel: No recent travel history Sick contacts: No recent sick contacts Physical examination: Vital signs reviewed General: nontoxic, no distress, appears at stated age, well-appearing Derm: warm, dry, intact Head: atraumatic, normocephalic, symmetric Eyes: EOMI, anicteric sclera Mouth: no lip lesion, mucus membranes moist Cardiovascular: S1 S2 reg, no murmur Lungs: CTA bilateral, no rhonchi, no rales, no accessory muscle use Abdominal: soft, non-tender to palpation Extremities: No cyanosis, clubbing, or pedal edema. Neuro: Alert, Oriented, Gross neurological examination did not reveal any focal deficits. Intact upper and lower extremity bilateral muscle strength 5 out of 5. Cranial nerves II to XII grossly intact. Intact cerebellar function including normal [id number] test and normal rapid alternating movement. Intact sensation in the face, upper extremity, and lower extremity. Psych: appropriate affect Assessment/Plan: Patient is a 79-year-old male with past medical history of A-fib, coronary artery disease, cancer, GERD, hyperlipidemia, hypertension, history of myocardial infarction, renal disease presented to the emergency department with left facial and arm numbness since 1:30 PM today. Patient will be admitted to the inpatient medicine services and will be closely monitored. Active: #. acute ischemic stroke Patient still reports some remaining numbness in the left portion of his face and lip and left first [address] showed no acute intracranial process, although follow-up MRI can be performed as clinically indicated CT angio of head and neck shows no flow-limiting stenosis Aspirin 81 mg daily NIH score 2 start plavix 75 mg po daily for 21 days Atorvastatin 80 mg daily Lipid panel Hemoglobin A1c Neuro consult Fall precautions Echo with bubble study PT/OT consult cardiac monitoring allow for permissive hypertension for 24-48 hrs # P. Afib on anticoagulation EKG sinus bradycardia xarelto 20 mg po daily coreg on hold for permissive hypertension , he is currently bradycardia, if his heart rate starts going up , consider restarting coreg #. Hypertension allow permissive hypertension #. Hyperlipidemia Atorvastatin 80 mg daily Chronic: #. GERD Restarted famotidine 20 mg F: No restrictions E: Replete as needed N: Heart healthy diet A: Ambulatory DVT prophylaxis: on xarelto for afib The patient is admitted with an anticipated less than 2 midnight stay for evaluation of possible stroke/TIA CODE STATUS: Full code Discussed with: Dr. Ngo Anticipated discharge place: Home I have seen and evaluated the patient today. I Discussed the case with the resident and agree with the resident's findings I edited the assessment and plan as necessary as documented in the resident's note. 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, hx of septic shock, ARDS, and dialysis in 1986 from appendicitis, hx of melanoma on nose, pulmonary fibrosis Last Myocardial Infarction Date:: 2022 History of Any Multi-Drug Resistant Organisms: None Reported Past Surgical History: Appendectomy, Cholecystectomy, Heart Catheterization, Heart Catheterization With Stent, Orthopedic Surgery Additional Past Surgical History / Comment(s): lithotripsy, RIKA, EP study with cardioversion, sx on deborah knees, hips, shoulders, hx of colostomy and reversal, hx of trach and closure, hx of chest tubes, all related to septic shock in 1986 r/t to an appendectomy Past Anesthesia/Blood Transfusion Reactions: No Reported Reaction Date of Last Stent Placement:: 2022 Past Psychological History: Anxiety Smoking Status: Former smoker Past Alcohol Use History: None Reported Past Drug Use History: None Reported - Past Family History Sister(s) Family Medical History: Cancer Father Family Medical History: Cancer Medications and Allergies Home Medications Medication Instructions Recorded Confirmed Type ALPRAZolam [Xanax] 0.25 mg PO BID 07/13/20 08/05/24 History Gabapentin [Neurontin] 200 mg PO HS 07/13/20 08/08/24 History Tamsulosin HCl [Flomax] 0.8 mg PO DAILY 07/13/20 08/05/24 History carvediloL [Coreg] 12.5 mg PO BID 07/13/20 08/05/24 History Famotidine [Pepcid] 20 mg PO HS 08/26/20 08/05/24 History Atorvastatin [Lipitor] 40 mg PO HS 01/08/23 08/05/24 History traZODone HCL [Desyrel] 50 mg PO HS 01/08/23 08/05/24 History Baclofen 10 mg PO HS PRN 11/19/23 08/05/24 History Doxazosin [Cardura] 4 mg PO HS 11/19/23 08/05/24 History Dicyclomine [Bentyl] 10 mg PO BID 07/07/24 08/05/24 History Furosemide [Lasix] 20 mg PO DAILY 07/07/24 08/05/24 History lisinopriL [Zestril] 20 mg PO DAILY 07/07/24 08/05/24 History Melatonin [Melatonin Tr] 10 mg PO HS 07/17/24 08/05/24 History traMADol HCL 50 mg PO BID 07/22/24 08/05/24 History Albuterol Inhaler [Ventolin Hfa 2 puff INHALATION RT-Q4H PRN 08/05/24 08/05/24 History Inhaler] Finasteride [Proscar] 5 mg PO DAILY 08/05/24 08/05/24 History Aspirin 81 mg PO DAILY #30 tab 08/09/24 Rx Ciprofloxacin HCl [Cipro] 500 mg PO Q12HR 10 Days #20 tab 08/09/24 Rx Rivaroxaban [Xarelto] 20 mg PO W/SUPPER tab 08/09/24 Rx Allergies Allergy/AdvReac Type Severity Reaction Status Date / Time iodine Allergy Anaphylaxis Verified 10/21/24 17:49 Physical Exam Vitals: Vital Signs Temp Pulse Resp BP Pulse Ox 10/21/24 20:51 62 16 174/87 95 10/21/24 20:39 56 L 14 166/83 97 10/21/24 20:09 72 16 195/97 93 L 10/21/24 19:39 63 16 168/83 97 10/21/24 19:24 59 L 16 154/93 96 10/21/24 19:15 97.7 F 59 L 17 167/83 96 10/21/24 19:00 98.0 F 58 L 10/21/24 18:45 98.0 F 60 18 168/81 96 10/21/24 18:30 97.6 F 59 L 16 167/75 97 10/21/24 18:15 97.7 F 58 L 15 96 10/21/24 18:00 97.6 F 58 L 16 160/120 95 10/21/24 17:59 56 L 16 10/21/24 17:55 97.8 F 60 17 162/75 96 10/21/24 17:44 97.9 F 63 16 177/78 93 L Intake and Output 10/21/24 10/21/24 10/21/24 06:59 14:59 22:59 Other: Weight 74.843 kg Results CBC & Chem 7: 10/21/24 17:54 10/21/24 17:54 Labs: Abnormal Lab Results - Last 24 Hours (Table) 10/21/24 10/21/24 10/21/24 Range/Units 17:54 17:54 17:54 RBC 3.92 L (4.30-5.90) m/uL Hgb 12.0 L (13.0-17.5) gm/dL Hct 37.0 L (39.0-53.0) % APTT 20.4 L (22.0-30.0) sec Chloride 109 H (98-107) mmol/L BUN 31 H (9-20) mg/dL Glucose 108 H (74-99) mg/dL POC Glucose (mg/dL) (70-110) mg/dL 10/21/24 Range/Units 17:58 RBC (4.30-5.90) m/uL Hgb (13.0-17.5) gm/dL Hct (39.0-53.0) % APTT (22.0-30.0) sec Chloride (98-107) mmol/L BUN (9-20) mg/dL Glucose (74-99) mg/dL POC Glucose (mg/dL) 114 H (70-110) mg/dL
[2024-10-21] MEDS ORDERED: ALBUTEROL NEBULIZED 2.5 MG/3 ML INHALATION PRN (23:24)
[2024-10-21] MEDS: FAMOTIDINE 20 MG TAB PO SCH (23:57)
[2024-10-21] MEDS: RIVAROXABAN 20 MG TAB PO SCH (23:58)
[2024-10-22 05:54] LABS: Chol/HDL Ratio 2.86 Ratio; LDL Cholesterol,Calculated 56.3 mg/dL (0.0-131.0)
[2024-10-22] MEDS: FINASTERIDE 5 MG TAB PO SCH (08:55)
[2024-10-22] MEDS: CLOPIDOGREL 75 MG TAB PO SCH ×2 (08:55→20:35)
[2024-10-22] MEDS: ASPIRIN 81 MG PO SCH (08:55)
[2024-10-22] MEDS ORDERED: ASPIRIN 325 MG TAB PO SCH (09:00)
[2024-10-22 10:11] LABS: Basophils % (A) 0 %; Eosinophils % (A) 0 %; HCT 40.2 % (39.0-53.0); HGB 12.7 gm/dL (13.0-17.5); Hypochromasia Slight; Lymphocytes # (A) 0.7 k/uL (1.0-4.8); Lymphocytes % (A) 9 %; MCH 30.5 pg (25.0-35.0); MCHC 31.6 g/dL (31.0-37.0); MCV 96.6 fL (80.0-100.0); Mean Platelet Volume 7.5; Monocytes # (A) 0.1 k/uL (0-1.0); Monocytes % (A) 2 %; Neutrophils # (A) 6.2 k/uL (1.3-7.7); Neutrophils % (A) 89 %; Platelet Count 157 k/uL (150-450); RBC 4.16 m/uL (4.30-5.90); RDW 14.1 % (11.5-15.5)
[2024-10-22 10:24] LABS: African American GFR (CKD) 79 (>60 ml/min/1.73 sqM); Anion Gap 9 mmol/L; Blood Urea Nitrogen 28 mg/dL (9-20); Calcium 9.1 mg/dL (8.4-10.2); Carbon Dioxide 24 mmol/L (22-30); Chloride 108 mmol/L (98-107); Glucose 210 mg/dL (74-99); Non-African American GFR(CKD) 69 (>60 ml/min/1.73 sqM); Potassium 4.9 mmol/L (3.5-5.1); Sodium 141 mmol/L (137-145)
--- NOTE | 2024-10-22 11:15 | P.PN ---
Subjective Progress Note Date: 10/22/24 Patient is a 79-year-old male with past medical history of atrial fibrillation maintained on rivaroxaban, coronary artery disease (left ventricular ejection fraction of 55 to 60% per echocardiogram performed on 08/06/2024), self-reported stroke in 1986, GERD, hyperlipidemia, hypertension, history of myocardial infarction presented with left facial and arm numbness since 1:30 PM on 10/21. Patient reported he was shopping this afternoon and was leaning against the counter standing when he started noticing numbness in the left first 3 fingertips. Then he started noticing left part of his lip going numb along with numbness in his left arm. Afterwards he started noticing blurry vision in his left eye and then soon after his left foot became numb. Patient reported that this is the third time he has had this over the past 2 months. Patient denies tingling or weakness in his left upper and lower extremity when the numbness started. Patient denies fever, chills, nausea, vomiting, chest pain, shortness of breath, nausea, vomiting, diarrhea, constipation, urinary or fecal incontinence. Patient has been taking his medications consistently including Xarelto and blood pressure medicine. Symptoms of his foot have resolved but he still has decreased sensation in his face and hand. 10/22. Patient seen and examined laying comfortably in bed. No acute events overnight. No significant complaints today. Patient reports resolved numbness and weakness on the left side of his face and left arm and leg. Labs today pending. Pertinent positives and negatives discussed above, a complete review of systems was performed and all the other systems were negative. Physical examination: Vital signs reviewed General: Nontoxic, no distress, appears stated age, well-appearing Derm: Warm, dry, intact Head: Atraumatic, normocephalic, symmetric Eyes: EOMI, anicteric sclera Mouth: No lip lesion, mucus membranes moist Cardiovascular: S1-S2 regular, no murmur Lungs: CTA bilateral, no rhonchi, no rales, no accessory muscle use Abdominal: Soft, non-tender to palpation Extremities: No cyanosis, clubbing, or pedal edema. Neuro: Alert, oriented x 3, gross neurological examination did not reveal any focal deficits. Cranial nerves II to XII grossly intact. Psych: Appropriate affect and mood Assessment and Plan: Patient is a 79-year-old male with past medical history of A-fib maintained on rivaroxaban, coronary artery disease, self-reported stroke in 1986, GERD, hyperlipidemia, hypertension, history of myocardial infarction, presented to the emergency department with left facial and arm numbness since 1:30 PM on 10/21. Active: #. Acute ischemic stroke versus TIA NIHSS 1 for mild smile asymmetry, at baseline, deficit from prior stroke MRI head without contrast, unclear if patient can get MRI Aspirin 81 mg daily Discontinue Plavix Continue rivaroxaban 20 mg daily Echo with bubble study Atorvastatin 80 mg daily Neurology consulted Fall precautions PT/OT consulted Speech consulted Cardiac monitoring Allow for permissive hypertension for 24-48 hrs #. Acute kidney injury; baseline creatinine 0.8. Bladder scan to rule out retention Monitor BMP Chronic: #. A-fib on anticoagulation Xarelto 20 mg po daily Coreg on hold for permissive hypertension #. Hypertension Allow permissive hypertension #. Hyperlipidemia Atorvastatin 80 mg daily #. GERD Restarted famotidine 20 mg #. BPH Continue finasteride 5 mg PO nightly F: No restrictions E: Replete as needed N: Heart healthy diet A: Ambulatory DVT prophylaxis: On Xarelto 20 mg for afib Code status: Full code Anticipated discharge place: Home I have seen and evaluated the patient today. Discussed with the resident and agree with the residents finding and plan as documented in the resident's note. Changes highlighted in blue font. Objective - Vital Signs Vital signs: Vital Signs Temp 97.7 F 10/22/24 06:39 Pulse 67 10/22/24 06:39 Resp 16 10/22/24 06:39 BP 155/78 10/22/24 06:39 Pulse Ox 93 L 10/22/24 06:39 FiO2 Intake & Output 10/21/24 10/22/24 10/22/24 18:59 06:59 18:59 Weight 74.843 kg - Labs CBC & Chem 7: 10/22/24 09:43 10/22/24 09:43 Labs: Abnormal Lab Results - Last 24 Hours (Table) 10/21/24 10/21/24 10/21/24 Range/Units 17:54 17:54 17:54 RBC 3.92 L (4.30-5.90) m/uL Hgb 12.0 L (13.0-17.5) gm/dL Hct 37.0 L (39.0-53.0) % APTT 20.4 L (22.0-30.0) sec Chloride 109 H (98-107) mmol/L BUN 31 H (9-20) mg/dL Glucose 108 H (74-99) mg/dL POC Glucose (mg/dL) (70-110) mg/dL Hemoglobin A1c (<=6.0) % Triglycerides (0.00-149.00) mg/dL 10/21/24 10/21/24 10/21/24 Range/Units 17:54 17:54 17:58 RBC (4.30-5.90) m/uL Hgb (13.0-17.5) gm/dL Hct (39.0-53.0) % APTT (22.0-30.0) sec Chloride (98-107) mmol/L BUN (9-20) mg/dL Glucose (74-99) mg/dL POC Glucose (mg/dL) 114 H (70-110) mg/dL Hemoglobin A1c 6.1 H (<=6.0) % Triglycerides 180.00 H (0.00-149.00) mg/dL
[2024-10-22] MEDS: RIVAROXABAN 20 MG TAB PO SCH (17:38)
--- NOTE | 2024-10-22 19:12 | P.CNNES ---
History of Present Illness Consult date: 10/22/24 Requesting physician: Benedicto James Reason for Consult: tia History of Present Illness: This is a 79-year-old gentleman who presents to the emergency department on 10/21/2024 for left facial and arm numbness. Patient is accompanied with his and his son. Patient noticed his symptoms yesterday around 2pm PM he in itially noticed numbness over the first 3 fingers then he felt his lip was going numb then his left arm. He also had blurry vision in the left eye then he felt numb over the left foot. He felt his left side was weak and has some speech difficulty. Patient states that he had similar presentation over the past 2 months and this is the third time he noticed this. Patient has history of atrial fibrillation on rivaroxaban. Patient states he is compliant taking his Xarelto. He is also on home dose of aspirin 81 mg daily. He is also compliant taking low-dose aspirin. In the past he was on Plavix but it was discontinued in July 2024 by his validation consultant, Dr. Knight. Patient states he had episode of TIA in 1986 and he was had multiple medical issues at that time. He has pulmonary fibrosis history, myositis ossificans coronary artery disease, hypertension, hyperlipidemia, myocardial infarction, renal disease. Currently patient feels he is back to baseline. Some of the workup during this hospital visit consisted of: Hemoglobin A1c 6.1 Lipid panel is triglyceride 180, cholesterol is 142, LDL is 56 and HDL is 49. I reviewed the rest of the lab workup CT of the head is reported as no acute intracranial process. I personally reviewed the CT and agree with the report. CT angiography of the head and neck is reported as no flow-limiting stenosis bilateral carotid bifurcation. Normal [place]. Left apical consolidation. Correlate for neoplasm. Finding appears stable from 11/19/2023.. Per the ED note it seems to the patient had decree sensation over the left more than the right and per their note they felt was TIA. No IV thrombolytic and I assumed because of low NIH as well as the patient is on anticoagulation and the risk outweigh the benefit. Review of Systems As per HPI. 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, hx of septic shock, ARDS, and dialysis in 1986 from appendicitis, hx of melanoma on nose, pulmonary fibrosis Last Myocardial Infarction Date:: 2022 History of Any Multi-Drug Resistant Organisms: None Reported Past Surgical History: Appendectomy, Cholecystectomy, Heart Catheterization, H eart Catheterization With Stent, Orthopedic Surgery Additional Past Surgical History / Comment(s): lithotripsy, IRKA, EP study with cardioversion, sx on deborah knees, hips, shoulders, hx of colostomy and reversal, hx of trach and closure, hx of chest tubes, all related to septic shock in 1986 r/t to an appendectomy Past Anesthesia/Blood Transfusion Reactions: No Reported Reaction Date of Last Stent Placement:: 2022 Past Psychological History: Anxiety Smoking Status: Former smoker Past Alcohol Use History: None Reported Past Drug Use History: None Reported - Past Family History Sister(s) Family Medical History: Cancer Father Family Medical History: Cancer Medications and Allergies Home Medications Medication Instructions Recorded Confirmed Type ALPRAZolam [Xanax] 0.25 mg PO BID 07/13/20 10/22/24 History Gabapentin [Neurontin] 200 mg PO HS 07/13/20 10/22/24 History Tamsulosin HCl [Flomax] 0.8 mg PO DAILY 07/13/20 10/22/24 History carvediloL [Coreg] 12.5 mg PO BID 07/13/20 10/22/24 History Famotidine [Pepcid] 20 mg PO HS 08/26/20 10/22/24 History Atorvastatin [Lipitor] 20 mg PO HS 01/08/23 10/22/24 History traZODone HCL [Desyrel] 50 mg PO HS 01/08/23 10/22/24 History Baclofen 10 mg PO HS PRN 11/19/23 10/22/24 History Doxazosin [Cardura] 4 mg PO HS 11/19/23 10/22/24 History Dicyclomine [Bentyl] 10 mg PO BID 07/07/24 10/22/24 History Furosemide [Lasix] 20 mg PO DAILY 07/07/24 10/22/24 History lisinopriL [Zestril] 20 mg PO DAILY 07/07/24 10/22/24 History Melatonin [Melatonin Tr] 10 mg PO HS 07/17/24 10/22/24 History traMADol HCL 50 mg PO BID PRN 07/22/24 10/22/24 History Albuterol Inhaler [Ventolin Hfa 2 puff INHALATION RT-Q4H PRN 08/05/24 10/22/24 History Inhaler] Finasteride [Proscar] 5 mg PO HS 08/05/24 10/22/24 History Aspirin 81 mg PO DAILY #30 tab 08/09/24 10/22/24 Rx Rivaroxaban [Xarelto] 20 mg PO W/SUPPER tab 08/09/24 10/22/24 Rx Escitalopram [Lexapro] 10 mg PO DAILY 10/22/24 10/22/24 History Allergies Allergy/AdvReac Type Severity Reaction Status Date / Time iodine Allergy Anaphylaxis Verified 10/22/24 09:15 Physical Examination - Vital Signs Vital Signs: Vital Signs Temp Pulse Resp BP Pulse Ox 10/22/24 08:10 68 20 130/74 95 10/22/24 07:46 98.0 F 72 16 142/71 96 10/22/24 06:39 97.7 F 67 16 155/78 93 L 10/22/24 05:46 65 16 147/71 96 10/22/24 05:39 97.8 F 67 14 155/74 96 10/22/24 04:39 98.1 F 74 16 167/80 98 10/22/24 03:46 65 14 141/79 93 L 10/22/24 03:39 65 14 130/68 92 L 10/22/24 02:39 63 16 129/67 93 L 10/22/24 01:46 62 16 124/66 93 L 10/22/24 01:45 65 14 116/62 92 L 10/22/24 01:09 65 16 115/60 92 L 10/22/24 01:00 63 14 107/57 92 L 10/22/24 00:39 63 14 104/55 92 L 10/22/24 00:09 64 16 103/59 92 L 10/21/24 23:46 65 14 125/61 91 L 10/21/24 23:39 65 16 156/77 92 L 10/21/24 23:09 73 14 164/87 95 10/21/24 23:00 65 16 174/78 93 L 10/21/24 22:51 67 16 132/61 97 10/21/24 22:45 69 16 148/65 99 10/21/24 22:09 98.2 F 58 L 16 169/76 99 10/21/24 21:46 61 16 176/81 98 10/21/24 21:39 68 14 180/78 95 10/21/24 21:13 61 16 174/82 96 10/21/24 20:51 62 16 174/87 95 10/21/24 20:39 56 L 14 166/83 97 10/21/24 20:09 72 16 195/97 93 L 10/21/24 19:39 63 16 168/83 97 10/21/24 19:24 59 L 16 154/93 96 10/21/24 19:15 97.7 F 59 L 17 167/83 96 10/21/24 19:00 98.0 F 58 L 10/21/24 18:45 98.0 F 60 18 168/81 96 10/21/24 18:30 97.6 F 59 L 16 167/75 97 10/21/24 18:15 97.7 F 58 L 15 96 10/21/24 18:00 97.6 F 58 L 16 160/120 95 10/21/24 17:59 56 L 16 10/21/24 17:55 97.8 F 60 17 162/75 96 10/21/24 17:44 97.9 F 63 16 177/78 93 L Intake and Output 10/21/24 10/22/24 10/22/24 22:59 06:59 14:59 Other: Weight 74.843 kg GENERAL: The patient is lying in bed and is not in acute distress. NEUROLOGICAL: Higher mental function: The patient is awake, alert, oriented to self, place and time. Patient is following commands. No aphasia and no neglect. Cranial nerves: The pupils are round, equal and reactive to light and accommodation. Visual solitario are full to confrontation throughout. Extraocular movement is intact no nystagmus is noted. Facial sensation is normal to touch throughout. The facial strength is normal throughout. Hearing is mildly decre ased bilaterally to hand rub. Tongue is midline and moved [id number] without any difficulty. No dysarthria is noted. Shoulder shrug is normal bilaterally. Motor: The strength is 5 over 5 throughout. Normal tone and bulk. Cerebellum: Normal finger to nose heel to chin bilaterally. Sensation: Sensation is normal to touch throughout. Reflexes (right/left): 2+ throughout. Plantars are downgoing bilaterally. Results - Laboratory Findings CBC and BMP: 10/22/24 09:43 10/22/24 09:43 Abnormal Lab Findings: Abnormal Labs 10/21/24 10/21/24 10/21/24 17:54 17:54 17:54 RBC 3.92 L Hgb 12.0 L Hct 37.0 L APTT 20.4 L Chloride 109 H BUN 31 H Glucose 108 H POC Glucose (mg/dL) Hemoglobin A1c Triglycerides 10/21/24 10/21/24 10/21/24 17:54 17:54 17:58 RBC Hgb Hct APTT Chloride BUN Glucose POC Glucose (mg/dL) 114 H Hemoglobin A1c 6.1 H Triglycerides 180.00 H Assessment and Plan Assessment: This is a 79-year-old gentleman who presents to the emergency department because of numbness over the left upper lower extremity, weakness involving the left side with speech difficulty. He stated symptoms began around 2 PM yesterday. He had similar presentation in the past 2 months. Likely transient ischemic attack History of TIA History of atrial fibrillation on Xarelto and is compliant taking medication. He is also on aspirin 81 mg daily. History of coronary artery disease History of hypertension Hyperlipidemia History of myocardial infarction History of pulmonary fibrosis History of myositis ossificans Plan: 2D echo is ordered and is pending Patient is unable to obtain MRI of the brain since he stated that he has metal and is noncompatible. I will get a repeat CT of the head tomorrow. Patient is resumed on his home medication of Xarelto 20 mg daily as well as aspirin 81 mg daily. Patient failed his medication therefore I stopped aspirin and start him on Plavix. Patient is on Lipitor 80 mg nightly for secondary stroke prophylaxis I ordered a routine EEG since patient is having recurrent symptoms to rule out any underlying outperform discharge or active seizures. Continue neurochecks Cardiac monitoring PT OT and PURCHASING INTERN are consulted Will defer the rest of the medical management to primary For DVT prophylaxis patient is on Xarelto The plan discussed with the patient, his was at bedside and son. Thank you for the consultation. Time with Patient: Greater than 30
[2024-10-22] MEDS: MELATONIN 5 MG TABLET PO SCH (20:34)
[2024-10-22] MEDS: DICYCLOMINE 10 MG CAP PO SCH (20:35)
[2024-10-22] MEDS: ATORVASTATIN 80 MG TAB PO SCH (20:35)
[2024-10-22] MEDS: DOXAZOSIN 4 MG TAB PO SCH (20:35)
[2024-10-22] MEDS: traZODone HCL 50 MG TAB PO SCH (20:35)
[2024-10-22] MEDS: GABAPENTIN 100 MG CAP PO SCH (20:35)
[2024-10-22] MEDS: FAMOTIDINE 20 MG TAB PO SCH (20:36)
[2024-10-23] MEDS: ALPRAZolam 0.25 MG TAB PO SCH (00:28)
[2024-10-23 08:21] LABS: African American GFR (CKD) 76 (>60 ml/min/1.73 sqM); Anion Gap 2 mmol/L; Blood Urea Nitrogen 30 mg/dL (9-20); Carbon Dioxide 30 mmol/L (22-30); Chloride 109 mmol/L (98-107); Glucose 121 mg/dL (74-99); Non-African American GFR(CKD) 66 (>60 ml/min/1.73 sqM); Potassium 5.1 mmol/L (3.5-5.1); Sodium 141 mmol/L (137-145)
[2024-10-23] MEDS: TAMSULOSIN 0.4 MG CAP.ER.24H PO SCH (09:24)
[2024-10-23] MEDS: ESCITALOPRAM 10 MG TAB PO SCH (09:24)
[2024-10-23] MEDS: carvediloL 12.5 MG TAB PO SCH (09:55)
[2024-10-23] MEDS: lisinopriL 20 MG TAB PO SCH (09:55)
[2024-10-23] MEDS: ACETAMINOPHEN TAB 325 MG TAB PO PRN (11:39)
--- NOTE | 2024-10-23 11:42 | CT ---
EXAMINATION TYPE: CT brain wo con DATE OF EXAM: 10/23/2024 COMPARISON: 01/09/2023 CLINICAL INDICATION: Male, 79 years old with history of acute cva; PHH, acute cva CT DLP: 1072.4 mGycm Automated exposure control for dose reduction was used. Findings: The ventricles, basal cisterns and sulci over the convexities are mildly enlarged. There is mild decr eased density in the periventricular white matter consistent with chronic ischemic white matter demye lination. There is no mass effect or shift of the midline structures. There is no acute intra or extra-axial hemorrhage. The posterior fossa including the brainstem, fourth ventricle and cerebellar pontine angles appear no rmal. Intraorbital contents appear normal and symmetric. Visualized paranasal sinuses and mastoid air cells are well aerated. The calvarium is intact. IMPRESSION: 1. No acute bleed or mass effect. 2. Mild senescent changes as described above.. No interval change compared to previous. [facility], Workstation: [id number] 10/23/2024 11:39 AM
--- NOTE | 2024-10-23 12:23 | P.PN ---
Subjective Progress Note Date: 10/23/24 Patient is a 79-year-old male with past medical history of atrial fibrillation maintained on rivaroxaban, coronary artery disease (left ventricular ejection fraction of 55 to 60% per echocardiogram performed on 08/06/2024), self-reported stroke in 1986, hyperlipidemia, hypertension, history of myocardial infarction, and GERD presented with left facial and arm numbness since 1:30 PM on 10/21. Patient reported he was shopping this afternoon and was leaning against the counter standing when he started noticing numbness in the left first 3 fingertips. Then he started noticing left part of his lip going numb along with numbness in his left arm. Afterwards he started noticing blurry vision in his left eye and then soon after his left foot became numb. Patient reported that this is the third time he has had this over the past 2 months. Patient denies tingling or weakness in his left upper and lower extremity when the numbness started. Patient denies fever, chills, nausea, vomiting, chest pain, shortness of breath, nausea, vomiting, diarrhea, constipation, urinary or fecal incontinence. Patient has been taking his medications consistently including Xarelto and blood pressure medicine. Symptoms of his foot have resolved but he still has decreased sensation in his face and hand. 10/22. Patient seen and examined laying comfortably in bed. No acute events overnight. No significant complaints today. Patient reports resolved numbness and weakness on the left side of his face and left arm and leg. Labs today pending. 10/23. Patient seen at bedside. No acute events overnight. Endorses pink- tinged urine that started this morning, states that this has happened many times before. Denies any weakness or numbness in his left arm, leg, or face. Pertinent positives and negatives discussed above, a complete review of systems was performed and all the other systems were negative. Physical examination: Vital signs reviewed General: Nontoxic, no distress, appears stated age, well-appearing Derm: Warm, dry, intact Head: Atraumatic, normocephalic, symmetric Eyes: EOMI, anicteric sclera Mouth: No lip lesion, mucus membranes moist Cardiovascular: S1-S2 regular, no murmur Lungs: CTA bilateral, no rhonchi, no rales, no accessory muscle use Abdominal: Soft, non-tender to palpation Extremities: No cyanosis, clubbing, or pedal edema. Neuro: Alert, oriented x 3, gross neurological examination did not reveal any focal deficits. Cranial nerves II to XII grossly intact. Psych: Appropriate affect and mood Assessment and Plan: Patient is a 79-year-old male with past medical history of A-fib maintained on rivaroxaban, coronary artery disease, self-reported stroke in 1986, hype rlipidemia, hypertension, history of myocardial infarction, and GERD presented to the emergency department with left facial and arm numbness since 1:30 PM on 10/21. Active: #. Acute ischemic stroke versus TIA NIHSS 1 for mild smile asymmetry, at baseline, deficit from prior stroke Repeat CT head today; patient has metal device implanted that is incompatible with an MRI machine Plavix 75 mg PO daily Rivaroxaban 20 mg daily Atorvastatin 80 mg daily Echo with bubble study results pending Discussed management with neurology, also recommending EEG, results pending Fall precautions PT/OT consulted Speech consulted Cardiac monitoring #. Acute kidney injury; baseline creatinine 0.8. Improving. Monitor BMP #. Hematuria Monitor CBC Had previous episodes, had cystoscopies in the past, outpatient follow-up Chronic: #. A-fib on anticoagulation Xarelto 20 mg po daily Resume home Coreg #. Hypertension Resume home Lisinopril #. Hyperlipidemia Atorvastatin 80 mg daily #. GERD Restarted famotidine 20 mg #. BPH Continue finasteride 5 mg PO nightly Continue tamsulosin 0.8 mg PO daily F: No restrictions E: Replete as needed N: Heart healthy diet A: Ambulatory DVT prophylaxis: On Xarelto 20 mg PO daily for A-fib GI prophylaxis: Famotidine 20 mg PO daily Code status: Full code Anticipated discharge place: Home I have seen and evaluated the patient today. Discussed with the resident and agree with the residents finding and plan as documented in the resident's note. Changes highlighted in blue font. Objective - Vital Signs Vital signs: Vital Signs Temp 97.6 F 10/23/24 04:00 Pulse 65 10/23/24 04:00 Resp 16 10/23/24 04:00 BP 117/64 10/23/24 04:00 Pulse Ox 96 10/23/24 04:00 FiO2 Intake & Output 10/22/24 10/23/24 10/23/24 18:59 06:59 18:59 Intake Total 490 Balance 490 Weight 71.6 kg Intake: IV 10 Invasive Line 1 10 Oral 480 Other: Voiding Method Toilet # Voids 2 - Labs CBC & Chem 7: 10/22/24 09:43 10/23/24 07:34 Labs: Abnormal Lab Results - Last 24 Hours (Table) 10/22/24 10/22/24 Range/Units 09:43 09:43 RBC 4.16 L (4.30-5.90) m/uL Hgb 12.7 L (13.0-17.5) gm/dL Lymphocytes # 0.7 L (1.0-4.8) k/uL Chloride 108 H (98-107) mmol/L BUN 28 H (9-20) mg/dL Glucose 210 H (74-99) mg/dL
--- NOTE | 2024-10-23 14:21 | P.PN ---
Subjective Progress Note Date: 10/23/24 I am following up with the patient and he is accompanied with his . Patient feels back to baseline. Denies of any new neurological issues. No further numbness weakness speech difficulty. Objective - Vital Signs Vital signs: Vital Signs Temp 97.6 F 10/23/24 09:15 Pulse 52 L 10/23/24 13:39 Resp 16 10/23/24 13:39 BP 173/78 10/23/24 11:37 Pulse Ox 98 10/23/24 11:37 FiO2 Intake & Output 10/22/24 10/23/24 10/23/24 18:59 06:59 18:59 Intake Total 490 138 Balance 490 138 Weight 71.6 kg Intake: IV 10 20 Invasive Line 1 10 20 Oral 480 118 Other: Voiding Method Toilet Toilet # Voids 2 - Exam GENERAL: The patient is sitting in a recliner chair and is not in acute distress. NEUROLOGICAL: Higher mental function: The patient is awake, alert, oriented to self, place and time. Patient is following commands. No aphasia and no neglect. Cranial nerves: The pupils are round, equal and reactive to light and accommodation. Visual solitario are full to confrontation throughout. Extraocular movement is intact no nystagmus is noted. Facial sensation is normal to touch throughout. The facial strength is normal throughout. Hearing is mildly decreased bilaterally to hand rub. Tongue is midline and moved [id number] without any difficulty. No dysarthria is noted. Shoulder shrug is normal bilaterally. Motor: The strength is 5 over 5 throughout. Normal tone and bulk. Cerebellum: Normal finger to nose bilaterally. Sensation: Sensation is normal to touch throughout. Some of the workup during this hospital visit consisted of: Hemoglobin A1c 6.1 Lipid panel is triglyceride 180, cholesterol is 142, LDL is 56 and HDL is 49. I reviewed the rest of the lab workup CT of the head is reported as no acute intracranial process. I personally reviewed the CT and agree with the report. CT angiography of the head and neck is reported as no flow-limiting stenosis bilateral carotid bifurcation. Normal [place] of [place]. Left apical consolidation. Correlate for neoplasm. Finding appears stable from 11/19/2023. . Per the ED note it seems to the patient had decree sensation over the left more than the right and per their note they felt was TIA. No IV thrombolytic and I assumed because of low NIH as well as the patient is on anticoagulation and the risk outweigh the benefit. Repeat CT of the head is reported as no acute bleed or mass effect. Mild senescent changes as described above. No interval change compared to previous. I personally reviewed the CT and agree with the report. - Labs CBC & Chem 7: 10/22/24 09:43 10/23/24 07:34 Labs: Abnormal Lab Results - Last 24 Hours (Table) 10/23/24 Range/Units 07:34 Chloride 109 H (98-107) mmol/L BUN 30 H (9-20) mg/dL Glucose 121 H (74-99) mg/dL Assessment and Plan Assessment: This is a 79-year-old gentleman who presents to the emergency department because of numbness over the left upper lower extremity, weakness involving the left side with speech difficulty. He stated symptoms began around 2 PM yesterday. He had similar presentation in the past 2 months. Likely transient ischemic attack. Repeat CT head is unremarkable for acute or subacute process. History of TIA History of atrial fibrillation on Xarelto and is compliant taking medication. He is also on aspirin 81 mg daily. History of coronary artery disease History of hypertension Hyperlipidemia History of myocardial infarction History of pulmonary fibrosis History of myositis ossificans Plan: 2D echo is pending Patient is unable to obtain MRI of the brain since he stated that he has metal and is noncompatible. Patient is resumed on his home medication of Xarelto 20 mg daily as well as aspirin 81 mg daily. Patient failed his medication therefore I stopped aspirin and start him on Plavix (which was started on 10/22/2024). Patient is on Lipitor 80 mg nightly for secondary stroke prophylaxis Preliminary EEG: Is negative for seizure Continue neurochecks Cardiac monitoring PT OT and HABITAT MANAGEMENT COORDINATOR are consulted Will defer the rest of the medical management to primary For DVT prophylaxis patient is on Xarelto Upon discharge, recommend the patient to follow-up with a neurologist as outpatient within 2 weeks. The plan discussed with the patient and his who is at bedside. If 2D echo is unremarkable then patient is clear from a neurological perspective. Time with Patient: Less than 30
[2024-10-23] MEDS: FINASTERIDE 5 MG TAB PO SCH (20:04)
--- NOTE | 2024-10-23 22:13 | EEG ---
ELECTROENCEPHALOGRAM REPORT CLINICAL HISTORY: This is a 79-year-old gentleman with recurrent numbness. The video EEG is obtained to evaluate for seizure epileptiform activity. RELEVANT MEDICATION: Gabapentin. EEG TYPE: This is a routine 21-channel EEG with video using the 10/20 electrode placement system. DESCRIPTION: Wakefulness is only obtained. During awake state, the posterior-dominant rhythm consists of [id number] voltage of 9 to 9.5 hertz activity that is well modulated and well sustained. There is no physiological stage 2 sleep architecture. There is no focal slowing. Interictal and ictal is none. ACTIVATION PROCEDURE: Photic stimulation did not evoke a posterior driving response. There is no abnormality during the photic stimulation. Hyperventilation is not performed. CLINICAL INTERPRETATION: This is a normal routine EEG during awake state. There is no focal slowing, epileptiform discharges, or seizure on the EEG. Clinical correlation is recommended. PETRA / CHANDANA: [id number] /
[2024-10-24 05:13] VITALS: TEMP 98
[2024-10-24 07:35] LABS: Basophils # (A) 0.1 k/uL (0-0.2); Basophils % (A) 1 %; Eosinophils # (A) 0.3 k/uL (0-0.7); Eosinophils % (A) 4 %; HGB 11.6 gm/dL (13.0-17.5); Hypochromasia Slight; Lymphocytes # (A) 1.7 k/uL (1.0-4.8); Lymphocytes % (A) 26 %; MCH 30.9 pg (25.0-35.0); MCHC 32.3 g/dL (31.0-37.0); MCV 95.6 fL (80.0-100.0); Mean Platelet Volume 7.1; Monocytes # (A) 0.6 k/uL (0-1.0); Monocytes % (A) 9 %; Neutrophils # (A) 3.6 k/uL (1.3-7.7); Neutrophils % (A) 58 %; Platelet Count 144 k/uL (150-450); RBC 3.76 m/uL (4.30-5.90); RDW 14.3 % (11.5-15.5); WBC 6.3 k/uL (3.8-10.6)
[2024-10-24 08:04] VITALS: BP 150/66; PULSE 56; RESP 16
[2024-10-24 08:05] LABS: Potassium 4.9 mmol/L (3.5-5.1)
[2024-10-24 08:06] LABS: African American GFR (CKD) 89 (>60 ml/min/1.73 sqM); Anion Gap -1 mmol/L; Blood Urea Nitrogen 25 mg/dL (9-20); Calcium 8.5 mg/dL (8.4-10.2); Carbon Dioxide 28 mmol/L (22-30); Chloride 110 mmol/L (98-107); Glucose 90 mg/dL (74-99); Non-African American GFR(CKD) 77 (>60 ml/min/1.73 sqM); Sodium 137 mmol/L (137-145)
--- NOTE | 2024-10-24 10:18 | CA ---
Transthoracic Echo Report Name: Hieu Espinal Age: 79 Gender: M : 1945 Exam Date: 10/23/2024 14:39 Exam Location: [facility] Ht (in): 69 Wt (lb): 157 Ordering Physician: Magdaleno Trejo MD Attending/Referring Phys: [id number], Maya Mastic Floor Layer Kourtney Nathan, LAKESHA Procedure CPT: Indications: stroke Cardiac Hx: limited study Technical Quality: Fair Contrast 1: Agitated Saline Total Dose (mL): 9 Contrast 2: Total Dose (mL): MEASUREMENTS (Male / Female) Normal Values DOPPLER TR Peak Velocity 216.4 cm/s TR Peak Gradient 18.7 mmHg Right Ventricular Systolic Press 23.7 mmHg FINDINGS Left Ventricle Left ventricular ejection fraction is estimated at 50-55 %. Right Ventricle Right ventricular systolic pressure within normal limits. Right Atrium Normal right atrial size. Negative agitated saline bubble study for right to left shunt. Left Atrium Mitral Valve Structurally normal mitral valve. No mitral stenosis, regurgitation or prolapse. Aortic Valve Tricuspid Valve Moderate tricuspid regurgitation. Pulmonic Valve Pericardium No pericardial or pleural effusion. Aorta CONCLUSIONS Limited views. Normal LV systolic function about 50-55% ejection fraction. No pericardial effusion. Bubble study negative Previewed by: Dr. Josh Ley MD (Electronically Signed) Final Date: 24 October 2024 10:17
--- NOTE | 2024-10-24 16:12 | P.DS ---
Providers Date of admission: 10/21/24 20:44 Expected date of discharge: 10/24/24 Attending physician: Kirit Ngo MD Consults: 10/21/24 20:45 Consult Physician Routine Consulting Provider: Sajan Polk Consult Reason/Comments: TIA Do you want consulting provider notified?: Yes Primary care physician: [facility] Course: Hospital Course: Patient is a 79-year-old male with past medical history of atrial fibrillation maintained on rivaroxaban, coronary artery disease (left ventricular ejection fraction of 55 to 60% per echocardiogram performed on 08/06/2024), self-reported stroke in 1986, hyperlipidemia, hypertension, history of myocardial infarction, and GERD presented with left facial and arm numbness since 1:30 PM on 10/21. Patient reported he was shopping this afternoon and was leaning against the counter standing when he started noticing numbness in the left first 3 fingertips. Then he started noticing left part of his lip going numb along with numbness in his left arm. Afterwards he started noticing blurry vision in his left eye and then soon after his left foot became numb. Patient reported that this is the third time he has had this over the past 2 months. Patient denies tingling or weakness in his left upper and lower extremity when the numbness started. Patient denies fever, chills, nausea, vomiting, chest pain, shortness of breath, nausea, vomiting, diarrhea, constipation, urinary or fecal incontinence. Patient has been taking his medications consistently including Xarelto and blood pressure medicine. Symptoms of his foot have resolved but he still has decreased sensation in his face and hand. Neurology was consulted. EEG negative for focal slowing, epileptiform discharges, or seizure. Repeat head CT negative for acute bleed or mass effect. Echo with bubble study negative, EF 50-55%. All symptoms have resolved. Patient should follow-up with primary care provider and neurologist. Medication changes upon discharge: Start Plavix 75 mg PO daily; discontinue Aspirin 81 mg. Patient is medically stable for discharge. Final Diagnosis: #. Transient ischemic attack. #. Acute kidney injury. Resolved. #. Hematuria. Resolved. #. A-fib on Xarelto #. Hypertension #. Hyperlipidemia #. BPH #. GERD Physical examination: Vital signs reviewed General: Nontoxic, no distress, appears stated age, well-appearing Derm: Warm, dry, intact Head: Atraumatic, normocephalic, symmetric Eyes: EOMI, anicteric sclera Mouth: No lip lesion, mucus membranes moist Cardiovascular: S1-S2 regular, no murmur Lungs: CTA bilateral, no rhonchi, no rales, no accessory muscle use Abdominal: Soft, non-tender to palpation Extremities: No cyanosis, clubbing, or pedal edema. Neuro: Alert, oriented x 3, gross neurological examination did not reveal any focal deficits. Cranial nerves II to XII grossly intact. Psych: Appropriate affect and mood A total of 36 minutes of time were spent preparing this complex discharge summary. Patient was discharged on 10/24/24 1031. I have seen and evaluated the patient today. Discussed with the resident and agree with the residents finding and plan as documented in the resident's note. Changes highlighted in blue font. Patient Condition at Discharge: Stable Plan - Discharge Summary Discharge Rx Participant: Yes New Discharge Prescriptions: New Clopidogrel [Plavix] 75 mg PO DAILY #90 tab Continue Tamsulosin HCl [Flomax] 0.8 mg PO DAILY Gabapentin [Neurontin] 200 mg PO HS carvediloL [Coreg] 12.5 mg PO BID ALPRAZolam [Xanax] 0.25 mg PO BID Famotidine [Pepcid] 20 mg PO HS Baclofen 10 mg PO HS PRN PRN Reason: Muscle Spasm Furosemide [Lasix] 20 mg PO DAILY lisinopriL [Zestril] 20 mg PO DAILY traMADol HCL 50 mg PO BID PRN PRN Reason: Pain Albuterol Inhaler [Ventolin Hfa Inhaler] 2 puff INHALATION RT-Q4H PRN PRN Reason: Shortness Of Breath Atorvastatin [Lipitor] 20 mg PO HS traZODone HCL [Desyrel] 50 mg PO HS Doxazosin [Cardura] 4 mg PO HS Dicyclomine [Bentyl] 10 mg PO BID Melatonin [Melatonin Tr] 10 mg PO HS Finasteride [Proscar] 5 mg PO HS Rivaroxaban [Xarelto] 20 mg PO W/SUPPER tab Escitalopram [Lexapro] 10 mg PO DAILY Discontinued Aspirin 81 mg PO DAILY #30 tab Discharge Medication List ALPRAZolam [Xanax] 0.25 mg PO BID 07/13/20 [History] Gabapentin [Neurontin] 200 mg PO HS 07/13/20 [History] Tamsulosin HCl [Flomax] 0.8 mg PO DAILY 07/13/20 [History] carvediloL [Coreg] 12.5 mg PO BID 07/13/20 [History] Famotidine [Pepcid] 20 mg PO HS 08/26/20 [History] Atorvastatin [Lipitor] 20 mg PO HS 01/08/23 [History] traZODone HCL [Desyrel] 50 mg PO HS 01/08/23 [History] Baclofen 10 mg PO HS PRN 11/19/23 [History] Doxazosin [Cardura] 4 mg PO HS 11/19/23 [History] Dicyclomine [Bentyl] 10 mg PO BID 07/07/24 [History] Furosemide [Lasix] 20 mg PO DAILY 07/07/24 [History] lisinopriL [Zestril] 20 mg PO DAILY 07/07/24 [History] Melatonin [Melatonin Tr] 10 mg PO HS 07/17/24 [History] traMADol HCL 50 mg PO BID PRN 07/22/24 [History] Albuterol Inhaler [Ventolin Hfa Inhaler] 2 puff INHALATION RT-Q4H PRN 08/05/24 [History] Finasteride [Proscar] 5 mg PO HS 08/05/24 [History] Rivaroxaban [Xarelto] 20 mg PO W/SUPPER tab 08/09/24 [Rx] Escitalopram [Lexapro] 10 mg PO DAILY 10/22/24 [History] Clopidogrel [Plavix] 75 mg PO DAILY #90 tab 10/24/24 [Rx] Follow up Appointment(s)/Referral(s): No Persaud MD [REFERRING] - 1 Week (please call to schedule appointment) Darrick Mondragon DO [Primary Care Provider] - 1-2 days (Office is currently not answering phone lines. Please call to schedule appointment) Patient Instructions/Handouts: Transient Ischemic Attack (DC) Activity/Diet/Wound Care/Special Instructions: Please follow-up with primary care provider and neurologist. Discharge Disposition: HOME SELF-CARE
== END 2024-10-24 12:21 | disposition home or self-care (01) | DRG 69 ==
LOC: EC 17:34 → 1SOBS 20:44 → 3SCARD 10-22 12:19
PROVIDERS: ADMIT Internal Medicine; ATTEND Internal Medicine
DX: G45.9 Transient cerebral ischemic attack, unspecified (principal); N17.9 Acute kidney failure, unspecified; J84.10 Pulmonary fibrosis, unspecified; I48.91 Unspecified atrial fibrillation; I69.392 Facial weakness following cerebral infarction; I10 Essential (primary) hypertension; I25.10 Atherosclerotic heart disease of native coronary artery without angina pectoris; E78.5 Hyperlipidemia, unspecified; R20.0 Anesthesia of skin; H53.8 Other visual disturbances; N40.0 Benign prostatic hyperplasia without lower urinary tract symptoms; R31.9 Hematuria, unspecified; R00.1 Bradycardia, unspecified; K21.9 Gastro-esophageal reflux disease without esophagitis; R29.702 NIHSS score 2; Z79.01 Long term (current) use of anticoagulants; Z79.02 Long term (current) use of antithrombotics/antiplatelets; Z79.82 Long term (current) use of aspirin; Z87.891 Personal history of nicotine dependence; Z79.899 Other long term (current) drug therapy; I25.2 Old myocardial infarction; Z85.828 Personal history of other malignant neoplasm of skin
CPT/HCPCS: 36415; 70450; 70496; 70498; 71046; 80048; 80053; 80061; 82550; 83036; 83735; 84484; 85025; 85610; 85730; 93005; 93308; 95816; 96374; 96375; 99285

== ENCOUNTER → 2025-02-12 | Outpatient (CLI) | payer MEDICARE, OTHER ==
--- NOTE | 2025-02-12 15:15 | US ---
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 IMPRESSION: 1. No hydronephrosis. 2. Hypertrophy of the median lobe of the prostate gland impressing into the base of the bladder. Andria elate for BPH with patient's symptoms and PSA values. [facility], , 02/12/2025 3:12 PM
== END | disposition home or self-care (01) ==
LOC: RADUSWWP 14:23
PROVIDERS: ATTEND Family Medicine
DX: N40.0 Benign prostatic hyperplasia without lower urinary tract symptoms (principal); N30.81 Other cystitis with hematuria
CPT/HCPCS: 76770

== ENCOUNTER → 2025-02-20 | Outpatient (CLI) | payer MEDICARE, OTHER ==
[2025-02-20 15:21] LABS: HCT 40.3 % (39.6-50.0); HGB 12.3 g/dL (13.0-17.0); MCH 29.1 pg (27.0-32.0); MCHC 30.5 g/dL (32.0-37.0); MCV 95.3 FL (80.0-97.0); Mean Platelet Volume 10.5 FL (9.5-12.2); NRBC Per 100 WBC 0 X 10*3/uL (0.00-0.01); Platelet Count 156 X 10*3/uL (140-440); RBC 4.23 X 10*6/uL (4.40-5.60); RDW 13.5 % (11.5-14.5); WBC 6.04 X 10*3/uL (4.50-10.00)
[2025-02-20 15:33] LABS: BUN/Creat Ratio 17.38 Ratio (12.00-20.00); Blood Urea Nitrogen 22.6 mg/dL (9.0-27.0); Calcium 8.6 mg/dL (8.7-10.3); Carbon Dioxide 29.4 mmol/L (21.6-31.8); Chloride 110 mmol/L (96-109); Glucose 100 mg/dL (70-110); Potassium 5.7 mmol/L (3.5-5.5); Sodium 145 mmol/L (135-145)
== END | disposition home or self-care (01) ==
LOC: LABWHC1 10:26
PROVIDERS: ATTEND Urology
DX: Z01.812 Encounter for preprocedural laboratory examination (principal)
CPT/HCPCS: 36415; 80048; 85027